=== PATIENT | female | born 1990 | race African-American/Black ===

== ENCOUNTER 2016-06-18 11:20 | Outpatient (CLI) | payer MEDICAID ==
[~2016-06-18] VITALS: Ht 157.5 cm; Wt 83.1 kg
[~2016-06-18 11:20] MED LIST: AC325T; ACET-2303 PO; ACHD5005 PO; AMOX500C2 PO; BUTA-234 PO; CPR500T PO; CYCL10TA9 PO; DEPRESSION MED; DIPH50CA33 PO; ENXP80I.8 SC; ENXP80I.8 SQ; FLUT1DIS28; HEPA500016 IJ; HYDR-707 PO; LRT10T PO; MULT-974 PO; NITR100C PO; ONDA-42 SL; ONDA-43 PO; ONDA8TAB6 PO; OXYC-12 PO; PHEN200T27 PO; PREN1TAB39 PO; PRM25T PO; SULF1TAB38 PO; TOPI100T PO; TRAZ-144 PO; TRM50T PO; WRF5T; WRF5T PO
[2016-06-18 11:30] VITALS: BP 125/77
[2016-06-18] MEDS ORDERED: OMEP20TA33 PO (12:20)
[2016-06-18] MEDS ORDERED: BUTA1CAP17 PO (12:20)
[2016-06-18] MEDS ORDERED: DOXY1TAB3 PO (12:20)
[2016-06-18] MEDS ORDERED: ASPI-808 PO (12:20)
[2016-06-18] MEDS ORDERED: PREN1TAB86 PO (12:20)
[2016-06-18] MEDS ORDERED: TRAM50TA2 PO (12:20)
[2016-06-18] MEDS ORDERED: METF500T4 PO (12:20)
[2016-06-18] MEDS ORDERED: DIPH25CA79 PO (12:20)
[2016-06-18 12:30] VITALS: BP 143/92
[2016-06-18 13:00] VITALS: BP 131/67
[2016-06-18] MEDS ORDERED: CHOL100048 PO (13:10)
[2016-06-18] MEDS ORDERED: VITA1CAP PO (13:10)
--- NOTE | 2016-06-19 10:48 | Physician Query-Final Dx ---
DAMIAN BRANCH 06/19/16 1048: Clinic Account Progress/Dx Physician Query: Please give diagnosis Date of Service June 18, 2016 at 11:20 FRANK RODRIGUEZ DO 06/25/16 1532: Clinic Account Progress/Dx DIAGNOSIS: Diagnosis threatened labor DAMIAN BRANCH June 19, 2016 10:48 FRANK RODRIGUEZ DO June 25, 2016 15:32
== END 2016-06-18 13:22 | disposition home or self-care (01) ==
LOC: LDRP 11:20 → WSo 11:20
PROVIDERS: ATTEND Obstetrics & Gynecology
DX: O47.03 False labor before 37 completed weeks of gestation, third trimester (principal); Z3A.36 36 weeks gestation of pregnancy
CPT/HCPCS: 99213

== ENCOUNTER 2016-07-08 08:05 | Inpatient (IN) | payer MEDICAID ==
[2016-07-08] VITALS (51 sets, daily range): BP systolic 107–148; BP diastolic 56–90
[~2016-07-08] VITALS: Ht 157.5 cm; Wt 83.6 kg
[~2016-07-08 08:05] MED LIST changes: +ASPI-808 PO; +BUTA1CAP17 PO; +CHOL100048 PO; +DIPH25CA79 PO; +DOXY1TAB3 PO; +METF500T4 PO; +OMEP20TA33 PO; +PREN1TAB86 PO; +TRAM50TA2 PO; +VITA1CAP PO
[2016-07-08] MEDS ORDERED: LIDOCAINE 1% INJ 20 ML (XYLOCAINE) VIAL INJ PRN (08:30)
[2016-07-08] MEDS ORDERED: MINERAL OIL CONCENTRATE 99.9% 15 ML UDC TOP PRN (08:30)
[2016-07-08] MEDS ORDERED: OXYTOCIN/NORMAL SALINE 500 ML IV SCH (08:33)
[2016-07-08] MEDS: D5 LR IV SOLUTION 1,000 ML IV SCH ×4 (09:06→22:26)
[2016-07-08 09:43] LABS: BASOPHILS % (AUTO) 0 % (0-10); EOSINOPHILS # (AUTO) 0.1 10^3/uL (0.0-0.3); EOSINOPHILS % (AUTO) 1 % (0-10); LYMPHOCYTES # (AUTO) 1.8 X 10^3 (1.0-4.0); LYMPHOCYTES % (AUTO) 15 % (12-44); MEAN CORPUSCULAR HEMOGLOBIN 31 PG (25-34); MEAN CORPUSCULAR HGB CONC 34 G/DL (32-36); MEAN CORPUSCULAR VOLUME 91 FL (80-99); MEAN PLATELET VOLUME 11.8 FL (7.4-10.4); MONOCYTES # (AUTO) 0.6 X 10^3 (0.0-1.0); MONOCYTES % (AUTO) 5 % (0-12); NEUTROPHILS # (AUTO) 9.7 X 10^3 (1.8-7.8); NEUTROPHILS % (AUTO) 79 % (42-75); PLATELET COUNT 249 10^3/uL (130-400); RED BLOOD COUNT 4.28 10^6/uL (4.35-5.85); RED CELL DISTRIBUTION WIDTH 13.7 % (10.0-14.5); WHITE BLOOD COUNT 12.2 10^3/uL (4.3-11.0)
[2016-07-08 10:03] LABS: BILIRUBIN,URINE NEGATIVE (NEGATIVE); KETONES,URINE 1+ (NEGATIVE); LEUKOCYTE ESTERASE ,URINE NEGATIVE (NEGATIVE); NITRITE,URINE NEGATIVE (NEGATIVE); PH,URINE 7 (5-9); PROTEIN,URINE 1+ (NEGATIVE); UROBILINOGEN,URINE NORMAL (NORMAL)
[2016-07-08 10:16] LABS: WBC,URINE RARE /HPF
[2016-07-08] MEDS ORDERED: PROMETHAZINE INJ 25 MG/ML (PHENERGAN) AMP IVP PRN (11:00)
[2016-07-08] MEDS: fentaNYL INJECTION 100 MCG/2 ML AMP IVP PRN ×2 (13:22→15:13)
[2016-07-08] MEDS ORDERED: CATHETER FLUSH 10 ML SYR IV SCH (14:00)
[2016-07-08] MEDS ORDERED: SUFENTA 0.6MCG/ML BUPIVA 0.125 100 ML ONE (16:25)
[2016-07-08] MEDS ORDERED: BUPIVACAINE 0.25% 30 ML (SENSORCAINE) VIAL ONE (16:28)
[2016-07-08] MEDS ORDERED: LIDOCAINE PF 2% 10 ML (XYLOCAINE) AMP ONE ×2 (16:28→23:17)
[2016-07-08] MEDS ORDERED: fentaNYL INJECTION 100 MCG/2 ML AMP ONE ×2 (16:29→23:43)
[2016-07-08] MEDS ORDERED: LACTATED RINGERS 1,000 ML IV ONE ×2 (19:11)
[2016-07-08] MEDS ORDERED: EPIDURAL (SUFENTA 0.6MCG/ML BUPIVA 0.125%) 100 ML BAG EPI PRN (19:15)
[2016-07-08] MEDS ORDERED: ONDANSETRON 4 MG/2 ML (SDV) Z0FRAN IV PRN (19:15)
[2016-07-08] MEDS ORDERED: NALOXONE 0.4 MG/ML 1 ML (NARCAN) VIAL IV PRN (19:15)
[2016-07-08] MEDS ORDERED: LIDOCAINE/EPI 1%-1:200,000 (XYLOCAINE) 30 ML VIAL ONE (19:42)
[2016-07-08] MEDS ORDERED: METOCLOPRAMIDE INJ 10 MG/2 ML (REGLAN) ONE (22:36)
[2016-07-08] MEDS ORDERED: CITRIC ACID/SOB CIT (BICITRA) 30 ML UDC ONE (22:37)
[2016-07-08] MEDS ORDERED: LACTATED RINGERS 2,000 ML IV ONE (22:37)
[2016-07-08] MEDS ORDERED: FAMOTIDINE 20MG/2ML IV (PEPCID) ONE (22:37)
--- NOTE | 2016-07-08 22:46 | Progress Note-Standard ---
Standard Progress Note Progress Notes/Assess & Plan Progress/Assessment & Plan PAtient was admitted for Induction of labor. She was started on pitocin and had AROM with clear fluid at 11 am. She had pitocin augmentation with several doses of fentanyl and then epidural. She was making steady progress until about 7 cm dilation. She then had some decelerations that improved with position change. She reached 8 cm dilation about 8 pm, however, she continued to have decelerations. These improved with position change, stopping pitocin. After the status returned to normal, and reassuring, pitocin was restarted. however, there was no further cervical change. There was no further cervical dilation beyond 8 cm and the contractions were never adequate to cause further cervical dilation. station also remained -2- -3 station. The decision was made to proceed with primary section due to failure to progress, intolerance to labor remote from delivery, suspected CPD. The risks of this procedure include bleeding, infection, injury to bowel bladder and ureter. Appropriate consents were obtained. Prophylactic Ancef and Zithromax (due to rupture of membranes) were ordered. FRANK RODRIGUEZ DO July 08, 2016 22:46
[2016-07-08] MEDS ORDERED: ceFAZolin 2 GM/50 ML NS 50 ML IV ONE (23:00)
[2016-07-08] MEDS ORDERED: FAMOTIDINE 20MG/2ML IV (PEPCID) IV ONE (23:00)
[2016-07-08] MEDS ORDERED: CITRIC ACID/SOB CIT (BICITRA) 30 ML UDC PO ONE (23:00)
[2016-07-08] MEDS ORDERED: METOCLOPRAMIDE INJ 10 MG/2 ML (REGLAN) IV ONE (23:00)
[2016-07-08] MEDS ORDERED: AZITHROMYCIN INJECTION 500 MG in NS (IVPB) 250 ML IV ONE ×2 (23:00→23:15)
[2016-07-08] MEDS ORDERED: AZITHROMYCIN 500 MG (ZITHROMAX) VIAL ONE (23:14)
[2016-07-08] MEDS ORDERED: NS (IVPB) 250 ML ONE (23:16)
[2016-07-08] MEDS ORDERED: KETAMINE HCL 100 MG/ML 5 ML VIAL ONE (23:23)
[2016-07-08] MEDS ORDERED: ONDANSETRON 4 MG/2 ML (SDV) Z0FRAN ONE (23:53)
[2016-07-08] MEDS ORDERED: OXYTOCIN/NORMAL SALINE 1,000 ML IV ONE (23:54)
[2016-07-08] MEDS ORDERED: BUPIVACAINE 0.5% 30 ML (SENSORCAINE) VIAL ONE (23:54)
[2016-07-09] VITALS (7 sets, daily range): BP systolic 100–142; BP diastolic 63–89
[2016-07-09] MEDS ORDERED: KETOROLAC 30 MG/ML VIAL IVP ONE
[2016-07-09] MEDS ORDERED: TETANUS,DIPTH,PERTUSS P/F (BOOSTRIX) 0.5 ML VIAL IM SCH
[2016-07-09] MEDS ORDERED: MEASLES,MUMPS,RUBELLA 1 EA INJ SC SCH
[2016-07-09] MEDS ORDERED: OXYTOCIN/NORMAL SALINE 500 ML IV SCH
[2016-07-09] MEDS ORDERED: KETOROLAC 30 MG/ML VIAL IVP SCH
--- NOTE | 2016-07-09 00:13 | Cesarean Section Operative ---
Procedure Procedure Note Pre-operative Diagnosis: Tisha Forbes is a 25 /Para 5 /1121 , Gestational Age 39 2/7 weeks for gestational hypertension without significant proteinuria, advanced dilation (ripe cervix), history of stillbirth due to severe preeclampsia, failure to progress, intolerance to labor remote from delivery, Post-operative Diagnosis: same, Occiput posterior presentation, nuchal cord and body cord x 1, loose and reduced Procedure: Primary low transverse section Physician: FRANK RODRIGUEZ Estimated blood loss: 500 mL Disposition: Findings: Viable male infant, Apgars 8/9, weight 7#, intact placenta, 3vc, normal appearing uterus, tubes, and ovaries. Indications:Tisha Forbes is a 25 /Para 5 /1121 ,Gestational Age 39 2/7 weeks for gestational hypertension without significant proteinuria, advanced dilation (ripe cervix), history of stillbirth due to severe preeclampsia, failure to progress, intolerance to labor remote from delivery, Occiput posterior presentation, nuchal cord and body cord x 1, loose and reduced Procedure Details: The patient was seen in pre-op and the procedure was discussed with the patient in full, including the risks, benefits, and alternatives. See preoperative note. All questions were answered. The patient was taken to the operating room and a time out was performed, verifying patient and procedure. After epidural anesthesia was redosed by our anesthesia colleagues, the patient was placed in the dorsal supine with leftward tilt for uterine displacement.~ Her abdomen was then prepped and draped in the typical sterile fashion. Ancef 2 grams were given prophylactically prior to incision, and then Azithromycin 500 mg IV given as patient has been ruptured for > 4 hours, to prevent post operative endometritis. A Pfannenstiel skin incision was made using a scalpel and carried down through the underlying fascia. The fascia was incised in the midline and tented up using Anette clamps. On both the inferior and superior fascia side the rectus muscle was dissected off bluntly and sharply using Flores scissors. The peritoneum was identified and entered bluntly in the midline. This was then stretched laterally using manual strength. After entering the abdominal cavity and confirming lack of intraperitoneal adhesions, a large Douglas retractor was placed and the lower uterine segment was visualized. A scalpel was utilized to make a low transverse uterine incision. Amniotomy was performed with an Allis clamp with return of clear fluid. The infant's head was noted to be in the Occiput Posterior presentation and was grasped and brought to the level of the incision. A silastic suction was placed to facilitate delivery of the head. Fundal pressure was applied and was delivered without difficulty. Mouth and nares were suctioned with bulb suction. There was a loose nuchal and body cord that was reduced prior to delivery. After the umbilical cord was clamped and cut, the was handed off to the pediatric staff. A sample of cord blood was then obtained. The placenta was delivered intact via uterine massage. The uterus was cleared of all clots and debris. The uterine incision was closed using 0 Vicryl in a running locked fashion. A second imbricated layer was placed using 0 Vicryl in a running fashion as well. The gutters were cleared of all clots and debris. The bilateral tubes and ovaries appeared normal. A final check of the uterine incision showed it to be hemostatic. The peritoneum was closed using 3-0 Vicryl in a running fashion. The fascia was closed with 0 Vicryl in a running fashion. The subcutaneous space was hemostatic, and irrigated. The subcutaneous space was closed with 0 plain in a running fashion. The skin was then closed using 4- 0 Monocryl in a running subcuticular fashion. The skin edges were reapproximated together and were hemostatic. A pressure dressing was applied. All sponge, lap and needle counts were correct at the end of the procedure per nursing. Vitals - Labs Vital Signs - I&O Vital Signs Date Time Temp Pulse Resp B/P (MAP) Pulse Ox O2 Delivery O2 Flow Rate FiO2 07/08/16 22:15 97 20 120/58 10.00 07/08/16 22:04 93 18 123/65 10.00 07/08/16 21:45 96 20 121/60 10.00 07/08/16 21:44 10.00 07/08/16 21:30 128/62 07/08/16 21:00 96.9 98 20 120/78 07/08/16 20:28 100 18 116/63 07/08/16 20:06 137 20 121/89 07/08/16 20:00 137 20 100 07/08/16 19:45 137 20 121/89 07/08/16 19:30 97.8 129 20 136/77 07/08/16 19:15 95 20 130/73 07/08/16 18:59 118 18 127/74 07/08/16 18:45 18 07/08/16 18:30 123 18 131/64 99 07/08/16 18:15 123 18 129/70 99 07/08/16 18:00 126 18 148/80 99 07/08/16 17:45 93 18 120/57 99 07/08/16 17:30 105 18 129/62 99 07/08/16 17:15 126 18 148/80 99 07/08/16 17:00 126 18 148/80 99 07/08/16 16:45 110 18 129/74 07/08/16 16:30 112 18 136/75 07/08/16 16:15 110 18 114/68 07/08/16 16:00 102 18 120/72 07/08/16 15:45 93 18 120/57 07/08/16 15:30 105 18 129/62 07/08/16 15:15 99 18 131/65 07/08/16 15:00 96 18 127/63 07/08/16 14:45 100 18 121/59 07/08/16 14:30 87 18 120/73 07/08/16 14:15 100 18 118/64 07/08/16 14:00 82 18 122/65 07/08/16 13:45 104 18 136/86 07/08/16 13:30 96 18 142/67 07/08/16 13:15 96 18 136/82 07/08/16 13:00 92 18 117/57 07/08/16 12:45 100 18 125/58 07/08/16 12:30 95 18 112/60 07/08/16 12:15 104 18 124/90 07/08/16 12:00 97 18 107/62 07/08/16 11:45 96 18 119/67 07/08/16 11:30 100 18 116/58 07/08/16 11:15 100 18 119/65 07/08/16 11:00 126 18 133/82 07/08/16 10:45 121 18 133/80 07/08/16 10:30 111 18 143/79 07/08/16 10:15 101 18 115/56 07/08/16 10:00 116 18 133/78 07/08/16 09:30 110 18 126/84 07/08/16 09:00 98.2 118 18 122/74 I & O 07/09/16 07:00 Intake Total 50 ml Output Total 50 ml Balance 0 ml Labs Laboratory Tests 07/08/16 08:55: White Blood Count 12.2H, Red Blood Count 4.28L, Hemoglobin 13.4, Hematocrit 39, Mean Corpuscular Volume 91, Mean Corpuscular Hemoglobin 31, Mean Corpuscular Hemoglobin Concent 34, Red Cell Distribution Width 13.7, Platelet Count 249, Mean Platelet Volume 11.8H, Neutrophils (%) (Auto) 79H, Lymphocytes (%) (Auto) 15, Monocytes (%) (Auto) 5, Eosinophils (%) (Auto) 1, Basophils (%) (Auto) 0, Neutrophils # (Auto) 9.7H, Lymphocytes # (Auto) 1.8, Monocytes # (Auto) 0.6, Eosinophils # (Auto) 0.1, Basophils # (Auto) 0.0 07/08/16 09:50: Urine Color YELLOW, Urine Clarity CLEAR, Urine pH 7, Urine Specific Fenton 1.010L, Urine Protein 1+H, Urine Glucose (UA) NEGATIVE, Urine Ketones 1+H, Urine Nitrite NEGATIVE, Urine Bilirubin NEGATIVE, Urine Urobilinogen NORMAL, Urine Leukocyte Esterase NEGATIVE, Urine RBC (Auto) NEGATIVE, Urine RBC NONE, Urine WBC RARE, Urine Squamous Epithelial Cells 5-10, Urine Crystals NONE, Urine Bacteria FEWH, Urine Casts NONE, Urine Mucus NEGATIVE, Urine Culture Indicated NO FRANK RODRIGUEZ DO July 09, 2016 00:13
[2016-07-09] MEDS ORDERED: IBUP-1773 PO (00:19)
[2016-07-09] MEDS ORDERED: HYDR-3812 PO (00:19)
--- NOTE | 2016-07-09 00:20 | Discharge Inst-Women's Service ---
Discharge Inst-Women's Serv Depart Medication/Instructions New, Converted or Re-Newed RX: RX on Chart Final Diagnosis failure to progress/arrest of labor non reassuring heart tracing remote from delivery OP presentation gestational hypertension, without significant proteinuria Consults/Follow Up Additional Follow Up: Yes (1 week for incision check 6 week pp exam) Activity Activity: Activity as Tolerated (no lifting over 25 lbs) Driving Instructions: No Driving for 1 Week NO SMOKING: NO SMOKING Nothing Inside Vagina: No Douching, No [place], No Tampons Diet Discharge Diet: No Restrictions Symptoms to Report to : Swelling Increased, Eyesight Changes, Pain Increased , Fever Over 101 Degrees F, Pain/Pressure in Jaw, Vaginal Bleeding Increase, Cramps in Feet or Legs, Vaginal Discharge Foul For Any Problems or Questions: Contact Your Physician Skin/Wound Care Infection Signs and Symptoms: Increased Redness, Foul Odor of Wound, Increased Drainage, Skin Itchy or Has a Rash, Increased Swelling, Temperature Above 101 F Operative Area Clean and Dry: Keep Incision Clean/Dry Stitches/Zack/Dermabond: Dermabond Bathing Instructions: FRANK Adames DO July 09, 2016 00:20
[2016-07-09] MEDS: D5 LR IV SOLUTION 1,000 ML IV SCH ×2 (00:49→03:00)
[2016-07-09] MEDS: HYDROcodone/APAP 5 MG/325 MG (LORTAB) TAB PO PRN ×3 (01:56→06:17)
[2016-07-09] MEDS: HYDROmorphone (DILAUDID) 2 MG/ML VIAL IVP PRN ×2 (03:15→08:40)
[2016-07-09] MEDS ORDERED: CATHETER FLUSH 10 ML SYR IV SCH (06:00)
[2016-07-09] MEDS: DOCUSATE SODIUM 100 MG (COLACE) CAP PO SCH ×2 (08:08→20:37)
[2016-07-09] MEDS: FERROUS SULF 325 MG (IRON) TAB PO SCH (08:08)
--- NOTE | 2016-07-09 10:44 | Postpartum Progress Note ---
Post Op Post-operative Day #1 Subjective: Patient is without complaints. Ambulating, voiding after muñiz removed. Tolerating a regular diet without nausea or vomiting. Normal lochia. Pain is well controlled with oral pain medications (did have dilaudid this AM, RN wondering about switching to percocet from lortab). Passing flatus. Breast feeding. Objective: VS - Last 72 Hours, by Label 07/08/17 5//17 5//17 5//17 09:00 09:30 10:00 10:15 Temp 98.2 Pulse 118 110 116 101 Resp 18 18 18 18 B/P (MAP) 122/74 126/84 133/78 115/56 5//17 5//17 5/23/17 5//17 10:30 10:45 11:00 11:15 Pulse 111 121 126 100 Resp 18 18 18 18 B/P (MAP) 143/79 133/80 133/82 119/65 5//17 5//17 5/23/17 5/23/17 11:30 11:45 12:00 12:15 Pulse 100 96 97 104 Resp 18 18 18 18 B/P (MAP) 116/58 119/67 107/62 124/90 5/23/17 5//17 5/23/17 5/23/17 12:30 12:45 13:00 13:15 Pulse 95 100 92 96 Resp 18 18 18 18 B/P (MAP) 112/60 125/58 117/57 136/82 5/23/17 5/23/17 5/23/17 5/23/17 13:30 13:45 14:00 14:15 Pulse 96 104 82 100 Resp 18 18 18 18 B/P (MAP) 142/67 136/86 122/65 118/64 5/23/17 5/23/17 5/23/17 5/23/17 14:30 14:45 15:00 15:15 Pulse 87 100 96 99 Resp 18 18 18 18 B/P (MAP) 120/73 121/59 127/63 131/65 5/23/17 5/23/17 5/23/17 5/23/17 15:30 15:45 16:00 16:15 Pulse 105 93 102 110 Resp 18 18 18 18 B/P (MAP) 129/62 120/57 120/72 114/68 5/23/17 5//17 5//17 5/ 16:30 16:45 17:00 17:15 Pulse 112 110 126 126 Resp 18 18 18 18 B/P (MAP) 136/75 129/74 148/80 148/80 Pulse Ox 99 99 //17 5//17 5//17 5 17:30 17:45 18:00 18:15 Pulse 105 93 126 123 Resp 18 18 18 18 B/P (MAP) 129/62 120/57 148/80 129/70 Pulse Ox 99 99 99 99 07/08/17 5/17 5//17 5 18:30 18:45 18:59 19:15 Pulse 123 118 95 Resp 18 18 18 20 B/P (MAP) 131/64 127/74 130/73 Pulse Ox 99 07/08/17 5/17 5/17 5 19:30 19:45 20:00 20:06 Temp 97.8 Pulse 129 137 137 137 Resp 20 20 20 20 B/P (MAP) 136/77 121/89 121/89 Pulse Ox 100 07/08/17 5//17 5// 5 20:28 21:00 21:30 21:44 Temp 96.9 Pulse 100 98 Resp 18 20 B/P (MAP) 116/63 120/78 128/62 O2 Flow Rate 10.00 07/08/17 07/08/07/08/17 5 21:45 22:04 22:15 22:35 Temp 96.6 Pulse 96 93 97 96 Resp 20 18 20 20 B/P (MAP) 121/60 123/65 120/58 109/57 O2 Flow Rate 10.00 10.00 10.00 10.00 07/08/17 5/17 07/09/16 5 22:45 23:00 02:00 02:30 Temp 97.8 Pulse 107 111 94 96 Resp 18 20 18 20 B/P (MAP) 128/71 117/65 115/71 100/63 Pulse Ox 99 98 O2 Flow Rate 10.00 10.00 07/09/16 5 05:20 08:05 Temp 96.2 97.4 Pulse 88 93 Resp 20 18 B/P (MAP) 114/74 114/72 Pulse Ox 97 98 Physical Exam: General - Alert and oriented, no apparent distress Abdomen - Soft, appropriately tender to palpation, non-distended, fundus firm at umbilicus Incision - clean, dry and intact; no erythema or induration, no drainage Extremities - no edema, negative Yaquelin's bilaterally Assessment: 27 post-operative day # 1, status post PLTCS for arrest of active phase of labor. Recovering well, hemodynamically stable Plan: Routine post-operative care. CBC not ordered until tomorrow AM - will need to add iron at that time if indicated Abdominal binder, discussed pain management strategies Encourage breast feeding. Encourage ambulation. VTE prophylaxis: SCDs. Plan for discharge POD#2 or 3 Vitals - Labs Vital Signs - I&O Vital Signs Date Time Temp Pulse Resp B/P (MAP) Pulse Ox O2 Delivery O2 Flow Rate FiO2 07/09/16 08:05 97.4 93 18 114/72 98 07/09/16 05:20 96.2 88 20 114/74 97 07/09/16 02:30 96 20 100/63 98 07/09/16 02:00 97.8 94 18 115/71 99 07/08/16 23:00 111 20 117/65 10.00 07/08/16 22:45 107 18 128/71 10.00 07/08/16 22:35 96.6 96 20 109/57 10.00 07/08/16 22:15 97 20 120/58 10.00 07/08/16 22:04 93 18 123/65 10.00 07/08/16 21:45 96 20 121/60 10.00 07/08/16 21:44 10.00 07/08/16 21:30 128/62 07/08/16 21:00 96.9 98 20 120/78 07/08/16 20:28 100 18 116/63 07/08/16 20:06 137 20 121/89 07/08/16 20:00 137 20 100 07/08/16 19:45 137 20 121/89 07/08/16 19:30 97.8 129 20 136/77 07/08/16 19:15 95 20 130/73 07/08/16 18:59 118 18 127/74 07/08/16 18:45 18 07/08/16 18:30 123 18 131/64 99 07/08/16 18:15 123 18 129/70 99 07/08/16 18:00 126 18 148/80 99 07/08/16 17:45 93 18 120/57 99 07/08/16 17:30 105 18 129/62 99 07/08/16 17:15 126 18 148/80 99 07/08/16 17:00 126 18 148/80 99 07/08/16 16:45 110 18 129/74 07/08/16 16:30 112 18 136/75 07/08/16 16:15 110 18 114/68 07/08/16 16:00 102 18 120/72 07/08/16 15:45 93 18 120/57 07/08/16 15:30 105 18 129/62 07/08/16 15:15 99 18 131/65 07/08/16 15:00 96 18 127/63 07/08/16 14:45 100 18 121/59 07/08/16 14:30 87 18 120/73 07/08/16 14:15 100 18 118/64 07/08/16 14:00 82 18 122/65 07/08/16 13:45 104 18 136/86 07/08/16 13:30 96 18 142/67 07/08/16 13:15 96 18 136/82 07/08/16 13:00 92 18 117/57 07/08/16 12:45 100 18 125/58 07/08/16 12:30 95 18 112/60 07/08/16 12:15 104 18 124/90 07/08/16 12:00 97 18 107/62 07/08/16 11:45 96 18 119/67 07/08/16 11:30 100 18 116/58 07/08/16 11:15 100 18 119/65 07/08/16 11:00 126 18 133/82 07/08/16 10:45 121 18 133/80 I & O 07/09/16 07:00 Intake Total 1200 ml Output Total 375 ml Balance 825 ml DEEDEE OLIVAREZ MD July 09, 2016 10:44
[2016-07-09] MEDS ORDERED: SALINE NASAL SPRAY (OCEAN) 45 ML BTL PRN (11:00)
[2016-07-09] MEDS: oxyCODONE/APAP 5/325MG (PERCOCET 5) TABLET PO PRN ×3 (11:03→20:37)
[2016-07-09] MEDS: IBUPROFEN 600 MG (MOTRIN) TAB PO SCH ×3 (13:25→23:10)
[2016-07-10] MEDS: IBUPROFEN 600 MG (MOTRIN) TAB PO SCH ×5 (00:26→22:14)
[2016-07-10 04:59] VITALS: BP 129/84
[2016-07-10] MEDS: oxyCODONE/APAP 5/325MG (PERCOCET 5) TABLET PO PRN ×4 (04:59→19:49)
[2016-07-10 06:07] LABS: BASOPHILS % (AUTO) 0 % (0-10); EOSINOPHILS # (AUTO) 0.2 10^3/uL (0.0-0.3); EOSINOPHILS % (AUTO) 2 % (0-10); LYMPHOCYTES % (AUTO) 16 % (12-44); MEAN CORPUSCULAR HEMOGLOBIN 31 PG (25-34); MEAN CORPUSCULAR HGB CONC 33 G/DL (32-36); MEAN CORPUSCULAR VOLUME 94 FL (80-99); MEAN PLATELET VOLUME 11.3 FL (7.4-10.4); MONOCYTES # (AUTO) 0.8 X 10^3 (0.0-1.0); MONOCYTES % (AUTO) 6 % (0-12); NEUTROPHILS # (AUTO) 9.3 X 10^3 (1.8-7.8); NEUTROPHILS % (AUTO) 76 % (42-75); PLATELET COUNT 208 10^3/uL (130-400); RED BLOOD COUNT 3.42 10^6/uL (4.35-5.85); RED CELL DISTRIBUTION WIDTH 13.8 % (10.0-14.5); WHITE BLOOD COUNT 12.3 10^3/uL (4.3-11.0)
--- NOTE | 2016-07-10 09:22 | Progress Note-Standard ---
Standard Progress Note Progress Notes/Assess & Plan Progress/Assessment & Plan Subjective: Patient is still very sore. Ambulating, voiding freely. Tolerating a regular diet without nausea or vomiting. Normal lochia. Pain is well controlled with oral pain medications. Passing flatus. Breast feeding. Objective: Vital Sign - Last 24 Hours 07/09/16 07/09/16 07/09/16 07/10/16 13:25 18:45 23:10 04:59 Temp 97.4 96.9 96.1 97.8 Pulse 85 89 91 85 Resp 18 20 20 18 B/P (MAP) 122/71 142/89 125/81 129/84 Pulse Ox 98 96 96 96 Intake and Output 07/09/16 07/09/16 07/10/16 15:00 23:00 07:00 Intake Total 900 ml 500 ml 1300 ml Output Total 2200 ml Balance 900 ml -1700 ml 1300 ml Laboratory Tests Test 07/10/16 05:41 Range/Units White Blood Count 12.3 H 4.3-11.0 10^3/uL Red Blood Count 3.42 L 4.35-5.85 10^6/uL Hemoglobin 10.6 #L 11.5-16.0 G/DL Hematocrit 32 L 35-52 % Mean Corpuscular Volume 94 80-99 FL Mean Corpuscular Hemoglobin 31 25-34 PG Mean Corpuscular Hemoglobin Concent 33 32-36 G/DL Red Cell Distribution Width 13.8 10.0-14.5 % Platelet Count 208 130-400 10^3/uL Mean Platelet Volume 11.3 H 7.4-10.4 FL Neutrophils (%) (Auto) 76 H 42-75 % Lymphocytes (%) (Auto) 16 12-44 % Monocytes (%) (Auto) 6 0-12 % Eosinophils (%) (Auto) 2 0-10 % Basophils (%) (Auto) 0 0-10 % Neutrophils # (Auto) 9.3 H 1.8-7.8 X 10^3 Lymphocytes # (Auto) 2.0 1.0-4.0 X 10^3 Monocytes # (Auto) 0.8 0.0-1.0 X 10^3 Eosinophils # (Auto) 0.2 0.0-0.3 10^3/uL Basophils # (Auto) 0.0 0.0-0.1 10^3/uL Physical Exam: General - Alert and oriented, no apparent distress Abdomen - Soft, appropriately tender to palpation, non-distended, fundus firm at umbilicus Incision - clean, dry and intact; no erythema or induration, no drainage Extremities - no edema, negative Yaquelin's bilaterally Assessment: 27 post-operative day # 2, status post PLTCS for arrest of active phase of labor. Recovering well, hemodynamically stable Acute blood loss anemia Plan: Routine post-operative care. Start iron supplement Abdominal binder, discussed pain management strategies Encourage breast feeding. Encourage ambulation. VTE prophylaxis: SCDs. Plan for discharge POD# 3 JENNIFER BHARDWAJ DO July 10, 2016 9:22 am
[2016-07-10 09:30] VITALS: BP 133/83
[2016-07-10] MEDS: FERROUS SULF 325 MG (IRON) TAB PO SCH (09:35)
[2016-07-10] MEDS: DOCUSATE SODIUM 100 MG (COLACE) CAP PO SCH ×2 (09:35→19:49)
[2016-07-10 14:30] VITALS: BP 119/78
[2016-07-10 18:00] VITALS: BP 113/70
[2016-07-10 19:47] VITALS: BP 112/68
[2016-07-11 02:45] VITALS: BP 102/68
[2016-07-11] MEDS: IBUPROFEN 600 MG (MOTRIN) TAB PO SCH ×2 (04:19→09:30)
[2016-07-11] MEDS: oxyCODONE/APAP 5/325MG (PERCOCET 5) TABLET PO PRN ×2 (04:57→09:33)
[2016-07-11] MEDS ORDERED: FERROUS SULF 325 MG (IRON) TAB PO SCH (07:00)
[2016-07-11 08:00] VITALS: BP 129/79
--- NOTE | 2016-07-11 08:37 | Postpartum Progress Note ---
Post Op Post-operative Day #[] Subjective: Patient is without complaints. Ambulating, voiding after muñiz removed. Tolerating a regular diet without nausea or vomiting. Normal lochia. Pain is well controlled with oral pain medications. Passing flatus. [] feeding. [] Objective: Vital Sign - Last 12Hours 07/11/16 07/11/16 02:45 08:00 Temp 97.6 97.8 Pulse 78 75 Resp 18 18 B/P (MAP) 102/68 129/79 Pulse Ox 99 99 Intake and Output 07/11/16 00:00 Intake Total 1480 ml Output Total 1150 ml Balance 330 ml Physical Exam: General - Alert and oriented, no apparent distress Abdomen - Soft, appropriately tender to palpation, non-distended, fundus firm at umbilicus Incision - clean, dry and intact; no erythema or induration, no drainage Extremities - no edema, negative Yaquelin's bilaterally [] Assessment: [] post-operative day # [], status post []. Recovering well, hemodynamically stable Acute blood loss anemia [] Plan: Routine post-operative care. Encourage breast feeding. Encourage ambulation. VTE prophylaxis: SCDs. Ferrous sulfate supplementation. Plan for discharge [] Vitals - Labs Vital Signs - I&O Vital Signs Date Time Temp Pulse Resp B/P (MAP) Pulse Ox O2 Delivery O2 Flow Rate FiO2 07/11/16 08:00 97.8 75 18 129/79 99 07/11/16 02:45 97.6 78 18 102/68 99 07/10/16 19:47 97.8 83 18 112/68 98 07/10/16 18:00 98.0 83 18 113/70 99 07/10/16 14:30 97.2 79 18 119/78 99 07/10/16 09:30 97.6 81 18 133/83 98 I & O 07/11/16 07:00 Intake Total 2180 ml Output Total 1450 ml Balance 730 ml FRANK RODRIGUEZ DO July 11, 2016 08:37
[2016-07-11] MEDS: FERROUS SULF 325 MG (IRON) TAB PO SCH (09:30)
[2016-07-11] MEDS: DOCUSATE SODIUM 100 MG (COLACE) CAP PO SCH (09:30)
[2016-07-11 11:45] VITALS: BP 129/79
== END 2016-07-11 11:45 | disposition home or self-care (01) | DRG 765 ==
LOC: LDRP 08:05 → 3RD 08:47 → LDRP 08:47
PROVIDERS: ADMIT Obstetrics & Gynecology; ATTEND Obstetrics & Gynecology
PROC: 10D00Z1 Extraction of Products of Conception, Low, Open Approach (ICD-10-PCS; principal; 2016-07-08 23:15)
DX: O13.3 Gestational [pregnancy-induced] hypertension without significant proteinuria, third trimester (principal); O99.03 Anemia complicating the puerperium; D62 Acute posthemorrhagic anemia; O33.9 Maternal care for disproportion, unspecified; O76 Abnormality in fetal heart rate and rhythm complicating labor and delivery; O62.1 Secondary uterine inertia; O69.81X0 Labor and delivery complicated by cord around neck, without compression, not applicable or unspecified; O69.82X0 Labor and delivery complicated by other cord entanglement, without compression, not applicable or unspecified; O09.293 Supervision of pregnancy with other poor reproductive or obstetric history, third trimester; Z3A.39 39 weeks gestation of pregnancy; Z37.0 Single live birth; Z23 Encounter for immunization
CPT/HCPCS: 36415; 81000; 85025; 86850; 86900; 86901; 90707; 94664

== ENCOUNTER → 2016-07-18 | Outpatient (CLI) | payer MEDICAID ==
[~2016-07-18] MED LIST changes: +HYDR-3812 PO; +IBUP-1773 PO
[2016-07-18 10:08] LABS: BASOPHILS # (AUTO) 0.1 10^3/uL (0.0-0.1); BASOPHILS % (AUTO) 1 % (0-10); EOSINOPHILS # (AUTO) 0.5 10^3/uL (0.0-0.3); EOSINOPHILS % (AUTO) 6 % (0-10); LYMPHOCYTES # (AUTO) 2.1 X 10^3 (1.0-4.0); LYMPHOCYTES % (AUTO) 25 % (12-44); MEAN CORPUSCULAR HEMOGLOBIN 31 PG (25-34); MEAN CORPUSCULAR HGB CONC 33 G/DL (32-36); MEAN CORPUSCULAR VOLUME 94 FL (80-99); MEAN PLATELET VOLUME 9.8 FL (7.4-10.4); MONOCYTES # (AUTO) 0.4 X 10^3 (0.0-1.0); MONOCYTES % (AUTO) 5 % (0-12); NEUTROPHILS # (AUTO) 5.2 X 10^3 (1.8-7.8); NEUTROPHILS % (AUTO) 64 % (42-75); PLATELET COUNT 376 10^3/uL (130-400); RED BLOOD COUNT 4.02 10^6/uL (4.35-5.85); RED CELL DISTRIBUTION WIDTH 13.5 % (10.0-14.5); WHITE BLOOD COUNT 8.2 10^3/uL (4.3-11.0)
[2016-07-18 10:31] LABS: ALANINE AMINOTRANSFERASE 20 U/L (0-55); ALBUMIN 3.6 G/DL (3.2-4.5); ANION GAP 10 MMOL/L (5-14); ASPARTATE AMINO TRANSFERASE 21 U/L (5-34); BILIRUBIN,TOTAL 0.3 MG/DL (0.1-1.0); BLOOD UREA NITROGEN 12 MG/DL (7-18); BUN/CREATININE RATIO 17; CALCIUM 9.1 MG/DL (8.5-10.1); CARBON DIOXIDE 24 MMOL/L (21-32); CHLORIDE 107 MMOL/L (98-107); CREATININE SERUM 0.71 MG/DL (0.60-1.30); GFR ESTIMATED > 60; GLUCOSE 68 MG/DL (70-105); LACTATE DEHYDROGENASE 240 U/L (125-220); POTASSIUM 4.6 MMOL/L (3.6-5.0); SODIUM 141 MMOL/L (135-145); TOTAL PROTEIN 6.8 G/DL (6.4-8.2)
== END ==
LOC: LAB 09:43
PROVIDERS: ATTEND Obstetrics & Gynecology
DX: O13.5 Gestational [pregnancy-induced] hypertension without significant proteinuria, complicating the puerperium (principal)
CPT/HCPCS: 36415; 80053; 83615; 84550; 85025

== ENCOUNTER 2016-09-28 17:31 | Emergency (ER) | payer MEDICAID ==
[~2016-09-28] VITALS: Ht 157.5 cm; Wt 81.6 kg
[2016-09-28] MEDS ORDERED: CETI10CA PO (18:18)
[2016-09-28] MEDS ORDERED: DESV100T PO (18:18)
[2016-09-28] MEDS ORDERED: PREG150C PO (18:18)
[2016-09-28] MEDS ORDERED: ASPI-906 PO (18:18)
--- NOTE | 2016-09-28 18:46 | ED EENT ---
History of Present Illness General Chief Complaint: Dental Problems/Pain Stated Complaint: L SIDE JAW PAIN/SWELLING Nursing Triage Note: PT HERE WITH C/O L LOWER DENTAL PAIN AND SWELLING STARTING YESTERDAY. Source: patient, other Exam Limitations: no limitations History of Present Illness Time seen by provider: 18:41 Initial Comments patient presents to ER by private conveyance with a chief complaint of dental pain on the left lower mandible. She is been seen by her primary doctor and was put on a course of Augmentin for 10 days which worked really well but that stopped Thursday. Today she woke up with more pain extending down her jaw causing her to have tenderness in her neck. No fevers chills nausea vomiting or diarrhea or rash. No prominent lymph nodes. No other history of injury to the area. She has a appointment to have her teeth extracted on 06 October in [place], [place]. the patient is a smoker and she is been using Tylenol and ibuprofen appropriately. Allergies and Home Medications Allergies Coded Allergies: ondansetron (Unverified Allergy, Intermediate, 09/19/13) morphine (Unverified Allergy, Mild, 03/11/09) sumatriptan (Unverified Allergy, Mild, 03/11/09) Sulfa (Sulfonamide Antibiotics) (Verified Allergy, Unknown, Throat swelling, Hives, 06/18/16) latex (Unverified Allergy, Unknown, 09/19/13) meperidine (Verified Allergy, Unknown, Itching (PT HAS RECEIVED FENTANYL W /O ISSUE), 07/08/16) Home Medications Amoxicillin 500 Mg Capsule, 500 MG PO TID for 10 Days, #30 Ref 0 Prescribed by: CARL YBARRA on 09/28/16 190 Aspirin 81 Mg Tab.chew, 324 MG PO, (Reported) Cetirizine HCl 10 Mg Capsule, 10 MG PO, (Reported) Desvenlafaxine Succinate 100 Mg Tab.er.24h, 100 MG PO, (Reported) Pregabalin 150 Mg Capsule, 150 MG PO, (Reported) Review of Systems Constitutional: No chills, No diaphoresis, No fever, No malaise Eyes: Denies Blurred Vision, Denies Drainage Ears: Denies Dizziness, Denies Pain Nose: denies clots, denies congestion Mouth: pain, swelling, denies bloody discharge, denies clear discharge, denies previous injury Throat: denies swelling, denies discharge Respiratory: No cough, No short of breath Gastrointestinal: No nausea, No vomiting Past Zpijuvm-Xxezgp-Buaaew Hx Patient Social History Smoking Status: Current Everyday Smoker Type Used: Cigarettes Recent Foreign Travel: No Contact w/Someone Who Travel: No Recent Infectious Disease Expo: No Recent Hopitalizations: Yes Immunizations Up To Date Tetanus Booster (TDap): Less than 5yrs Seasonal Allergies Seasonal Allergies: No Surgeries HX Surgeries: Yes ( 3 KNEE SURGERIES, EGD) Respiratory Hx Respiratory Disorders: No Cardiovascular Hx Cardiac Disorders: Yes (Protein C deficiency) Neurological Hx Neurological Disorders: Yes Reproductive System Hx Reproductive Disorders: Yes (stillbirth August 2008) Sexually Transmitted Disease: No HIV/AIDS: No Genitourinary Hx Genitourinary Disorders: Yes Genitourinary Disorders: Kidney Stones, UTI-Chronic Gastrointestinal Hx Gastrointestinal Disorders: Yes Gastrointestinal Disorders: Hiatal Hernia Musculoskeletal Hx Musculoskeletal Disorders: Yes (Tendonitis bilat shoulders/wrists) Endocrine Hx Endocrine Disorders: No HEENT HX ENT Disorders: No Cancer Hx Cancer: No Psychosocial Hx Psychiatric Problems: Yes Behavioral Health Disorders: Anxiety, Bipolar, Depression Integumentary HX Skin/Integumentary Disorder: No Blood Transfusions Hx Blood Disorders: Yes (protein C deficiency-"took blood thinners") Adverse Reaction to a Blood Tr: No Family Medical History Significant Family History: No Pertinent Family Hx Family Medial History: Alcoholism 19 MOTHER Diabetes mellitus 19 MOTHER MATERNAL GRANDFATHER FH: heart disease MATERNAL GRANDMOTHER MATERNAL GRANDFATHER FH: hyperlipidemia 19 MOTHER FH: mental illness 19 MOTHER MATERNAL GRANDMOTHER MATERNAL GRANDFATHER FH: migraine headache 19 MOTHER MATERNAL GRANDMOTHER FH: ovarian cancer 19 MOTHER MATERNAL GRANDMOTHER FH: pancreatic cancer MATERNAL GRANDFATHER FH: stroke MATERNAL GRANDMOTHER MATERNAL GRANDFATHER FH: uterine cancer MATERNAL GRANDMOTHER Hypertension MATERNAL GRANDMOTHER MATERNAL GRANDFATHER Physical Exam Vital Signs Vital Sign - Last 12Hours 09/28/16 18:13 Temp 97.8 Pulse 71 Resp 18 General Appearance: WD/WN, no apparent distress Eyes: bilateral eye EOMI, bilateral eye PERRL, bilateral eye normal inspection Ears: bilateral ear TM normal, bilateral ear auricle normal, bilateral ear canal normal Nose: normal inspection, No active bleeding Mouth/Throat: dental tenderness, No foreign body, No tongue swollen, No tonsillar exudate Neck: supple, normal inspection, tender lateral (left) Neurologic/Psychiatric: alert, oriented x 3 Skin: normal color, warm/dry Dental Procedures: alveolar nerve block with half percent Marcaine and 1% lidocaine, patient tolerated well. 2 cc of each Progress/Results/Core Measures Results/Orders My Orders Orders - CARL YBARRA Bupivacaine 0.5% Injection (Sensorcaine (09/28/16 19:00) Lidocaine 1% Injection (Xylocaine 1% Inj (09/28/16 19:00) Amoxicillin Capsule (Polymox Capsule) (09/28/16 18:47) Vital Signs/I&O Vital Sign - Last 12Hours 09/28/16 18:13 Temp 97.8 Pulse 71 Resp 18 B/P (MAP) Departure Impression Impression: Primary Impression: Pain due to dental caries Disposition: HOME, SELF-CARE Condition: Stable Departure-Patient Inst. Decision time for Depature: 19:18 Referrals: [facility] (PCP/Family) Primary Care Physician Patient Instructions: Dental Pain (DC) Add. Discharge Instructions: used Xylocaine soaked swabs that your doctor is given you as needed to control your pain. You can also take 800 mg of ibuprofen every 8 hours mixed with thousand milligrams of Tylenol every 8 hours. He can apply cool pack to the outside of her jaw to bring some of the swelling down. Hot pack will help some of the discomfort as well. Take the antibiotics 3 times a day as prescribed with meals. Later on antibiotics would be mcclure to be taking probiotics over-the- counter one capsule twice a day. The numbness from the shot you got in the ER today will last for about 4-6 hours. All discharge instructions reviewed with patient and/or family. Voiced understanding. Scripts Amoxicillin (Amoxicillin) 500 Mg Capsule 500 MG PO TID for 10 Days, #30 CAP 0 Refills Prov: CARL YBARRA 09/28/16 Copy Copies To 1: RODNEY EL DO CARL YBARRA Sep 28, 2016 18:46
[2016-09-28] MEDS ORDERED: AMOXICILLIN 500 MG (POLYMOX) CAP PO STA (18:47)
[2016-09-28] MEDS ORDERED: BUPIVACAINE 0.5% 30 ML (SENSORCAINE) VIAL INJ ONE (19:00)
[2016-09-28] MEDS ORDERED: LIDOCAINE 1% INJ 20 ML (XYLOCAINE) VIAL INJ ONE (19:00)
[2016-09-28] MEDS ORDERED: AMOX500C2 PO (19:01)
[2016-09-28 19:25] VITALS: BP 152/62
== END 2016-09-28 19:25 | disposition home or self-care (01) ==
LOC: EDUNIT# 17:31 → ER 17:32
DX: K02.9 Dental caries, unspecified (principal); F41.9 Anxiety disorder, unspecified; F31.9 Bipolar disorder, unspecified; F17.210 Nicotine dependence, cigarettes, uncomplicated; Z80.49 Family history of malignant neoplasm of other genital organs; Z80.41 Family history of malignant neoplasm of ovary; Z80.0 Family history of malignant neoplasm of digestive organs; Z82.49 Family history of ischemic heart disease and other diseases of the circulatory system; Z79.82 Long term (current) use of aspirin; Z87.442 Personal history of urinary calculi; Z87.440 Personal history of urinary (tract) infections; Z87.19 Personal history of other diseases of the digestive system
CPT/HCPCS: 99283

== ENCOUNTER → 2016-10-08 | Outpatient (CLI) | payer MEDICAID ==
[~2016-10-08] VITALS: Ht 157.5 cm; Wt 81.8 kg
[~2016-10-08] MED LIST changes: +ASPI-906 PO; +CETI10CA PO; +DESV100T PO; +LIDOCAINE 1% INJ 20 ML (XYLOCAINE) VIAL INJ ONE; +LIDOCAINE 1% INJ 20 ML (XYLOCAINE) VIAL ONE; +PREG150C PO
[2016-10-08 12:46] VITALS: BP 130/82
--- NOTE | 2016-10-08 15:21 | Diagnostic Imaging Report ---
MRI of the right shoulder with intra-articular contrast. INDICATION: History of dislocation, shoulder pain. There are no previous MRI examinations available for comparison. The plain film examination of the right shoulder performed on 08/06/11 failed to show any sign of an acute abnormality. FINDINGS: The axial images do show that the anterior labrum is slightly irregular. I suspect that this portion of the labrum is frayed and/or minimally torn. The labrum is otherwise intact. There is no abnormal signal arising from the rotator cuff to suggest a tear. The supraspinatus muscle is not retracted or bunched. The acromioclavicular joint is not hypertrophied and there is no narrowing of the outlet for the supraspinatus muscle. The biceps tendon and the subscapularis tendon are intact. There is no abnormal signal arising from the osseous structures to suggest an acute abnormality. A fair amount of contrast has extravasated into the soft tissues anterior to the shoulder joint. The reason for this is not certain. IMPRESSION: 1. The slight irregularity of the anterior labrum suggested this portion of the labrum is frayed or minimally torn. The labrum is otherwise intact. 2. There is no evidence for tear of the rotator cuff and the supraspinatus muscle is not retracted or bunched. 3. There is no narrowing of the outlet for the supraspinatus muscle due to acromioclavicular hypertrophy. 4. There is no sign of an acute bony abnormality. Dictated by: Dictated on workstation # [id number]
--- NOTE | 2016-10-08 18:43 | Diagnostic Imaging Report ---
INDICATION: Shoulder pain. EXAMINATION: Right shoulder injection for MRI. COMPARISON: There are no prior studies available for comparison. PROCEDURE: Following aseptic preparation of the skin and administration of local anesthesia, a 22-gauge needle was advanced into the glenohumeral joint using fluoroscopic guidance. Approximately 15 cc of a gadolinium, sodium colloid and Gadavist solution was administered. The patient tolerated the procedure well and was sent to the MR suite in good condition. FLUOROSCOPY TIME: 1 minute and 21 seconds of fluoroscopy time was utilized. IMPRESSION: There has been successful injection of the right glenohumeral joint. MRI is pending for further study. Dictated by: Dictated on workstation # [id number]
== END ==
LOC: RAD 12:35
PROVIDERS: ATTEND Nurse Practitioner
DX: S43.431A Superior glenoid labrum lesion of right shoulder, initial encounter (principal); X58.XXXA Exposure to other specified factors, initial encounter; Y99.8 Other external cause status
CPT/HCPCS: 23350; 73040; 73222

== ENCOUNTER 2016-12-12 12:18 | Outpatient (RCR) | payer MEDICAID ==
[~2016-12-12 12:18] MED LIST changes: -HYDR-3812 PO
== END 2017-03-12 | disposition home or self-care (01) ==
LOC: CARD 12:18
PROVIDERS: ATTEND Nurse Practitioner Family
DX: R55 Syncope and collapse (principal)
CPT/HCPCS: 93225; 93226

== ENCOUNTER → 2016-12-12 | Outpatient (CLI) | payer MEDICAID ==
[~2016-12-12] MED LIST changes: -LIDOCAINE 1% INJ 20 ML (XYLOCAINE) VIAL INJ ONE; -LIDOCAINE 1% INJ 20 ML (XYLOCAINE) VIAL ONE
--- NOTE | 2016-12-12 12:57 | Diagnostic Imaging Report ---
PROCEDURE: CT head without contrast. TECHNIQUE: Multiple contiguous axial images were obtained through the brain without the use of intravenous contrast. INDICATION: Syncope. FINDINGS: There is no intracranial hemorrhage, edema or mass effect. The brain parenchyma and josue-white matter differentiation is preserved. No hydrocephalus. No extra-axial fluid collection seen. The calvarium, the paranasal sinuses and orbits visualized portions appear unremarkable. IMPRESSION: Unremarkable exam. Dictated by: Dictated on workstation # [id number]
== END ==
LOC: RAD 11:20
PROVIDERS: ATTEND Nurse Practitioner Family
DX: R55 Syncope and collapse (principal)
CPT/HCPCS: 70450

== ENCOUNTER → 2017-01-26 | Outpatient (CLI) | payer MEDICAID ==
[~2017-01-26] MED LIST changes: +HYDR-3812 PO
== END ==
LOC: CARD 08:34
PROVIDERS: ATTEND Internal Medicine Cardiovascular Disease
DX: R55 Syncope and collapse (principal); R00.2 Palpitations
CPT/HCPCS: 93225; 93226

== ENCOUNTER → 2017-01-27 | Outpatient (CLI) | payer MEDICAID ==
[~2017-01-27] VITALS: Ht 157.5 cm; Wt 88.5 kg
[2017-01-27] VITALS (33 sets, daily range): BP systolic 84–133; BP diastolic 62–92
[~2017-01-27] MED LIST changes: +ATROPINE INJECTION 1 MG/10 ML SYR (ABBOTT) ONE; +NS IV 1000 ML 1,000 ML IV SCH; +NS IV 1000 ML 1,000 ML ONE
--- NOTE | 2017-01-28 14:37 | TILT TABLE TEST ---
DATE OF SERVICE: 01/27/2017 TILT TABLE STUDY: CLINICAL DIAGNOSIS: Syncope. Baseline blood pressure was obtained after the patient was made to lie flat on the table. She was attached to a hospital monitor. Heart rhythm was monitored throughout the study. Blood pressure was taken every minute. The table was tilted up to 70 degrees and maintained in that position for 40 minutes. There was no significant change in heart rate or blood pressure. She did not experience syncope. Thus, the study is negative for neurocardiogenic syncope. CONCLUSIONS: Tilt table study negative for neurocardiogenic syncope. Job ID: [id number] DocumentID: [id number] Dictated Date: 01/28/2017 10:38:56 Receiver Dispatcher Date: 01/28/2017 13:15:12 Dictated By: EVIE NIELSEN MD, MA, FACP, FACC, MTDD
== END ==
LOC: CARD 06:40
PROVIDERS: ATTEND Internal Medicine Cardiovascular Disease
DX: R55 Syncope and collapse (principal); R00.2 Palpitations
CPT/HCPCS: 93306; 93351; 93660

== ENCOUNTER 2018-01-08 09:47 | Outpatient (CLI) | payer MEDICAID ==
[~2018-01-08] VITALS: Ht 157.5 cm; Wt 94.6 kg
[~2018-01-08 09:47] MED LIST changes: -ATROPINE INJECTION 1 MG/10 ML SYR (ABBOTT) ONE; -HYDR-3812 PO; +METF-397 PO; -METF500T4 PO; -NS IV 1000 ML 1,000 ML IV SCH; -NS IV 1000 ML 1,000 ML ONE
[2018-01-08] MEDS ORDERED: PREG75CA PO (10:23)
[2018-01-08] MEDS ORDERED: METF-397 PO (10:23)
[2018-01-08] MEDS ORDERED: LURA60TA2 PO (10:23)
[2018-01-08] MEDS ORDERED: PREG100C PO (10:23)
[2018-01-08] MEDS ORDERED: NF-LAMO200 PO (10:23)
[2018-01-08] MEDS ORDERED: MEDR10TA PO (10:23)
[2018-01-08] MEDS ORDERED: CA C1TAB73 PO (10:23)
[2018-01-08] MEDS ORDERED: NORT10CA PO (10:23)
[2018-01-08] MEDS ORDERED: BIOT10005 PO (10:23)
[2018-01-08] MEDS ORDERED: [UNRECOGNIZED DRUG - CODE] PO (10:23)
[2018-01-08] MEDS ORDERED: CHRO1TAB8 PO (10:23)
[2018-01-08] MEDS ORDERED: CHOL5000 PO (10:23)
[2018-01-08] MEDS ORDERED: POTA99TA21 PO (10:23)
[2018-01-08] MEDS ORDERED: RT-ALBUINH IH (10:25)
[2018-01-08] MEDS ORDERED: CRAN500T PO (10:28)
[2018-01-08] MEDS ORDERED: PANT40TA2 PO (10:29)
[2018-01-08 10:33] VITALS: BP 126/90
[2018-01-08 11:09] LABS: BASOPHILS % (AUTO) 0 % (0-10); EOSINOPHILS # (AUTO) 0.2 10^3/uL (0.0-0.3); EOSINOPHILS % (AUTO) 2 % (0-10); HEMATOCRIT 41 % (35-52); HEMOGLOBIN 13.3 G/DL (11.5-16.0); LYMPHOCYTES # (AUTO) 2.2 X 10^3 (1.0-4.0); LYMPHOCYTES % (AUTO) 19 % (12-44); MEAN CORPUSCULAR HEMOGLOBIN 29 PG (25-34); MEAN CORPUSCULAR HGB CONC 33 G/DL (32-36); MEAN CORPUSCULAR VOLUME 88 FL (80-99); MEAN PLATELET VOLUME 11.2 FL (7.4-10.4); MONOCYTES # (AUTO) 0.9 X 10^3 (0.0-1.0); MONOCYTES % (AUTO) 8 % (0-12); NEUTROPHILS # (AUTO) 8.2 X 10^3 (1.8-7.8); NEUTROPHILS % (AUTO) 72 % (42-75); PLATELET COUNT 327 10^3/uL (130-400); RED CELL DISTRIBUTION WIDTH 15.2 % (10.0-14.5); WHITE BLOOD COUNT 11.5 10^3/uL (4.3-11.0)
[2018-01-08 11:11] LABS: BILIRUBIN,URINE NEGATIVE (NEGATIVE); CLARITY,URINE CLEAR; COLOR,URINE GREEN; GLUCOSE, URINE (UA) NEGATIVE (NEGATIVE); KETONES,URINE NEGATIVE (NEGATIVE); LEUKOCYTE ESTERASE ,URINE 1+ (NEGATIVE); NITRITE,URINE NEGATIVE (NEGATIVE); PH,URINE 7 (5-9); PROTEIN,URINE NEGATIVE (NEGATIVE); UROBILINOGEN,URINE NORMAL (NORMAL)
[2018-01-08 11:21] LABS: BACTERIA,URINE NEGATIVE /HPF; WBC,URINE 0-2 /HPF
== END 2018-01-08 13:00 | disposition home or self-care (01) ==
LOC: PREOP 09:47
PROVIDERS: ATTEND Obstetrics & Gynecology
DX: Z01.810 Encounter for preprocedural cardiovascular examination (principal); Z01.812 Encounter for preprocedural laboratory examination; Z11.2 Encounter for screening for other bacterial diseases; N92.0 Excessive and frequent menstruation with regular cycle; N81.10 Cystocele, unspecified; N39.3 Stress incontinence (female) (male); R00.2 Palpitations
CPT/HCPCS: 36415; 81000; 85025; 86850; 86900; 86901; 87081; 93005

== ENCOUNTER 2018-01-12 06:00 | Day surgery (SDC) | payer MEDICAID ==
[~2018-01-12] VITALS: Ht 157.5 cm; Wt 94.6 kg
[~2018-01-12 06:00] MED LIST changes: +BIOT10005 PO; +CA C1TAB73 PO; +CHOL5000 PO; +CHRO1TAB8 PO; +CRAN500T PO; +LURA60TA2 PO; +MEDR10TA PO; +NF-LAMO200 PO; +NORT10CA PO; +PANT40TA2 PO; +POTA99TA21 PO; +PREG100C PO; +PREG75CA PO; +RT-ALBUINH IH; +[UNRECOGNIZED DRUG - CODE] PO
--- OUTSIDE RECORDS SUMMARY | 2018-01-12 06:17 | XMS REPORT | Encounter Summary ---
Author Author [facility] Organization [facility] Address Unknown Phone Unavailable Care Team Providers Care Tail Trimmer Name Role Phone Maricarmen Camacho MD PCP Maricarmen Camacho MD 100 Reason for Visit * Reason Comments Medication Refill Encounter Details Date Type Department Care Team Description 12/08/2017 Refill [facility] Emil Collins MD Physicians-Neurology [address] [facility] [place] [address] [place], [place] [phone] [id number] [phone] Social History Tobacco Use Types Packs/Day Years Used Date Never Smoker Smokeless Tobacco: Never Used Alcohol Use Drinks/Week oz/Week Comments No Sex Assigned at Date Recorded Not on file as of this encounter Functional Status Functional Status Response Date of Assessment Does the patient have a hearing impairment: No 11/16/2017 Does the patient have a visual impairment: Yes 11/16/2017 Does the patient have impaired ambulation: No 11/16/2017 Does the patient have an activity of daily living No 11/16/2017 (ADL) impairment: Does the patient have an instrumental activity of No 11/16/2017 daily living (IADL) impairment: Cognitive Status Response Date of Assessment Does the patient have a cognitive impairment: No 11/16/2017 as of this encounter Plan of Treatment Not on fileas of this encounter Visit Diagnoses Not on filein this encounter
--- OUTSIDE RECORDS SUMMARY | 2018-01-12 06:17 | XMS REPORT | Encounter Summary ---
Author Author [facility] Organization [facility] Address Unknown Phone Unavailable Care Team Providers Care Rubber Flap Tuber Machine Operator Name Role Phone Maricarmen Camacho MD PCP Maricarmen Camacho MD 100 Encounter Details Date Type Department Care Team Description 12/02/[address] [facility] Maricarmen Camacho MD Physicians - Internal [address] [facility] Medicine [place] [address] [place] [address] Pav[address] Level [address] [phone] [address] [place] [address] Social History Tobacco Use Types Packs/Day Years [...] Treatment Not on fileas of this encounter Procedures Procedure Name Priority Date/Time Associated Diagnosis Comments HM PAP SMEAR WITH HPV Routine 10/13/2017 12:00 AM CDT in this encounter Results * HM PAP SMEAR WITH HPV (10/13/2017) Narrative Performed At Performing Organization Address City/State/Zipcode Phone Number IN CLINIC in this encounter Visit Diagnoses Not on filein this encounter
--- OUTSIDE RECORDS SUMMARY | 2018-01-12 06:17 | XMS REPORT | Encounter Summary ---
Author Author [facility] Organization [facility] Address Unknown Phone Unavailable Care Team Providers Care Senior Database Programmer Name Role Phone Maricarmen Camacho MD PCP Maricarmen Camacho MD 100 Reason for Referral * Radiology Services (Routine) Status Reason Specialty Diagnoses / Referred By Referred To Procedures Contact Contact Authorized Radiology Diagnoses Efraín Smith MD [facility] [address] [place] [address] rocedures [phone] Phone: MRV HEAD WO/W [phone] CONTRAST MRV HEAD W CONTRAST * Radiology Services (Routine) Status Reason Specialty Diagnoses / Referred By Referred To Procedures Contact Contact Authorized Radiology Diagnoses Efraín Smith MD [facility] [address] [place] [address] rocedures [id number] Phone: MRV HEAD WO/W [phone] CONTRAST MRV HEAD W CONTRAST Reason for Visit * Radiology Services (Routine) Status Reason Specialty Diagnoses / Referred By Referred To Procedures Contact Contact Authorized Radiology Diagnoses Efraín Smith MD [facility] [address] [place] [address] rocedures [id number] Phone: MRV HEAD WO/W [phone] CONTRAST MRV HEAD W CONTRAST Encounter Details Date Type Department Care Team Description 11/18/2017 [facility] Emil Collins MD Encounter [facility] Radiology [address] [place] [address] [place] [address] [phone] Social History Tobacco Use Types Packs/Day Years [...] impairment: No 11/16/2017 as of this encounter Medications at Time of Discharge Medication Sig. Disp. Refills Start Date End Date albuterol (PROAIR HFA, Inhale 2 puffs by mouth VENTOLIN HFA, OR into the lungs every 6 PROVENTIL HFA) 90 hours as needed for mcg/actuation inhaler Wheezing or Shortness of Breath. Shake well before use. BIOTIN PO Take 1 capsule by mouth daily. MUHAOZF-[id number]-MLNN PO Take 1 capsule by mouth daily. cetirizine (ZYRTEC) 10 mg Take 10 mg by mouth every tablet morning. cholecalciferol (VITAMIN Take 5,000 Units by mouth D-3) 1,000 units tablet daily. cranberry fruit extract Take 1 capsule by mouth (CRANBERRY EXTRACT PO) twice daily. lamoTRIgine (LAMICTAL) Take 200 mg by mouth at 200 mg tablet bedtime daily. lurasidone (LATUDA) 20 mg Take 60 mg by mouth at tablet bedtime daily. norethindrone(+) Take 5 mg by mouth daily. (AYGESTIN) 5 mg tab pregabalin (LYRICA) 100 Take 175 mg by mouth mg capsule twice daily. rivaroxaban (XARELTO) 15 Take 15 mg by mouth mg tablet daily. Take with food. topiramate (TOPAMAX) 200 Take 200 mg by mouth mg tablet every 12 hours. vitamins, B complex tab Take 1 tablet by mouth daily. vitamins, multi B, C, Zn Take 1 tablet by mouth & folate (Renal) daily. (NEPHPLEX RX) 1-60-300-12.5 vo-uj-yuu-mg tab nortriptyline (PAMELOR) Take one capsule by mouth 90 capsule 1 201712/08/2017 10 mg capsuleIndications: at bedtime daily. Migraine preventative as of this encounter Plan of Treatment Not on fileas of this encounter Procedures Procedure Name Priority Date/Time Associated Diagnosis Comments MRV HEAD WO/W CONTRAST Routine 11/18/2017 Status migrainosus Results for this 3:24 PM CDT procedure are in the results section. in this encounter Results * MRV HEAD WO/W CONTRAST (11/18/2017 3:24 PM) Impressions Performed At MR brain: [facility] Normal MRI of the brain. MRV brain: Normal MRV of the brain. Approved by Stephanie Mcguire M.D. on 11/18/2017 4:19 PM By my electronic signature, I attest that I have personally reviewed the images for this examination and formulated the interpretations and opinions expressed in this report Finalized by Jacob Long M.D. on 11/18/2017 4:33 PM. Dictated by Stephanie Mcguire M.D. on 11/18/2017 3:31 PM. Narrative Performed At EXAM: MRI AND MRV BRAIN [facility] RES[facility] HISTORY: 27-year-old female, persistent severe headache, protein C deficiency, status migrainosus TECHNIQUE: Multiplanar and multisequence MR imaging of the head was performed. This was done both before and after the administration of MultiHance contrast. 2-D ncpb-ed-ivmiau images were obtained of the cerebral veins and dural sinuses following the administration of contrast. MRV maximum intensity projection images were obtained of the brain with image postprocessing. COMPARISON: None FINDINGS: MR brain: The ventricles and subarachnoid spaces are normal in size and configuration. Brain parenchyma is normal in signal. There is no midline shift or mass effect. There is no area of abnormal contrast enhancement. The vascular flow-voids are unremarkable. Diffusion weighted imaging is not indicative of infarct. MRV brain: The major dural venous sinuses are widely patent. No focal defect is identified to suggest thrombosis. Procedure Note Interface, Radiant Results - 11/18/2017 4:36 PM CDT EXAM: MRI AND MRV BRAIN HISTORY: 27-year-old female, persistent severe headache, protein C deficiency, status migrainosus TECHNIQUE: Multiplanar and multisequence MR imaging of the head was performed. This was done both before and after the administration of MultiHance contrast. 2 -D zcnd-rc-cuhalv images were obtained of the cerebral veins and dural sinuses following the administration of contrast. MRV maximum intensity projection images were obtained of the brain with image postprocessing. COMPARISON: None FINDINGS: MR brain: The ventricles and subarachnoid spaces are normal in size and configuration. Brain parenchyma is normal in signal. There is no midline shift or mass effect. There is no area of abnormal contrast enhancement. The vascular flow-voids are unremarkable. Diffusion weighted imaging is not indicative of infarct. MRV brain: The major dural venous sinuses are widely patent. No focal defect is identified to suggest thrombosis. IMPRESSION MR brain: Normal MRI of the brain. MRV brain: Normal MRV of the brain. Approved by Stephanie Mcguire M.D. on 11/18/2017 4:19 PM By my electronic signature, I attest that I have personally reviewed the images for this examination and formulated the interpretations and opinions expressed in this report Finalized by Jacob Long M.D. on 11/18/2017 4:33 PM. Dictated by Stephanie Mcguire M.D. on 11/18/2017 3:31 PM. Performing Organization Address City/State/Zipcode Phone Number [facility] RESULTS in this encounter Visit Diagnoses Diagnosis Status migrainosus Variants of migraine, not elsewhere classified, without mention of intractable migraine without mention of status migrainosus
--- OUTSIDE RECORDS SUMMARY | 2018-01-12 06:17 | XMS REPORT | Clinical Summary ---
Author Author [facility] Organization [facility] Address Unknown Phone Unavailable Care Team Providers Care Business Office Coordinator Name Role Phone Maricarmen Camacho MD PCP Maricarmen Camacho MD 100 Source Comments Some departments are not documenting in the electronic medical record. If you do not see the information that you expected, contact Release of Information in the Health Information Management department at [phone] for further assistance in locating additional records.[facility] Allergies Active Allergy Reactions Severity Noted Date Comments Adhesive Tape (Rosins) SEE COMMENTS, BLISTERS High 11/16/2017 Swelling at the site of adhesive tape if left on skin too long. Latex, Natural Rubber ITCHING, BLISTERS High 11/16/2017 Morphine MUSCLE PAIN Medium 10/01/2017 Sulfa (Sulfonamide HIVES Medium 10/01/2017 Antibiotics) Sumatriptan SHORTNESS OF BREATH Medium 01/02/2005 Allergy recorded in SMS: [id number] Current Medications Prescription Sig. Disp. Refills Start End Date Status Date pregabalin (LYRICA) 100 Take 175 mg by mouth Active mg capsule twice daily. albuterol (PROAIR HFA, Inhale 2 puffs by mouth Active VENTOLIN HFA, OR into the lungs every 6 PROVENTIL HFA) 90 hours as needed for mcg/actuation inhaler Wheezing or Shortness of Breath. Shake well before use. lamoTRIgine (LAMICTAL) Take 200 mg by mouth at Active 200 mg tablet bedtime daily. lurasidone (LATUDA) 20 mg Take 60 mg by mouth at Active tablet bedtime daily. rivaroxaban (XARELTO) 15 Take 15 mg by mouth Active mg tablet daily. Take with food. cetirizine (ZYRTEC) 10 mg Take 10 mg by mouth every Active tablet morning. vitamins, B complex tab Take 1 tablet by mouth Active daily. vitamins, multi B, C, Zn Take 1 tablet by mouth Active & folate (Renal) daily. (NEPHPLEX RX) 1-60-300-12.5 ge-yx-wdz-mg tab topiramate (TOPAMAX) 200 Take 200 mg by mouth Active mg tablet every 12 hours. norethindrone(+) Take 5 mg by mouth daily. Active (AYGESTIN) 5 mg tab BIOTIN PO Take 1 capsule by mouth Active daily. VJUOFSS-MBDVKFIOQ-QLEK PO Take 1 capsule by mouth Active daily. cholecalciferol (VITAMIN Take 5,000 Units by mouth Active D-3) 1,000 units tablet daily. cranberry fruit extract Take 1 capsule by mouth Active (CRANBERRY EXTRACT PO) twice daily. nortriptyline (PAMELOR) Take three caps @ bedtime 270 capsule 3 Active 10 mg capsuleIndications: 18 Migraine preventative Active Problems Problem Noted Date Healthcare maintenance 11/04/2017 Overview: - gets flu shot yearly - ?tdap - pap 10/03, ASCUS, HPV neg (outside records) - hep A IgM, hep b core antibody, hep b Surface antigen,hep c antibody, HIV all neg Hep B surface antibody reactive - 2016 LDL 163 Syncope 11/04/2017 Overview: -Frequent brief syncopal episodes for about 1 year 11/04/17 will start evaluation with EKG in the office today and routine labs. Has appointment with neurology already scheduled. Fibromyalgia 11/04/2017 Overview: -Chronic diffuse pain. On lyrica. 11/04/17 will focus on nonpharmacologic treatments. Avoiding narcotics. Handout provided. 01/04/18 reviewed outside rcords. labs, neg christiano, rf, anti-ccp, normal sed rate. Was on narcotics, but violated pain medication contract multiple times Protein C deficiency (HCC) 11/04/2017 Overview: -Per patient, prior blood clots but they seem to be within the context of 11/04/17 requesting outside records to review. I am not sure if she needs lifetime anticoagulation if her only blood clots were during . Currently on Xarelto. 11/30/17 I reviewed outside records, but there is not much information on the blood clots. Will discuss further at next visit. I may need to call her previous physician. Menorrhagia 11/04/2017 Overview: -Already being followed by gynecology 11/04/17 checking CBC today. Menorrhagia is complicated by need for anticoagulation. Getting old records to see if we can stop the Xarelto safely. Migraines 11/04/2017 Overview: -Long-standing migraines 11/04/17 has follow-up with neurology already scheduled. Bipolar 1 disorder (HCC) 11/04/2017 Cervicalgia 10/08/2017 Last Assessment & Plan: The patient also seems to have chronic neck pain and sever tenderness with radiation over a trigger point over the lesser occipital nerve area which could represent an enthesopathy and she could again benefit from Trigger point injection or botox injection. I advised her to utilize cold or warm packing, soft tissue massage and utilizing a cervical pillow. If not contraindicated and short course of oral steroids might be beneficial . The patient states she will check with her high court justice and she has been on multiple steroids courses in the past. Resolved Problems Problem Noted Date Resolved Date Intractable migraine with aura with status migrainosus 10/08/20172017 Last Assessment & Plan: The patient has long standing history of migraines with aura which is more or less intractable to many medications and she also is limited by allergies and co morbidities to many abortive options. I instructed the patient to obtain her old records and images from her previous neurologist to review and to consider the need for any further imaging. One consideration if her headaches are more generalized and they continue is to obtain and MRV and also imaging of the C-spine for the continuous referred pain. I discussed with her adding Co-Q 10 100mg with a titration up to 300mg as another preventative therapy. 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 I think she will be a good candidate for Botox injection therapy and I will refer her to for assessment. The only caution is the she is now on Xeralto. Encounters Date Type Specialty Care Team Description 12/08/2017 Refill Neurology Emil Collins MD 12/02/2017 Orders Only General Internal Medicine Maricarmen Camacho MD 11/18/2017 Hospital Radiology Emil Collins MD Canceled Encounter (Patient-Personal) 11/18/2017 [facility] Radiology Emil Collins MD Encounter 11/18/2017 Hospital Radiology Emil Collins MD Encounter 11/16/2017 Infusion Infusion Efraín Smith MD Intractable migraine without status migrainosus, unspecified migraine type (Primary Dx) 11/10/2017 Orders Only Infusion Jim Pineda RPH 11/06/2017 Office Visit Neurology Maricarmen Camacho MD Status migrainosus Efraín Smith MD (Primary Dx); Intractable migraine with aura with status migrainosus; Cervicalgia; Syncope, unspecified syncope type 11/06/2017 Procedure Pass Radiology 11/06/2017 Procedure Pass Radiology 11/06/2017 Orders Only Infusion Emil Collins MD 11/06/2017 Orders Only Infusion Emil Collins MD 11/04/2017 Office Visit General Internal Medicine Maricarmen Camacho MD Syncope, unspecified syncope type (Primary Dx); Healthcare maintenance; Fibromyalgia; Protein C deficiency (HCC); Menorrhagia with regular cycle; Migraine without status migrainosus, not intractable, unspecified migraine type; Bipolar 1 disorder (HCC) 10/30/2017 Telephone Rheumatology Cora Botello DO Results ( labs and xrays) from Last 3 Months Family History Medical History Relation Name Comments Alcohol abuse Mother Asthma Mother Diabetes Mother Relation Name Status Comments Mother Social History Tobacco Use Types Packs/Day Years Used Date Never Smoker Smokeless Tobacco: Never Used Alcohol Use Drinks/Week oz/Week Comments No Sex Assigned at Date Recorded Not on file Last Filed Vital Signs Vital Sign Reading Time Taken Blood Pressure 132/88 11/16/2017 1:11 PM CDT Pulse 70 11/16/2017 1:11 PM CDT Temperature 36.5 C (97.7 F) 11/16/2017 1:11 PM CDT Respiratory Rate 17 11/04/2017 1:18 PM CDT Oxygen Saturation 100% 11/16/2017 1:11 PM CDT Inhaled Oxygen - - Concentration Weight 89.4 kg (197 lb) 11/16/2017 5:25 PM CDT Height 157.5 cm (5' 2") 11/16/2017 5:25 PM CDT Body Mass Index 36.03 11/16/2017 5:25 PM CDT Plan of Treatment Health Maintenance Due Date Last Done Comments DTAP/TDAP VACCINES (1 - 2006 Tdap) INFLUENZA VACCINE 09/16/2017 PHYSICAL (COMPREHENSIVE) 10/13/2018 10/13/2017 (Previously completed) EXAM CERVICAL CANCER SCREENING 10/13/2020 10/13/2017, 10/13/2017 (Previously completed) HIV SCREENING Addressed 02/17/2016 (Previously completed) Overridden with the intention of not completing the topic Procedures Procedure Name Priority Date/Time Associated Diagnosis Comments MRV HEAD WO/W CONTRAST Routine 11/18/2017 Status migrainosus Results for this 3:24 PM CDT procedure are in the results section. MRI HEAD WO/W CONTRAST Routine 11/18/2017 Status migrainosus Results for this 3:24 PM CDT procedure are in the results section. POC CREATININE, RAD 11/16/2017 Results for this 2:28 PM CDT procedure are in the results section. ID ECG ROUTINE ECG Routine 11/04/2017 Syncope, unspecified W/LEAST 12 LDS W/I&R 12:00 AM CDT syncope type HM PAP SMEAR WITH HPV Routine 10/13/2017 12:00 AM CDT from Last 3 Months Results * MRV HEAD WO/W CONTRAST (11/18/2017 [...] after the administration of MultiHance contrast. 2-D ecff-bv-hwbchr images were obtained of the cerebral veins [...] the administration of MultiHance contrast. 2 -D caaq-ko-wahxyv images were obtained of the cerebral veins [...] Address City/State/Zipcode Phone Number [facility] RESULTS * MRI HEAD WO/W CONTRAST (11/18/2017 3:24 PM) Impressions [...] after the administration of MultiHance contrast. 2-D zpqv-td-tysgdb images were obtained of the cerebral veins [...] the administration of MultiHance contrast. 2 -D auow-hd-qpsayi images were obtained of the cerebral veins [...] Address City/State/Zipcode Phone Number [facility] RESULTS * POC CREATININE, RAD (11/16/2017 2:28 PM) Creatinine, POC 0.6 0.4 - 1.00 MG/DL [facility] Performing Organization Address City/State/[place] Phone Number MAIN LAB [address] [place] [place] [address] * ID ECG ROUTINE ECG W/LEAST 12 LDS W/I&R (11/04/2017) Narrative Performed At Performing Organization Address City/State/Zipcode Phone Number IN CLINIC * HM PAP SMEAR WITH HPV (10/13/2017) Narrative Performed At Performing Organization Address City/State/[place] Phone Number IN CLINIC from Last 3 Months
--- OUTSIDE RECORDS SUMMARY | 2018-01-12 06:17 | XMS REPORT | Encounter Summary ---
Author Author [facility] Organization [facility] Address Unknown Phone Unavailable Care Team Providers Care Audio Narrator Name Role Phone Maricarmen Camacho MD PCP Maricarmen Camacho MD 100 Reason for Referral * Radiology Services (Routine) Status Reason Specialty Diagnoses / Referred By Referred To Procedures Contact Contact New Request Radiology Diagnoses Davidson Collins MD migrainosus [address] rocedures 2011 CTA NECK WO/W [place], [place] CONTRAST+POST P [id number] * Radiology Services (Routine) Status Reason Specialty Diagnoses / Referred By Referred To Procedures Contact Contact New Request Radiology Diagnoses Davidson Collins MD migrainosus [address] rocedures 2011 CTA NECK WO/W [place] CONTRAST+POST P [id number] * Radiology Services (Routine) Status Reason Specialty Diagnoses / Referred By Referred To Procedures Contact Contact Denied Radiology Diagnoses Berna Collins Ct Status MD Emil [address] [place] migrainosus [address] [place] [address] rocedures 2011 Phone: CTA HEAD WO/W [place], [place] [phone] CONTR+POST PRO [id number] Phone: ANGIOGRAPHY NECK [phone] W/CONTRAST/NONCO Fax: NTRAST [phone] * Radiology Services (Routine) Status Reason Specialty Diagnoses / Referred By Referred To Procedures Contact Contact Denied Radiology Diagnoses [place], [address] Status MD Emil [address] [place] migrainosus [address] [place] [address] rocedures [place] 2011 Phone: CTA HEAD WO/W [place] [phone] CONTR+POST PRO [id number] Phone: ANGIOGRAPHY NECK [phone] W/CONTRAST/NONCO Fax: NTRAST [phone] Reason for Visit * Radiology Services (Routine) Status Reason Specialty Diagnoses / Referred By Referred To Procedures Contact Contact Denied Radiology Diagnoses [address] Status MD Emil [address] [place] migrainosus [address] [place] [address] rocedures [place] 2011 Phone: CTA HEAD WO/[place] [phone] CONTR+POST PRO [id number] Phone: ANGIOGRAPHY NECK [phone] W/CONTRAST/NONCO Fax: NTRAST [phone] Encounter Details Date Type Department Care Team Description 11/18/2017 Hospital [facility] Emil Collins MD Canceled Encounter [facility] Radiology [address] (Patient-Personal) [address] [place] [address] [place] [address] [place] [address] [phone] Social History Tobacco Use Types Packs/Day Years [...] PO Take 1 capsule by mouth daily. [id number] PO Take 1 capsule by mouth daily. [...] & folate (Renal) daily. (NEPHPLEX RX) 1-60-300-12.5 oh-xx-kqf-mg tab nortriptyline (PAMELOR) Take one capsule by mouth 90 capsule 1 201712/08/2017 10 mg capsuleIndications: at bedtime daily. Migraine preventative as of this encounter Plan of Treatment Name Priority Associated Diagnoses Order Schedule CTA HEAD WO/W CONTR+POST PRO Routine Status migrainosus 1 Occurrences starting 11/18/2017 until 11/18/2017 CTA NECK WO/W CONTRAST+POST P Routine Status migrainosus 1 Occurrences starting 11/18/2017 until 11/18/2017 as of this encounter Visit Diagnoses Diagnosis Status migrainosus Variants of migraine, not elsewhere classified, without mention of intractable migraine without mention of status migrainosus
--- OUTSIDE RECORDS SUMMARY | 2018-01-12 06:18 | XMS REPORT ---
Author Author Callum Mrurell [facility] Address [address] [place], [place] [id number] Care Team Providers Care Recreational Sports Director Name Role Phone Callum Murrell PCP Allergies and Adverse Reactions Name Reaction Notes azithromycin vomiting Imitrex swelling Bactrim hives SULFA (SULFONAMIDE ANTIBIOTICS) hives Demerol hives Morphine Sulfate hives Plan of Treatment Not available. Medications Active Name Start Date Estimated Completion Date SIG Comments biotin 10,000 mcg oral capsule take 1 capsule by oral route daily cranberry 450 mg oral tablet take 1 tablet by oral route 2 times a day magnesium 250 mg oral tablet take 1 tablet by oral route daily Pristiq 100 mg oral tablet extended release 24 hr take 1 tablet (100 mg ) by oral route once daily selenium 100 mcg oral tablet take 1 tablet by oral route daily Topamax 100 mg oral tablet take 1 tablet (100 mg) by oral route 2 times per day vitamin B complex oral tablet take 1 tablet by oral route daily Vitamin D3 5,000 unit oral tablet take 2 tablets by oral route daily Xarelto 15 mg oral tablet take 1 tablet (15 mg) by oral route once daily with the evening meal zinc 50 mg oral tablet 140mg po daily cetirizine 10 mg oral tablet take 1 tablet (10 mg) by oral route once daily cyclobenzaprine 10 mg oral tablet 03/25/2017 take 1 tablet by oral route 3 times a day as needed for 30 days Colace 100 mg oral capsule 03/26/2017 take 1 capsule (100 mg) by oral route 2 times per day for 30 days Miralax 17 gram/dose oral powder 03/26/2017 take 17 gram mixed with 8 oz. water, juice, soda, coffee or tea by oral route once daily for 30 days clonidine HCl 0.1 mg oral tablet take 1 tablet (0.1 mg) by oral route 2 times per day fentanyl 87.5 mcg/hour transdermal patch 72 hour 04/25/2017 05/25/2017 apply 1 patch (87.5 mcg/hour) by transdermal route every 72 hours for 30 days Lyrica 150 mg oral capsule 04/25/2017 05/25/2017 take 1 capsule by oral route 3 times a day for 30 days oxycodone-acetaminophen 10-325 mg oral tablet 04/25/2017 05/25/2017 take 1 tablet by oral route every 6 hours as needed for 30 days Discontinued Name Start Date Discontinued Date SIG Comments buspirone 10 mg oral tablet 04/23/2017 take 2 tablets (20 mg) by oral route 2 times per day Problem List Not available. Vital Signs Date Time BP-Sys(mm[Hg] BP-Elena(mm[Hg]) HR(bpm) RR(rpm) Temp WT HT HC BMI BSA BMI Percentile O2 Sat(%) 04/23/2017 9:01:00 AM 102 mmHg 66 mmHg 108 bpm 96.3 F 200 lbs 62 in 36.58 kg/m2 1.99 m2 99 % 03/26/2017 9:29:00 AM 130 mmHg 80 mmHg 76 bpm 95.9 F 200 lbs 100 % 03/12/2017 10:07:00 AM 118 mmHg 70 mmHg 92 bpm 97.2 F 196.375 lbs 62 in 35.92 kg/m2 1.97 m2 97 % Social History Name Description Comments Alcohol Current some day Tobacco Current every day smoker History of Procedures Date Ordered Description Order Status 03/26/2017 12:00 AM Urine toxicology screen Reviewed 03/26/2017 12:00 AM DRUG SCREEN ONE/MULT CLASS Reviewed 03/26/2017 12:00 AM INJECT TRIGGER POINTS 3/> Reviewed Results Summary Not available. History Of Immunizations Not available. History of Past Illness Name Date of Onset Comments Fibromyalgia Chronic pain disorder Protein C deficiency Syncope Migraine without aura and without status migrainosus, not intractable Fibromyalgia syndrome Mar 12 2017 10:33AM Chronic pain syndrome Mar 12 2017 10:33AM Fibromyalgia syndrome Mar 26 2017 9:34AM Chronic pain syndrome Mar 26 2017 9:34AM Myalgia Mar 26 2017 9:34AM Drug induced constipation Mar 26 2017 9:34AM Adverse effect of other opioids, initial encounter Mar 26 2017 9:34AM Opiate analgesic use agreement exists Mar 26 2017 9:34AM Fibromyalgia syndrome Apr 23 2017 9:05AM Chronic pain syndrome Apr 23 2017 9:05AM Myalgia Apr 23 2017 9:05AM Drug induced constipation Apr 23 2017 9:05AM Adverse effect of other opioids, initial encounter Apr 23 2017 9:05AM Opiate analgesic use agreement exists Apr 23 2017 9:05AM Overuse injury Apr 23 2017 9:05AM Payers Insurance Name Company Name Plan Name Plan Number Policy Number Policy Group Number Start Date [facility] [id number] N/A History of Encounters Visit Date Visit Type Provider 04/23/2017 Office visit Callum Murrell DO 03/26/2017 Office visit 03/26/2017 Office visit Callum Murrell DO 03/12/2017 Office visit Callum Murrell DO
--- OUTSIDE RECORDS SUMMARY | 2018-01-12 06:18 | XMS REPORT | Encounter Summary ---
Author Author [facility] Organization [facility] Address Unknown Phone Unavailable Care Team Providers Care Lace Finisher Name Role Phone Maricarmen Camacho MD PCP Maricarmen Camacho MD 100 Reason for Referral * Radiology Services (Routine) Status Reason Specialty Diagnoses / Referred By Referred To Procedures Contact Contact Closed Radiology Diagnoses Berna Collins Mri Status MD Emil [address] [place] migrainosus [address] [place] [address] rocedures [place] 2011 Phone: MRI HEAD WO/W [place], [place] [phone] CONTRAST [id number] * Radiology Services (Routine) Status Reason Specialty Diagnoses / Referred By Referred To Procedures Contact Contact Closed Radiology Diagnoses Berna Collins Mri Status MD Emil [address] [place] migrainosus [address] [place] [address] rocedures [place] 2011 Phone: MRI HEAD WO/W [place] [phone] CONTRAST [id number] Reason for Visit * Radiology Services (Routine) Status Reason Specialty Diagnoses / Referred By Referred To Procedures Contact Contact Closed Radiology Diagnoses Jr Collinswp Mri Status MD Emil [address] [place] migrainosus [address] [place] [address] rocedures [place] 2011 Phone: MRI HEAD WO/W [place] [phone] CONTRAST [id number] Encounter Details Date Type Department Care Team Description [facility] En[facility] [address] [address] [place] [address] [place] [address] [place] [address] [phone] Social History Tobacco Use Types Packs/Day Years [...] PO Take 1 capsule by mouth daily. [id number] PO Take 1 capsule by mouth daily. [...] & folate (Renal) daily. (NEPHPLEX RX) 1-60-300-12.5 gd-nj-tvk-mg tab nortriptyline (PAMELOR) Take one capsule by [...] results section. in this encounter Results * MRI HEAD WO/W CONTRAST (11/18/2017 3:24 [...] after the administration of MultiHance contrast. 2-D hled-oa-nfjioo images were obtained of the cerebral veins [...] the administration of MultiHance contrast. 2 -D ecrh-oh-fqdzcc images were obtained of the cerebral veins [...] intractable migraine without mention of status migrainosus Administered Medications Medication Order MAR Action Action Date Dose Rate Site gadobenate dimeglumine (MULTIHANCE) Given 11/18/2017 10 mL injection 10 mL 15:30 CDT 10 mL, Intravenous, ONCE, 1 dose, 11/18/17 at 1530, NOTE: This is a HIGH ALERT Medication. in this encounter
--- OUTSIDE RECORDS SUMMARY | 2018-01-12 06:18 | XMS REPORT | Encounter Summary ---
Author Author [facility] Organization [facility] Address Unknown Phone Unavailable Care Team Providers Care Brick Mason Name Role Phone Em Fonseca PCP Reason for Visit * Reason Comments Establish Care Encounter Details Date Type Department Care Team Description 11/04/2017 Office Visit [facility] Maricarmen Camacho MD Syncope, unspecified Physicians - Internal [address] syncope type (Primary Medicine [place] 1020 Dx); [place] [address] Healthcare maintenance; [facility] Level 4B [phone] Fibromyalgia; [address] Protein C deficiency [place], [place] (HCC); [id number] Menorrhagia with regular [phone] cycle; Migraine without status migrainosus, not intractable, unspecified migraine type; Bipolar 1 disorder (HCC) Social History Tobacco Use Types Packs/Day Years Used Date Never Smoker Smokeless Tobacco: Never Used Alcohol Use Drinks/Week oz/Week Comments No Sex Assigned at Date Recorded Not on file as of this encounter Last Filed Vital Signs Vital Sign Reading Time Taken Blood Pressure 135/89 11/04/2017 1:18 PM CDT Pulse 76 11/04/2017 1:18 PM CDT Temperature 36.8 C (98.2 F) 11/04/2017 1:18 PM CDT Respiratory Rate 17 11/04/2017 1:18 PM CDT Oxygen Saturation - - Inhaled Oxygen - - Concentration Weight 89.5 kg (197 lb 6.4 oz) 11/04/2017 1:18 PM CDT Height 157.5 cm (5' 2.01") 11/04/2017 1:18 PM CDT Body Mass Index 36.1 11/04/2017 1:18 PM CDT in this encounter Instructions * Patient Instructions - Maricarmen Camacho MD - 11/04/2017 1:20 PM CDT - It was nice to see you today. - Please call the clinic with any questions or concerns. My nurse is Whitney and her direct phone number is [phone]. If you need an appointment call [phone]. - [employer] is a secure messaging system available through our electronic medical record. If you would like to sign up, please see the information at the bottom of this sheet. Thank you. Dr. Camacho in this encounter Progress Notes * Maricarmen Camacho MD - 11/04/2017 1:20 PM CDT Formatting of this note may be different from the original. Subjective: History of Present Illness Tisha Forbes is a 27 y.o. female here to establish care Current concerns: - pain. Diffuse. Chronic. Fibromyalgia. -blacking out. If too emotional or if she has a spike of pain, she will black out. Out for 2-5 minutes. Falls when she blacks out. Unconscious. Significant other says she shakes. Gets tunnel vision prior to spell sometimes , not always. One time significant other thought it was a seizure. Had one episode of urinary incontinence with the spells. Worries because she takes care of her little children. First spell about 11 months ago. At first it was 4-5 times per day, then they slowed down, now they are back to multiple times per day. If it with a migraine "I will black out. My body can't take it." - was going to counts include 234 beds at the [facility]. They thought spells were related to pain. Was on narcotics for a couple months (fentanyl and oxycodone) which seemed to help, but she did not like the effects of the medications. Glad to be off. - evluations so far: nothing specific for the black out spells expect shoulder x -ray ? - one time recently woke up with vomit beside her. - migraine spells daily PMH 1. Hiatal hernia. 2. Migraines, chronic 3. Fibromyalgia x 7 years with chronic pain. 4. Major depression, possible bipolar 5. PTSD 6. Cholecystectomy 7. Oral sugery for jaw issues. 8. One stillborn, possibly related to blood clots. 9. Tubal 10. arthoscopic knee surgery 11. Tonsillectomy 12. Possible endometriosis 13. Protein c deficiency. "micro" blood clots. Anticoagulated. SH: 5 year old and 18 month old. Quit smoking 3 months ago. No longer using nicotine in vape. Rare alcohol. At home with kids. Stopped working due to black out spells. Laid off. 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 and criminal justice. FH: Mom- Cervical cancer, DM, migraines, someone had ovarian cancer, great grandma - breast cancer. Lots of mental health issues. Review of Systems Positive for diffuse pain, headaches, some chest pains, palpitations, occasional abdominal pains, difficulty holding in her urine, passing clots, heavy periods. No numbness or tingling in her feet but she does have numbness and tingling in her hands bilaterally. Objective: albuterol (PROAIR HFA, VENTOLIN HFA, OR PROVENTIL HFA) 90 mcg/actuation inhaler Inhale 2 puffs by mouth into the lungs every 6 hours as needed for Wheezing or Shortness of Breath. Shake well before use. BIOTIN PO Take 1 capsule by mouth daily. DWAUFLK-QFMHUDZDZ-AKYA PO Take 1 capsule by mouth daily. cetirizine (ZYRTEC) 10 mg tablet Take 10 mg by mouth every morning. cholecalciferol (VITAMIN D-3) 1,000 units tablet Take 5,000 Units by mouth daily. cranberry fruit extract (CRANBERRY EXTRACT PO) Take 1 capsule by mouth twice daily. lamoTRIgine (LAMICTAL) 200 mg tablet Take 200 mg by mouth at bedtime daily. lurasidone (LATUDA) 20 mg tablet Take 60 mg by mouth at bedtime daily. norethindrone(+) (AYGESTIN) 5 mg tab Take 5 mg by mouth daily. pregabalin (LYRICA) 100 mg capsule Take 175 mg by mouth twice daily. rivaroxaban (XARELTO) 15 mg tablet Take 15 mg by mouth daily. Take with food. topiramate (TOPAMAX) 200 mg tablet Take 200 mg by mouth every 12 hours. vitamins, B complex tab Take 1 tablet by mouth daily. vitamins, multi B, C, Zn & folate (Renal) (NEPHPLEX RX) 1-60-300-12.5 mg-mg- mcg-mg tab Take 1 tablet by mouth daily. Vitals: 11/04/17 1318 BP: 135/89 Pulse: 76 Resp: 17 Temp: 36.8 C (98.2 F) TempSrc: Oral Weight: 89.5 kg (197 lb 6.4 oz) Height: 157.5 cm (62.01") Body mass index is 36.1 kg/m. Physical Exam Looks well, able to get up on the exam table. Smells of nicotine. Blood pressure 135/89, pulse 76. Afebrile. Weight 197. Tympanic membranes normal bilaterally. Mucous membranes are little bit dry. Neck is supple there is no cervical lymphadenopathy and no thyroid megaly. Lungs sound clear. Heart is regular with no extra sounds. Abdomen is soft and nontender. Extremities are not edematous. She has 2/4 dorsalis pedis pulses. Deep tendon reflexes are normal and symmetrical throughout. Sensation to light touch is intact. No facial asymmetry. Affect is normal. Assessment and Plan: Problem Healthcare Maintenance - gets flu shot yearly - ?tdap - pap recently Syncope -Frequent brief syncopal episodes for about 1 year today will start evaluation with EKG in the office today which looks ok. reviewed recent labs. All ok. Has appointment with neurology already scheduled. May need EEG. Will have patient keep diary. Fibromyalgia -Chronic diffuse pain. On lyrica. today will focus on nonpharmacologic treatments. Avoiding narcotics. Handout provided. Protein C Deficiency (Hcc) -Per patient, prior blood clots but they seem to be within the context of today requesting outside records to review. I am not sure if she needs lifetime anticoagulation if her only blood clots were during . Currently on Xarelto. Menorrhagia -Already being followed by gynecology today checking CBC today. Menorrhagia is complicated by need for anticoagulation. Getting old records to see if we can stop the Xarelto safely. Migraines -Long-standing migraines today has follow-up with neurology already scheduled. RTC 3-4 months and prn in this encounter Plan of Treatment Not on fileas of this encounter Procedures Procedure Name Priority Date/Time Associated Diagnosis Comments MN ECG ROUTINE ECG Routine 11/04/2017 Syncope, unspecified W/LEAST 12 LDS W/I&R 12:00 AM CDT syncope type in this encounter Visit Diagnoses Diagnosis Syncope, unspecified syncope type - Primary Healthcare maintenance Routine general medical examination at a health care facility Fibromyalgia Mylagia and myositis, unspecified Protein C deficiency (HCC) Primary hypercoagulable state Menorrhagia with regular cycle Excessive or frequent menstruation Migraine without status migrainosus, not intractable, unspecified migraine type Bipolar 1 disorder (HCC) Bipolar I disorder, most recent episode (or current) unspecified
--- OUTSIDE RECORDS SUMMARY | 2018-01-12 06:18 | XMS REPORT | Encounter Summary ---
Author Author [facility] Organization [facility] Address Unknown Phone Unavailable Care Team Providers Care Winch Stripper Name Role Phone Em Fonseca PCP Reason for Referral * Radiology Services (Routine) Status Reason Specialty Diagnoses / Referred By Referred To Procedures Contact Contact Authorized Radiology Diagnoses Efraín Smith MD [facility] Status [address] [place] [address] rocedures [id number] Phone: MRV HEAD WO/W [phone] CONTRAST MRV HEAD W CONTRAST * Radiology Services (Routine) Status Reason Specialty Diagnoses / Referred By Referred To Procedures Contact Contact New Request Radiology Diagnoses Dennis, Status MD Emil migrainosus [address] rocedures 2011 CTA NECK WO/W [place], [place] CONTRAST+POST P [id number] * Radiology Services (Routine) Status Reason Specialty Diagnoses / Referred By Referred To Procedures Contact Contact Denied Radiology Diagnoses Berna Collins Ct Status MD Emil [address] [place] migrainosus [address] [place] [address] rocedures 2011 Phone: CTA HEAD WO/W [place], [place] [phone] CONTR+POST PRO [id number] Phone: ANGIOGRAPHY NECK [phone] W/CONTRAST/NONCO Fax: NTRAST [phone] * Radiology Services (Routine) Status Reason Specialty Diagnoses / Referred By Referred To Procedures Contact Contact Closed Radiology Diagnoses Berna Collins Mri Status MD Emil [address] [place] migrainosus [address] [place] [address] rocedures [place] 2012 Phone: MRI HEAD WO/W [place], [place] [phone] CONTRAST [id number] Reason for Visit * Reason Comments New Patient Encounter Details Date Type Department Care Team Description 11/06/2017 Office Visit [facility] Maricarmen Camacho MD Status migrainosus Physicians-Neurology [address] [facility] (Primary Dx); [facility] MS 1020 Intractable migraine with [address] [place] [address] aura with status [place], [place] [phone] migrainosus; [address] Cervicalgia; [phone] L Syncope, unspecified Efraín polk MD syncope type [address] [place] [address] Social History Tobacco Use Types Packs/Day Years Used Date Never Smoker Smokeless Tobacco: Never Used Alcohol Use Drinks/Week oz/Week Comments No Sex Assigned at Date Recorded Not on file as of this encounter Last Filed Vital Signs Vital Sign Reading Time Taken Blood Pressure 138/91 11/06/2017 8:25 AM CDT Pulse 76 11/06/2017 8:25 AM CDT Temperature - - Respiratory Rate - - Oxygen Saturation - - Inhaled Oxygen - - Concentration Weight 90.2 kg (198 lb 12.8 oz) 11/06/2017 8:25 AM CDT Height 157.5 cm (5' 2") 11/06/2017 8:25 AM CDT Body Mass Index 36.36 11/06/2017 8:25 AM CDT in this encounter Progress Notes * Emil Collins MD - 11/06/2017 9:00 AM CDT I have personally interviewed and examined Tisha Forbes and reviewed the history, examination, impression, and plan of care as outlined by Dr.Ryan Rachel Smith MD. I personally participated in patient counseling and coordination of care. I agree with the assessment and plan as documented by Dr. Efraín Smith MD. * Efraín Smith MD - 11/06/2017 9:00 AM CDT Formatting of this note may be different from the original. Date of Service: 11/06/2017 Subjective: Tisha Forbes is a 27 y.o. female presenting to clinic alone today for follow up regarding headaches and "black out spells." History of Present Illness Ms. Forbes reports being diagnosed with migraine headaches since she was 11 years old, first headache at age 9. Has been seeing Dr. Bansal out of [place] since 2008 for her headaches. She describes her usual headaches as coming and going daily. They are located on the right temporal area for the most part and the right occipital area. This is associated with pressure behind her eyes. She reports getting these headaches every other day. She also reports getting migraines headaches 2-3x per month that, in addition to the above pain, she experiences worsening pain, nausea, photophobia, slowed cognition and increased difficulty with speech. A typical migraine can last from 2 days at a time up to 1 week. She has been taking topiramate 200 mg BID for the past 2 years. This has been the only medication that has worked for her. She cannot tolerate triptans due to "my throat closing up." She reports experiencing migraine headaches less frequently with the topamax and they were less severe. When she has a headache, she will take benadryl with phenergan which will help. She reports taking ibuprofen, tylenol, fiorcet without relief in the past. She reports overall tolerating the topirmate well. She does report a remote history of kidney stones in the distant past. She tries to avoid caffeine, 1 cup of coffee per day. She reports that her triggers include pain spikes related to her fibromyalgia and stress. She reports not sleeping well. She attempts to go bed at 9 PM each night but struggles to fall asleep and stay asleep. Sleep latency 30-45 minutes. She reports getting 4 hours of sleep per night. She reports she has had a particularly severe bout of a migraine headaches recently. She reports this started in August 27, 2017. She reports thinking this was a typical migraine when it started. This persisted for three weeks without stopping. She reports trying nasal ergotamine without relief. She reports the pains located more posteriorly with these headaches. She has not had a headache free day since it started and reports it getting progressively worse. She reports this has been waking her up from her sleep with a sharp pain in her temples and is throbbing in nature. She reports vomiting more frequently with this. She reports blurring of her vision gradually. She reports experiencing intermittent double vision with this as well. She reports experiencing "blackouts" as well. These started 1 year ago in December. She describes these as happening when she is just standing there, she will experience a sharp pain prior to her spell or she will be very emotional just prior to these blackouts. This is followed by tunneling of her vision and "blacking out." She thinks she is out for 2-5 minutes each time. She reports "spotting" in her vision when she comes to. She repots being told that her whole body can shake during these spells. She has lost continence of her urine before but this does not occur all the time. She reports this happens to her daily, sometimes multiple times per day. She reports mild improvement with clonidine. She reports not detecting a real pattern regarding these blackouts. Most of the time they occur while she is standing. She reports experiencing shortness of breath and chest heaviness prior to these spells. She does report being diagnosed with "angina" by a [employer] in the past. She reports being told that she looks "pale" during these episodes. Of note, she reports being told her had "mini strokes" in 2008 associated with a stillborn child. She reports being told this after having electrodes placed on her scalp. She also reports a history of factor C deficiency as well as a history of blood clots in her leg in 2008. She reports being told that her child 's life was taken due to a "blood clot that traveled." She reports taking Xarelto daily for this. She has been on warfarin in the past but this was stopped for reasons that she cannot remember. Review of Systems Constitutional: Positive for activity change, appetite change, chills, diaphoresis, fatigue and unexpected weight change. HENT: Positive for congestion, nosebleeds, rhinorrhea and tinnitus. Eyes: Positive for photophobia, pain and visual disturbance. Respiratory: Positive for chest tightness and shortness of breath. Cardiovascular: Positive for chest pain and palpitations. Gastrointestinal: Positive for abdominal pain, constipation, diarrhea, nausea and vomiting. Endocrine: Positive for cold intolerance and polydipsia. Genitourinary: Positive for difficulty urinating, enuresis, flank pain, menstrual problem, pelvic pain and vaginal bleeding. Musculoskeletal: Positive for arthralgias, back pain, myalgias, neck pain and neck stiffness. Skin: Positive for wound. Allergic/Immunologic: Positive for environmental allergies. Neurological: Positive for tremors, syncope, speech difficulty, weakness, light- headedness, numbness and headaches. Psychiatric/Behavioral: Positive for agitation, confusion, decreased concentration, dysphoric mood and sleep disturbance. All other systems reviewed and are negative. Objective: albuterol (PROAIR HFA, VENTOLIN HFA, OR PROVENTIL HFA) 90 mcg/actuation inhaler Inhale 2 puffs by mouth into the lungs every 6 hours as needed for Wheezing or Shortness of Breath. Shake well before use. BIOTIN PO Take 1 capsule by mouth daily. AGGGIUS-PCJRUWEWG-FVVV PO Take 1 capsule by mouth daily. [...] Take 1 tablet by mouth daily. Vitals: 11/06/17 0825 BP: (!) 138/91 Pulse: 76 Weight: 90.2 kg (198 lb 12.8 oz) Height: 157.5 cm (62") Body mass index is 36.36 kg/m. Physical Exam Constitutional: She appears well-developed and well-nourished. No distress. HENT: Head: Normocephalic and atraumatic. Nose: Nose normal. Mouth/Throat: Oropharynx is clear and moist. No oropharyngeal exudate. Pulmonary/Chest: Effort normal. No respiratory distress. Skin: She is not diaphoretic. Vitals reviewed. Neuro exam: Mental status: alert, oriented to person/place/time Speech: Normal Abnormal Fluency x Comprehension x Articulation x Repetition x Naming x Cranial Nerves: Normal Abnormal II Pupils reactive, visual albright normal, optic discs margins appear sharp III, IV, EOMI, no nystagmus V Sensation nml V1-V3 VII Symmetric Smile, Good Eye Closure VIII nml to finger rub IX, X +strong cough XI Equal shoulder shrug XII Tongue midline Muscle/motor: Tone: nml Bulk: nml Fasciculations: none Pronator drift: none NF NE SA EF EE WE WF FF FE FA TA HF LIRIANO HE KF KE DF PF In Ev TF TE R 5 5 5 5 5 5 5 5 5 5 5 5 5 5 5 L 5 5 5 5 5 5 5 5 5 5 5 5 5 5 5 Sensation: Normal RUE LUE RLE LLE Light Touch x Pin Prick x Temperature x Vibration >10sec b/l Proprioception intact Sensory level: none Coordination: Normal Abnormal Right Abnormal Left Finger to Nose x Rapid alternating x Heel to Martinez x Finger tap x Foot tap Other Gait and Sation: Regular gait: nml Toe walk: nml Heel walk: nml Tandem gait: nml Romberg: neg Reflexes: Right Left Triceps 2 2 Biceps 2 2 Brachioradialis 2 2 Patella 2 2 Ankle 2 2 Plantar down down Assessment and Plan: Ms. Forbes is a 27 year old female with a past medical history of DVT's on xarelto, factor C deficiency and fibromyalgia presenting to clinic today for follow up regarding her migraine headaches. Neuro Exam: Unremarkable 1. Migraine Headache with Aura, Intractable, With Status Migrainosus - Onset of migraine headaches at age 9, right temporal area, typically occur between 2-3x per month, preceded by visual disturbance - Medications tried in the past include: Tylenol, Fiorcet, Ibuprofen - Current prophylactic regimen: Topiramate 200 mg BID - Current abortive regimen: Phenergan PO, Benadryl PO - Currently experiencing migraine headaches daily since August 27 consistent with status migrainosus - Patient having concerning new features of her headache including intermittent vision changes, nocturnal awakenings, slowed cognition, concern for secondary cause of persistent headache including venous sinus thrombosis, vascular malformation, mass occupying lesion - No recent brain imaging available Plan: Rule out secondary cause of worsening headaches: > MRI Brain W/WO > MRV > CTA head/neck Headache PPx: > Start Nortriptyline 10 mg QHS, can titrate up to 30 mg nightly if tolerated well, increase by 10 mg every 7 days > Topamax 200 mg BI Abortive: > Infusion center for headache cocktail today (Tramadol, Compazine, Benadryl, Magnesium) > Orders placed but patient unable to receive infusion today due to transportation, given instructions to schedule with infusion center at a time that works best for her > Instructed to continue the Benadryl/Phenergan as needed for abortive 2. Black Out Spells - Reports looking "pale" immediately after these events - Prior outside Cardiology work up, reports wearing holter moniter and tilt table testing and told she was "fine" - Will evaluate for vertebrobasilar circulation with CTA H/N - Will not pursue EEG at this time given low suspicion, normal neuro exam, will re-examine if MRI abnormal - Most consistent with vasovagal etiology (pale appearance, tunnel vision, provoking factors pain and stress) RTC in 3 months Patient seen and discussed with Dr. Dennis Smith MD PGY-2, Neurology in this encounter Plan of Treatment Name Priority Associated Diagnoses Order Schedule CTA HEAD WO/W CONTR+POST PRO Routine Status migrainosus Expected: 2017 (Approximate), Expires: 11/06/2018 CTA NECK WO/W CONTRAST+POST P Routine Status migrainosus Expected: 11/06 (Approximate), Expires: 11/06/2018 INFUSION HEADACHE PROTOCOL Routine Status migrainosus Ordered: 2017 as of this encounter Results * MRV HEAD WO/W [...] after the administration of MultiHance contrast. 2-D [id number] images were obtained of the cerebral veins [...] the administration of MultiHance contrast. 2 -D [id number] images were obtained of the cerebral veins [...] after the administration of MultiHance contrast. 2-D [id number]-tz-[id number] images were obtained of the cerebral veins [...] the administration of MultiHance contrast. 2 -D [id number] images were obtained of the cerebral veins [...] this encounter Visit Diagnoses Diagnosis Status migrainosus - Primary Variants of migraine, not elsewhere classified, without mention of intractable migraine without mention of status migrainosus Intractable migraine with aura with status migrainosus Migraine with aura, with intractable migraine, so stated, with status migrainosus Cervicalgia Syncope, unspecified syncope type
--- OUTSIDE RECORDS SUMMARY | 2018-01-12 06:18 | XMS REPORT | Encounter Summary ---
Author Author [facility] Organization [facility] Address Unknown Phone Unavailable Care Team Providers Care Equalizing Saw Operator Name Role Phone Em Fonseca PCP Reason for Visit * Reason Comments Results labs and xrays Encounter Details Date Type Department Care Team Description 10/30/2017 Telephone [facility] Cora Botello DO Results (labs and xrays) Physicians-Rheumatology [address] [facility] [id number] [place] [address] [place] [address] [phone] Social History Tobacco Use Types Packs/Day Years Used Date Never Smoker Smokeless Tobacco: Never Used Alcohol Use Drinks/Week oz/Week Comments No Sex Assigned at Date Recorded Not on file as of this encounter Miscellaneous Notes * Telephone Encounter - Janeth Thibodeaux RN - 10/30/2017 8:32 AM CDT Called pt and notified her of recommendations and results below. Pt stated understanding. Pt stated that she is seeing an SOCIAL SCIENCE ANALYST for her uterine and RH negative issues. Pt stated she is needing a new PCP as she currently does not have one that she trusts. Pt inquiring what to do about her pain management. Notified pt that she could establish with a PCP here at . Pt stated understanding. Pt transferred to scheduling to make an appt and will follow up with her SOCIAL SCIENCE ANALYST for now. Pt had no further questions at this time. Notified Chandni to cancel appt. * Telephone Encounter - Janeth Thibodeaux RN - 10/30/2017 8:26 AM CDT ----- Message from Cora Botello DO sent at 10/11/2017 4:33 PM CDT ----- Janeth- can you please call her and let her and let her know the followin. Chest xray is normal 2. Joint survey is normal except for moderate right "knocked knee" but the joint spaces are normal without arthritis in any of the joints. 3. BRUNO is negative. This makes an autoimmune rheumatologic process like SLE, RA , etc unlikely. RF and CCP are negative making RA unlikely 4. 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 I understand she was diagnosed with protein C deficiency, but I wanted to check these antibodies to make sure there was no autoimmune blood clotting disorder present. 5. Iron panel shows Iron deficiency. Hemoglobin is normal, so no anemia. She should follow up with her PCP about why she has iron deficiency, most common cause in a young female is heavy menses. 6. Alkaline phosphatase is mildly elevated at 125, normal is <110. This can be followed up with PCP 7. All other labs are negative, and I do not have a rheumatic explanation for her symptoms. I see she has an appointment on 10/30 to review results, but with everything being negative from a rheumatologic stand point, I'm not sure I can offer her anything else, so she can follow up with her PCP. in this encounter Plan of Treatment Not on fileas of this encounter Visit Diagnoses Not on filein this encounter
--- OUTSIDE RECORDS SUMMARY | 2018-01-12 06:18 | XMS REPORT | Encounter Summary ---
Author Author [facility] Organization [facility] Address Unknown Phone Unavailable Care Team Providers Care Clamp Truck Driver Name Role Phone Maricarmen Camacho MD PCP Maricarmen Camacho MD 100 Reason for Visit * Reason Comments Infusion Therapy * Treatment (Routine) Status Reason Specialty Diagnoses / Referred By Referred To Procedures Contact Contact Closed Diagnoses Dennis [facility] Intractable MD Emil Infusion Cl migraine without [address] [place], [place] migrainosus, [place] [address] unspecified [place], [place] Phone: migraine type [address] P Phone: rocedures [phone] HEADACHE Encounter Details Date Type Department Care Team Description 11/16/2017 Infusion Infusion Therapy Clinic - Efraín Smith MD Intractable migraine [facility] South [address] without status [address] [place] [address] migrainosus, [place] [address] migraine type (Primary [phone] Dx) Social History Tobacco Use Types Packs/Day Years [...] F) 11/16/2017 1:11 PM CDT Respiratory Rate - - Oxygen Saturation 100% 11/16/2017 1:11 PM CDT Inhaled Oxygen - - Concentration Weight 92.1 kg (203 lb) 11/16/2017 1:11 PM CDT Height 157.5 cm (5' 2") 11/16/2017 1:11 PM CDT Body Mass Index 37.13 11/16/2017 1:11 PM CDT in this encounter Functional Status Functional Status Response [...] impairment: No 11/16/2017 as of this encounter Progress Notes * Zabrina Osuna RN - 11/16/2017 1:15 PM CDT Pt states her headache is better. Pain went from an 8 to a 10 (pain scale 1-10) . "The pressure behind my eyes is gone." in this encounter Plan of Treatment Name Priority Associated Diagnoses Order Schedule POC CREATININE Routine Intractable migraine Ordered: 11/16/2017 without status migrainosus, unspecified migraine type as of this encounter Procedures Procedure Name Priority Date/Time Associated Diagnosis Comments POC CREATININE, RAD 11/16/2017 Results for this 2:28 PM CDT procedure are in the results section. in this encounter Results * POC CREATININE, RAD (11/16/2017 2:28 PM) Creatinine, POC 0.6 0.4 - 1.00 MG/DL MAIN LAB Performing Organization Address [facility] [address] [place] [address] in this encounter Visit Diagnoses Diagnosis Intractable migraine without status migrainosus, unspecified migraine type - Primary Administered Medications Medication Order MAR Action Action Date Dose Rate Site diphenhydrAMINE (BENADRYL) injection 25 Given 11/16/2017 25 mg mg 13:48 CDT 25 mg, Intravenous, ONCE, 1 dose, 11/16/17 at 1400, Administer first. Administer slow IV push. ketorolac (TORADOL) injection 15 mg Given 11/16/2017 15 mg 15 mg, Intravenous, ONCE, 1 dose, Mon 14:56 CDT 11/16/17 at 1430, Administer last. Administer IV push over 15 seconds. magnesium sulfate 1 g/D5W 100 mL IVPB Given - New 11/16/2017 1 g 300 mL/hr 1 g, Intravenous, 100 mL, Administer Bag 14:14 CDT over 20 Minutes, ONCE, 1 dose, Thu11/16/17 at 1400, Administer after Prochlorperazine. prochlorperazine (COMPAZINE) injection Given 11/16/2017 10 mg 10 mg 13:44 CDT 10 mg, Intravenous, ONCE, 1 dose, Thu11/16/17 at 1400, Administer after Diphenhydramine. Administer slow IV push. PROTECT FROM LIGHT -- May be given undiluted, or each 5mg may be diluted with 9 mL of NS to facilitate titration. sodium chloride 0.9 % infusion Given - New 11/16/2017 500 mL 999 mL/ hr 500 mL, 500 mL, Intravenous, at 999 Bag 13:41 CDT mL/hr, BOLUS, 1 dose, Thu11/16/17 at 1330 in this encounter
--- OUTSIDE RECORDS SUMMARY | 2018-01-12 06:18 | XMS REPORT | Encounter Summary ---
Author Author [facility] Organization [facility] Address Unknown Phone Unavailable Care Team Providers Care Aviation Medicine Specialist Name Role Phone RavinEm villafuerte PCP Maricarmen Camacho MD PCP Maricarmen Camacho MD 100 Encounter Details Date Type Department Care Team Description 11/06/2017 Procedure Pass [facility] Radiology [address] [place] [address] Social History Tobacco Use Types Packs/Day Years Used Date Never Smoker Smokeless Tobacco: Never Used Alcohol Use Drinks/Week oz/Week Comments No Sex Assigned at Date Recorded Not on file as of this encounter Last Filed Vital Signs Vital Sign Reading Time Taken Blood Pressure - - Pulse - - Temperature - - Respiratory Rate - - Oxygen Saturation - - Inhaled Oxygen - - Concentration Weight 89.4 kg (197 lb) 11/16/2017 5:25 PM CDT Height 157.5 cm (5' 2") 11/16/2017 5:25 PM CDT Body Mass Index 36.03 11/16/2017 5:25 PM CDT in this encounter Plan of Treatment Not on fileas of this encounter Visit Diagnoses Not on filein this encounter
--- OUTSIDE RECORDS SUMMARY | 2018-01-12 06:18 | XMS REPORT | Encounter Summary ---
Author Author [facility] Organization [facility] Address Unknown Phone Unavailable Care Team Providers Care Furnace Loader Name Role Phone Em Fonseca DO PCP Encounter Details Date Type Department Care Team Description 11/06/2017 Orders Only Infusion Therapy Clinic - Emil Collins MD [address] [place] [address] [place] [address] [phone] Social History Tobacco Use Types Packs/Day Years Used Date Never Smoker Smokeless Tobacco: Never Used Alcohol Use Drinks/Week oz/Week Comments No Sex Assigned at Date Recorded Not on file as of this encounter Plan of Treatment Not on fileas of this encounter Visit Diagnoses Not on filein this encounter
--- OUTSIDE RECORDS SUMMARY | 2018-01-12 06:18 | XMS REPORT | Encounter Summary ---
Author Author [facility] Organization [facility] Address Unknown Phone Unavailable Care Team Providers Care Autism Tutor Name Role Phone Maricarmen Camacho MD PCP Maricarmen Camacho MD 100 Encounter Details Date Type Department Care Team Description 11/10/2017 Orders Only Infusion Therapy Clinic - Jim Pineda RPH [place] [address] [place] [address] Social History Tobacco Use Types Packs/Day Years Used Date Never Smoker Smokeless Tobacco: Never Used Alcohol Use Drinks/Week oz/Week Comments No Sex Assigned at Date Recorded Not on file as of this encounter Plan of Treatment Not on fileas of this encounter Visit Diagnoses Not on filein this encounter
--- OUTSIDE RECORDS SUMMARY | 2018-01-12 06:18 | XMS REPORT | Encounter Summary ---
Author Author [facility] Organization [facility] Address Unknown Phone Unavailable Care Team Providers Care Manager Mission Name Role Phone Em Fonseca DO PCP Encounter Details Date Type Department Care Team Description 11/06/2017 Orders Only Infusion Therapy Clinic - Emil Collins MD [address] [place] [address] [place] [address] [phone] Social History Tobacco Use Types Packs/Day Years Used Date Never Smoker Smokeless Tobacco: Never Used Alcohol Use Drinks/Week oz/Week Comments No Sex Assigned at Date Recorded Not on file as of this encounter Plan of Treatment Not on fileas of this encounter Visit Diagnoses Not on filein this encounter
--- OUTSIDE RECORDS SUMMARY | 2018-01-12 06:18 | XMS REPORT ---
Author Author Callum Murrell [facility] Address [address] [place], [place] [address] Care Team Providers Care Machine Heel Seat Laster Name Role Phone Callum Murrell PCP Allergies and Adverse Reactions Name Reaction Notes azithromycin vomiting Imitrex swelling Bactrim hives SULFA (SULFONAMIDE ANTIBIOTICS) hives Demerol hives Morphine Sulfate hives Plan of Treatment Not available. Medications Active Name Start Date Estimated Completion Date SIG Comments oxycodone-acetaminophen 7.5-325 mg oral tablet take 1 tablet by oral route every 6 hours as needed biotin 10,000 mcg oral capsule take 1 capsule by oral route daily buspirone 10 mg oral tablet take 2 tablets (20 mg) by oral route 2 times per day cranberry 450 mg oral tablet take 1 tablet by oral route 2 times a day fentanyl 100 mcg/hr transdermal patch 72 hour apply 1 patch (100 mcg/ hour) by transdermal route every 72 hours Lyrica 150 mg oral capsule take 1 capsule 175mg by oral route 2 times per day magnesium 250 mg oral tablet take [...] (10 mg) by oral route once daily Problem List Not available. Vital Signs Date Time BP-Sys(mm[Hg] BP-Elena(mm[Hg]) HR(bpm) RR(rpm) Temp WT HT HC BMI BSA BMI Percentile O2 Sat(%) 03/12/2017 10:07:00 AM 118 mmHg 70 mmHg 92 bpm 97.2 F 196.375 lbs 62 in 35.92 kg/m2 1.97 m2 97 % Social History Name Description Comments Alcohol Current some day Tobacco Former smoker quit a month ago History of Procedures Not available. Results Summary Not available. History Of Immunizations Not available. History of Past Illness Name Date of Onset Comments Fibromyalgia Chronic pain disorder Protein C deficiency Syncope Migraine without aura and without status migrainosus, not intractable Payers Insurance Name Company Name Plan Name Plan Number Policy Number Policy Group Number Start Date [facility] [id number] N/A History of Encounters Visit Date Visit Type Provider 03/12/2017 Office visit Callum Murrell DO
--- OUTSIDE RECORDS SUMMARY | 2018-01-12 06:18 | XMS REPORT | Encounter Summary ---
Author Author [facility] Organization [facility] Address Unknown Phone Unavailable Care Team Providers Care Traffic Law Attorney Name Role Phone Em Fonseca PCP Maricarmen Camacho MD PCP Maricarmen Camacho MD 100 Encounter Details Date Type Department Care Team Description 11/06/[address] [facility] Radiology [address] [place] [address] Social History Tobacco Use Types Packs/Day Years Used Date Never Smoker Smokeless Tobacco: Never Used Alcohol Use Drinks/Week oz/Week Comments No Sex Assigned at Date Recorded Not on file as of this encounter Plan of Treatment Not on fileas of this encounter Visit Diagnoses Not on filein this encounter
--- OUTSIDE RECORDS SUMMARY | 2018-01-12 06:19 | XMS REPORT ---
Author Author Callum Murrell [facility] Address [address] [place], [place] [id number] Care Team Providers Care Bar Machine Operator Production Name Role Phone Callum Murrell PCP Allergies and Adverse Reactions Name Reaction Notes azithromycin vomiting Imitrex swelling Bactrim hives SULFA (SULFONAMIDE ANTIBIOTICS) hives Demerol hives Morphine Sulfate hives Plan of Treatment Planned Activity Comments Planned Date Planned Time Plan/Goal Urine toxicology screen by GC-MS 05/29/2017 12:00 AM Urine toxicology screen by GC-MS 05/29/2017 12:00 AM Medications Active Name Start Date Estimated Completion [...] (10 mg) by oral route once daily Colace 100 mg oral capsule 03/26/2017 take 1 capsule (100 mg) by oral route 2 times per day for 30 days Miralax 17 gram/dose oral powder 03/26/2017 take 17 gram mixed with 8 oz. water, juice, soda, coffee or tea by oral route once daily for 30 days cyclobenzaprine 10 mg oral tablet 05/18/2017 take 1 tablet by oral route 3 times a day as needed for 30 days fentanyl 87.5 mcg/hour transdermal patch 72 hour 05/25/2017 06/24/2017 apply 1 patch (87.5 mcg/hour) by transdermal route every 72 hours for 30 days clonidine HCl 0.1 mg oral tablet 05/26/2017 05/30/2017 take 1 tablet by oral route 3 times a day as needed for 4 days oxycodone-acetaminophen 7.5-325 mg oral tablet 05/27/2017 06/26/2017 take 1 tablet by oral route every 6 hours as needed for 30 days Name Start Date Expiration Date SIG Comments Lyrica 150 mg oral capsule 04/25/2017 05/25/2017 take 1 capsule by oral route 3 times a day for 30 days Discontinued Name Start Date Discontinued Date SIG Comments buspirone 10 mg oral tablet 04/23/2017 take 2 tablets (20 mg) by oral route 2 times per day Problem List Not available. Vital Signs Date Time BP-Sys(mm[Hg] BP-Elena(mm[Hg]) HR(bpm) RR(rpm) Temp WT HT HC BMI BSA BMI Percentile O2 Sat(%) 05/29/2017 10:52:00 AM 110 mmHg 62 mmHg 77 bpm 97.7 F 199.25 lbs 62 in 36.4429 kg/m 1.9884 m 99 % 05/18/2017 3:33:00 PM 122 mmHg 66 mmHg 80 bpm 97.8 F 205.5 lbs 62 in 37.59 kg/m2 2.02 m2 99 % 04/23/2017 9:01:00 AM 102 mmHg 66 mmHg 108 bpm 96.3 F 200 lbs 62 in 36.5801 kg/m 1.9921 m 99 % 03/26/2017 9:29:00 AM 130 mmHg 80 mmHg 76 bpm 95.9 F 200 lbs 100 % 03/12/2017 10:07:00 AM 118 mmHg 70 mmHg 92 bpm 97.2 F 196.375 lbs 62 in 35.9171 kg/m 1.97 m2 97 % Social History Name Description Comments Alcohol Current some day Tobacco Current every day smoker History of Procedures Date Ordered Description Order Status 03/26/2017 12:00 AM Urine toxicology screen Reviewed 03/26/2017 12:00 AM DRUG SCREEN ONE/MULT CLASS Reviewed 03/26/2017 12:00 AM INJECT TRIGGER POINTS 3/> Reviewed 05/19/2017 12:00 AM NRV CNDJ TEST 7-8 STUDIES Reviewed 05/19/2017 12:00 AM MUSC TEST DONE W/N TEST COMP Reviewed Results Summary Not available. History Of [...] 9:05AM Overuse injury Apr 23 2017 9:05AM Carpal tunnel syndrome of left wrist May 18 2017 3:36PM Fibromyalgia syndrome May 29 2017 10:54AM Chronic pain syndrome May 29 2017 10:54AM Myalgia May 29 2017 10:54AM Drug induced constipation May 29 2017 10:54AM Adverse effect of other opioids, initial encounter May 29 2017 10:54AM Opiate analgesic use agreement exists May 29 2017 10:54AM Overuse injury May 29 2017 10:54AM Payers Insurance Name Company Name Plan Name Plan Number Policy Number Policy Group Number Start Date [facility] [id number] N/A History of Encounters Visit Date Visit Type Provider 05/29/2017 Office visit Callum Murrell DO 05/18/2017 Procedures Callum Murrell DO 04/23/2017 Office visit Callum Murrell DO 03/26/2017 Office visit 03/26/2017 Office visit Callum Murrell DO 03/12/2017 Office visit Callum Murrell DO
--- OUTSIDE RECORDS SUMMARY | 2018-01-12 06:19 | XMS REPORT ---
Author Author Callum Murrell [facility] Address [address] [place], [place] [address] Care Team Providers Care Cracker And Cookie Machine Operator Name Role Phone Callum Murrell PCP Allergies and Adverse Reactions Name Reaction Notes azithromycin vomiting Imitrex swelling Bactrim hives SULFA (SULFONAMIDE ANTIBIOTICS) hives Demerol hives Morphine Sulfate hives Plan of Treatment Planned Activity Comments Planned Date Planned Time Plan/Goal Urine toxicology screen 03/26/2017 12:00 AM Urine toxicology screen 03/26/2017 12:00 AM Medications Active Name Start Date Estimated Completion Date SIG Comments biotin 10,000 mcg oral capsule take 1 capsule by oral route daily buspirone 10 mg oral tablet take 2 tablets (20 mg) by oral route 2 times per day cranberry 450 mg oral tablet take 1 tablet by oral route 2 times a day Lyrica 150 mg oral capsule take 1 [...] day as needed for 30 days fentanyl 100 mcg/hr transdermal patch 72 hour 03/26/2017 04/25/2017 apply 1 patch (100 mcg/hour) by transdermal route every 72 hours for 30 days oxycodone-acetaminophen 7.5-325 mg oral tablet 03/26/2017 04/25/2017 take 1 tablet by oral route every 6 hours as needed not to exceed 8 tablets per 24hrs for 30 days Colace 100 mg oral capsule 03/26/2017 take 1 capsule (100 mg) by oral route 2 times per day for 30 days Miralax 17 gram/dose oral powder 03/26/2017 take 17 gram mixed with 8 oz. water, juice, soda, coffee or tea by oral route once daily for 30 days Problem List Not available. Vital Signs Date Time BP-Sys(mm[Hg] BP-Elena(mm[Hg]) HR(bpm) RR(rpm) Temp WT HT HC BMI BSA BMI Percentile O2 Sat(%) 03/26/2017 9:29:00 AM 130 mmHg 80 mmHg 76 bpm 95.9 F 200 lbs 100 % 03/12/2017 10:07:00 AM 118 mmHg 70 mmHg 92 bpm 97.2 F 196.375 lbs 62 in 35.9171 kg/m 1.974 m 97 % Social History Name Description Comments Alcohol Current some day Tobacco Current every day smoker History of Procedures Not available. Results Summary [...] use agreement exists Mar 26 2017 9:34AM Payers Insurance Name Company Name Plan Name Plan Number Policy Number Policy Group Number Start Date [facility] [id number] N/A History of Encounters Visit Date Visit Type Provider 03/26/2017 Office visit 03/26/2017 Office visit Callum Murrell DO 03/12/2017 Office visit Callum Murrell DO
--- OUTSIDE RECORDS SUMMARY | 2018-01-12 06:19 | XMS REPORT ---
Author Author Callum Murrell [facility] Address [address] [place], [place] [id number] Care Team Providers Care Supervisor Dairy Sanitation Name Role Phone Callum Murrell PCP Allergies [...] Number Policy Group Number Start Date [facility] [id number] N/A History of Encounters Visit Date Visit Type Provider 05/29/2017 Office visit Callum Murrell DO 05/18/2017 Procedures Callum Murrell DO 04/23/2017 Office visit Callum Mrurell DO 03/26/2017 Office visit 03/26/2017 Office visit Callum Murrell DO 03/12/2017 Office visit Callum Murrell DO
--- OUTSIDE RECORDS SUMMARY | 2018-01-12 06:19 | XMS REPORT ---
Author Author Callum Murrell [facility] Address [address] [place], [place] [id number] Care Team Providers Care Box Toe Cementer Name Role Phone Callum Murrell PCP Allergies [...] Chronic pain syndrome Mar 12 2017 10:33AM Payers Insurance Name Company Name Plan Name Plan Number Policy Number Policy Group Number Start Date [facility] [id number] N/A History of Encounters Visit Date Visit Type Provider 03/12/2017 Office visit Callum Murrell DO
--- OUTSIDE RECORDS SUMMARY | 2018-01-12 06:20 | XMS REPORT ---
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 2844 Aug, [facility] [place] [facility] [address] [id number] [place] [address]- 2129 Jul, [facility] [place] [facility] [address] [id number] [place] [address]- 7893 Jul, [facility] [address] [id number] [place] [address]- 6240 Jul, [facility] [place] [facility] [address] [id number] [place] [address]- 2556 Jul, [facility] [place] [facility] [address] [id number] [place] [address]- 9470 Jul, [facility] [place] [facility] [address] [id number] [place] [address]- 1482 Jul, [facility] [place] [facility] [address] [id number] [place] [address]- 4445 Jul, [facility] [place] [facility] [address] [id number] [place] [address]- 5125 Jul, [facility] [place] [facility] [address] [id number] [place] [address]- 2887 June, [facility] [place] [facility] [address] [id number] [place] [address]- 7035 June, [facility] [place] [facility] [address] [id number] [place] [address]- 0948 Mar, [facility] [place] [facility] [address] [id number] [place] [address]- 5052 Feb, [facility] [place] [facility] [address] [id number] [place] [address]- 0576 Feb, [facility] [place] [facility] [address] [id number] [place] [address]- 5313 Feb, [facility] [place] [facility] [address] [id number] [place] [address]- 0615 Feb, [facility] [place] [facility] [address] [id number] [place] [address]- 4317 Jan, [facility] [place] [facility] [address] [id number] [place] [address]- 5607 Jan, [facility] [place] [facility] [address] [id number] [place] [address]- 4885 Jan, [facility] [place] [facility] [address] [id number] [place] [address]- 8734 Jan, [facility] [place] [facility] [address] [id number] [place] [address]- 3455 Jan, [facility] [place] [facility] [address] [id number] [place] [address]- 4300 Dec, [facility] [place] [facility] [address] [id number] [place] [address]- 7895 Dec, [facility] [place] [facility] [address] [id number] [place] [address]- 9649 Dec, [facility] [place] [facility] [address] [id number] [place] [address]- 2627 Dec, [facility] [place] [facility] [address] [id number] [place] [address]- 8998 Dec, [facility] [place] [facility] [address] [id number] [place] [address]- 0706 Dec, [facility] [place] [facility] [address] [id number] [place] [address]- 7967 Nov, [facility] [place] [facility] [address] [id number] [place] [address]- 2771 18 Oct, 2011 [facility] [place] [facility] [address] [id number] [place] [address]- 1130 06 Oct, 2011 [facility] [place] [facility] [address] [id number] [place] [address]- 7843 Aug, [facility] [place] [facility] [address] [id number] [place] [address]- 1797 Jul, [facility] [place] [facility] [address] [id number] [place] [address]- 2546 Jul, [facility] [place] [facility] [address] [id number] [place] [address]- 2803 Jul, [facility] [address] [id number] [place] [address]- 4390 June, [facility] [place] [facility] [address] [id number] [place] [address]- 7956 May, [facility] [place] [facility] [address] [id number] [place] [address]- 3026 Apr, [facility] [place] [facility] [address] [id number] [place] [address]- 7326 Apr, [facility] [place] [facility] [address] [id number] [place] [address]- 2122 Apr, [facility] [place] [facility] [address] [id number] [place] [address]- 6216 Apr, [facility] [place] [facility] [address] [id number] [place] [address]- 3106 Apr, [facility] [place] [facility] [address] [id number] [place] [address]- 0305 Mar, [facility] [place] [facility] [address] [id number] [place] [address]- 5685 Mar, [facility] [place] [facility] [address] [id number] [place] [address]- 1313 Mar, [facility] [place] [facility] [address] [id number] [place] [address]- 7756 Mar, [facility] [place] [facility] [address] [id number] [place] [address]- 3846 Feb, [facility] [place] [facility] [address] [id number] [place] [address]- 1176 Feb, [facility] [place] [facility] [address] [id number] [place] [address]- 1936 Feb, [facility] [place] [facility] [address] [id number] [place] [address]- 6346 Jan, [facility] [place] [facility] [id number], [place] [address]- 7026 Jan, [facility] [id number], [place] [address]- 6586 Dec, [facility] [id number], [place] [address]- 4156 Dec, [facility] [id number], [place] [address]- 8231 Nov, [facility] [id number], [place] [address]- 0055 June, [facility] [id number], [place] [address]- 8180 Feb, [facility] [id number], [place] [address]- 3096 Jan, [facility] [id number], [place] [address]- 3009 Nov, [facility] [id number], [place] [address]- 8124 June, [facility] [id number], [place] [address]- 8433 Jan, [facility] [id number], [place] [address]- 0009 Nov, [facility] [id number], [place] [address] Nov, IMMUNIZATIONS No Known Immunizations SOCIAL HISTORY Never Assessed REASON FOR VISIT PLAN OF CARE VITAL SIGNS MEDICATIONS Unknown Medications RESULTS No Results PROCEDURES No Known procedures INSTRUCTIONS MEDICATIONS ADMINISTERED No Known Medications MEDICAL (GENERAL) HISTORY Type Description Date Medical History fibromyalgia Medical History protein C deficiency: questionable after 32 wk demise (), testing done after 4th (02/28) ruled out hypercoagulability Medical History migraine headaches Medical History vitamin D deficiency: takes 1000 iu Medical History History of Helicobacter pylori infection Medical History 09/28/16 ED for tooth pain, Alveolar nerve block placed, amox script given Medical History 24 hour holter monitor 12/12-12/13 , much of recording with sinus tachycardia 100-140bpm read by Dr. Urias Medical History Dr. Bansal neurology consult 01/28/17 increase Topamax to 200mg BID, keep log of headaches and fu in [address] Saba 01/26/17 24hr Holter monior SR with average HR 100bpm, Occ isolated PVC and PAC, no signigicant tammy, no VT or SVT Surgical History tonsillectomy Surgical History cholecystectomy Surgical History right knee arthroscopy Surgical History left knee arthroscopy Surgical History primary 06/2016 Surgical History oral surgery on jaw because of tooth abcess Surgical History Bilateral Tubal Ligation - Laproscopic 03/2017 Surgical History Carpal Tunnel Surgery 11/2012 Hospitalization History childbirth, surgeries Hospitalization History right shoulder and carpal tunnel surgery 11/28
--- OUTSIDE RECORDS SUMMARY | 2018-01-12 06:21 | XMS REPORT ---
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 [id number] [place] [address]141 Jan, [facility] [address] [id number] [address]- 2617 Jan, [facility] [place] [facility] [address] [id number] [place] [address]- 8032 Jan, [facility] [place] [facility] [address] [id number] [place] [address]- 0535 Jan, [facility] [place] [facility] [address] [id number] [place] [address]- 7781 Dec, [facility] [place] [facility] [address] [id number] [place] [address]- 2061 Dec, [facility] [place] [facility] [address] [id number] [place] [address]- 9146 Dec, [facility] [place] [facility] [address] [id number] [place] [address]- 3250 Dec, [facility] [place] [facility] [address] [id number] [place] [address]- 7356 Dec, [facility] [place] [facility] [address] [id number] [place] [address]- 8916 Dec, [facility] [place] [facility] [address] [id number] [place] [address]- 1343 Nov, [facility] [place] [facility] [address] [id number] [place] [address]- 4485 Oct, [facility] [place] [facility] [address] [id number], [place] [address]- 9756 Oct, [facility] [place] [facility] [address] [id number], [place] [address]- 7396 Aug, [facility] [place] [facility] [address] [id number] [place] [address]- 5666 Jul, [facility] [place] [facility] [address] [id number] [place] [address]- 0251 Jul, [facility] [place] [facility] [address] [id number] [place] [address]- 3675 Jul, [facility] [place] [facility] [address] [id number] [place] [address]- 2606 June, [facility] [address] [id number] [place] [address]- 4688 May, [facility] [place] [facility] [address] [id number] [place] [address]- 4956 Apr, [facility] [address] [id number] [place] [address]- 1376 Apr, [facility] [address] [id number] [place] [address]- 2581 Apr, [facility] [address] [id number] [place] [address]- 4056 Apr, [facility] [address] [facility] [id number] [place] [address]- 5146 Apr, [facility] [address] [id number] [place] [address]- 2820 27 Mar, 2011 [facility] [address] [id number] [place] [address]- 5605 24 Mar, 2011 [facility] [address] [id number] [place] [address]- 2846 10 Mar, 2011 [facility] [address] [facility] [id number] [place] [address]- 5136 07 Mar, 2011 [facility] [address] [id number] [place] [address]- 0666 Feb, [facility] [address] [id number] [place] [address]- 5006 18 Feb, 2011 [facility] [place] [facility] [address] [id number] [place] [address]- 5886 17 Feb, 2011 [facility] [place] [facility] [address] [id number] [place] [address]- 5326 23 Jan, 2011 [facility] [place] [facility] [address] [id number] [place] [address]- 7496 Jan, [facility] [id number] [address]- 2656 Dec, [facility] [id number], [place] [address]- 2546 Dec, [facility] [id number], [place] [address] 2546 Nov, [facility] [id number], [place] [address] 6126 June, [facility] [id number], [place] [address]- 8850 Feb, [facility] [id number] [place] [address] 2546 Jan, [facility] [id number], [place] [address]- 7436 Nov, [facility] [id number], [place] [address]- 2856 June, [facility] [id number], [place] [address]- 2095 Jan, [facility] [id number], [place] [address]- 2944 Nov, [facility] [id number], [place] [address]- 7844 Nov, IMMUNIZATIONS No Known Immunizations SOCIAL HISTORY [...]
--- OUTSIDE RECORDS SUMMARY | 2018-01-12 06:22 | XMS REPORT ---
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 [facility] [address] [id number] [place] [address]- 9359 June, [facility] [place] [facility] [address] [id number] [place] [address]- 9190 Mar, [facility] [place] [facility] [address] [id number] [place] [address]- 0060 Feb, [facility] [place] [facility] [address] [id number] [place] [address]- 7997 Feb, [facility] [place] [facility] [address] [id number] [place] [address]- 0584 Feb, [facility] [place] [facility] [address] [id number] [place] [address]- 9039 Feb, [facility] [place] [facility] [address] [id number] [place] [address]- 1098 Jan, [facility] [place] [facility] [address] [id number] [place] [address]- 6823 Jan, [facility] [place] [facility] [address] [id number] [place] [address]- 5067 Jan, [facility] [place] [facility] [address] [id number] [place] [address]- 7858 Jan, [facility] [place] [facility] [address] [id number] [place] [address]- 1612 Jan, [facility] [place] [facility] [address] [id number] [place] [address]- 7337 Dec, [facility] [place] [facility] [address] [id number] [place] [address]- 1164 Dec, [facility] [place] [facility] [address] [id number] [place] [address]- 0159 Dec, [facility] [place] [facility] [address] [id number] [place] [address]- 0254 Dec, [facility] [place] [facility] [address] [id number] [place] [address]- 6920 Dec, [facility] [place] [facility] [address] [id number] [place] [address]- 1507 Dec, [facility] [place] [facility] [address] [id number] [place] [address]- 6545 Nov, [facility] [place] [facility] [address] [id number] [place] [address]- 7030 18 Oct, 2011 [facility] [place] [facility] [address] [id number] [place] [address]- 8128 06 Oct, 2011 [facility] [place] [facility] [address] [id number] [place] [address]- 7835 Aug, [facility] [place] [facility] [address] [id number] [place] [address]- 6858 Jul, [facility] [place] [facility] [address] [id number] [place] [address]- 2546 Jul, [facility] [place] [facility] [address] [id number] [place] [address]- 2385 Jul, [facility] [address] [id number] [place] [address]- 6183 June, [facility] [place] [facility] [address] [id number] [place] [address]- 9106 May, [facility] [place] [facility] [address] [id number] [place] [address]- 9866 Apr, [facility] [place] [facility] [address] [id number] [place] [address]- 6626 Apr, [facility] [place] [facility] [address] [id number] [place] [address]- 2697 Apr, [facility] [place] [facility] [address] [id number] [place] [address]- 3836 Apr, [facility] [place] [facility] [address] [id number] [place] [address]- 1506 Apr, [facility] [place] [facility] [address] [id number] [place] [address]- 0788 Mar, [facility] [place] [facility] [address] [id number] [place] [address]- 8771 Mar, [facility] [place] [facility] [address] [id number] [place] [address]- 0906 Mar, [facility] [place] [facility] [address] [id number] [place] [address]- 6966 Mar, [facility] [place] [facility] [address] [id number] [place] [address]- 3596 Feb, [facility] [place] [facility] [address] [id number] [place] [address]- 9896 Feb, [facility] [place] [facility] [address] [id number] [place] [address]- 8976 Feb, [facility] [place] [facility] [address] [id number] [place] [address]- 5216 Jan, [facility] [place] [facility] [id number] [address] Jan, [facility] [id number] [address]- 96[address] Dec, [facility] [id number] [address]- 7736 Dec, [facility] [id number] [address]- 0[address] Nov, [facility] [id number] [address]- 2798 June, [facility] [id number] [address]- 4000 Feb, [facility] [id number] [address]- 5526 Jan, [facility] [id number] [address]- 4077 Nov, [facility] [id number] [address]- 2424 June, [facility] [id number] [address]- 7900 Jan, [facility] [id number] [address]- 6648 Nov, [facility] [id number] [address]- 6073 Nov, IMMUNIZATIONS No Known Immunizations SOCIAL HISTORY [...]
--- OUTSIDE RECORDS SUMMARY | 2018-01-12 06:22 | XMS REPORT ---
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 [facility] [address] [id number] [place] [address]- 7454 Dec, [facility] [place] [facility] [address] [id number] [place] [address]- 1008 Dec, [facility] [place] [facility] [address] [id number] [place] [address]- 9614 Dec, [facility] [place] [facility] [address] [id number] [place] [address]- 1227 Dec, [facility] [place] [facility] [address] [id number] [place] [address]- 7776 Dec, [facility] [place] [facility] [address] [id number] [place] [address]- 1189 Nov, [facility] [place] [facility] [address] [id number] [place] [address]- 8624 Oct, [facility] [place] [facility] [address] [facility] [id number] [address]- [address]677 Oct, [facility] [place] [facility] [address] [facility] [id number] [place] [address]- 0436 Aug, [facility] [place] [facility] [address] [id number] [place] [address]- 9295 Jul, [facility] [place] [facility] [address] [id number] [place] [address]- 9558 Jul, [facility] [place] [facility] [address] [id number] [place] [address]- 2216 Jul, [facility] [place] [facility] [address] [facility] [id number] [place] [address]- 5485 June, [facility] [place] [facility] [address] [id number] [place] [address]- 4063 May, [facility] [address] [id number] [place] [address]- 6276 Apr, [facility] [place] [facility] [address] [id number] [place] [address]- 9716 Apr, [facility] [place] [facility] [address] [id number] [place] [address]- 3226 19 Apr, 2011 [facility] [place] [facility] [address] [id number] [place] [address]- 8363 19 Apr, 2011 [facility] [address] [id number] [place] [address]- 2063 Apr, [facility] [place] [facility] [address] [id number] [place] [address]- 1536 27 Mar, 2011 [facility] [address] [facility] [id number] [place] [address]- 5162 24 Mar, 2011 [facility] [place] [facility] [address] [id number] [place] [address]- 2276 Mar, [facility] [place] [facility] [address] [id number] [place] [address]- 6437 07 Mar, 2011 [facility] [place] [facility] [address] [facility] [id number] [place] [address]- 0918 Feb, [facility] [address] [facility] [id number] [place] [address]- 5166 18 Feb, 2011 [facility] [place] [facility] [address] [id number] [place] [address]- 6766 17 Feb, 2011 [facility] [place] [facility] [address] [id number] [place] [address]- 7512 Jan, [facility] [place] [facility] [address] [id number] [place] [address] 2546 Jan, [facility] [place] [facility] [address] [facility] [id number] [address]- [address] [address], [address] [facility] [id number] [address] Dec, [facility] [id number] [address] 9147 Nov, [facility] [id number] [address] 4361 June, [facility] [id number] [place] [address]- 3169 Feb, [facility] [id number] [address] 1723 Jan, [facility] [id number] [place] [address]77[address]- 6350 Nov, [facility] [address] [id number] [address] 6183 June, [facility] [id number] [address] 8703 Jan, [facility] [id number] [address]- [address]85 Nov, [facility] [id number] [address]- [address]85 Nov, IMMUNIZATIONS No Known Immunizations SOCIAL HISTORY Never Assessed REASON FOR VISIT Requests return call PLAN OF CARE VITAL SIGNS MEDICATIONS Unknown [...]
--- OUTSIDE RECORDS SUMMARY | 2018-01-12 06:23 | XMS REPORT ---
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 [facility] [address] [id number] [place] [address]- 1194 Dec, [facility] [place] [facility] [address] [id number] [place] [address]- 2628 Dec, [facility] [place] [facility] [address] [id number] [place] [address]- 5735 Dec, [facility] [place] [facility] [address] [id number] [place] [address]- 8930 Dec, [facility] [place] [facility] [address] [id number], [place] [address]- 3284 Nov, [facility] [place] [facility] [address] [id number] [place] [address]- 6201 Oct, [facility] [place] [facility] [address] [facility] [id number], [place] [address]- 2121 Oct, [facility] [place] [facility] [address] [facility] [id number], [place] [address]- 4539 Aug, [facility] [place] [facility] [address] [id number], [place] [address]- 5288 Jul, [facility] [place] [facility] [address] [id number] [place] [address]- 0438 Jul, [facility] [place] [facility] [address] [id number], [place] [address]- 8066 Jul, [facility] [place] [facility] [address] [facility] [id number], [place] [address]- 0775 June, [facility] [place] [facility] [address] [id number], [place] [address]- 6342 May, [facility] [address] [id number] [place] [address]- 0682 Apr, [facility] [place] [facility] [address] [id number] [place] [address]- 7116 Apr, [facility] [place] [facility] [address] [id number] [place] [address]- 5916 19 Apr, 2011 [facility] [place] [facility] [address] [id number] [place] [address]- 9023 19 Apr, 2011 [facility] [address] [id number] [place] [address]- 0959 Apr, [facility] [place] [facility] [address] [id number] [place] [address]- 0780 27 Mar, 2011 [facility] [address] [facility] [id number] [place] [address]- 0671 24 Mar, 2011 [facility] [place] [facility] [address] [id number] [place] [address]- 2754 Mar, [facility] [place] [facility] [address] [id number] [place] [address]- 5220 07 Mar, 2011 [facility] [place] [facility] [address] [facility] [id number] [place] [address]- 9997 Feb, [facility] [address] [facility] [id number] [place] [address]- 3290 18 Feb, 2011 [facility] [place] [facility] [address] [id number] [place] [address]- 8516 17 Feb, 2011 [facility] [place] [facility] [address] [id number] [place] [address]- 1742 Jan, [facility] [place] [facility] [address] [id number] [place] [address] 2546 Jan, [facility] [place] [facility] [address] [facility] [id number], [place] [address]- 3104 29 Dec, 2010 [facility] [id number], [place] [address]- [address] Dec, [facility] [id number], [place] [address]- 8595 Nov, [facility] [id number], [place] [address]- 7685 June, [facility] [id number] [place] [address]- 3712 Feb, [facility] [id number], [place] [address]- 6096 Jan, [facility] [id number] [place] [address]- 7743 Nov, [facility] [id number] [place] [address]- 6899 June, [facility] [id number], [place] [address]- 8667 Jan, [facility] [id number], [place] [address]- 9867 Nov, [facility] [id number], [place] [address]- 0457 Nov, IMMUNIZATIONS No Known Immunizations SOCIAL HISTORY Never Assessed REASON FOR VISIT med question PLAN OF CARE VITAL SIGNS MEDICATIONS Unknown [...]
--- OUTSIDE RECORDS SUMMARY | 2018-01-12 06:24 | XMS REPORT ---
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 [facility] [address] [id number] [place] [address]- 8849 Dec, [facility] [place] [facility] [address] [id number] [place] [address]- 4903 Dec, [facility] [place] [facility] [address] [id number] [place] [address]- 4299 Dec, [facility] [place] [facility] [address] [id number] [address]- 7857 Nov, [facility] [place] [facility] [address] [id number] [place] [address]- 3652 Oct, [facility] [place] [facility] [address] [facility] [id number] [place] [address]- 9423 Oct, [facility] [place] [facility] [address] [facility] [id number] [place] [address]- 4058 Aug, [facility] [place] [facility] [address] [id number] [place] [address]- 4363 Jul, [facility] [place] [facility] [address] [id number] [place] [address]- 0637 Jul, [facility] [place] [facility] [address] [id number] [place] [address]- 7986 Jul, [facility] [place] [facility] [address] [facility] [id number] [place] [address]- 9218 June, [facility] [place] [facility] [address] [id number] [place] [address]- 9644 May, [facility] [address] [id number] [place] [address]- 2167 Apr, [facility] [place] [facility] [address] [id number] [place] [address]- 5396 Apr, [facility] [place] [facility] [address] [id number] [place] [address]- 3536 19 Apr, 2011 [facility] [place] [facility] [address] [id number] [place] [address]- 0714 19 Apr, 2011 [facility] [address] [id number] [place] [address]- 9766 Apr, [facility] [place] [facility] [address] [id number] [place] [address]- 1361 27 Mar, 2011 [facility] [address] [facility] [id number] [place] [address]- 0556 24 Mar, 2011 [facility] [place] [facility] [address] [id number] [place] [address]- 9328 Mar, [facility] [place] [facility] [address] [id number] [place] [address]- 5595 07 Mar, 2011 [facility] [place] [facility] [address] [facility] [id number] [place] [address]- 9821 Feb, [facility] [address] [facility] [id number] [place] [address]- 6471 18 Feb, 2011 [facility] [place] [facility] [address] [id number] [place] [address]- 6166 17 Feb, 2011 [facility] [place] [facility] [address] [id number] [place] [address]- 9382 Jan, [facility] [place] [facility] [address] [id number] [place] [address] 2546 Jan, [facility] [place] [facility] [address] [facility] [id number] [place] [address]- 4803 29 Dec, 2010 [facility] [id number] [address]- 4506 Dec, [facility] [id number] [address]- 7128 Nov, [facility] [id number] [address]- 1062 June, [facility] [id number] [place] [address]- 5148 Feb, [facility] [id number] [address]- 3657 Jan, [facility] [id number] [place] [address]- 9343 Nov, [facility] [id number] [place] [address]- 4672 June, [facility] [id number] [address]- 6340 Jan, [facility] [id number] [address]- 0081 Nov, [facility] [id number] [address]- 2744 Nov, IMMUNIZATIONS No Known Immunizations SOCIAL HISTORY Never Assessed REASON FOR VISIT migraine PLAN OF CARE VITAL SIGNS MEDICATIONS Unknown [...]
--- OUTSIDE RECORDS SUMMARY | 2018-01-12 06:25 | XMS REPORT ---
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 [facility] [address] [id number] [place] [address]- 7141 Jan, [facility] [place] [facility] [address] [id number] [place] [address]67 Jan, [facility] [place] [facility] [address] [id number] [place] [address]- 8120 Jan, [facility] [place] [facility] [address] [id number] [place] [address]- 5671 Jan, [facility] [place] [facility] [address] [id number] [place] [address]- 8963 Dec, [facility] [place] [facility] [id number] [place] [address], [place] [address]- 0494 Dec, [facility] [place] [facility] [address] [id number] [place] [address]- 1474 Dec, [facility] [place] [facility] [address] [id number] [place] [address]- 8541 Dec, [facility] [place] [facility] [address] [id number] [place] [address]- 5290 Dec, [facility] [place] [facility] [address] [id number] [place] [address]- 4783 Dec, [facility] [place] [facility] [address] [id number] [place] [address]- 2671 Nov, [facility] [place] [facility] [address] [id number] [place] [address]- 8516 Oct, [facility] [place] [facility] [address] [id number] [place] [address]- 5654 Oct, [facility] [place] [facility] [address] [id number] [place] [address]- 0801 Aug, [facility] [place] [facility] [address] [id number] [place] [address]- 5693 Jul, [facility] [place] [facility] [address] [id number] [place] [address]- 3810 Jul, [facility] [place] [facility] [address] [id number] [place] [address]- 5503 Jul, [facility] [place] [facility] [address] [id number] [place] [address]- 2788 June, [facility] [address] [id number] [place] [address]- 8344 May, [facility] [place] [facility] [address] [id number] [place] [address]- 6636 Apr, [facility] [place] [facility] [address] [id number] [place] [address]- 9121 Apr, [facility] [place] [facility] [address] [id number] [place] [address]- 6474 Apr, [facility] [place] [facility] [address] [id number] [place] [address]- 7351 Apr, [facility] [place] [facility] [address] [id number] [place] [address]- 1566 Apr, [facility] [place] [facility] [address] [id number] [place] [address]- 6196 Mar, [facility] [place] [facility] [address] [id number] [place] [address]- 6386 24 Mar, 2011 [facility] [place] [facility] [address] [id number] [place] [address]- 0608 Mar, [facility] [place] [facility] [address] [id number] [place] [address]- 4412 Mar, [facility] [place] [facility] [address] [id number] [place] [address]- 1172 Feb, [facility] [place] [facility] [address] [id number] [place] [address] 2542 Feb, [facility] [place] [facility] [address] [id number] [place] [address]- 9756 Feb, [facility] [place] [facility] [address] [id number] [place] [address]- 9076 Jan, [facility] [place] [facility] [address] [id number] [place] [address]- 1256 Jan, [facility] [place] [facility] [address] [id number], [place] [address]- [address]796 Dec, [facility] [address] [id number], [place] [address]- 9546 Dec, [facility] [address] [facility] [id number], [place] [address]- 1056 Nov, [facility] [id number], [place] [address]- 7076 June, [facility] [address] [facility] [id number], [place] [address]- 3429 Feb, [facility] [id number], [place] [address] 3786 Jan, [facility] [id number], [place] [address]- 5472 Nov, [facility] [id number], [place] [address]- 4[address] June, [facility] [id number], [place] [address] 1987 Jan, [facility] [id number], [place] [address]- 0849 Nov, [facility] [address] [id number], [place] [address]- 8783 Nov, IMMUNIZATIONS No Known Immunizations SOCIAL HISTORY Never Assessed REASON FOR VISIT Medication refill request PLAN OF CARE VITAL SIGNS MEDICATIONS Medication Instructions Dosage Frequency Start Date End Date Duration Status Lyrica 100 mg Orally 2 times a day 1 capsule 12h Feb, 30 days Active Lyrica 75 MG Orally twice a day 1 capsule 12h Feb, 30 days Active Xarelto 20 mg Orally Once a day 1 tablet with food 24h Dec, 30 days Active RESULTS No Results PROCEDURES No Known procedures [...]
--- OUTSIDE RECORDS SUMMARY | 2018-01-12 06:26 | XMS REPORT ---
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 [facility] [address] [id number] [place] [address] Jan, [facility] [place] [facility] [address] [id number] [place] [address]- 0722 Jan, [facility] [place] [facility] [address] [id number] [place] [address]93 Jan, [facility] [place] [facility] [address] [id number] [place] [address]- 3662 Jan, [facility] [place] [facility] [address] [id number] [place] [address]- 0303 Jan, [facility] [place] [facility] [address] [id number] [place] [address]- 4789 Dec, [facility] [place] [facility] [address] [id number] [place] [address], [place] [address]- 3114 Dec, [facility] [place] [facility] [address] [id number] [place] [address]- 4452 Dec, [facility] [place] [facility] [address] [id number] [place] [address]- 1146 Dec, [facility] [place] [facility] [address] [id number] [place] [address]- 1223 Dec, [facility] [place] [facility] [address] [id number] [place] [address]- 3880 Dec, [facility] [place] [facility] [address] [id number] [place] [address]- 4176 Nov, [facility] [place] [facility] [address] [id number] [place] [address]- 4932 Oct, [facility] [place] [facility] [address] [id number] [place] [address]- 7507 Oct, [facility] [place] [facility] [address] [id number] [place] [address]- 8214 Aug, [facility] [place] [facility] [address] [id number] [place] [address]- 3228 Jul, [facility] [place] [facility] [address] [id number] [place] [address]- 5412 Jul, [facility] [place] [facility] [address] [id number] [place] [address]- 2454 Jul, [facility] [place] [facility] [address] [id number] [place] [address]- 6639 June, [facility] [address] [id number] [place] [address]- 9847 May, [facility] [place] [facility] [address] [id number] [place] [address]- 2736 Apr, [facility] [place] [facility] [address] [id number] [place] [address]- 7963 Apr, [facility] [place] [facility] [address] [id number] [place] [address]- 9140 Apr, [facility] [place] [facility] [address] [id number] [place] [address]- 8244 Apr, [facility] [place] [facility] [address] [id number] [place] [address]- 1846 Apr, [facility] [place] [facility] [address] [id number] [place] [address]- 2811 Mar, [facility] [place] [facility] [address] [id number] [place] [address]- 4389 24 Mar, 2011 [facility] [place] [facility] [address] [id number] [place] [address]- 0361 Mar, [facility] [place] [facility] [address] [id number] [place] [address]- 3596 Mar, [facility] [place] [facility] [address] [id number] [place] [address]- 4898 Feb, [facility] [place] [facility] [address] [id number] [place] [address] 2541 Feb, [facility] [place] [facility] [address] [id number] [place] [address]- 7606 Feb, [facility] [place] [facility] [address] [id number] [place] [address]- 8166 Jan, [facility] [place] [facility] [address] [id number] [place] [address]- 5076 Jan, [facility] [place] [facility] [address] [id number], [place] [address] Dec, [facility] [id number], [place] [address]- [address]47 Dec, [facility] [id number], [place] [address]- 6937 Nov, [facility] [id number], [place] [address] 1203 June, [facility] [id number], [place] [address]- 9924 Feb, [facility] [id number], [place] [address]- 8699 Jan, [facility] [id number], [place] [address]- 1225 Nov, [facility] [id number] [place] [address]- 1701 June, [facility] [id number], [place] [address]- 2808 Jan, [facility] [id number], [place] [address]- 3430 Nov, [facility] [address] [id number], [place] [address]709 Nov, IMMUNIZATIONS No Known Immunizations SOCIAL HISTORY Never Assessed REASON FOR VISIT Pharmacy clarification PLAN OF CARE VITAL SIGNS MEDICATIONS Unknown [...]
--- OUTSIDE RECORDS SUMMARY | 2018-01-12 06:27 | XMS REPORT ---
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 [address] [id number] [place] [address]- 2429 Mar, [facility] [place] [facility] [address] [id number], [place] [address]- 0974 Feb, [facility] [place] [facility] [address] [id number] [place] [address]- 9420 Feb, [facility] [place] [facility] [address] [id number] [place] [address]- 0016 Feb, [facility] [place] [facility] [address] [id number] [place] [address]- 0241 Feb, [facility] [place] [facility] [address] [id number] [place] [address] 26 Jan, 2012 [facility] [place] [facility] [address] [id number] [place] [address] Jan, [facility] [place] [facility] [address] [id number] [place] [address]- 5443 Jan, [facility] [place] [facility] [address] [id number] [place] [address]- 4566 17 Jan, 2012 [facility] [place] [facility] [address] [id number] [place] [address]- 0056 Jan, [facility] [place] [facility] [address] [id number] [place] [address]- 8074 Dec, [facility] [place] [facility] [address] [id number] [place] [address]- 6897 Dec, [facility] [place] [facility] [address] [facility] [id number] [place] [address]- 1975 Dec, [facility] [place] [facility] [address] [id number] [place] [address]- 7390 Dec, [facility] [place] [facility] [address] [id number] [place] [address]- 6899 Dec, [facility] [place] [facility] [address] [facility] [id number] [place] [address]- 8236 Dec, [facility] [place] [facility] [address] [id number] [place] [address]- 6342 08 Nov, 2011 [facility] [place] [facility] [address] [id number], [place] [address]- 5617 18 Oct, 2011 [facility] [place] [facility] [address] [id number] [place] [address]- 3820 06 Oct, 2011 [facility] [place] [facility] [address] [facility] [id number] [place] [address]- 4412 05 Aug, 2011 [facility] [place] [facility] [address] [id number], [place] [address]- 6185 Jul, [facility] [place] [facility] [address] [id number] [place] [address]- 1385 Jul, [facility] [place] [facility] [address] [id number] [place] [address]- 6379 Jul, [facility] [place] [facility] [address] [id number] [place] [address]- 0084 June, [facility] [place] [facility] [address] [id number] [place] [address]- 6279 May, [facility] [place] [facility] [address] [id number] [place] [address]- 1457 Apr, [facility] [place] [facility] [address] [id number] [place] [address]- 1919 Apr, [facility] [place] [facility] [address] [id number] [place] [address]- 1183 Apr, [facility] [place] [facility] [address] [id number] [place] [address]- 4715 Apr, [facility] [place] [facility] [address] [id number] [place] [address]- 4103 Apr, [facility] [place] [facility] [address] [id number] [place] [address]- 0910 Mar, [facility] [place] [facility] [address] [id number] [place] [address]- 2535 Mar, [facility] [place] [facility] [address] [id number], [place] [address]- 4814 Mar, [facility] [place] [facility] [address] [id number] [place] [address]- 9819 Mar, [facility] [place] [facility] [address] [id number] [place] [address]- 5216 Feb, [facility] [place] [facility] [address] [id number] [place] [address]- 8616 Feb, [facility] [place] [facility] [address] [id number], [place] [address]- 8546 Feb, [facility] [id number], [place] [address]- 9646 Jan, [facility] [address], [place] [address]- 2146 Jan, [facility] [address], [place] [address]- 6956 Dec, [facility] [address] [id number], [place] [address]- 8368 Dec, [facility] [address] [id number], [place] [address]- 3598 Nov, [facility] [address], [place] [address]- [address] June, [facility] [address], [place] [address]- 9920 Feb, [facility] [address], [place] [address]- 4656 Jan, [facility] [address], [place] [address]- 2883 Nov, [facility] [address], [place] [address]- 1236 June, [facility] [address] [id number], [place] [address]- 6381 Jan, [facility] [address] [id number], [place] [address]- 4915 Nov, [facility] [address] [id number], [place] [address]- 0068 Nov, IMMUNIZATIONS No Known Immunizations SOCIAL HISTORY Never Assessed REASON FOR VISIT wants to get lab work done including STD's, wants to have a different nausea medicine, large blood clots with periods, still has sore in vaginal area and never took antibiotic from [facility], blacking out a lot and wants a referral to for it---dglass,RN PLAN OF CARE Activity Details Follow Up prn Reason: VITAL SIGNS Height 62 in 2017-07-23 Weight 203.2 lbs 2017-07-23 Temperature 97.2 degrees Fahrenheit 2017-07-23 Heart Rate 95 bpm 2017-07-23 Respiratory Rate 16 2017-07-23 BMI 37.16 kg/m2 2017-07-23 Blood pressure systolic 112 mmHg 2017-07-23 Blood pressure diastolic 76 mmHg 2017-07-23 MEDICATIONS Medication Instructions Dosage Frequency Start Date End Date Duration Status Lyrica 100 mg Orally 2 times a day 1 capsule 12h Feb, Active Flexeril 10mg 8h Active Clonidine HCl 0.1 MG Orally 3 times a day 1 tablet 8h Jul, 30 day(s) Active Topamax 200 mg Orally Twice a day 1 tablet 12h Sep, Active Lyrica 75 MG Orally twice a day 1 capsule 12h Feb, Active Cyclobenzaprine HCl 10 mg Orally Three times a day 1 tablet as needed 8h Jul, Jan, 30 days Active Clonidine HCl 0.1 MG Orally Once a day 2 tablet at bedtime 24h Active Promethazine HCl 25 MG Orally every 12 hrs 1 tablet as needed 12h Jul, Jan, 30 day(s) Active Multi Vitamin Daily Orally Once a day 1 tablet 24h Active Xarelto 20 mg Orally Once a day 1 tablet with food 24h Dec, Active Escitalopram Oxalate 20 mg Orally Once a day 1 tablet 24h Jul, 30 day(s) Active Pristiq 100 mg TAKE ONE (1) TABLET BY MOUTH DAILY... Active Lexapro 20 MG Orally Once a day 0.5 tablet 24h Active Fluconazole 150 MG Orally q72H 1 tablet June, 10 day(s) Active MedroxyPROGESTERone Acetate 10 mg Orally Once a day 1 tablet with food 24h Jul, Jul, 10 days Active PredniSONE 20 mg Orally Once a day 2 tablets 24h Jul, Jul, 05 days Active Zyrtec Allergy 10 mg Orally Once a day 1 tablet 24h Apr, Active Oxycodone-Acetaminophen 7.5-325 MG Orally 3 times a day 1 tablet as needed 8h Feb, 14 Active ProAir HFA 108 (90 Base) MCG/ACT Inhalation every 4 hrs 2 puffs as needed 4h Sep, 0 days Active Doxycycline Monohydrate 100 mg Orally twice a day 1 capsule 12h June, 10 day(s) Active RESULTS No Results PROCEDURES Procedure Date Ordered Result Body Site HERPES SIMPLEX TEST July 23, 2017 INSTRUCTIONS MEDICATIONS ADMINISTERED No Known Medications MEDICAL [...]
--- OUTSIDE RECORDS SUMMARY | 2018-01-12 06:27 | XMS REPORT ---
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 [place] [address]- 7227 Feb, [facility] [address] [id number] [place] [address]- 3193 Feb, [facility] [address] [id number] [place] [address]- 6826 Feb, [facility] [place] [facility] [address] [id number] [place] [address]- 6695 Feb, [facility] [place] [facility] [address] [id number] [place] [address]- 2696 Jan, [facility] [place] [facility] [address] [id number] [place] [address]- 9431 Jan, [facility] [place] [facility] [address] [id number] [place] [address] Jan, [facility] [place] [facility] [address] [id number] [place] [address]- 0918 Jan, [facility] [place] [facility] [address] [id number] [place] [address]- 5925 Jan, [facility] [place] [facility] [address] [id number] [place] [address]- 1701 Dec, [facility] [place] [facility] [address] [id number] [place] [address], [place] [address]- 4300 Dec, [facility] [place] [facility] [address] [id number] [place] [address]- 3421 Dec, [facility] [place] [facility] [address] [id number] [place] [address]- 3824 Dec, [facility] [place] [facility] [address] [id number] [place] [address]- 3158 Dec, [facility] [place] [facility] [address] [id number] [place] [address]- 0730 Dec, [facility] [place] [facility] [address] [id number] [place] [address]- 9702 Nov, [facility] [place] [facility] [address] [id number] [place] [address]- 4205 Oct, [facility] [place] [facility] [address] [id number] [place] [address]- 7526 Oct, [facility] [place] [facility] [address] [id number] [place] [address]- 8059 Aug, [facility] [place] [facility] [address] [id number] [place] [address]- 1516 Jul, [facility] [place] [facility] [address] [id number] [place] [address]- 6934 Jul, [facility] [place] [facility] [address] [id number] [place] [address]- 5425 Jul, [facility] [place] [facility] [address] [id number] [place] [address]- 7067 June, [facility] [address] [id number] [place] [address]- 9325 May, [facility] [place] [facility] [address] [id number] [place] [address]- 0206 Apr, [facility] [place] [facility] [address] [id number] [place] [address]- 0459 Apr, [facility] [place] [facility] [address] [id number] [place] [address]- 0630 Apr, [facility] [place] [facility] [address] [id number] [place] [address]- 6305 Apr, [facility] [place] [facility] [address] [id number] [place] [address]- 6626 Apr, [facility] [place] [facility] [address] [id number] [place] [address]- 3886 Mar, [facility] [place] [facility] [address] [id number] [place] [address]- 3970 24 Mar, 2011 [facility] [place] [facility] [address] [id number] [place] [address]- 9576 Mar, [facility] [place] [facility] [address] [id number] [place] [address]- 9936 Mar, [facility] [place] [facility] [address] [id number] [place] [address]- 2895 Feb, [facility] [place] [facility] [address] [id number] [place] [address] 254 Feb, [facility] [place] [facility] [address] [id number] [place] [address]- 8086 Feb, [facility] [place] [facility] [address] [id number] [place] [address]- 8886 Jan, [facility] [place] [facility] [address] [id number] [place] [address]- 6736 Jan, [facility] [place] [facility] [address] [id number] [address] 2546 Dec, [facility] [address] [id number] [address]- [address]96 Dec, [facility] [id number] [address]- 2546 Nov, [facility] [id number] [address]- 9326 June, [facility] [id number] [address]- 2546 Feb, [facility] [id number] [address]- 3866 Jan, [facility] [id number] [address]- 4986 Nov, [facility] [id number] [address]- 4076 June, [facility] [id number] [address]- 9721 Jan, [facility] [id number] [address]- 0716 Nov, [facility] [address] [id number] [address]- [address]76 Nov, IMMUNIZATIONS No Known Immunizations SOCIAL HISTORY Never Assessed REASON FOR VISIT refill for xarelto and lyrica PLAN OF CARE VITAL SIGNS MEDICATIONS Medication [...]
--- OUTSIDE RECORDS SUMMARY | 2018-01-12 06:28 | XMS REPORT ---
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 [id number] [place] [address]- 3719 Dec, [facility] [place] [facility] [address] [id number] [place] [address]- 2278 Dec, [facility] [place] [facility] [address] [id number] [place] [address]- 5205 Nov, [facility] [place] [facility] [address] [id number] [place] [address]- 0864 Oct, [facility] [place] [facility] [address] [id number] [place] [address]- 8329 Oct, [facility] [place] [facility] [address] [id number] [place] [address]- 6800 Aug, [facility] [place] [facility] [address] [id number] [place] [address]- 4538 Jul, [facility] [place] [facility] [address] [id number] [place] [address]- 3882 Jul, [facility] [place] [facility] [address] [id number] [place] [address]- 5277 Jul, [facility] [place] [facility] [address] [id number], [place] [address]- 8653 June, [facility] [place] [facility] [address] [id number], [place] [address]- 4269 May, [facility] [place] [facility] [address] [id number] [place] [address]- 1942 Apr, [facility] [place] [facility] [address] [id number] [place] [address]- 8676 Apr, [facility] [place] [facility] [address] [id number] [place] [address]- 3287 Apr, [facility] [place] [facility] [address] [id number] [place] [address] 2540 Apr, [facility] [address] [id number] [place] [address]- 0159 Apr, [facility] [place] [facility] [address] [id number] [place] [address]- 2196 Mar, [facility] [address] [id number] [place] [address]- 0736 24 Mar, 2011 [facility] [place] [facility] [address] [id number] [place] [address]- 2488 Mar, [facility] [address] [id number] [place] [address]- 6846 Mar, [facility] [place] [facility] [address] [id number] [place] [address]- 1891 Feb, [facility] [place] [facility] [address] [id number] [place] [address]- 3286 Feb, [facility] [address] [id number] [place] [address]- 4263 Feb, [facility] [address] [id number] [place] [address]- 5555 Jan, [facility] [address] [facility] [id number] [place] [address]- 3016 Jan, [facility] [place] [facility] [address] [id number] [place] [address]- 8116 Dec, [facility] [place] [facility] [address] [id number] [place] [address]- 2546 Dec, [facility] [place] [facility] [address] [id number] [place] [address]- 7396 Nov, [facility] [place] [facility] [address] [id number] [place] [address]- 2546 June, [facility] [place] [facility] [address] [id number] [place] [address]- 7674 Feb, [facility] [address] [facility] [id number], [place] [address]- 9911 Jan, [facility] [address] [id number] [address]- 6991 Nov, [facility] [address] [id number], [place] [address]- 1785 June, [facility] [id number], [place] [address]- 3477 Jan, [facility] [address] [id number], [place] [address]- 2171 Nov, [facility] [id number] [address]- 2769 Nov, IMMUNIZATIONS No Known Immunizations SOCIAL HISTORY [...]
--- OUTSIDE RECORDS SUMMARY | 2018-01-12 06:29 | XMS REPORT ---
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 [id number] [place] [address]- 2567 Dec, [facility] [place] [facility] [address] [id number] [place] [address]- 0833 Dec, [facility] [place] [facility] [address] [id number] [place] [address]- 6555 Nov, [facility] [place] [facility] [address] [id number] [place] [address]- 2286 Oct, [facility] [place] [facility] [address] [id number] [place] [address]- 2690 Oct, [facility] [place] [facility] [address] [id number] [place] [address]- 4641 Aug, [facility] [place] [facility] [address] [id number] [place] [address]- 6870 Jul, [facility] [place] [facility] [address] [id number] [place] [address]- 3180 Jul, [facility] [place] [facility] [address] [id number] [place] [address]- 0959 Jul, [facility] [place] [facility] [address] [id number], [place] [address]- 5776 June, [facility] [place] [facility] [address] [id number], [place] [address]- 6075 May, [facility] [place] [facility] [address] [id number] [place] [address]- 9932 Apr, [facility] [place] [facility] [address] [id number] [place] [address]- 6006 Apr, [facility] [place] [facility] [address] [id number] [place] [address]- 9869 Apr, [facility] [place] [facility] [address] [id number] [place] [address] 2549 Apr, [facility] [address] [id number] [place] [address]- 9572 Apr, [facility] [place] [facility] [address] [id number] [place] [address]- 1786 Mar, [facility] [address] [id number] [place] [address]- 4896 24 Mar, 2011 [facility] [place] [facility] [address] [id number] [place] [address]- 8564 Mar, [facility] [address] [id number] [place] [address]- 0236 Mar, [facility] [place] [facility] [address] [id number] [place] [address]- 3077 Feb, [facility] [place] [facility] [address] [id number] [place] [address]- 5989 Feb, [facility] [address] [id number] [place] [address]- 1518 Feb, [facility] [address] [id number] [place] [address]- 6188 Jan, [facility] [address] [facility] [id number] [place] [address]- 8946 Jan, [facility] [place] [facility] [address] [id number] [place] [address]- 6086 Dec, [facility] [place] [facility] [address] [id number] [place] [address]- 2546 Dec, [facility] [place] [facility] [address] [id number] [place] [address]- 7176 Nov, [facility] [place] [facility] [address] [id number] [place] [address]- 2546 June, [facility] [place] [facility] [address] [id number] [place] [address]- 6291 Feb, [facility] [address] [facility] [id number], [place] [address]- 4859 Jan, [facility] [address] [id number], [place] [address]- 4514 Nov, [facility] [address] [id number], [place] [address]- 4496 June, [facility] [id number], [place] [address]- 9935 Jan, [facility] [address] [id number], [place] [address]- 4514 Nov, [facility] [id number], [place] [address] 6673 Nov, IMMUNIZATIONS No Known Immunizations SOCIAL HISTORY [...]
[2018-01-12 06:30] VITALS: BP 120/86
--- OUTSIDE RECORDS SUMMARY | 2018-01-12 06:30 | XMS REPORT ---
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 [address]- 8299 Dec, [facility] [place] [facility] [address] [id number] [place] [address]- 5337 Nov, [facility] [place] [facility] [address] [id number] [place] [address]- 2540 Oct, [facility] [place] [facility] [address] [id number] [place] [address]- 8562 Oct, [facility] [place] [facility] [address] [id number] [place] [address]- 2711 Aug, [facility] [place] [facility] [address] [id number] [place] [address]- 6016 Jul, [facility] [place] [facility] [address] [id number] [place] [address]- 3092 Jul, [facility] [place] [facility] [address] [id number] [place] [address]- 0700 Jul, [facility] [place] [facility] [address] [id number], [place] [address]- 6812 June, [facility] [place] [facility] [address] [id number] [place] [address]- 7253 May, [facility] [place] [facility] [address] [id number] [place] [address]- 6336 Apr, [facility] [place] [facility] [address] [id number] [place] [address] Apr, [facility] [place] [facility] [address] [id number] [place] [address]- 1752 Apr, [facility] [place] [facility] [address] [id number] [place] [address]- 1174 Apr, [facility] [place] [facility] [address] [id number] [place] [address]- 3217 Apr, [facility] [place] [facility] [address] [id number] [place] [address]- 7646 Mar, [facility] [place] [facility] [address] [id number] [place] [address]- 1339 24 Mar, 2011 [facility] [place] [facility] [address] [id number] [place] [address]- 6479 Mar, [facility] [place] [facility] [address] [id number] [place] [address]- 7307 Mar, [facility] [place] [facility] [address] [id number] [place] [address]- 2953 Feb, [facility] [place] [facility] [address] [id number] [place] [address]- 5168 Feb, [facility] [place] [facility] [address] [id number] [place] [address]- 2385 Feb, [facility] [place] [facility] [address] [id number] [place] [address]- 5484 Jan, [facility] [place] [facility] [address] [id number] [place] [address]- 9917 Jan, [facility] [place] [facility] [address] [id number] [place] [address]- 3231 Dec, [facility] [place] [facility] [address] [id number] [place] [address]- 8848 Dec, [facility] [place] [facility] [address] [id number] [place] [address]- 1337 Nov, [facility] [place] [facility] [address] [id number] [place] [address]- 3050 June, [facility] [place] [facility] [address] [id number] [place] [address]- 4160 Feb, [facility] [address] [facility] [id number] [place] [address]- 9567 Jan, [facility] [address] [id number], [place] [address]- 2846 Nov, [facility] [address] [id number], [place] [address]- 2102 June, [facility] [address] [id number], [place] [address]- 0889 Jan, [facility] [address] [facility] [id number] [address] Nov, [facility] [address] [id number] [address]87 Nov, IMMUNIZATIONS No Known Immunizations SOCIAL HISTORY [...]
--- OUTSIDE RECORDS SUMMARY | 2018-01-12 06:31 | XMS REPORT ---
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 [facility] [place] [facility] [address] [id number] [place] [address]- 8141 Dec, [facility] [place] [facility] [address] [id number] [place] [address]- 1835 Nov, [facility] [place] [facility] [address] [id number] [place] [address]- 3336 Oct, [facility] [place] [facility] [address] [id number] [place] [address]- 0518 Oct, [facility] [place] [facility] [address] [id number] [place] [address]- 0365 Aug, [facility] [place] [facility] [address] [id number] [place] [address]- 2062 Jul, [facility] [place] [facility] [address] [id number] [place] [address]- 7618 Jul, [facility] [place] [facility] [address] [id number] [place] [address]- 6433 Jul, [facility] [place] [facility] [address] [id number], [place] [address] June, [facility] [place] [facility] [address] [id number], [place] [address] 9832 May, [facility] [place] [facility] [address] [id number] [place] [address]- 1859 Apr, [facility] [place] [facility] [address] [id number] [place] [address]- 8507 Apr, [facility] [place] [facility] [address] [id number] [place] [address]- 6583 Apr, [facility] [place] [facility] [address] [id number] [place] [address] 2540 Apr, [facility] [address] [id number] [place] [address]- 2689 Apr, [facility] [place] [facility] [address] [id number] [place] [address]- 5416 Mar, [facility] [address] [id number] [place] [address]- 3636 24 Mar, 2011 [facility] [place] [facility] [address] [id number] [place] [address]- 8397 Mar, [facility] [address] [id number] [place] [address]- 4466 Mar, [facility] [place] [facility] [address] [id number] [place] [address]- 3238 Feb, [facility] [place] [facility] [address] [id number] [place] [address]- 0850 Feb, [facility] [address] [id number] [place] [address]- 2459 Feb, [facility] [address] [id number] [place] [address]- 2897 Jan, [facility] [address] [facility] [id number] [place] [address]- 6356 Jan, [facility] [place] [facility] [address] [id number] [place] [address]- 2416 Dec, [facility] [place] [facility] [address] [id number] [place] [address]- 2546 Dec, [facility] [place] [facility] [address] [id number] [place] [address]- 2516 Nov, [facility] [place] [facility] [address] [id number] [place] [address]- 2546 June, [facility] [place] [facility] [address] [id number] [place] [address]- 5827 Feb, [facility] [address] [facility] [id number], [place] [address]- 8044 Jan, [facility] [address] [id number], [place] [address] Nov, [facility] [address] [id number], [place] [address]- 7624 June, [facility] [id number], [place] [address]- 95[address] Jan, [facility] [address] [id number], [place] [address]- 0190 Nov, [facility] [id number], [place] [address] 3756 Nov, IMMUNIZATIONS No Known Immunizations SOCIAL HISTORY [...]
--- OUTSIDE RECORDS SUMMARY | 2018-01-12 06:31 | XMS REPORT ---
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 [id number] [place] [address]- 0978 Dec, [facility] [place] [facility] [address] [id number] [place] [address]- 3225 Dec, [facility] [place] [facility] [address] [id number] [place] [address]- 3225 Dec, [facility] [place] [facility] [address] [id number] [place] [address]- 4014 Dec, [facility] [place] [facility] [address] [id number] [place] [address] Dec, [facility] [place] [facility] [address] [id number] [place] [address] 0012 Dec, [facility] [place] [facility] [address] [id number] [place] [address]- 2160 Nov, [facility] [place] [facility] [address] [id number] [place] [address]- 5308 Oct, [facility] [place] [facility] [address] [id number] [place] [address]- 6696 Oct, [facility] [place] [facility] [address] [id number] [place] [address]- 1823 Aug, [facility] [place] [facility] [address] [id number] [place] [address]- 7657 Jul, [facility] [place] [facility] [address] [id number] [place] [address]- 5533 Jul, [facility] [place] [facility] [address] [id number] [place] [address]- 8663 Jul, [facility] [place] [facility] [address] [id number] [place] [address]- 4085 June, [facility] [place] [facility] [address] [id number] [place] [address]- 9298 May, [facility] [place] [facility] [address] [id number] [place] [address]- 8190 Apr, [facility] [place] [facility] [address] [id number], [place] [address]- [address]109 Apr, [facility] [place] [facility] [address] [id number], [place] [address]- 5352 Apr, [facility] [place] [facility] [address] [id number] [place] [address]- 5408 Apr, [facility] [place] [facility] [address] [id number], [place] [address]- 9722 Apr, [facility] [place] [facility] [address] [facility] [id number] [place] [address]- 4746 Mar, [facility] [place] [facility] [address] [id number] [place] [address]- 8065 24 Mar, 2011 [facility] [address] [id number] [place] [address]- 6843 10 Mar, 2011 [facility] [place] [facility] [address] [id number] [place] [address] 2546 07 Mar, 2011 [facility] [address] [id number] [place] [address]- 1076 27 Feb, 2011 [facility] [address] [id number] [place] [address]- 4929 18 Feb, 2011 [facility] [address] [id number] [place] [address]- 7455 Feb, [facility] [address] [id number] [place] [address]- 0829 Jan, [facility] [address] [id number] [place] [address]- 0968 Jan, [facility] [address] [id number] [place] [address]- 3882 Dec, [facility] [address] [id number] [place] [address]- 0780 Dec, [facility] [address] [facility] [id number] [place] [address]- 3095 Nov, [facility] [address] [id number] [place] [address]- 3543 June, [facility] [address] [id number] [place] [address]- 2543 Feb, [facility] [place] [facility] [address] [id number] [place] [address]- 2546 Jan, [facility] [place] [facility] [address] [id number] [place] [address]- 2546 14 Nov, 2009 [facility] [address] [id number] [place] [address]- 6991 June, [facility] [address] [facility] [id number] [place] [address]- 3749 Jan, [facility] [address] [facility] [id number] [place] [address]- 9634 Nov, [facility] [address] [facility] [id number] [place] [address]- 2426 Nov, IMMUNIZATIONS No Known Immunizations SOCIAL HISTORY [...]
--- OUTSIDE RECORDS SUMMARY | 2018-01-12 06:32 | XMS REPORT ---
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 [address]- 5614 Dec, [facility] [place] [facility] [address] [id number] [place] [address]- 0421 Dec, [facility] [place] [facility] [address] [id number] [place] [address] Dec, [facility] [place] [facility] [address] [id number] [place] [address]- 0560 Nov, [facility] [place] [facility] [address] [id number] [place] [address]- 8465 Oct, [facility] [place] [facility] [address] [id number] [place] [address]- 4206 Oct, [facility] [place] [facility] [address] [id number] [place] [address]- 0049 Aug, [facility] [place] [facility] [address] [id number] [place] [address]- 5916 Jul, [facility] [place] [facility] [address] [id number] [place] [address]- 5909 Jul, [facility] [place] [facility] [address] [id number] [place] [address]- 8219 Jul, [facility] [place] [facility] [address] [facility] [id number] [place] [address]- 3214 June, [facility] [place] [facility] [address] [id number] [place] [address]- 7009 May, [facility] [place] [facility] [address] [id number] [place] [address]- 6311 Apr, [facility] [place] [facility] [address] [facility] [id number] [place] [address]- 0468 Apr, [facility] [place] [facility] [address] [id number] [place] [address]- 4137 Apr, [facility] [place] [facility] [address] [id number] [place] [address]- 9406 Apr, [facility] [place] [facility] [address] [id number] [place] [address]- 3145 Apr, [facility] [place] [facility] [address] [facility] [id number] [place] [address]- 3575 Mar, [facility] [place] [facility] [address] [facility] [id number] [place] [address] Mar, [facility] [place] [facility] [address] [id number] [place] [address]- 8533 10 Mar, 2011 [facility] [address] [id number] [place] [address]- [address]191 07 Mar, 2011 [facility] [place] [facility] [address] [id number] [place] [address]- 5666 Feb, [facility] [place] [facility] [address] [id number] [place] [address]- 9626 Feb, [facility] [place] [facility] [address] [id number] [place] [address]- 7750 Feb, [facility] [place] [facility] [address] [id number] [place] [address]- 3883 Jan, [facility] [place] [facility] [address] [id number] [place] [address]- 3666 Jan, [facility] [address] [id number] [place] [address]- 0823 Dec, [facility] [address] [id number] [place] [address]- 5819 Dec, [facility] [address] [id number] [place] [address]- 1315 Nov, [facility] [place] [facility] [address] [id number] [place] [address]- 4818 June, [facility] [place] [facility] [address] [id number] [place] [address]- 2852 Feb, [facility] [place] [facility] [address] [id number] [place] [address]- 2542 Jan, [facility] [place] [facility] [address] [id number] [place] [address]- [address] 14 Nov, 2009 [facility] [place] [facility] [address] [id number] [place] [address]- 2546 June, [facility] [place] [facility] [address] [id number] [place] [address]- 6079 Jan, [facility] [address] [facility] [id number] [place] [address] Nov, [facility] [address] [facility] [id number] [place] [address]- 8778 Nov, IMMUNIZATIONS No Known Immunizations SOCIAL HISTORY [...]
--- OUTSIDE RECORDS SUMMARY | 2018-01-12 06:33 | XMS REPORT ---
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 [facility] [address] [id number] [place] [address]- 0521 Dec, [facility] [address] [id number] [place] [address]- 9578 Dec, [facility] [place] [facility] [address] [id number] [place] [address]- 5566 Dec, [facility] [place] [facility] [address] [id number] [place] [address]- 3425 Dec, [facility] [place] [facility] [address] [id number] [place] [address] Dec, [facility] [place] [facility] [address] [id number] [place] [address]- 6062 Nov, [facility] [place] [facility] [address] [id number] [place] [address]- 0166 Oct, [facility] [place] [facility] [address] [id number] [place] [address]- 1476 Oct, [facility] [place] [facility] [address] [id number] [place] [address]- 8737 Aug, [facility] [place] [facility] [address] [id number] [place] [address]- 0433 Jul, [facility] [place] [facility] [address] [id number] [place] [address]- 1645 Jul, [facility] [place] [facility] [address] [id number] [place] [address]- 4155 Jul, [facility] [place] [facility] [address] [facility] [id number] [place] [address]- 8497 June, [facility] [place] [facility] [address] [id number] [place] [address]- 7098 May, [facility] [place] [facility] [address] [id number] [place] [address]- 7963 Apr, [facility] [place] [facility] [address] [facility] [id number] [place] [address]- 5566 Apr, [facility] [place] [facility] [address] [id number] [place] [address]- 2119 Apr, [facility] [place] [facility] [address] [id number] [place] [address]- 5431 Apr, [facility] [place] [facility] [address] [id number] [place] [address]- 3737 Apr, [facility] [place] [facility] [address] [facility] [id number] [place] [address]- 0654 Mar, [facility] [place] [facility] [address] [facility] [id number] [place] 8410 Mar, [facility] [place] [facility] [address] [id number] [place] [address]- 3823 10 Mar, 2011 [facility] [address] [id number] [place] [address]- 0323 07 Mar, 2011 [facility] [place] [facility] [address] [id number] [place] [address]- 8476 Feb, [facility] [place] [facility] [address] [id number] [place] [address]- 7244 Feb, [facility] [place] [facility] [address] [id number] [place] [address]- 6111 Feb, [facility] [place] [facility] [address] [id number] [place] [address]- 9123 Jan, [facility] [place] [facility] [address] [id number] [place] [address]- 9216 Jan, [facility] [address] [id number] [place] [address]- 7053 Dec, [facility] [address] [id number] [place] [address]- 1565 Dec, [facility] [address] [id number] [place] [address]- 8347 Nov, [facility] [place] [facility] [address] [id number] [place] [address]- 6416 June, [facility] [place] [facility] [address] [id number] [place] [address]- 9968 Feb, [facility] [place] [facility] [address] [id number] [place] [address]- 2547 Jan, [facility] [place] [facility] [address] [id number] [place] [address]- 5596 14 Nov, 2009 [facility] [place] [facility] [address] [id number] [place] [address]- 2546 June, [facility] [place] [facility] [address] [id number] [place] [address]- 9075 Jan, [facility] [address] [facility] [id number] [place] [address]- 2494 Nov, [facility] [address] [facility] [id number] [place] [address]- 7486 Nov, IMMUNIZATIONS No Known Immunizations SOCIAL HISTORY [...]
--- OUTSIDE RECORDS SUMMARY | 2018-01-12 06:34 | XMS REPORT ---
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 [facility] [address] [id number] [place] [address]- 2421 Nov, [facility] [place] [facility] [address] [id number] [place] [address]- 5944 Oct, [facility] [place] [facility] [address] [id number] [place] [address]- 4896 Oct, [facility] [place] [facility] [address] [id number] [place] [address]- 5142 Aug, [facility] [place] [facility] [address] [id number] [place] [address]- 6968 Jul, [facility] [place] [facility] [address] [id number] [place] [address]- 8731 Jul, [facility] [place] [facility] [address] [id number] [place] [address]- 0218 Jul, [facility] [place] [facility] [address] [facility] [id number] [place] [address]- 6902 June, [facility] [place] [facility] [address] [id number] [place] [address]- 4593 May, [facility] [place] [facility] [address] [id number] [place] [address]- 2668 Apr, [facility] [place] [facility] [address] [facility] [id number] [place] [address]- 8270 Apr, [facility] [place] [facility] [address] [id number] [place] [address]- 5211 Apr, [facility] [place] [facility] [address] [id number] [place] [address]- 8143 Apr, [facility] [place] [facility] [address] [id number] [place] [address]- 1925 Apr, [facility] [place] [facility] [address] [facility] [id number] [place] [address]- 6120 Mar, [facility] [place] [facility] [address] [facility] [id number] [place] [address] Mar, [facility] [place] [facility] [address] [id number] [place] [address]- 7102 10 Mar, 2011 [facility] [address] [id number] [place] [address]- 9642 07 Mar, 2011 [facility] [place] [facility] [address] [id number] [place] [address]- 2826 Feb, [facility] [place] [facility] [address] [id number] [place] [address]- 1720 Feb, [facility] [place] [facility] [address] [id number] [place] [address]- 4185 Feb, [facility] [place] [facility] [address] [id number] [place] [address]- 5921 Jan, [facility] [place] [facility] [address] [id number] [place] [address]- 4266 Jan, [facility] [address] [id number] [place] [address]- 3064 Dec, [facility] [address] [id number] [place] [address]- 8916 Dec, [facility] [address] [id number] [place] [address]- 9223 Nov, [facility] [place] [facility] [address] [id number] [place] [address]- 8235 June, [facility] [place] [facility] [address] [id number] [place] [address]- 6901 Feb, [facility] [place] [facility] [address] [id number] [place] [address]- 254 Jan, [facility] [place] [facility] [address] [id number] [place] [address]- 4766 14 Nov, 2009 [facility] [place] [facility] [address] [id number] [place] [address]- 2546 June, [facility] [place] [facility] [address] [id number] [place] [address]- 8572 Jan, [facility] [address] [facility] [id number] [place] [address]- 8995 Nov, [facility] [address] [facility] [id number] [place] [address]- 4388 Nov, IMMUNIZATIONS No Known Immunizations SOCIAL HISTORY [...]
--- OUTSIDE RECORDS SUMMARY | 2018-01-12 06:35 | XMS REPORT ---
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 [place] [address]- 3228 Jan, [facility] [address] [id number] [place] [address]- 6890 Dec, [facility] [address] [id number] [place] [address]- 9627 Dec, [facility] [address] [id number] [place] [address]- 7376 Dec, [facility] [place] [facility] [address] [id number] [place] [address]- 1219 Dec, [facility] [place] [facility] [address] [id number] [place] [address]- 0104 Dec, [facility] [place] [facility] [address] [id number] [place] [address] Dec, [facility] [place] [facility] [address] [id number] [place] [address]- 8809 Nov, [facility] [place] [facility] [address] [id number] [place] [address]- 0468 Oct, [facility] [place] [facility] [address] [id number] [place] [address]- 5056 Oct, [facility] [place] [facility] [address] [id number] [place] [address]- 2767 Aug, [facility] [place] [facility] [address] [id number] [place] [address]- 5677 Jul, [facility] [place] [facility] [address] [id number] [place] [address]- 0557 Jul, [facility] [place] [facility] [address] [id number] [place] [address]- 4583 Jul, [facility] [place] [facility] [address] [facility] [id number] [place] [address]- 0838 June, [facility] [place] [facility] [address] [id number] [place] [address]- 6157 May, [facility] [place] [facility] [address] [id number] [place] [address]- 2518 Apr, [facility] [place] [facility] [address] [facility] [id number] [place] [address]- 3428 Apr, [facility] [place] [facility] [address] [id number] [place] [address]- 7624 Apr, [facility] [place] [facility] [address] [id number] [place] [address]- 7186 Apr, [facility] [place] [facility] [address] [id number] [place] [address]- 7982 Apr, [facility] [place] [facility] [address] [facility] [id number] [place] [address]- 4024 Mar, [facility] [place] [facility] [address] [facility] [id number] [place] [address]79 Mar, [facility] [place] [facility] [address] [id number] [place] [address]- 4166 10 Mar, 2011 [facility] [address] [id number] [place] [address]- 4687 07 Mar, 2011 [facility] [place] [facility] [address] [id number] [place] [address]- 5806 Feb, [facility] [place] [facility] [address] [id number] [place] [address]- 3392 Feb, [facility] [place] [facility] [address] [id number] [place] [address]- 5810 Feb, [facility] [place] [facility] [address] [id number] [place] [address]- 3006 Jan, [facility] [place] [facility] [address] [id number] [place] [address]- 4706 Jan, [facility] [address] [id number] [place] [address]- 6133 Dec, [facility] [address] [id number] [place] [address]- 4623 Dec, [facility] [address] [id number] [place] [address]- 4931 Nov, [facility] [place] [facility] [address] [id number] [place] [address]- 1021 June, [facility] [place] [facility] [address] [id number] [place] [address]- 9858 Feb, [facility] [place] [facility] [address] [id number] [place] [address]- 2542 Jan, [facility] [place] [facility] [address] [id number] [place] [address]- 7806 14 Nov, 2009 [facility] [place] [facility] [address] [id number] [place] [address]- 2546 June, [facility] [place] [facility] [address] [id number] [place] [address]- 5123 Jan, [facility] [address] [facility] [id number] [place] [address] 1949 Nov, [facility] [address] [facility] [id number] [place] [address]- 1523 Nov, IMMUNIZATIONS No Known Immunizations SOCIAL HISTORY [...]
--- OUTSIDE RECORDS SUMMARY | 2018-01-12 06:35 | XMS REPORT ---
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 [address] [id number] [place] [address]- 5630 Nov, [facility] [place] [facility] [address] [id number] [place] [address]- 3324 Oct, [facility] [place] [facility] [address] [id number] [place] [address]- 5046 Oct, [facility] [place] [facility] [address] [id number] [place] [address]- 6358 Aug, [facility] [place] [facility] [address] [id number] [place] [address]- 9719 Jul, [facility] [place] [facility] [address] [id number] [place] [address]- 9678 Jul, [facility] [place] [facility] [address] [id number] [place] [address]- 9756 Jul, [facility] [place] [facility] [address] [facility] [id number] [place] [address]- 2657 June, [facility] [place] [facility] [address] [id number] [place] [address]- 0151 May, [facility] [place] [facility] [address] [id number] [place] [address]- 2191 Apr, [facility] [place] [facility] [address] [facility] [id number] [place] [address]- 4640 Apr, [facility] [place] [facility] [address] [id number] [place] [address]- 3757 Apr, [facility] [place] [facility] [address] [id number] [place] [address]- 5126 Apr, [facility] [place] [facility] [address] [id number] [place] [address]- 1045 Apr, [facility] [place] [facility] [address] [facility] [id number] [place] [address]- 8712 Mar, [facility] [place] [facility] [address] [facility] [id number] [place] [address] Mar, [facility] [place] [facility] [address] [id number] [place] [address]- 3682 10 Mar, 2011 [facility] [address] [id number] [place] [address]- 9156 07 Mar, 2011 [facility] [place] [facility] [address] [id number] [place] [address]- 2496 Feb, [facility] [place] [facility] [address] [id number] [place] [address]- 8021 Feb, [facility] [place] [facility] [address] [id number] [place] [address]- 5625 Feb, [facility] [place] [facility] [address] [id number] [place] [address]- 2566 Jan, [facility] [place] [facility] [address] [id number] [place] [address]- 9396 Jan, [facility] [address] [id number] [place] [address]- 8380 Dec, [facility] [address] [id number] [place] [address]- 9499 Dec, [facility] [address] [id number] [place] [address]- 2999 Nov, [facility] [place] [facility] [address] [id number] [place] [address]- 1423 June, [facility] [place] [facility] [address] [id number] [place] [address]- 1599 Feb, [facility] [place] [facility] [address] [id number] [place] [address]- 254 Jan, [facility] [place] [facility] [address] [id number] [place] [address]- 4576 14 Nov, 2009 [facility] [place] [facility] [address] [id number] [place] [address]- 2546 June, [facility] [place] [facility] [address] [id number] [place] [address]- 9042 Jan, [facility] [address] [facility] [id number] [place] [address]- 9[address] Nov, [facility] [address] [facility] [id number] [place] [address]- 6418 Nov, IMMUNIZATIONS No Known Immunizations SOCIAL HISTORY Never Assessed REASON FOR VISIT Referral PLAN OF CARE VITAL SIGNS MEDICATIONS Unknown [...]
--- OUTSIDE RECORDS SUMMARY | 2018-01-12 06:36 | XMS REPORT ---
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 [id number] [place] [address]- 8494 Jan, [facility] [address] [id number] [place] [address]- 6725 Dec, [facility] [address] [id number] [place] [address]- 8928 Dec, [facility] [address] [id number] [place] [address]- 3941 Dec, [facility] [place] [facility] [address] [id number] [place] [address]- 5313 Dec, [facility] [place] [facility] [address] [id number] [place] [address]- 6322 Dec, [facility] [place] [facility] [address] [id number] [place] [address] Dec, [facility] [place] [facility] [address] [id number] [place] [address]- 5398 Nov, [facility] [place] [facility] [address] [id number] [place] [address]- 0928 Oct, [facility] [place] [facility] [address] [id number] [place] [address]- 2326 Oct, [facility] [place] [facility] [address] [id number] [place] [address]- 6936 Aug, [facility] [place] [facility] [address] [id number] [place] [address]- 9022 Jul, [facility] [place] [facility] [address] [id number] [place] [address]- 0429 Jul, [facility] [place] [facility] [address] [id number] [place] [address]- 6037 Jul, [facility] [place] [facility] [address] [facility] [id number] [place] [address]- 8885 June, [facility] [place] [facility] [address] [id number] [place] [address]- 8180 May, [facility] [place] [facility] [address] [id number] [place] [address]- 8073 Apr, [facility] [place] [facility] [address] [facility] [id number] [place] [address]- 7329 Apr, [facility] [place] [facility] [address] [id number] [place] [address]- 0446 Apr, [facility] [place] [facility] [address] [id number] [place] [address]- 3936 Apr, [facility] [place] [facility] [address] [id number] [place] [address]- 8121 Apr, [facility] [place] [facility] [address] [facility] [id number] [place] [address]- 7353 Mar, [facility] [place] [facility] [address] [facility] [id number] [place] [address]13 Mar, [facility] [place] [facility] [address] [id number] [place] [address]- 4329 10 Mar, 2011 [facility] [address] [id number] [place] [address]- 9051 07 Mar, 2011 [facility] [place] [facility] [address] [id number] [place] [address]- 7436 Feb, [facility] [place] [facility] [address] [id number] [place] [address]- 9053 Feb, [facility] [place] [facility] [address] [id number] [place] [address]- 9558 Feb, [facility] [place] [facility] [address] [id number] [place] [address]- 6428 Jan, [facility] [place] [facility] [address] [id number] [place] [address]- 9486 Jan, [facility] [address] [id number] [place] [address]- 2274 Dec, [facility] [address] [id number] [place] [address]- 2220 Dec, [facility] [address] [id number] [place] [address]- 2724 Nov, [facility] [place] [facility] [address] [id number] [place] [address]- 0499 June, [facility] [place] [facility] [address] [id number] [place] [address]- 0368 Feb, [facility] [place] [facility] [address] [id number] [place] [address]- 254 Jan, [facility] [place] [facility] [address] [id number] [place] [address]- 3116 14 Nov, 2009 [facility] [place] [facility] [address] [id number] [place] [address]- 2546 June, [facility] [place] [facility] [address] [id number] [place] [address]- 1298 Jan, [facility] [address] [facility] [id number] [place] [address]- 6651 Nov, [facility] [address] [facility] [id number] [place] [address]- 2405 Nov, IMMUNIZATIONS No Known Immunizations SOCIAL HISTORY [...]
--- OUTSIDE RECORDS SUMMARY | 2018-01-12 06:37 | XMS REPORT ---
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 3086 Dec, [facility] [place] [facility] [address] [id number] [place] [address]- 5098 Dec, [facility] [place] [facility] [address] [id number] [place] [address]- 6566 Nov, [facility] [place] [facility] [address] [id number] [place] [address]- 9281 Oct, [facility] [place] [facility] [address] [id number] [place] [address]- 0097 Oct, [facility] [place] [facility] [address] [id number] [place] [address]- 4256 Aug, [facility] [place] [facility] [address] [facility] [id number] [place] [address]- 0815 Jul, [facility] [place] [facility] [address] [id number], [place] [address]- 3770 Jul, [facility] [place] [facility] [address] [facility] [id number] [place] [address]- 0769 Jul, [facility] [place] [facility] [address] [facility] [id number], [place] [address]- 7368 June, [facility] [place] [facility] [address] [facility] [id number] [place] [address]- 4057 May, [facility] [place] [facility] [address] [id number], [place] [address]- 7886 Apr, [facility] [place] [facility] [address] [id number] [place] [address]- 0957 Apr, [facility] [place] [facility] [address] [id number], [place] [address]- 8936 Apr, [facility] [place] [facility] [address] [facility] [id number], [place] [address]- 8925 Apr, [facility] [place] [facility] [address] [id number], [place] [address]- 2043 Apr, [facility] [address] [id number] [place] [address]- 0431 Mar, [facility] [place] [facility] [address] [id number] [place] [address]- 1386 24 Mar, 2011 [facility] [address] [id number] [place] [address]- 0776 Mar, [facility] [place] [facility] [address] [id number] [place] [address] 2546 Mar, [facility] [address] [id number] [place] [address]- 6471 Feb, [facility] [address] [id number] [place] [address]- 7706 Feb, [facility] [address] [id number] [place] [address]- 5310 Feb, [facility] [address] [id number] [place] [address]- 1845 Jan, [facility] [address] [id number] [place] [address]- 5353 Jan, [facility] [address] [facility] [id number] [place] [address]- 5766 Dec, [facility] [address] [id number] [place] [address]- 0898 Dec, [facility] [place] [facility] [address] [id number] [place] [address] 2547 Nov, [facility] [place] [facility] [address] [id number] [place] [address]- 6125 June, [facility] [place] [facility] [address] [id number] [place] [address]- 3596 Feb, [facility] [place] [facility] [address] [id number], [place] [address]- 9076 Jan, [facility] [address] [facility] [id number], [place] [address]- 0522 Nov, [facility] [address] [facility] [id number], [place] [address]- 5712 June, [facility] [address] [facility] [id number], [place] [address]- 0174 Jan, [facility] [address] [facility] [id number], [place] [address]- 8129 Nov, [facility] [address] [facility] [id number], [place] [address]- 9632 Nov, IMMUNIZATIONS No Known Immunizations SOCIAL HISTORY Never Assessed REASON FOR VISIT WW- pt c/o lesion on vagina Radha LEAL PLAN OF CARE Activity Details Follow Up prn Reason: VITAL SIGNS Height 62 in 2017-06-23 Weight 200 lbs 2017-06-23 Temperature 97 degrees Fahrenheit 2017-06-23 Heart Rate 82 bpm 2017-06-23 Respiratory Rate 16 2017-06-23 BMI 36.58 kg/m2 2017-06-23 Blood pressure systolic 124 mmHg 2017-06-23 Blood pressure diastolic 68 mmHg 2017-06-23 MEDICATIONS Medication Instructions Dosage Frequency Start Date End Date Duration Status Fluconazole 150 MG Orally q72H 1 tablet June, June, 10 day(s) Active Topamax 200 mg Orally Twice a day 1 tablet 12h Sep, Active Lyrica 100 mg Orally 2 times a day 1 capsule 12h Feb, 30 days Active Multi Vitamin Daily Orally Once a day 1 tablet 24h Active Zyrtec Allergy 10 mg Orally Once a day 1 tablet 24h Apr, Active Fentanyl 75 MCG/HR Transdermal Q72 H 1 patch to skin Feb, Active Lyrica 75 MG Orally twice a day 1 capsule 12h Feb, 30 days Active Pristiq 100 mg TAKE ONE (1) TABLET BY MOUTH DAILY... Active Flexeril 10mg 8h Active Clonidine HCl 0.1 MG Orally Once a day 2 tablet at bedtime 24h Active Lexapro 20 MG Orally Once a day 0.5 tablet 24h Active Xarelto 20 mg Orally Once a day 1 tablet with food 24h Dec, 30 day(s) Active Doxycycline Monohydrate 100 mg Orally twice a day 1 capsule 12h June, June, 10 day(s) Active Oxycodone-Acetaminophen 7.5-325 MG Orally 3 times a day 1 tablet as needed 8h Feb, 14 Active ProAir HFA 108 (90 Base) MCG/ACT Inhalation every 4 hrs 2 puffs as needed 4h Sep, 0 days Not-Taking RESULTS No Results PROCEDURES No Known procedures [...]
--- OUTSIDE RECORDS SUMMARY | 2018-01-12 06:38 | XMS REPORT ---
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 [place] [facility] [address] [id number] [place] [address]- 1449 08 Nov, 2011 [facility] [place] [facility] [address] [id number] [place] [address]- 7981 18 Oct, 2011 [facility] [place] [facility] [address] [id number] [place] [address]- 2084 Oct, [facility] [place] [facility] [address] [id number] [place] [address]- 9423 Aug, [facility] [place] [facility] [address] [id number] [place] [address]- 0060 Jul, [facility] [place] [facility] [address] [id number] [place] [address]- 9880 Jul, [facility] [place] [facility] [address] [id number] [place] [address]- 8546 Jul, [facility] [place] [facility] [address] [id number] [place] [address]- 6393 June, [facility] [place] [facility] [address] [id number] [place] [address]- 6511 May, [facility] [place] [facility] [address] [id number] [place] [address]- 3623 Apr, [facility] [place] [facility] [address] [id number] [place] [address]- 3973 Apr, [facility] [place] [facility] [address] [id number] [place] [address]- 3641 Apr, [facility] [place] [facility] [address] [id number] [place] [address]- 5905 Apr, [facility] [place] [facility] [address] [id number] [place] [address]- 9947 Apr, [facility] [place] [facility] [address] [id number] [place] [address]- 6069 Mar, [facility] [place] [facility] [address] [id number] [place] [address]- 5776 Mar, [facility] [place] [facility] [address] [id number] [place] [address]- 6816 Mar, [facility] [place] [facility] [address] [id number] [place] [address] 2546 07 Mar, 2011 [facility] [place] [facility] [address] [facility] [id number] [place] [address]- 5097 Feb, [facility] [address] [facility] [id number] [place] [address]- 7491 Feb, [facility] [address] [facility] [id number] [place] [address]- 3766 Feb, [facility] [address] [facility] [id number] [place] [address]- 9956 Jan, [facility] [address] [facility] [id number] [place] [address] 2546 Jan, [facility] [address] [facility] [id number] [place] [address]- 4517 Dec, [facility] [address] [facility] [id number] [place] [address]- 5916 Dec, [facility] [id number] [place] [address]- 0117 Nov, [facility] [address] [facility] [id number] [place] [address]- 7192 June, [facility] [id number] [place] [address]- 8556 Feb, [facility] [address] [id number] [place] [address] 2546 Jan, [facility] [address] [id number] [address] 4[address] 14 Nov, 2009 [facility] [address] [facility] [id number], [place] [address]- 6818 June, [facility] [address] [facility] [id number], [place] [address]- 8443 Jan, [facility] [address] [facility] [id number], [place] [address]- 5897 24 Nov, 2007 [facility] [address] [id number], [place] [address] 5395 13 Nov, 2007 IMMUNIZATIONS No Known Immunizations SOCIAL HISTORY Never Assessed REASON FOR VISIT talk about mood swings---KUMAR colvin PLAN OF CARE Activity Details Follow Up prn Reason: VITAL SIGNS Height 62 in 2017-05-26 Weight 194.8 lbs 2017-05-26 Temperature 97.3 degrees Fahrenheit 2017-05-26 Heart Rate 88 bpm 2017-05-26 Respiratory Rate 18 2017-05-26 BMI 35.63 kg/m2 2017-05-26 Blood pressure systolic 122 mmHg 2017-05-26 Blood pressure diastolic 64 mmHg 2017-05-26 MEDICATIONS Medication Instructions Dosage Frequency Start Date End Date Duration Status Ondansetron HCl 8 MG Orally every 8 hours for nausea 1 tablet as needed May, 28 days Active PredniSONE 20 mg Orally Once a day 2 tablets 24h May, May, 05 days Active Multi Vitamin Daily Orally Once a day 1 tablet 24h Active Wrist Splint/Cock-Up/Right L - as directed Apr, 30 days Active Ibuprofen 600 MG Orally Three times a day 1 tablet with food or milk as needed 8h Dec, June, 30 days Active Oxycodone-Acetaminophen 7.5-325 MG Orally 3 times a day 1 tablet as needed 8h Feb, 14 Active Lyrica 100 mg Orally 2 times a day 1 capsule 12h Feb, 30 days Active Ondansetron HCl 8 MG Orally every 8 hours as needed for nausea 1 tablet May, 28 days Active Pristiq 100 mg TAKE ONE (1) TABLET BY MOUTH DAILY... Active Zyrtec Allergy 10 mg Orally Once a day 1 tablet 24h Apr, Active Xarelto 20 mg Orally Once a day 1 tablet with food 24h Dec, 30 day(s) Active Topamax 200 mg Orally Twice a day 1 tablet 12h Sep, Active ProAir HFA 108 (90 Base) MCG/ACT Inhalation every 4 hrs 2 puffs as needed 4h Sep, 0 days Active Fentanyl 87.5 MCG/HR Transdermal Q72 H 1 patch to skin Feb, Active PredniSONE 20 mg Orally Once a day 2 tablets 24h May, May, 05 days Active Lyrica 75 MG Orally twice a day 1 capsule 12h Feb, 30 days Active RESULTS No Results PROCEDURES [...]
--- OUTSIDE RECORDS SUMMARY | 2018-01-12 06:39 | XMS REPORT ---
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 [address] [id number] [place] [address]- 3401 Apr, [facility] [place] [facility] [address] [id number] [place] [address]- 8012 Apr, [facility] [place] [facility] [address] [id number] [place] [address]- 1157 Mar, [facility] [place] [facility] [address] [id number] [place] [address]- 3304 Mar, [facility] [place] [facility] [address] [id number] [place] [address]- 7658 Mar, [facility] [place] [facility] [address] [id number] [place] [address] 2546 Mar, [facility] [place] [facility] [address] [id number] [place] [address]- 3218 Feb, [facility] [place] [facility] [address] [id number] [place] [address]- 5166 Feb, [facility] [place] [facility] [address] [id number] [place] [address]- 4256 Feb, [facility] [place] [facility] [address] [facility] [id number], [place] [address]- [address]6 Jan, [facility] [id number], [place] [address] Jan, [facility] [address] [facility] [id number], [place] [address]- 7836 Dec, [facility] [id number], [place] [address]40 Dec, [facility] [address] [facility] [id number], [place] [address]- 5909 Nov, [facility] [id number], [place] [address] 0698 June, [facility] [address] [id number] [address] Feb, [facility] [id number], [place] [address]- 26[address] Jan, [facility] [id number] [address] Nov, [facility] [id number] [address] June, [facility] [address] [id number], [place] [address]- 5[address] Jan, [facility] [address] [id number], [place] [address]- [address]648 Nov, [facility] [address] [id number], [place] [address] Nov, IMMUNIZATIONS No Known Immunizations SOCIAL HISTORY Never Assessed REASON FOR VISIT RETRO PA PLAN OF CARE VITAL SIGNS MEDICATIONS Unknown [...]
--- OUTSIDE RECORDS SUMMARY | 2018-01-12 06:39 | XMS REPORT ---
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 6649 Mar, [facility] [place] [facility] [address] [id number] [place] [address]- 0781 Mar, [facility] [place] [facility] [address] [id number] [place] [address]- 3300 Mar, [facility] [place] [facility] [address] [id number] [place] [address] 2546 Mar, [facility] [place] [facility] [address] [id number] [place] [address]- 3945 Feb, [facility] [place] [facility] [address] [id number] [place] [address]- 5946 Feb, [facility] [place] [facility] [address] [id number] [place] [address]- 1246 Feb, [facility] [place] [facility] [address] [facility] [id number] [address] Jan, [facility] [id number] [address] Jan, [facility] [address] [facility] [id number] [place] [address]- [address] Dec, [facility] [id number] [address] Dec, [facility] [address] [facility] [id number] [place] [address]- 2849 Nov, [facility] [id number] [address] June, [facility] [id number] [address]- 9439 Feb, [facility] [id number] [address] 4027 Jan, [facility] [id number] [address] [address] Nov, [facility] [id number] [address]80 June, [facility] [address] [id number] [address]- 4[address] Jan, [facility] [address] [id number] [address]- 8379 Nov, [facility] [address] [id number] [address]- 0495 Nov, IMMUNIZATIONS No Known Immunizations SOCIAL HISTORY Never Assessed REASON FOR VISIT med refill PLAN OF CARE VITAL SIGNS MEDICATIONS Medication Instructions Dosage Frequency Start Date End Date Duration Status Lyrica 225 MG Orally Twice a day 1 capsule 12h 0 days Active RESULTS No Results PROCEDURES No [...] fu in [address]. [address] Sbaa 01/26/17 24hr Holter monior SR with average [...]
--- OUTSIDE RECORDS SUMMARY | 2018-01-12 06:40 | XMS REPORT ---
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 [address] [id number] [place] [address]- 8416 Jan, [facility] [id number] [address]- 7766 Dec, [facility] [id number] [address]- 2696 Dec, [facility] [id number] [address]- 0639 Nov, [facility] [id number] [place] [address]- 9605 June, [facility] [id number] [address]- 4502 Feb, [facility] [id number] [place] [address]- 9269 Jan, [facility] [id number] [place] [address]- 2101 Nov, [facility] [id number] [place] [address]- 2725 June, [facility] [id number] [address]- 8676 Jan, [facility] [id number] [address]- 0524 Nov, [facility] [id number] [address]- 1551 Nov, IMMUNIZATIONS No Known Immunizations SOCIAL HISTORY Never Assessed REASON FOR VISIT documentation PLAN OF CARE VITAL SIGNS MEDICATIONS Unknown [...]
--- OUTSIDE RECORDS SUMMARY | 2018-01-12 06:41 | XMS REPORT ---
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 [facility] [place] [facility] [address] [id number] [place] [address]- 7146 Jan, [facility] [place] [facility] [id number], [place] [address] Jan, [facility] [id number], [place] [address] Dec, [facility] [id number], [place] [address] 1276 Dec, [facility] [id number], [place] [address]- 8235 Nov, [facility] [id number], [place] [address]- 7175 June, [facility] [id number], [place] [address]- 0559 Feb, [facility] [id number], [place] [address]- 1006 Jan, [facility] [id number], [place] [address]- 2299 Nov, [facility] [id number], [place] [address] 6720 June, [facility] [id number], [place] [address]- 7920 Jan, [facility] [id number], [place] [address]- 0868 Nov, [facility] [id number] [address] Nov, IMMUNIZATIONS No Known Immunizations SOCIAL HISTORY [...]
--- OUTSIDE RECORDS SUMMARY | 2018-01-12 06:42 | XMS REPORT ---
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 [address]- 1577 June, [facility] [place] [facility] [address] [id number] [place] [address]- 5664 May, [facility] [place] [facility] [address] [id number] [place] [address]- 8697 Apr, [facility] [place] [facility] [address] [id number], [place] [address] 9338 Apr, [facility] [place] [facility] [address] [id number] [place] [address]- 9426 Apr, [facility] [place] [facility] [address] [id number] [place] [address]- 3186 Apr, [facility] [place] [facility] [address] [id number] [place] [address] 2546 Apr, [facility] [place] [facility] [address] [id number], [place] [address] 27 Mar, 2011 [facility] [address] [id number] [place] [address]- 9211 24 Mar, 2011 [facility] [place] [facility] [address] [id number] [place] [address]- 0716 10 Mar, 2011 [facility] [place] [facility] [address] [id number] [place] [address] 2546 07 Mar, 2011 [facility] [place] [facility] [address] [id number] [place] [address]- 8022 27 Feb, 2011 [facility] [address] [id number] [place] [address]- 5881 18 Feb, 2011 [facility] [place] [facility] [address] [id number] [place] [address]- 1630 Feb, [facility] [address] [id number] [place] [address]- 1211 Jan, [facility] [place] [facility] [address] [id number] [place] [address]- 8977 Jan, [facility] [address] [id number] [place] [address]- 0367 Dec, [facility] [place] [facility] [address] [facility] [id number] [place] [address]- 5155 Dec, [facility] [place] [facility] [address] [id number] [place] [address]- 7066 Nov, [facility] [place] [facility] [address] [id number], [place] [address]22 June, [facility] [place] [facility] [address] [id number] [place] [address]- 5914 Feb, [facility] [place] [facility] [address] [id number] [place] [address]- 9736 Jan, [facility] [place] [facility] [address] [facility] [id number], [place] [address]- 3882 14 Nov, 2009 [facility] [place] [facility] [address] [facility] [id number] [place] [address]- 2543 June, [facility] [address] [facility] [id number], [place] [address]- 9090 Jan, [facility] [address] [facility] [id number], [place] [address]- 9560 Nov, [facility] [address] [facility] [id number], [place] [address]- 4226 Nov, IMMUNIZATIONS No Known Immunizations SOCIAL HISTORY Never Assessed REASON FOR VISIT Controlled substance request PLAN OF CARE VITAL SIGNS MEDICATIONS Medication Instructions Dosage Frequency Start Date End Date Duration Status Fentanyl 100 MCG/HR Transdermal Q72 H 1 patch to skin Jan, 14 days Active Oxycodone-Acetaminophen 7.5-325 MG Orally 3 times a day 1 tablet as needed 8h Jan, 14 days Active RESULTS No Results PROCEDURES No [...]
--- OUTSIDE RECORDS SUMMARY | 2018-01-12 06:43 | XMS REPORT ---
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 Name Role Phone marthaDUNCAN Ochoa Unavailable PROBLEMS Type Condition ICD9-CM Code INR32-VZ Code Onset Dates Condition Status SNOMED Code Problem Irregular menses N92.6 Active 05199713 Problem History of environmental allergies Z91.09 Active 633102423 Problem Other chronic pain G89.29 Active 67444065 Problem Pain in right shoulder M25.511 Active 56489703 Problem Myalgia M79.1 Active 83181621 Problem Reactive depression F32.9 Active 12126636 Problem Incisional pain R20.8 Active 50344013 Problem Muscle spasm M62.838 Active 39778107 Problem Migraine without aura and without status migrainosus, not intractable G43.009 Active 370000702 Problem Protein C deficiency D68.59 Active 59903087 Problem Acne, unspecified acne type L70.9 Active 43917159 Problem Fibromyalgia M79.7 Active 64616275 Problem History of stroke Z86.73 Active 312172852 Problem Headache R51 Active 019417951 Problem Hx of migraines Z86.69 Active 835846635 Problem Secondary amenorrhea N91.1 Active 54914846 Problem Chronic pain syndrome G89.4 Active 343102191 Problem Female hirsutism L68.0 Active 94902265 ALLERGIES Unknown Allergies SOCIAL HISTORY No smoking Hx information available PLAN OF CARE VITAL SIGNS MEDICATIONS Medication Instructions Dosage Frequency Start Date End Date Duration Status Tylenol/Codeine #3 300-30 MG Orally every 6 hrs 1 tablet as needed 6h 4 days Active RESULTS No Results PROCEDURES No Known procedures IMMUNIZATIONS No Known Immunizations
--- OUTSIDE RECORDS SUMMARY | 2018-01-12 06:43 | XMS REPORT ---
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 [facility] [place] [facility] [address] [id number] [place] [address]- 0135 Feb, [facility] [place] [facility] [address] [id number] [place] [address]- 8423 Feb, [facility] [place] [facility] [address] [facility] [id number] [place] [address]- 4626 Jan, [facility] [place] [facility] [address] [id number], [place] [address]- [address]66 Jan, [facility] [place] [facility] [id number], [place] [address] Dec, [facility] [id number], [place] [address]- [address] Dec, [facility] [id number], [place] [address]- [address]106 Nov, [facility] [id number] [place] [address]- [address] June, [facility] [id number], [place] [address]- 4830 Feb, [facility] [id number] [place] [address]- 8646 Jan, [facility] [address] [id number], [place] [address]- 1005 Nov, [facility] [id number] [place] [address]- 1539 June, [facility] [address], [place] [address]- 4211 Jan, [facility] [address]65[address], [place] [address]- 7615 Nov, [facility] [id number], [place] [address]- [address] Nov, IMMUNIZATIONS Vaccine Route Administration Date Status TORADOL (IM) 60 MG/2ML (UP TO 15 MG) IM Intramuscular August 01, 2016 Administered SOCIAL HISTORY Never Assessed REASON FOR VISIT states her fibromyalgia is flaring up and she hurts all over, Ibuprofen 600 mg and Tylenol not helping much. mitesh Del Castillo PLAN OF CARE Activity Details Follow Up 3 Weeks Reason:CHM pain VITAL SIGNS Height 62 in 2016-08-01 Weight 174 lbs 2016-08-01 Temperature 97.5 degrees Fahrenheit 2016-08-01 Heart Rate 88 bpm 2016-08-01 Respiratory Rate 16 2016-08-01 BMI 31.82 kg/m2 2016-08-01 Blood pressure systolic 130 mmHg 2016-08-01 Blood pressure diastolic 80 mmHg 2016-08-01 MEDICATIONS Medication Instructions Dosage Frequency Start Date End Date Duration Status Aspirin 75 MG Orally Once a day 1 tablet 24h Active Metformin HCl 500 mg Orally Twice a day 1 tablet with meals 12h Active Promethazine HCl 25 MG Orally every 12 hrs 1 tablet as needed 12h Active Zyrtec Allergy 10 mg Orally Once a day 1 tablet 24h Apr, Aug, 30 day(s) Active Prilosec 20 MG Orally Once a day 1 capsule 24h Active Complete 14-0.4 MG Orally Once a day 1 tablet 24h Dec, Active Multi Vitamin Daily Orally Once a day 1 tablet 24h Active RESULTS No Results PROCEDURES Procedure Date Ordered Result Body Site TORADOL (IM) 60 MG/2ML (UP TO 15 MG) August 01, 2016 THER/PROPH/DIAG INJ, SC/IM August 01, 2016 INSTRUCTIONS MEDICATIONS ADMINISTERED No Known Medications MEDICAL [...] Occ isolated PVC and PAC, no signigicant atmmy, no VT or SVT Surgical History tonsillectomy [...]
--- OUTSIDE RECORDS SUMMARY | 2018-01-12 06:44 | XMS REPORT ---
Author Author BRITTNEY BARNES Organization [facility] Address [address] [place] [address] Care Team Providers Care Cosmetic Sales Assistant Name Role Phone BRITTNEY BARNES Unavailable PROBLEMS Type Condition ICD9-CM Code [id number] Code Onset Dates Condition Status SNOMED Code Problem Muscle spasm M62.838 Active 24069259 Problem Pain in right shoulder M25.511 Active 48495775 Problem Myalgia M79.1 Active 84032086 Problem High risk medication use Z79.899 Active 858907814515797 Problem Chronic pain syndrome G89.4 Active 884409927 Problem Syncope, unspecified syncope type R55 Active 900300347 Problem History of stroke Z86.73 Active 109760441 Problem Secondary amenorrhea N91.1 Active 86270071 Problem Occipital headache R51 Active 063663 Problem Severe single current episode of major depressive disorder, 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 Active 27062199 Problem Acute pain of right shoulder M25.511 Active 48044585 Problem History of recent fall Z91.81 Active 409152263 Problem Hx of migraines Z86.69 Active 106140445 Problem Female hirsutism L68.0 Active 69489320 Problem Protein C deficiency D68.59 Active 14678210 Problem Acne, unspecified acne type L70.9 Active 78867471 Problem History of environmental allergies Z91.09 Active 915714104 Problem Incisional pain R20.8 Active 04434579 Problem Fibromyalgia M79.7 Active 03772933 Problem Irregular menses N92.6 Active 43660125 Problem Reactive depression F32.9 Active 74900307 Problem Headache R51 Active 302985643 Problem Other chronic pain G89.29 Active 27695722 Problem Migraine without aura and without status migrainosus, not intractable G43.009 Active 938931145 ALLERGIES No Information SOCIAL HISTORY Never Assessed PLAN OF CARE VITAL SIGNS MEDICATIONS Unknown Medications RESULTS No Results PROCEDURES No Known procedures IMMUNIZATIONS No Known Immunizations MEDICAL (GENERAL) HISTORY Type Description Date Medical History fibromyalgia Medical History protein C deficiency: questionable after 32 wk demise (), testing done after 4th (02/28) ruled out hypercoagulability Medical History migraine headaches Medical History vitamin D deficiency: takes 1000 iu Medical History History of Helicobacter pylori infection Medical History 09/28/16 ED for tooth pain, Alveolar nerve block placed, amox script given Surgical History tonsillectomy Surgical History cholecystectomy Surgical History right knee arthroscopy Surgical History left knee arthroscopy Surgical History primary 06/2016 Surgical History oral surgery on jaw because of tooth abcess Hospitalization History childbirth, surgeries Hospitalization History right shoulder and carpal tunnel surgery 11/28
--- OUTSIDE RECORDS SUMMARY | 2018-01-12 06:44 | XMS REPORT ---
Author Author BRITTNEY BARNES Organization [facility] Address [address] [place] [address] Care Team Providers Care Authorization Nurse Name Role Phone BRITTNEY BARNES Unavailable PROBLEMS Type Condition ICD9-CM Code [id number] Code Onset Dates Condition Status SNOMED Code Problem Muscle spasm M62.838 Active 89679051 Problem Pain in right shoulder M25.511 Active 79433871 Problem Myalgia M79.1 Active 88643749 Problem High risk medication use Z79.899 Active 151064500350242 Problem Chronic pain syndrome G89.4 Active 007805007 Problem Syncope, unspecified syncope type R55 Active 683178176 Problem History of stroke Z86.73 Active 515080031 Problem Secondary amenorrhea N91.1 Active 80799396 Problem Occipital headache R51 Active 490001 Problem Severe single current episode of major depressive disorder, 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 Active 66414896 Problem Acute pain of right shoulder M25.511 Active 76280931 Problem History of recent fall Z91.81 Active 208531506 Problem Hx of migraines Z86.69 Active 113358114 Problem Female hirsutism L68.0 Active 12201052 Problem Protein C deficiency D68.59 Active 58068064 Problem Acne, unspecified acne type L70.9 Active 19480261 Problem History of environmental allergies Z91.09 Active 788727142 Problem Incisional pain R20.8 Active 24070226 Problem Fibromyalgia M79.7 Active 82468264 Problem Irregular menses N92.6 Active 57572684 Problem Reactive depression F32.9 Active 82424649 Problem Headache R51 Active 226434193 Problem Other chronic pain G89.29 Active 22620857 Problem Migraine without aura and without status migrainosus, not intractable G43.009 Active 759698190 ALLERGIES Substance Reaction Event Type Date Status Zithromax Z-Sidney unknown Drug Allergy June, Active Morphine Sulfate unknown Drug Allergy June, Active Imitrex unknown Drug Allergy June, Active Bactrim DS hives Drug Allergy June, Active demeral Unknown Non Drug Allergy June, Active SOCIAL HISTORY Never Assessed PLAN OF CARE Activity Details Follow Up prn if s/s worsen wiht Dr. Tyler or in clinic Reason: VITAL SIGNS Height 62 in 2016-07-15 Weight 181.6 lbs 2016-07-15 Temperature 98.7 degrees Fahrenheit 2016-07-15 Heart Rate 80 bpm 2016-07-15 Respiratory Rate 16 2016-07-15 BMI 33.21 kg/m2 2016-07-15 Blood pressure systolic 110 mmHg 2016-07-15 Blood pressure diastolic 62 mmHg 2016-07-15 MEDICATIONS Medication Instructions Dosage Frequency Start Date End Date Duration Status Zyrtec Allergy 10 mg Orally Once a day 1 tablet 24h Apr, Aug, 30 day(s) Active Hydrocodone-Acetaminophen 5-325 MG Orally every 6 hrs 1 tablet as needed 6h June, Jul, 14 days Active Multi Vitamin Daily Orally Once a day 1 tablet 24h Active Complete 14-0.4 MG Orally Once a day 1 tablet 24h Dec, Active Prilosec 20 MG Orally Once a day 1 capsule 24h Active RESULTS Name Result Date Reference Range HEMOGLOBIN (IN HOUSE) 2016-07-15 HEMOGLOBIN 12.5 11.5 - 16 gm/dL Lot # [id number] Exp date 10/13/16 PROCEDURES Procedure Date Ordered Result Body Site HEMOGLOBIN July 15, 2016 IMMUNIZATIONS No Known Immunizations MEDICAL (GENERAL) HISTORY [...]
--- OUTSIDE RECORDS SUMMARY | 2018-01-12 06:44 | XMS REPORT ---
Author Author BRITTNEY BARNES Organization [facility] Address [address] [place] [address] Care Team Providers Care Russian Rubber Name Role Phone BRITTNEY BARNES Unavailable PROBLEMS Type Condition ICD9-CM Code PVQ48-DM Code Onset Dates Condition Status SNOMED Code Problem Muscle spasm M62.838 Active 07633158 Problem Pain in right shoulder M25.511 Active 45109673 Problem Myalgia M79.1 Active 35685865 Problem High risk medication use Z79.899 Active 325997813010747 Problem Chronic pain syndrome G89.4 Active 378931252 Problem Syncope, unspecified syncope type R55 Active 984048506 Problem History of stroke Z86.73 Active 565084631 Problem Secondary amenorrhea N91.1 Active 65857668 Problem Occipital headache R51 Active 779715 Problem Severe single current episode of major depressive disorder, 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 Active 05964493 Problem Acute pain of right shoulder M25.511 Active 56053838 Problem History of recent fall Z91.81 Active 840323016 Problem Hx of migraines Z86.69 Active 769896734 Problem Female hirsutism L68.0 Active 15271761 Problem Protein C deficiency D68.59 Active 36656616 Problem Acne, unspecified acne type L70.9 Active 32627795 Problem History of environmental allergies Z91.09 Active 295387409 Problem Incisional pain R20.8 Active 92230435 Problem Fibromyalgia M79.7 Active 47508005 Problem Irregular menses N92.6 Active 75547012 Problem Reactive depression F32.9 Active 93815978 Problem Headache R51 Active 625115775 Problem Other chronic pain G89.29 Active 86335222 Problem Migraine without aura and without status migrainosus, not intractable G43.009 Active 280024658 ALLERGIES Substance Reaction Event Type Date Status Zithromax Z-Sidney unknown Drug Allergy Jul, Active Morphine Sulfate unknown Drug Allergy Jul, Active Imitrex unknown Drug Allergy Jul, Active Bactrim DS hives Drug Allergy Jul, Active demeral Unknown Non Drug Allergy Jul, Active SOCIAL HISTORY Never Assessed PLAN OF CARE Activity Details Follow Up 4 Weeks Reason:CHM pain VITAL SIGNS Height 62 in 2016-07-22 Weight 173.6 lbs 2016-07-22 Temperature 97.4 degrees Fahrenheit 2016-07-22 Heart Rate 84 bpm 2016-07-22 Respiratory Rate 18 2016-07-22 BMI 31.75 kg/m2 2016-07-22 Blood pressure systolic 128 mmHg 2016-07-22 Blood pressure diastolic 70 mmHg 2016-07-22 MEDICATIONS Medication Instructions Dosage Frequency Start Date End Date Duration Status Prilosec 20 MG Orally Once a day 1 capsule 24h Active Zyrtec Allergy 10 mg Orally Once a day 1 tablet 24h Apr, Aug, 30 day(s) Active Complete 14-0.4 MG Orally Once a day 1 tablet 24h Dec, Active Multi Vitamin Daily Orally Once a day 1 tablet 24h Active RESULTS No Results PROCEDURES Procedure Date Ordered Result Body Site INJECT TRIGGER POINTS,=/> 3 July 22, 2016 IMMUNIZATIONS No Known Immunizations MEDICAL (GENERAL) [...]
--- OUTSIDE RECORDS SUMMARY | 2018-01-12 06:44 | XMS REPORT ---
Author Author BRITTNEY BARNES Organization [facility] Address [address] [place] [address] Care Team Providers Care Sales Development Director Name Role Phone BRITTNEY BARNES Unavailable PROBLEMS Type Condition ICD9-CM Code [id number] Code Onset Dates Condition Status SNOMED Code Problem Irregular menses N92.6 Active 36817359 Problem History of environmental allergies Z91.09 Active 136059817 Problem Other chronic pain G89.29 Active 65811625 Problem Pain in right shoulder M25.511 Active 26542024 Problem Myalgia M79.1 Active 27805262 Problem Reactive depression F32.9 Active 84582078 Problem Incisional pain R20.8 Active 34782078 Problem Muscle spasm M62.838 Active 22377589 Problem Migraine without aura and without status migrainosus, not intractable G43.009 Active 198336235 Problem Protein C deficiency D68.59 Active 79471536 Problem Acne, unspecified acne type L70.9 Active 03179302 Problem Fibromyalgia M79.7 Active 15192065 Problem History of stroke Z86.73 Active 060088206 Problem Headache R51 Active 039646515 Problem Hx of migraines Z86.69 Active 617588060 Problem Secondary amenorrhea N91.1 Active 43960619 Problem Chronic pain syndrome G89.4 Active 548874964 Problem Female hirsutism L68.0 Active 99672255 ALLERGIES Substance Reaction Event Type Date Status Zithromax Z-Sidney unknown Drug Allergy Jan, Active Morphine Sulfate unknown Drug Allergy Jan, Active Imitrex unknown Drug Allergy Jan, Active Bactrim DS hives Drug Allergy Jan, Active demeral Unknown Non Drug Allergy Jan, Active SOCIAL HISTORY No smoking Hx information available PLAN OF CARE Activity Details Follow Up 3 Weeks Reason:CHM pain VITAL SIGNS Height 62 in 2016-02-05 Weight 182.2 lbs 2016-02-05 Temperature 96.9 degrees Fahrenheit 2016-02-05 Heart Rate 90 bpm 2016-02-05 Respiratory Rate 18 2016-02-05 BMI 33.32 kg/m2 2016-02-05 Blood pressure systolic 110 mmHg 2016-02-05 Blood pressure diastolic 78 mmHg 2016-02-05 MEDICATIONS Medication Instructions Dosage Frequency Start Date End Date Duration Status Yedmaunglv-VXCP-Eyrtblty 50-325-40 MG Orally every 4 hrs 1 capsule as needed 4h Active Promethazine HCl 25 MG Orally every 12 hrs 1 tablet as needed 12h Active Tramadol HCl 50 mg Orally every4- 6 hrs 1 tablet as needed Active Metformin HCl 500 mg Orally Twice a day 1 tablet with meals 12h Active Complete 14-0.4 MG Orally Once a day 1 tablet 24h Dec, Active Multi Vitamin Daily Orally Once a day 1 tablet 24h Active RESULTS No Results PROCEDURES Procedure Date Ordered Related Diagnosis Body Site TRIGGER POINT INJ/3 MUS 2016-02-05 N/A INJECT TRIGGER POINTS,=/> 3 Feb 05, 2016 Office Visit, Est Pt., Level 3 Feb 05, 2016 IMMUNIZATIONS No Known Immunizations
--- OUTSIDE RECORDS SUMMARY | 2018-01-12 06:44 | XMS REPORT ---
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 [address] [id number] [place] [address]- 3294 Feb, [facility] [address] [id number] [place] [address]- 7276 03 Jan, 2010 [facility] [address] [id number] [place] [address]- [address] 14 Nov, 2009 [facility] [address] [id number] [place] [address] June, [facility] [address] [facility] [id number] [place] [address]- 2896 Jan, [facility] [address] [facility] [id number], [place] [address] Nov, [facility] [address] [facility] [id number] [place] [address]- 2372 Nov, IMMUNIZATIONS No Known Immunizations SOCIAL HISTORY Never Assessed REASON FOR VISIT blackouts, states she has been blacking out since shoulder surgery on 11/28/16. She states she did black out a couple of times before robbi Barrios RN PLAN OF CARE Activity Details Follow Up 1 Week Reason:syncope VITAL SIGNS Height 62 in 2016-12-08 Weight 195.6 lbs 2016-12-08 Temperature 97.0 degrees Fahrenheit 2016-12-08 Heart Rate 92 bpm 2016-12-08 Respiratory Rate 18 2016-12-08 BMI 35.77 kg/m2 2016-12-08 Blood pressure systolic 108 mmHg 2016-12-08 Blood pressure diastolic 62 mmHg 2016-12-08 MEDICATIONS Medication Instructions Dosage Frequency Start Date End Date Duration Status Pristiq 100 MG TAKE ONE (1) TABLET BY MOUTH DAILY... Active Multi Vitamin Daily Orally Once a day 1 tablet 24h Active Topamax 100 MG Orally Twice a day 1 tablet 12h Sep, 0 days Active Lyrica 225 MG Orally Twice a day 1 capsule 12h 0 days Active ProAir HFA 108 (90 Base) MCG/ACT Inhalation every 4 hrs 2 puffs as needed 4h Sep, 0 days Active Aspirin 75 MG Orally Once a day 1 tablet 24h Active Complete 14-0.4 MG Orally Once a day 1 tablet 24h Dec, Active Zyrtec Allergy 10 mg Orally Once a day 1 tablet 24h Apr, Active Fentanyl 50 MCG/HR Transdermal every 72 hours 1 patch to skin Nov, Dec, 30 days Active BusPIRone HCl 15 MG Orally Twice a day 1 tablet 12h Active Hydrocodone-Acetaminophen 7.5-325 MG Orally every 6 hrs 1 tablet as needed 6h Active RESULTS No Results PROCEDURES Procedure Date Ordered Result Body Site HOLTER MONITOR (OUTPATIENT) 2016-12-08 Much of readings with sinus tachycardia 100-140bpm otherwise unremarkable EKG, TRACING (IN-HOUSE) 2016-12-08 SR ELECTROCARDIOGRAM, TRACING Dec 08, 2016 VENIPUNCT, ROUTINE* Dec 08, 2016 LAB NOT BILLED BY [facility] Dec 08, 2016 GLUCOSE BLOOD TEST Dec 08, 2016 PROTHROMBIN TIME Dec 08, 2016 INSTRUCTIONS MEDICATIONS ADMINISTERED No Known Medications [...]
--- OUTSIDE RECORDS SUMMARY | 2018-01-12 06:45 | XMS REPORT ---
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 [facility] [place] [facility] [address] [id number] [place] [address]- 5883 Mar, [facility] [place] [facility] [address] [id number] [place] [address]- 0147 Mar, [facility] [place] [facility] [address] [id number] [place] [address]- 5606 Mar, [facility] [place] [facility] [address] [id number] [place] [address]- 6326 Feb, [facility] [place] [facility] [address] [id number] [place] [address]- 9436 Feb, [facility] [place] [facility] [address] [id number] [place] [address]- 6346 Feb, [facility] [place] [facility] [address] [id number] [place] [address]- 4016 Jan, [facility] [place] [facility] [id number] [address] Jan, [facility] [id number] [address] Dec, [facility] [id number] [address] Dec, [facility] [id number] [address] Nov, [facility] [id number] [address] June, [facility] [id number] [address] 269[address] Feb, [facility] [id number] [address] Jan, [facility] [id number] [address]- [address] Nov, [facility] [id number] [address] June, [facility] [id number] [address]- [address] Jan, [facility] [id number] [address] Nov, [facility] [id number] [address] Nov, IMMUNIZATIONS No Known Immunizations SOCIAL HISTORY [...]
--- OUTSIDE RECORDS SUMMARY | 2018-01-12 06:46 | XMS REPORT ---
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 Active 80999467 Problem Pain in right shoulder M25.511 Active 35692097 Problem Reactive depression F32.9 Active 93947439 Problem Migraine without aura and without status migrainosus, not intractable G43.009 Active 463144027 Problem Myalgia M79.1 Active 80445996 Problem Muscle spasm M62.838 Active 94225310 Problem Acne, unspecified acne type L70.9 Active 59203022 Problem Hx of migraines Z86.69 Active 762355274 Problem Fibromyalgia M79.7 Active 13683446 Problem Protein C deficiency D68.59 Active 28248926 Problem Headache R51 Active 336243659 Problem Secondary amenorrhea N91.1 Active 25574273 Problem Chronic pain syndrome G89.4 Active 154533801 Problem Female hirsutism L68.0 Active 17166215 Problem History of stroke Z86.73 Active 191146843 Problem Irregular menses N92.6 Active [id number] ALLERGIES No Information SOCIAL HISTORY Never Assessed [...]
--- OUTSIDE RECORDS SUMMARY | 2018-01-12 06:46 | XMS REPORT ---
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 [address]- 6694 Jul, [facility] [place] [facility] [address] [id number] [place] [address]- 3224 Jul, [facility] [address] [id number] [place] [address]- 1203 Jul, [facility] [place] [facility] [address] [id number] [place] [address]- 6346 June, [facility] [address] [id number] [place] [address]- 3680 May, [facility] [place] [facility] [address] [id number] [place] [address]- 0332 Apr, [facility] [address] [id number] [place] [address]- 3607 Apr, [facility] [address] [id number] [place] [address]- 1595 Apr, [facility] [address] [id number] [place] [address]- 3274 Apr, [facility] [place] [facility] [address] [id number] [place] [address]- 2678 Apr, [facility] [address] [id number] [place] [address]- 2317 Mar, [facility] [place] [facility] [address] [id number] [place] [address]- 9217 Mar, [facility] [place] [facility] [address] [id number] [place] [address]- 9381 Mar, [facility] [place] [facility] [address] [id number] [place] [address]- 6586 Mar, [facility] [place] [facility] [address] [id number] [place] [address]- 7511 Feb, [facility] [place] [facility] [address] [id number] [place] [address]- 0126 Feb, [facility] [place] [facility] [address] [id number] [place] [address]- 9226 Feb, [facility] [place] [facility] [address] [facility] [id number] [place] [address]- 3186 Jan, [facility] [address] [facility] [id number] [place] [address]- 4616 Jan, [facility] [address] [facility] [id number] [place] [address]- 7471 Dec, [facility] [address] [facility] [id number] [place] [address]- 6132 Dec, [facility] [address] [facility] [id number] [place] [address]- 6277 Nov, [facility] [address] [facility] [id number] [place] [address]- 7935 June, [facility] [address] [id number] [place] [address]- 0630 Feb, [facility] [id number] [address]- 9540 Jan, [facility] [id number] [address]- 0165 Nov, [facility] [id number] [place] [address]- 5566 June, [facility] [address] [id number] [place] [address]- 9582 Jan, [facility] [address] [id number] [place] [address]- 8080 Nov, [facility] [address] [id number] [place] [address]- 0104 Nov, IMMUNIZATIONS No Known Immunizations SOCIAL HISTORY Never Assessed REASON FOR VISIT Lyrica approved PLAN OF CARE VITAL SIGNS MEDICATIONS Unknown [...]
--- OUTSIDE RECORDS SUMMARY | 2018-01-12 06:47 | XMS REPORT ---
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 [address] [id number] [place] [address]- 3861 06 Oct, 2011 [facility] [place] [facility] [address] [id number] [place] [address]- 5737 Aug, [facility] [place] [facility] [address] [id number] [place] [address]- 2416 Jul, [facility] [place] [facility] [address] [id number] [place] [address]- 1676 Jul, [facility] [address] [id number] [place] [address]- 2775 Jul, [facility] [place] [facility] [address] [id number] [place] [address]- 7256 June, [facility] [place] [facility] [address] [id number] [place] [address]- 0546 May, [facility] [place] [facility] [address] [id number] [place] [address]- 0551 Apr, [facility] [place] [facility] [address] [id number] [place] [address]- 7698 Apr, [facility] [place] [facility] [address] [id number] [place] [address]- 4438 Apr, [facility] [address] [id number] [place] [address]- 8029 Apr, [facility] [place] [facility] [address] [id number] [place] [address]- 5154 Apr, [facility] [place] [facility] [address] [id number] [place] [address]- 4482 Mar, [facility] [place] [facility] [address] [id number] [place] [address]- 6619 Mar, [facility] [place] [facility] [address] [id number] [place] [address]- 0463 Mar, [facility] [place] [facility] [address] [id number] [place] [address] 2546 Mar, [facility] [place] [facility] [address] [id number] [place] [address]- 5082 Feb, [facility] [place] [facility] [address] [id number] [place] [address]- 3206 Feb, [facility] [place] [facility] [address] [id number] [place] [address]- 0466 Feb, [facility] [place] [facility] [address] [facility] [id number] [address]- 4869 Jan, [facility] [id number] [address]- 6344 Jan, [facility] [address] [facility] [id number] [place] [address]- 6795 Dec, [facility] [address] [facility] [id number] [place] [address]- 1677 Dec, [facility] [address] [facility] [id number] [place] [address]- 5502 Nov, [facility] [id number] [address]- 3346 June, [facility] [id number] [address]- 3984 Feb, [facility] [id number] [address]- 4517 Jan, [facility] [id number] [address] Nov, [facility] [id number] [address]- 8984 June, [facility] [id number] [address] Jan, [facility] [address] [id number] [address]- 7933 Nov, [facility] [address] [id number] [address]- 2681 Nov, IMMUNIZATIONS No Known Immunizations SOCIAL HISTORY Never Assessed REASON FOR VISIT PA for Elise malik strengths PLAN OF CARE VITAL SIGNS MEDICATIONS Unknown [...]
--- OUTSIDE RECORDS SUMMARY | 2018-01-12 06:48 | XMS REPORT ---
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 [address] [id number] [place] [address]- 5787 June, [facility] [place] [facility] [address] [id number] [place] [address]- 2217 May, [facility] [place] [facility] [address] [id number] [place] [address]- 5326 Apr, [facility] [place] [facility] [address] [id number] [place] [address]- 3854 Apr, [facility] [place] [facility] [address] [id number] [place] [address]- 3267 Apr, [facility] [place] [facility] [address] [id number] [place] [address]- 8368 Apr, [facility] [place] [facility] [address] [id number] [place] [address]- 7729 Apr, [facility] [place] [facility] [address] [id number] [place] [address]- 8638 Mar, [facility] [place] [facility] [address] [id number] [place] [address]- 4884 24 Mar, 2011 [facility] [place] [facility] [address] [id number] [place] [address]- 9476 Mar, [facility] [place] [facility] [address] [id number] [place] [address]- 7436 07 Mar, 2011 [facility] [place] [facility] [address] [id number] [place] [address]- 2545 Feb, [facility] [place] [facility] [address] [id number], [place] [address]- 2216 Feb, [facility] [address] [facility] [id number], [place] [address]- 2298 Feb, [facility] [address] [facility] [id number], [place] [address]- 6456 Jan, [facility] [address] [facility] [id number], [place] [address]- 7526 Jan, [facility] [address] [facility] [id number], [place] [address]- 4417 Dec, [facility] [address] [facility] [id number], [place] [address]- 9921 Dec, [facility] [address] [facility] [id number], [place] [address]- 2624 Nov, [facility] [address] [facility] [id number], [place] [address]- 4068 June, [facility] [address] [facility] [id number], [place] [address]- 9846 Feb, [facility] [address] [facility] [id number], [place] [address]- 9254 Jan, [facility] [address] [facility] [id number], [place] [address]- 6270 Nov, [facility] [address] [id number], [place] [address]- 0633 June, [facility] [address] [facility] [id number], [place] [address]- 0709 Jan, [facility] [address] [facility] [id number], [place] [address]- 5867 Nov, [facility] [address] [id number], [place] [address]- 4961 Nov, IMMUNIZATIONS No Known Immunizations SOCIAL HISTORY Never Assessed REASON FOR VISIT Trigger point Injection bilateral knees Radha LEAL PLAN OF CARE Activity Details Follow Up 3 Weeks and prn if s/s worsen Reason:Dr. Fonseca pain consult VITAL SIGNS Height 62 in 2016-11-19 Weight 191.1 lbs 2016-11-19 Temperature 98.1 degrees Fahrenheit 2016-11-19 Heart Rate 90 bpm 2016-11-19 Respiratory Rate 18 2016-11-19 BMI 34.95 kg/m2 2016-11-19 Blood pressure systolic 124 mmHg 2016-11-19 Blood pressure diastolic 70 mmHg 2016-11-19 MEDICATIONS Medication Instructions Dosage Frequency Start Date End Date Duration Status Topamax 100 MG Orally Twice a day 1 tablet 12h Sep, 0 days Active Pristiq 100 MG TAKE ONE (1) TABLET BY MOUTH DAILY... Active Zyrtec Allergy 10 mg Orally Once a day 1 tablet 24h Apr, Active Aspirin 75 MG Orally Once a day 1 tablet 24h Active Tramadol HCl 50 mg Orally every 6 hrs 1-2 tablet as needed 6h Nov, Dec, 28 days Active BusPIRone HCl 15 MG Orally Twice a day 1 tablet 12h Active Multi Vitamin Daily Orally Once a day 1 tablet 24h Active Complete 14-0.4 MG Orally Once a day 1 tablet 24h Dec, Active Lyrica 225 MG Orally Twice a day 1 capsule 12h 0 days Active ProAir HFA 108 (90 Base) MCG/ACT Inhalation every 4 hrs 2 puffs as needed 4h Sep, 0 days Active RESULTS No Results PROCEDURES [...]
--- OUTSIDE RECORDS SUMMARY | 2018-01-12 06:49 | XMS REPORT ---
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 Active 09645692 Problem Pain in right shoulder M25.511 Active 13071661 Problem Reactive depression F32.9 Active 34077778 Problem Migraine without aura and without status migrainosus, not intractable G43.009 Active 656145281 Problem Myalgia M79.1 Active 42491551 Problem Muscle spasm M62.838 Active 80734515 Problem Acne, unspecified acne type L70.9 Active 23356220 Problem Hx of migraines Z86.69 Active 578737325 Problem Fibromyalgia M79.7 Active 11291060 Problem Protein C deficiency D68.59 Active 53916232 Problem Headache R51 Active 793107919 Problem Secondary amenorrhea N91.1 Active 20136058 Problem Chronic pain syndrome G89.4 Active 308363375 Problem Female hirsutism L68.0 Active 11657459 Problem History of stroke Z86.73 Active 239637119 Problem Irregular menses N92.6 Active 04852025 ALLERGIES Substance Reaction Event Type Date Status Zithromax Z-Sindey unknown Drug Allergy Apr, Active Morphine Sulfate unknown Drug Allergy Apr, Active Imitrex unknown Drug Allergy Apr, Active Bactrim DS hives Drug Allergy Apr, Active demeral Unknown Non Drug Allergy Apr, Active SOCIAL HISTORY Never Assessed PLAN OF CARE Activity Details Follow Up prn Reason:multi te. 1 hour VITAL SIGNS Blood pressure systolic 115 mmHg 2016-04-16 Blood pressure diastolic 76 mmHg 2016-04-16 MEDICATIONS Medication Instructions Dosage Frequency Start Date End Date Duration Status Complete 14-0.4 MG Orally Once a day 1 tablet 24h Dec, Active Multi Vitamin Daily Orally Once a day 1 tablet 24h Active Metformin HCl 500 mg Orally Twice a day 1 tablet with meals 12h Active Aspirin 75 MG Orally Once a day 1 tablet 24h Active Tramadol HCl 50 mg Orally every4- 6 hrs 1 tablet as needed Active Diclegis 10-10 MG Orally twice a day 2 tablets in am and 1 tab at night--Dr Tyler 12h Active Promethazine HCl 25 MG Orally every 12 hrs 1 tablet as needed 12h Active Ziksxbgsaq-IDVF-Ymcetuct 50-325-40 MG Orally every 4 hrs 1 capsule as needed 4h Active Tylenol/Codeine #3 300-30 MG Orally every 6 hrs 1 tablet as needed 6h 4 days Active RESULTS No Results PROCEDURES Procedure Date Ordered Result Body Site Dental no charge April 16, 2016 IMMUNIZATIONS No Known Immunizations MEDICAL (GENERAL) [...]
--- OUTSIDE RECORDS SUMMARY | 2018-01-12 06:49 | XMS REPORT ---
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 [place] [address]- 3676 June, [facility] [place] [facility] [address] [id number] [place] [address]- 7796 May, [facility] [place] [facility] [address] [id number] [place] [address]- 0813 Apr, [facility] [place] [facility] [address] [id number] [place] [address]- 6506 Apr, [facility] [place] [facility] [address] [id number] [place] [address]- 8276 Apr, [facility] [place] [facility] [address] [id number] [place] [address]- 3166 Apr, [facility] [place] [facility] [address] [id number] [place] [address]- 4348 Apr, [facility] [place] [facility] [address] [id number] [place] [address]- 3675 Mar, [facility] [place] [facility] [address] [id number] [place] [address]- 8146 Mar, [facility] [place] [facility] [address] [id number] [place] [address]- 3426 Mar, [facility] [place] [facility] [address] [id number] [place] [address] 2546 Mar, [facility] [place] [facility] [address] [id number] [place] [address]- 6146 Feb, [facility] [place] [facility] [address] [id number] [place] [address]- 1866 Feb, [facility] [place] [facility] [address] [id number] [place] [address]- 2546 Feb, [facility] [place] [facility] [address], [place] [address] Jan, [facility] [address], [place] [address] Jan, [facility] [address], [place] [address]- 2546 Dec, [facility] [address], [place] [address]- [address] Dec, [facility] [address], [place] [address]- 25[address] Nov, [facility] [id number] [place] [address] June, [facility] [address], [place] [address]- 1476 Feb, [facility] [address], [place] [address]- 7786 Jan, [facility] [address], [place] [address]- 8415 Nov, [facility] [address], [place] [address]- 7656 June, [facility] [address] [id number], [place] [address]- 8826 Jan, [facility] [address] [id number], [place] [address]- 9[address] Nov, [facility] [address] [id number], [place] [address]- [address] Nov, IMMUNIZATIONS No Known Immunizations SOCIAL HISTORY Never Assessed REASON FOR VISIT Facial swelling PLAN OF CARE Activity Details Follow Up 1 Week Reason:1 hr TE 20,21,22,23,24 VITAL SIGNS Height 62 in 2016-09-30 Blood pressure systolic 118 mmHg 2016-09-30 Blood pressure diastolic 77 mmHg 2016-09-30 MEDICATIONS Medication Instructions Dosage Frequency Start Date End Date Duration Status Topamax 50 mg Orally Twice a day 1 tablet 12h Sep, 0 days Active Lyrica 150 MG Orally Twice a day 1 capsule 12h 0 days Active Tramadol HCl 50 MG Orally every 6 hrs 1 tablet as needed 6h Sep, Sep, 4 days Active Aspirin 75 MG Orally Once a day 1 tablet 24h Active Clindamycin HCl 150 MG Orally every 6 hrs 2 capsules 6h Sep, Sep, 7 days Active Lyrica 75 MG Orally Twice a day 1 capsule 12h Jul, 07 days Active Flexeril 10 mg Orally Three times a day 1 tablet as needed 8h Jul, Active Pristiq 100 mg Orally Once a day 1 tablet 24h 0 days Active Pristiq 25 MG Orally twice a day 1 tablets 12h Jul, 14 days Active ProAir HFA 108 (90 Base) MCG/ACT Inhalation every 4 hrs 2 puffs as needed 4h Sep, 0 days Active Aspirin Active RESULTS No Results PROCEDURES Procedure Date Ordered Result Body Site LTD ORAL EVALUATION - PROBLEM FOCUS Sep 30, 2016 INTRAORL-PERIAPICAL 1 FILM 15030 Sep 30, 2016 INSTRUCTIONS MEDICATIONS ADMINISTERED No Known Medications [...]
--- OUTSIDE RECORDS SUMMARY | 2018-01-12 06:50 | XMS REPORT ---
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 [address]- 6501 Dec, [facility] [place] [facility] [address] [id number] [place] [address]- 8616 Dec, [facility] [place] [facility] [address] [id number] [place] [address]- 9912 Nov, [facility] [place] [facility] [address] [id number] [place] [address]- 4638 Oct, [facility] [place] [facility] [address] [id number] [place] [address]- 2778 Oct, [facility] [place] [facility] [address] [id number] [place] [address]- 1222 Aug, [facility] [place] [facility] [address] [id number] [place] [address]- 7826 Jul, [facility] [place] [facility] [address] [id number] [place] [address]- 5472 Jul, [facility] [place] [facility] [address] [id number] [place] [address]- 6322 Jul, [facility] [place] [facility] [address] [id number] [place] [address]- 3567 June, [facility] [place] [facility] [address] [id number] [place] [address]- 8624 May, [facility] [place] [facility] [address] [id number], [place] [address]- 3590 Apr, [facility] [place] [facility] [address] [id number], [place] [address]- 0476 Apr, [facility] [place] [facility] [address] [id number] [place] [address]- 3979 Apr, [facility] [place] [facility] [address] [id number], [place] [address]- 7110 Apr, [facility] [place] [facility] [address] [facility] [id number] [place] [address]- 9921 Apr, [facility] [place] [facility] [address] [id number] [place] [address]- 1705 27 Mar, 2011 [facility] [address] [id number] [place] [address]- 2386 24 Mar, 2011 [facility] [place] [facility] [address] [id number] [place] [address]- 4776 10 Mar, 2011 [facility] [address] [id number] [place] [address]- 2416 07 Mar, 2011 [facility] [address] [id number] [place] [address]- 7293 27 Feb, 2011 [facility] [address] [id number] [place] [address]- 1933 18 Feb, 2011 [facility] [address] [id number] [place] [address]- 5848 17 Feb, 2011 [facility] [address] [id number] [place] [address]- 2878 Jan, [facility] [address] [id number] [place] [address]- 1360 Jan, [facility] [address] [id number] [place] [address]- 8428 Dec, [facility] [address] [facility] [id number] [place] [address]- 6778 Dec, [facility] [address] [id number] [place] [address]- 9610 Nov, [facility] [address] [id number] [place] [address]- 3596 June, [facility] [place] [facility] [address] [id number] [place] [address]- 7432 Feb, [facility] [place] [facility] [address] [id number] [place] [address]- 2546 Jan, [facility] [address] [id number] [place] [address] Nov, [facility] [place] [address] [facility] [id number], [place] [address]- 8870 June, [facility] [place] [address] [facility] [id number], [place] [address]- 9467 Jan, [facility] [place] [address] [facility] [id number], [place] [address]- 9011 Nov, [facility] [place] [address] [facility] [id number][place] Nov, IMMUNIZATIONS No Known Immunizations SOCIAL HISTORY Never Assessed REASON FOR VISIT CHM- Syncope f/u , States she had two episodes today, believes her pain is causing her to pass out [facility] PLAN OF CARE Activity Details Follow Up 2 Weeks Reason:syncope VITAL SIGNS Height 62 in 2016-12-16 Weight 198.4 lbs 2016-12-16 Temperature 96.7 degrees Fahrenheit 2016-12-16 Heart Rate 88 bpm 2016-12-16 Respiratory Rate 16 2016-12-16 BMI 36.28 kg/m2 2016-12-16 Blood pressure systolic 120 mmHg 2016-12-16 Blood pressure diastolic 68 mmHg 2016-12-16 MEDICATIONS Medication Instructions Dosage Frequency Start Date End Date Duration Status Complete 14-0.4 MG Orally Once a day 1 tablet 24h Dec, Active Topamax 100 MG Orally Twice a day 1 tablet 12h Sep, 0 days Active Oxycodone HCl 5 mg Orally every 8 hours 1 tablet as needed 8h Nov, Dec, 28 days Active BusPIRone HCl 15 MG Orally Twice a day 1 tablet 12h Active Fentanyl 50 MCG/HR Transdermal every 72 hours 1 patch to skin 30 days Active Aspirin 75 MG Orally Once a day 1 tablet 24h Active Multi Vitamin Daily Orally Once a day 1 tablet 24h Active Pristiq 100 MG TAKE ONE (1) TABLET BY MOUTH DAILY... Active ProAir HFA 108 (90 Base) MCG/ACT Inhalation every 4 hrs 2 puffs as needed 4h Sep, 0 days Active Zyrtec Allergy 10 mg Orally Once a day 1 tablet 24h Apr, Active Lyrica 225 MG Orally Twice a day 1 capsule 12h 0 days Active RESULTS Name Result Date Reference Range [employer] PROCEDURES Procedure Date Ordered Result Body Site No Charge Dec 16, 2016 INSTRUCTIONS MEDICATIONS ADMINISTERED No Known Medications [...]
--- OUTSIDE RECORDS SUMMARY | 2018-01-12 06:50 | XMS REPORT ---
Author Author ONEIL KLEIN [facility] Address [address] [place] [address] Care Team Providers Care Sampler First Name Role Phone ONEIL KLEIN Unavailable PROBLEMS Type Condition ICD9-CM Code [id number] Code Onset Dates Condition Status SNOMED Code Problem Irregular menses N92.6 Active 42815609 Problem History of environmental allergies Z91.09 Active 198276615 Problem Other chronic pain G89.29 Active 39717388 Problem Pain in right shoulder M25.511 Active 37680694 Problem Myalgia M79.1 Active 46899636 Problem Reactive depression F32.9 Active 99554220 Problem Incisional pain R20.8 Active 54887034 Problem Muscle spasm M62.838 Active 74635586 Problem Migraine without aura and without status migrainosus, not intractable G43.009 Active 057401541 Problem Protein C deficiency D68.59 Active 51799092 Problem Acne, unspecified acne type L70.9 Active 12609842 Problem Fibromyalgia M79.7 Active 47713644 Problem History of stroke Z86.73 Active 540385636 Problem Headache R51 Active 033982812 Problem Hx of migraines Z86.69 Active 282731352 Problem Secondary amenorrhea N91.1 Active 25362671 Problem Chronic pain syndrome G89.4 Active 630764543 Problem Female hirsutism L68.0 Active 68754881 ALLERGIES Substance Reaction Event Type Date Status Zithromax Z-Sidney unknown Drug Allergy Feb, Active Morphine Sulfate unknown Drug Allergy Feb, Active Imitrex unknown Drug Allergy Feb, Active Bactrim DS hives Drug Allergy Feb, Active demeral Unknown Non Drug Allergy Feb, Active SOCIAL HISTORY No smoking Hx information available PLAN OF CARE Activity Details Follow Up prn Reason: VITAL SIGNS Height 62 in 2016-03-14 Weight 180.4 lbs 2016-03-14 Temperature 98.6 degrees Fahrenheit 2016-03-14 Heart Rate 136 bpm 2016-03-14 Respiratory Rate 20 2016-03-14 BMI 32.99 kg/m2 2016-03-14 Blood pressure systolic 132 mmHg 2016-03-14 Blood pressure diastolic 74 mmHg 2016-03-14 MEDICATIONS Medication Instructions Dosage Frequency Start Date End Date Duration Status Promethazine HCl 25 MG Orally every 12 hrs 1 tablet as needed 12h Active Diclegis 10-10 MG Orally twice a day 2 tablets in am and 1 tab at night--Dr Tyler 12h Active Multi Vitamin Daily Orally Once a day 1 tablet 24h Active Tramadol HCl 50 mg Orally every4- 6 hrs 1 tablet as needed Active Amoxicillin 500 MG Orally 2 times a day 1 capsule 12h Feb, Mar, 10 day(s) Active Complete 14-0.4 MG Orally Once a day 1 tablet 24h Dec, Active Metformin HCl 500 mg Orally Twice a day 1 tablet with meals 12h Active Sucbwynoym-VPKZ-Vdwkryoo 50-325-40 MG Orally every 4 hrs 1 capsule as needed 4h Active RESULTS No Results PROCEDURES Procedure Date Ordered Related Diagnosis Body Site Office Visit, Est Pt., Level 3 Mar 14, 2016 IMMUNIZATIONS No Known Immunizations
--- OUTSIDE RECORDS SUMMARY | 2018-01-12 06:50 | XMS REPORT ---
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 Name Role Phone BRITTNEY BARNES Unavailable PROBLEMS Type Condition ICD9-CM Code [id number] Code Onset Dates Condition Status SNOMED Code Problem Irregular menses N92.6 Active 13579174 Problem History of environmental allergies Z91.09 Active 841723135 Problem Other chronic pain G89.29 Active 26700891 Problem Pain in right shoulder M25.511 Active 89545332 Problem Myalgia M79.1 Active 47696468 Problem Reactive depression F32.9 Active 74572810 Problem Incisional pain R20.8 Active 73589630 Problem Muscle spasm M62.838 Active 85880416 Problem Migraine without aura and without status migrainosus, not intractable G43.009 Active 154790862 Problem Protein C deficiency D68.59 Active 99181009 Problem Acne, unspecified acne type L70.9 Active 97779214 Problem Fibromyalgia M79.7 Active 17013364 Problem History of stroke Z86.73 Active 227950964 Problem Headache R51 Active 502697403 Problem Hx of migraines Z86.69 Active 397194630 Problem Secondary amenorrhea N91.1 Active 29453306 Problem Chronic pain syndrome G89.4 Active 361297751 Problem Female hirsutism L68.0 Active 46263487 ALLERGIES Unknown Allergies SOCIAL HISTORY No smoking Hx information available PLAN OF CARE VITAL SIGNS MEDICATIONS Unknown Medications RESULTS No Results PROCEDURES No Known procedures IMMUNIZATIONS No Known Immunizations
--- OUTSIDE RECORDS SUMMARY | 2018-01-12 06:50 | XMS REPORT ---
Author Author BRITTNEY BARNES Organization [facility] Address [address] [place] [address] Care Team Providers Care Rejector Name Role Phone BRITTNEY BARNES Unavailable PROBLEMS Type Condition ICD9-CM Code UFU69-GS Code Onset Dates Condition Status SNOMED Code Problem Irregular menses N92.6 Active 48701476 Problem History of environmental allergies Z91.09 Active 950948586 Problem Other chronic pain G89.29 Active 66068490 Problem Pain in right shoulder M25.511 Active 41752999 Problem Myalgia M79.1 Active 10830608 Problem Reactive depression F32.9 Active 19884897 Problem Incisional pain R20.8 Active 29951546 Problem Muscle spasm M62.838 Active 23813744 Problem Migraine without aura and without status migrainosus, not intractable G43.009 Active 721131094 Problem Protein C deficiency D68.59 Active 48753671 Problem Acne, unspecified acne type L70.9 Active 27432684 Problem Fibromyalgia M79.7 Active 22866674 Problem History of stroke Z86.73 Active 735691506 Problem Headache R51 Active 745383999 Problem Hx of migraines Z86.69 Active 350524903 Problem Secondary amenorrhea N91.1 Active 59166575 Problem Chronic pain syndrome G89.4 Active 275731031 Problem Female hirsutism L68.0 Active 08594058 ALLERGIES Unknown Allergies SOCIAL HISTORY No smoking Hx information available PLAN OF CARE VITAL SIGNS MEDICATIONS Unknown Medications RESULTS No Results PROCEDURES No Known procedures IMMUNIZATIONS No Known Immunizations
--- OUTSIDE RECORDS SUMMARY | 2018-01-12 06:51 | XMS REPORT ---
Author Author BRITTNEY BARNES Organization [facility] Address [address] [place] [address] Care Team Providers Care Bi Lead Name Role Phone BRITTNEY BARNES Unavailable PROBLEMS Type Condition ICD9-CM Code OHH15-LF Code Onset Dates Condition Status SNOMED Code Problem Irregular menses N92.6 Active 40790731 Problem History of environmental allergies Z91.09 Active 106352514 Problem Other chronic pain G89.29 Active 05451341 Problem Pain in right shoulder M25.511 Active 31030529 Problem Myalgia M79.1 Active 66825110 Problem Reactive depression F32.9 Active 28591466 Problem Incisional pain R20.8 Active 72571953 Problem Muscle spasm M62.838 Active 70806959 Problem Migraine without aura and without status migrainosus, not intractable G43.009 Active 089209763 Problem Protein C deficiency D68.59 Active 36541682 Problem Acne, unspecified acne type L70.9 Active 52795242 Problem Fibromyalgia M79.7 Active 70973456 Problem History of stroke Z86.73 Active 219110162 Problem Headache R51 Active 006584605 Problem Hx of migraines Z86.69 Active 321351429 Problem Secondary amenorrhea N91.1 Active 08567561 Problem Chronic pain syndrome G89.4 Active 151778099 Problem Female hirsutism L68.0 Active 34520271 ALLERGIES Unknown Allergies SOCIAL HISTORY No smoking Hx information available PLAN OF CARE VITAL SIGNS MEDICATIONS Unknown Medications RESULTS No Results PROCEDURES No Known procedures IMMUNIZATIONS No Known Immunizations
--- OUTSIDE RECORDS SUMMARY | 2018-01-12 06:51 | XMS REPORT ---
Author Author BRITTNEY BARNES Organization [facility] Address [address] [place] [address] Care Team Providers Care Flask Maker Name Role Phone BRITTNEY BARNES Unavailable PROBLEMS Type Condition ICD9-CM Code CXS05-XF Code Onset Dates Condition Status SNOMED Code Problem Irregular menses N92.6 Active 51322454 Problem History of environmental allergies Z91.09 Active 122314137 Problem Other chronic pain G89.29 Active 43519712 Problem Pain in right shoulder M25.511 Active 56364135 Problem Myalgia M79.1 Active 30931483 Problem Reactive depression F32.9 Active 11045987 Problem Incisional pain R20.8 Active 66243073 Problem Muscle spasm M62.838 Active 03158868 Problem Migraine without aura and without status migrainosus, not intractable G43.009 Active 161617451 Problem Protein C deficiency D68.59 Active 20720711 Problem Acne, unspecified acne type L70.9 Active 97366297 Problem Fibromyalgia M79.7 Active 25935097 Problem History of stroke Z86.73 Active 022115964 Problem Headache R51 Active 828301695 Problem Hx of migraines Z86.69 Active 930304154 Problem Secondary amenorrhea N91.1 Active 51779596 Problem Chronic pain syndrome G89.4 Active 581390719 Problem Female hirsutism L68.0 Active 57024295 ALLERGIES Unknown Allergies SOCIAL HISTORY No smoking Hx information available PLAN OF CARE VITAL SIGNS MEDICATIONS Unknown Medications RESULTS No Results PROCEDURES No Known procedures IMMUNIZATIONS No Known Immunizations
--- OUTSIDE RECORDS SUMMARY | 2018-01-12 06:51 | XMS REPORT ---
Author Author BRITTNEY BARNES Organization [facility] Address [address] [place] [address] Care Team Providers Care King Maker Name Role Phone BRITTNEY BARNES Unavailable PROBLEMS Type Condition ICD9-CM Code END11-UQ Code Onset Dates Condition Status SNOMED Code Problem Irregular menses N92.6 Active 49023510 Problem History of environmental allergies Z91.09 Active 116869207 Problem Other chronic pain G89.29 Active 98064618 Problem Pain in right shoulder M25.511 Active 58910350 Problem Myalgia M79.1 Active 24012532 Problem Reactive depression F32.9 Active 87094388 Problem Incisional pain R20.8 Active 49172067 Problem Muscle spasm M62.838 Active 24266044 Problem Migraine without aura and without status migrainosus, not intractable G43.009 Active 049849170 Problem Protein C deficiency D68.59 Active 21837353 Problem Acne, unspecified acne type L70.9 Active 53485250 Problem Fibromyalgia M79.7 Active 21432873 Problem History of stroke Z86.73 Active 575058788 Problem Headache R51 Active 949059329 Problem Hx of migraines Z86.69 Active 617108995 Problem Secondary amenorrhea N91.1 Active 78888667 Problem Chronic pain syndrome G89.4 Active 720993147 Problem Female hirsutism L68.0 Active 67569615 ALLERGIES Unknown Allergies SOCIAL HISTORY No smoking Hx information available PLAN OF CARE VITAL SIGNS MEDICATIONS Medication Instructions Dosage Frequency Start Date End Date Duration Status Sklice 0.5 % as directed Feb, 1 dose Active RESULTS No Results PROCEDURES No Known procedures IMMUNIZATIONS No Known Immunizations
--- OUTSIDE RECORDS SUMMARY | 2018-01-12 06:51 | XMS REPORT ---
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 [address] [id number] [place] [address]- 0980 Jul, [facility] [place] [facility] [address] [id number] [place] [address]- 3007 Jul, [facility] [place] [facility] [address] [id number] [place] [address]- 4573 Jul, [facility] [place] [facility] [address] [id number] [place] [address]- 9366 June, [facility] [place] [facility] [address] [id number] [place] [address]- 9460 May, [facility] [place] [facility] [address] [id number] [place] [address]- 8289 Apr, [facility] [place] [facility] [address] [id number] [place] [address]- 8826 Apr, [facility] [place] [facility] [address] [id number] [place] [address]- 1398 Apr, [facility] [place] [facility] [address] [id number] [place] [address]- 0923 Apr, [facility] [place] [facility] [address] [id number] [place] [address]- 5659 Apr, [facility] [place] [facility] [address] [id number] [place] [address]- 9959 Mar, [facility] [place] [facility] [address] [id number] [place] [address]- 4695 24 Mar, 2011 [facility] [place] [facility] [address] [id number] [place] [address]- 6771 Mar, [facility] [place] [facility] [address] [id number] [place] [address]- 5219 07 Mar, 2011 [facility] [place] [facility] [address] [id number] [place] [address]- 9088 Feb, [facility] [place] [facility] [address] [id number], [place] [address] Feb, [facility] [address] [facility] [address] [id number], [place] [address]- 5840 Feb, [facility] [address] [facility] [address] [id number], [place] [address] 7676 Jan, [facility] [id number], [place] [address] 2546 Jan, [facility] [address] [facility] [address] [id number], [place] [address]- 8967 Dec, [facility] [address] [facility] [address] [id number], [place] [address]- [address]842 Dec, [facility] [address] [facility] [address] [id number], [place] [address]- 1400 Nov, [facility] [id number], [place] [address]- 1172 June, [facility] [address] [facility] [address] [id number], [place] [address]- 1972 Feb, [facility] [address] [id number], [place] [address]- 5104 Jan, [facility] [address] [id number] [address] Nov, [facility] [address] [id number], [place] [address]- 3021 June, [facility] [address] [id number], [place] [address]- 2042 Jan, [facility] [address] [id number], [place] [address]- 4787 Nov, [facility] [address] [id number], [place] [address]- 0471 Nov, IMMUNIZATIONS No Known Immunizations SOCIAL HISTORY Never Assessed REASON FOR VISIT Depression follow up Sophie RN PLAN OF CARE Activity Details Follow Up 1 Week Reason:pain VITAL SIGNS Height 62 in 2016-11-05 Weight 186.6 lbs 2016-11-05 Temperature 97.7 degrees Fahrenheit 2016-11-05 Heart Rate 108 bpm 2016-11-05 Respiratory Rate 18 2016-11-05 BMI 34.13 kg/m2 2016-11-05 Blood pressure systolic 120 mmHg 2016-11-05 Blood pressure diastolic 70 mmHg 2016-11-05 MEDICATIONS Medication Instructions Dosage Frequency Start Date End Date Duration Status Lyrica 225 MG Orally Twice a day 1 capsule 12h 0 days Active Pristiq 100 MG TAKE ONE (1) TABLET BY MOUTH DAILY... Active BusPIRone HCl 15 MG Orally Twice a day 1 tablet 12h Active Complete 14-0.4 MG Orally Once a day 1 tablet 24h Dec, Active Topamax 100 MG Orally Twice a day 1 tablet 12h Sep, 0 days Active Aspirin 75 MG Orally Once a day 1 tablet 24h Active ProAir HFA 108 (90 Base) MCG/ACT Inhalation every 4 hrs 2 puffs as needed 4h Sep, 0 days Active Multi Vitamin Daily Orally Once a day 1 tablet 24h Active RESULTS No Results PROCEDURES Procedure Date Ordered Result [facility] Nov 05, 2016 VENIPUNCT, ROUTINE* Nov 05, 2016 INSTRUCTIONS MEDICATIONS ADMINISTERED No Known Medications [...]
--- OUTSIDE RECORDS SUMMARY | 2018-01-12 06:52 | XMS REPORT ---
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 Name Role Phone BRITTNEY BARNES Unavailable PROBLEMS Type Condition ICD9-CM Code [id number] Code Onset Dates Condition Status SNOMED Code Problem Chronic pain syndrome G89.4 Active 420578406 Problem Other chronic pain G89.29 Active 33417136 Problem Irregular menses N92.6 Active 92408671 Problem Myalgia M79.1 Active 03499423 Problem Muscle spasm M62.838 Active 55073683 Problem Incisional pain R20.8 Active 43192498 Problem History of environmental allergies Z91.09 Active 376627110 Problem Reactive depression F32.9 Active 31315370 Problem Migraine without aura and without status migrainosus, not intractable G43.009 Active 180168344 Problem Fibromyalgia M79.7 Active 35700349 Problem Hx of migraines Z86.69 Active 400782116 Problem Female hirsutism L68.0 Active 76691859 Problem Protein C deficiency D68.59 Active 52415028 Problem History of stroke Z86.73 Active 197111067 Problem Secondary amenorrhea N91.1 Active 09510726 Problem Acne, unspecified acne type L70.9 Active 29820330 Problem Headache R51 Active 305576881 ALLERGIES Unknown Allergies SOCIAL HISTORY No smoking Hx information available PLAN OF CARE VITAL SIGNS MEDICATIONS Unknown Medications RESULTS No Results PROCEDURES No Known procedures IMMUNIZATIONS No Known Immunizations
--- OUTSIDE RECORDS SUMMARY | 2018-01-12 06:52 | XMS REPORT ---
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 [place] [address]- 6934 Oct, [facility] [place] [facility] [address] [id number] [place] [address]- 2137 Oct, [facility] [place] [facility] [address] [id number] [place] [address]- 5086 Aug, [facility] [place] [facility] [address] [id number] [place] [address]- 2584 Jul, [facility] [place] [facility] [address] [id number] [place] [address]- 3696 Jul, [facility] [place] [facility] [address] [id number] [place] [address]- 8230 Jul, [facility] [place] [facility] [address] [id number] [place] [address]- 7641 June, [facility] [place] [facility] [address] [id number] [place] [address]- 7945 May, [facility] [place] [facility] [address] [id number] [place] [address]- 4653 Apr, [facility] [place] [facility] [address] [id number] [place] [address]- 4855 Apr, [facility] [place] [facility] [address] [id number] [place] [address]- 1046 Apr, [facility] [place] [facility] [address] [id number] [place] [address]- 4874 Apr, [facility] [address] [id number] [place] [address]- 1333 Apr, [facility] [place] [facility] [address] [id number] [place] [address]- 7078 Mar, [facility] [place] [facility] [address] [id number] [place] [address]- 8563 Mar, [facility] [place] [facility] [address] [id number] [place] [address]- 6740 Mar, [facility] [place] [facility] [address] [id number] [place] [address]- 7682 Mar, [facility] [place] [facility] [address] [id number] [place] [address]- 3952 Feb, [facility] [place] [facility] [address] [id number] [place] [address]- 1846 Feb, [facility] [place] [facility] [address] [id number] [place] [address]- 3427 Feb, [facility] [place] [facility] [address] [id number] [place] [address]- 9237 Jan, [facility] [place] [facility] [address] [id number] [place] [address]- 0974 Jan, [facility] [place] [facility] [address] [id number], [place] [address]- 7967 Dec, [facility] [place] [facility] [address] [id number], [place] [address]- 9849 Dec, [facility] [place] [facility] [address] [id number] [place] [address]- 5851 Nov, [facility] [place] [facility] [address] [id number] [place] [address]- 9096 June, [facility] [place] [facility] [address] [id number] [place] [address]- 4772 Feb, [facility] [place] [facility] [address] [facility] [id number] [place] [id number] [address]99 Jan, [facility] [address] [facility] [id number], [place] [address]- 3401 Nov, [facility] [address] [id number] [address]- 3625 June, [facility] [address] [id number], [place] [address]- 2527 Jan, [facility] [address] [id number], [place] [address]- 8086 Nov, [facility] [id number] [address] 2096 Nov, IMMUNIZATIONS No Known Immunizations SOCIAL HISTORY Never Assessed REASON FOR VISIT Pain Management Radha LEAL PLAN OF CARE Activity Details Follow Up 3 Months Reason: VITAL SIGNS Height 62 in 2017-01-15 Weight 194 lbs 2017-01-15 Temperature 97.4 degrees Fahrenheit 2017-01-15 Heart Rate 104 bpm 2017-01-15 Respiratory Rate 16 2017-01-15 BMI 35.48 kg/m2 2017-01-15 Blood pressure systolic 120 mmHg 2017-01-15 Blood pressure diastolic 84 mmHg 2017-01-15 MEDICATIONS Medication Instructions Dosage Frequency Start Date End Date Duration Status Oxycodone-Acetaminophen 7.5-325 MG Orally 3 times a day 1 tablet as needed 8h Dec, Jan, 14 days Active Lyrica 225 MG Orally Twice a day 1 capsule 12h 0 days Active Cyclobenzaprine HCl 10 mg Orally Three times a day 1 tablet as needed 8h Dec, Feb, 30 days Active ProAir HFA 108 (90 Base) MCG/ACT Inhalation every 4 hrs 2 puffs as needed 4h Sep, 0 days Active Topamax 100 MG Orally Twice a day 1 tablet 12h Sep, 0 days Active Pristiq 100 mg TAKE ONE (1) TABLET BY MOUTH DAILY... Active Xarelto 20 mg Orally Once a day 1 tablet with food 24h Dec, 30 day(s) Active Aspirin 75 MG Orally Once a day 1 tablet 24h Active Multi Vitamin Daily Orally Once a day 1 tablet 24h Active Zyrtec Allergy 10 mg Orally Once a day 1 tablet 24h Apr, Active Ibuprofen 600 MG Orally Three times a day 1 tablet with food or milk as needed 8h Dec, June, 30 days Active Fentanyl 100 MCG/HR Transdermal Q72 H 1 patch to skin Dec, Jan, 14 days Active BusPIRone HCl 15 MG Orally Twice a day 1 tablet 12h Active RESULTS No Results PROCEDURES No Known [...]
--- OUTSIDE RECORDS SUMMARY | 2018-01-12 06:53 | XMS REPORT ---
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 [place] [address]- 3216 Feb, [facility] [place] [facility] [address] [id number] [place] [address]- 9793 Feb, [facility] [place] [facility] [address] [id number] [place] [address]- 7464 Feb, [facility] [place] [facility] [address] [facility] [id number] [place] [address]- 6556 Jan, [facility] [place] [facility] [address] [id number], [place] [address] 5936 Jan, [facility] [place] [facility] [address] [id number], [place] [address] 9742 Dec, [facility] [id number], [place] [address]- [address] Dec, [facility] [address] [facility] [id number], [place] [address]- 1809 Nov, [facility] [id number], [place] [address]- 89[address] June, [facility] [address] [facility] [id number], [place] [address]- 8701 Feb, [facility] [id number] [place] [address]- [address] Jan, [facility] [id number], [place] [address]- 6[address] Nov, [facility] [id number] [place] [address]- 3428 June, [facility] [id number], [place] [address]- 8815 Jan, [facility] [id number], [place] [address]- 7636 Nov, [facility] [address] [id number], [place] [address]- [address]472 Nov, IMMUNIZATIONS No Known Immunizations SOCIAL HISTORY Never Assessed REASON FOR VISIT Trigger Point Injection Sophie RN PLAN OF CARE Activity Details Follow Up 3 Weeks Reason:Depression/Fibromyalgia VITAL SIGNS Height 62 in 2016-08-14 Weight 172.8 lbs 2016-08-14 Temperature 98.2 degrees Fahrenheit 2016-08-14 Heart Rate 90 bpm 2016-08-14 Respiratory Rate 18 2016-08-14 BMI 31.60 kg/m2 2016-08-14 Blood pressure systolic 122 mmHg 2016-08-14 Blood pressure diastolic 78 mmHg 2016-08-14 MEDICATIONS Medication Instructions Dosage Frequency Start Date End Date Duration Status Lyrica 75 MG Orally Twice a day 1 capsule 12Jul, days Active Lyrica 150 MG Orally Twice a day 1 capsule 12h Jul, 0 days Active Pristiq 25 MG Orally twice a day 1 tablets 12h Jul, 14 days Active Flexeril 10 mg Orally Three times a day 1 tablet as needed 8h Jul, Jul, 0 days Active Pristiq 100 mg Orally Once a day 1 tablet 24h Jul, 0 days Active RESULTS No Results PROCEDURES [...]
--- OUTSIDE RECORDS SUMMARY | 2018-01-12 06:53 | XMS REPORT ---
Author Author BRITTNEY BARNES Organization [facility] Address [address] [place] [address] Care Team Providers Care Wrapper Selector Name Role Phone BRITTNEY BARNES Unavailable PROBLEMS Type Condition ICD9-CM Code [id number] Code Onset Dates Condition Status SNOMED Code Problem Chronic pain syndrome G89.4 Active 724832763 Problem Other chronic pain G89.29 Active 00440579 Problem Irregular menses N92.6 Active 95475462 Problem Myalgia M79.1 Active 77022478 Problem Muscle spasm M62.838 Active 30694085 Problem Incisional pain R20.8 Active 43778161 Problem History of environmental allergies Z91.09 Active 329485264 Problem Reactive depression F32.9 Active 83792832 Problem Migraine without aura and without status migrainosus, not intractable G43.009 Active 425599483 Problem Fibromyalgia M79.7 Active 67717552 Problem Hx of migraines Z86.69 Active 534308866 Problem Female hirsutism L68.0 Active 79032670 Problem Protein C deficiency D68.59 Active 97247386 Problem History of stroke Z86.73 Active 638471846 Problem Secondary amenorrhea N91.1 Active 00108329 Problem Acne, unspecified acne type L70.9 Active 51395887 Problem Headache R51 Active 481406099 ALLERGIES Substance Reaction Event Type Date Status Zithromax Z-Sidney unknown Drug Allergy Dec, Active Morphine Sulfate unknown Drug Allergy Dec, Active Imitrex unknown Drug Allergy Dec, Active Bactrim DS hives Drug Allergy Dec, Active demeral Unknown Non Drug Allergy Dec, Active SOCIAL HISTORY No smoking Hx information available PLAN OF CARE Activity Details Follow Up prn after seen by Dr. Tyler Reason: VITAL SIGNS Height 62 in 2015-12-25 Weight 190.1 lbs 2015-12-25 Temperature 97.2 degrees Fahrenheit 2015-12-25 Heart Rate 78 bpm 2015-12-25 Respiratory Rate 16 2015-12-25 BMI 34.77 kg/m2 2015-12-25 Blood pressure systolic 118 mmHg 2015-12-25 Blood pressure diastolic 70 mmHg 2015-12-25 MEDICATIONS Medication Instructions Dosage Frequency Start Date End Date Duration Status Multi Vitamin Daily Orally Once a day 1 tablet 24h Active Complete 14-0.4 MG Orally Once a day 1 tablet 24h Dec, Active Metformin HCl 1000 MG Orally Twice a day 1 tablet with meals 12h Active RESULTS Name Result Date Reference Range TEST, URINE (IN HOUSE) 2015-12-25 RESULTS positive Lot # [id number] Control + Exp date 04/2017 PROCEDURES Procedure Date Ordered Related Diagnosis Body Site Office Visit, Est Pt., Level 3 Dec 25, 2015 URINE TEST Dec 25, 2015 IMMUNIZATIONS No Known Immunizations
--- OUTSIDE RECORDS SUMMARY | 2018-01-12 06:54 | XMS REPORT ---
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 [address]- [address] June, [facility] [id number], [place] [address]- 0468 Feb, [facility] [id number] [place] [address]- 3397 Jan, [facility] [id number], [place] [address]- 5458 Nov, [facility] [id number] [place] [address]- 1094 June, [facility] [address] [id number], [place] [address]- 365[address] Jan, [facility] [id number], [place] [address]- 8106 Nov, [facility] [id number], [place] [address]- 7125 Nov, IMMUNIZATIONS No Known Immunizations SOCIAL HISTORY Never Assessed REASON FOR VISIT Refill request PLAN OF CARE VITAL SIGNS MEDICATIONS Medication Instructions Dosage Frequency Start Date End Date Duration Status Lyrica 150 MG Orally Twice a day 1 capsule 12h Jul, 30 days Active RESULTS No Results PROCEDURES [...]
--- OUTSIDE RECORDS SUMMARY | 2018-01-12 06:54 | XMS REPORT ---
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 [id number] [place] [address]- 6532 Mar, [facility] [address] [id number] [place] [address]- 9436 Mar, [facility] [address] [id number] [place] [address]- 2653 Feb, [facility] [address] [id number] [place] [address]- 1740 Feb, [facility] [address] [id number] [place] [address] 2546 Feb, [facility] [address] [id number] [place] [address]- 3391 Jan, [facility] [address] [id number], [place] [address]76 Jan, [facility] [id number], [place] [address] 4836 Dec, [facility] [id number], [place] [address]- 6876 Dec, [facility] [id number], [place] [address]- 2565 Nov, [facility] [id number], [place] [address]- 4965 June, [facility] [id number], [place] [address]- 3956 Feb, [facility] [id number], [place] [address]- 5[address] Jan, [facility] [id number] [place] [address]- 7261 Nov, [facility] [id number], [place] [address]- 4400 June, [facility] [id number], [place] [address]- 7676 Jan, [facility] [id number], [place] [address]- [address]274 Nov, [facility] [address] [id number], [place] [address] Nov, IMMUNIZATIONS No Known Immunizations SOCIAL HISTORY Never Assessed REASON FOR VISIT Controlled Substance Request PLAN OF CARE VITAL SIGNS MEDICATIONS Medication Instructions Dosage Frequency Start Date End Date Duration Status Oxycodone-Acetaminophen 7.5-325 MG Orally 3 times a day 1 tablet as needed 8h Feb, 14 Active Fentanyl 100 MCG/HR Transdermal Q72 H 1 patch to skin Feb, 14 days Active RESULTS No Results PROCEDURES [...]
--- OUTSIDE RECORDS SUMMARY | 2018-01-12 06:55 | XMS REPORT ---
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 [id number] [place] [address]- 6344 Apr, [facility] [place] [facility] [address] [id number] [place] [address]- 1746 Apr, [facility] [place] [facility] [address] [id number] [place] [address]- 6966 Apr, [facility] [place] [facility] [address] [id number] [place] [address] 9872 Mar, [facility] [place] [facility] [address] [id number] [place] [address]- 8629 Mar, [facility] [place] [facility] [address] [id number] [place] [address]- 5181 Mar, [facility] [place] [facility] [address] [id number] [place] [address]- 6136 Mar, [facility] [place] [facility] [address] [id number] [place] [address]- 1546 Feb, [facility] [place] [facility] [address] [id number] [place] [address]- 8366 Feb, [facility] [place] [facility] [address] [id number] [place] [address]- 7056 Feb, [facility] [place] [facility] [address] [id number] [place] [address]- 2826 Jan, [facility] [place] [facility] [id number] [place] [address] Jan, [facility] [id number] [place] [address] Dec, [facility] [id number] [place] [address] Dec, [facility] [id number] [place] [address] 6645 Nov, [facility] [id number] [place] [address] June, [facility] [id number] [place] [address]- 7568 Feb, [facility] [id number] [place] [address] 99[address] Jan, [facility] [id number] [place] [address]- 4464 Nov, [facility] [id number] [place] [address] 7587 June, [facility] [id number] [place] [address] 1873 Jan, [facility] [id number] [address] Nov, [facility] [id number] [address] 8079 Nov, IMMUNIZATIONS No Known Immunizations SOCIAL HISTORY Never Assessed REASON FOR VISIT Dr. Ocampo referral PLAN OF CARE VITAL SIGNS MEDICATIONS Unknown [...]
--- OUTSIDE RECORDS SUMMARY | 2018-01-12 06:56 | XMS REPORT ---
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 [address] June, [facility] [address] [id number], [place] [address] Jan, [facility] [address] [id number], [place] [address] Nov, [facility] [address] [address] Nov, IMMUNIZATIONS No Known Immunizations SOCIAL HISTORY Never Assessed REASON FOR VISIT PA viri Olivares PLAN OF CARE VITAL SIGNS MEDICATIONS No Known Medications RESULTS No Results PROCEDURES No Known [...]
--- OUTSIDE RECORDS SUMMARY | 2018-01-12 06:57 | XMS REPORT ---
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 Active 62446267 Problem Pain in right shoulder M25.511 Active 86990031 Problem Reactive depression F32.9 Active 04775357 Problem Migraine without aura and without status migrainosus, not intractable G43.009 Active 890492131 Problem Myalgia M79.1 Active 50629771 Problem Muscle spasm M62.838 Active 89955726 Problem Acne, unspecified acne type L70.9 Active 98923331 Problem Hx of migraines Z86.69 Active 654143208 Problem Fibromyalgia M79.7 Active 89545079 Problem Protein C deficiency D68.59 Active 25933128 Problem Headache R51 Active 049161269 Problem Secondary amenorrhea N91.1 Active 62950466 Problem Chronic pain syndrome G89.4 Active 365693339 Problem Female hirsutism L68.0 Active 82967228 Problem History of stroke Z86.73 Active 744963732 Problem Irregular menses N92.6 Active 98342628 ALLERGIES Substance Reaction Event Type Date Status Zithromax Z-Sidney unknown Drug Allergy Apr, Active Morphine Sulfate unknown Drug Allergy Apr, Active Imitrex unknown Drug Allergy Apr, Active Bactrim DS hives Drug Allergy Apr, Active demeral Unknown Non Drug Allergy Apr, Active SOCIAL HISTORY Never Assessed PLAN OF CARE Activity Details Follow Up 4 Weeks, prn Reason:CHM Chronic pain VITAL SIGNS Height 62 in 2016-04-29 Weight 183.6 lbs 2016-04-29 Temperature 97.1 degrees Fahrenheit 2016-04-29 Heart Rate 125 bpm 2016-04-29 Respiratory Rate 20 2016-04-29 BMI 33.58 kg/m2 2016-04-29 Blood pressure systolic 118 mmHg 2016-04-29 Blood pressure diastolic 62 mmHg 2016-04-29 MEDICATIONS Medication Instructions Dosage Frequency Start Date End Date Duration Status Multi Vitamin Daily Orally Once a day 1 tablet 24h Active Metformin HCl 500 mg Orally Twice a day 1 tablet with meals 12h Active Complete 14-0.4 MG Orally Once a day 1 tablet 24h 08 Dec, 2015 Active Tylenol/Codeine #3 300-30 MG Orally every 6 hrs 1 tablet as needed 6h 4 days Active Tramadol HCl 50 mg Orally every4- 6 hrs 1 tablet as needed Active Aspirin 75 MG Orally Once a day 1 tablet 24h Active Diclegis 10-10 MG Orally twice a day 2 tablets in am and 1 tab at night--Dr Tyler 12h Active Ehucfwuypl-NEOI-Vthzbyme 50-325-40 MG Orally every 4 hrs 1 capsule as needed 4h Active Promethazine HCl 25 MG Orally every 12 hrs 1 tablet as needed 12h Active Prilosec 20 MG Orally Once a day 1 capsule 24h Active RESULTS No Results PROCEDURES Procedure Date Ordered Result Body Site TRIGGER POINT INJ/3 MUS 2016-04-29 N/A INJECT TRIGGER POINTS,=/> 3 April 29, 2016 IMMUNIZATIONS No Known Immunizations MEDICAL (GENERAL) [...]
--- OUTSIDE RECORDS SUMMARY | 2018-01-12 06:57 | XMS REPORT ---
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 [id number] [place] [address]- 9586 June, [facility] [place] [facility] [address] [id number] [place] [address]- 6586 May, [facility] [address] [id number] [place] [address]- 2636 Apr, [facility] [place] [facility] [address] [id number] [place] [address]- 6373 Apr, [facility] [address] [id number] [place] [address]- 3382 Apr, [facility] [place] [facility] [address] [id number] [place] [address]- 3236 Apr, [facility] [address] [id number] [place] [address]- 4019 Apr, [facility] [address] [id number] [place] [address]- 5968 Mar, [facility] [place] [facility] [address] [id number] [place] [address]- 3035 24 Mar, 2011 [facility] [address] [id number] [place] [address]- 6049 Mar, [facility] [address] [id number] [place] [address]- 8196 Mar, [facility] [place] [facility] [address] [id number] [place] [address]- 5362 Feb, [facility] [place] [facility] [address] [id number] [place] [address]- 1527 Feb, [facility] [place] [facility] [address] [id number] [place] [address] 2546 Feb, [facility] [place] [facility] [address] [id number] [place] [address]- 9551 Jan, [facility] [id number] [address]- 79[address] Jan, [facility] [id number], [place] [address]- 1406 Dec, [facility] [id number], [place] [address]- 2546 Dec, [facility] [id number], [place] [address]- 4096 Nov, [facility] [id number], [place] [address]- 1780 June, [facility] [id number], [place] [address]- 8976 Feb, [facility] [id number], [place] [address]- 2546 Jan, [facility] [id number] [place] [address] 8216 Nov, [facility] [id number], [place] [address]- 8845 June, [facility] [id number], [place] [address]- 4276 Jan, [facility] [id number], [place] [address]- 3276 Nov, [facility] [id number], [place] [address]- 0526 Nov, IMMUNIZATIONS No Known Immunizations SOCIAL HISTORY Never Assessed REASON FOR VISIT Letter PLAN OF CARE VITAL SIGNS MEDICATIONS Unknown [...]
--- OUTSIDE RECORDS SUMMARY | 2018-01-12 06:57 | XMS REPORT ---
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 [address] [id number], [place] [address]- 9682 Apr, [facility] [place] [facility] [address] [id number] [place] [address]- 9468 Apr, [facility] [place] [facility] [address] [id number], [place] [address]- 2384 Apr, [facility] [place] [facility] [address] [facility] [id number] [place] [address]- 1910 Mar, [facility] [place] [facility] [address] [id number] [place] [address]- 1429 24 Mar, 2011 [facility] [address] [id number] [place] [address]- 6271 10 Mar, 2011 [facility] [place] [facility] [address] [id number] [place] [address] 2546 07 Mar, 2011 [facility] [address] [id number] [place] [address]- 3196 27 Feb, 2011 [facility] [address] [id number] [place] [address]- 6738 18 Feb, 2011 [facility] [address] [id number] [place] [address]- 4824 Feb, [facility] [address] [id number] [place] [address]- 0238 Jan, [facility] [address] [id number] [place] [address]- 6303 Jan, [facility] [address] [id number] [place] [address]- 4159 Dec, [facility] [address] [id number] [place] [address]- 4169 Dec, [facility] [address] [facility] [id number] [place] [address]- 4325 Nov, [facility] [address] [id number] [place] [address]- 5925 June, [facility] [address] [id number] [place] [address]- 254 Feb, [facility] [place] [facility] [address] [id number] [place] [address]- 2546 Jan, [facility] [place] [facility] [address] [id number] [place] [address]- 2546 14 Nov, 2009 [facility] [address] [id number] [place] [address]- 2386 June, [facility] [address] [facility] [id number] [place] [address]- 9797 Jan, [facility] [address] [facility] [id number] [place] [address]- 1602 Nov, [facility] [address] [facility] [id number] [place] [address]- 9296 Nov, IMMUNIZATIONS No Known Immunizations SOCIAL HISTORY [...]
--- OUTSIDE RECORDS SUMMARY | 2018-01-12 06:58 | XMS REPORT ---
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 [place] [address]- 1184 Jul, [facility] [place] [facility] [address] [facility] [id number], [place] [address] 2546 Jul, [facility] [place] [facility] [address] [id number] [place] [address]- [address]116 June, [facility] [address] [id number] [place] [address]- 4856 May, [facility] [address] [id number] [place] [address] 2546 Apr, [facility] [address] [id number] [place] [address]- 5776 Apr, [facility] [address] [id number] [place] [address] 2546 Apr, [facility] [address] [id number] [place] [address]- 6576 Apr, [facility] [address] [id number] [place] [address]- 2546 Apr, [facility] [address] [id number] [place] [address]- 6466 27 Mar, 2011 [facility] [address] [id number] [place] [address]- 2730 24 Mar, 2011 [facility] [address] [id number] [place] [address] Mar, [facility] [address] [facility] [id number] [place] [address] 2546 07 Mar, 2011 [facility] [address] [id number] [place] [address]- 3506 Feb, [facility] [address] [id number] [place] [address]- 2546 Feb, [facility] [address] [id number] [place] [address]- 4156 Feb, [facility] [address] [facility] [id number] [place] [address]- 2546 Jan, [facility] [address] [facility] [id number] [place] [address] 4176 Jan, [facility] [address] [id number], [place] [address]28 Dec, [facility] [id number], [place] [address]686 Dec, [facility] [id number], [place] [address]- 3056 Nov, [facility] [address] [facility] [id number], [place] [address]- 4586 June, [facility] [address] [facility] [id number], [place] [address]- 6091 Feb, [facility] [id number] [place] [address]- 5456 Jan, [facility] [id number], [place] [address]- 3306 Nov, [facility] [id number], [place] [address]- 3186 June, [facility] [id number], [place] [address]- 0353 Jan, [facility] [id number], [place] [address]- 8[address] Nov, [facility] [id number], [place] [address]- 9150 Nov, IMMUNIZATIONS No Known Immunizations SOCIAL HISTORY Never Assessed REASON FOR VISIT Controlled Med Refill PLAN OF CARE VITAL SIGNS MEDICATIONS Medication [...]
--- OUTSIDE RECORDS SUMMARY | 2018-01-12 06:59 | XMS REPORT ---
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 [address]- 0976 Apr, [facility] [address] [id number] [place] [address]- 0116 Apr, [facility] [address] [id number] [place] [address]- 8056 Apr, [facility] [address] [id number] [place] [address] 2546 Apr, [facility] [address] [id number] [place] [address]- 6080 27 Mar, 2011 [facility] [address] [id number] [place] [address]- 0090 24 Mar, 2011 [facility] [address] [id number] [place] [address]- 0696 Mar, [facility] [address] [facility] [id number] [place] [address]- 7426 07 Mar, 2011 [facility] [address] [id number] [place] [address]- 3765 Feb, [facility] [address] [id number] [place] [address]- 6516 Feb, [facility] [address] [id number] [place] [address]- 0376 Feb, [facility] [address] [id number] [place] [address]- 2546 Jan, [facility] [address] [id number] [place] [address]- 1276 Jan, [facility] [id number], [place] [address] 8471 Dec, [facility] [id number], [place] [address]- 6706 Dec, [facility] [id number], [place] [address]- 4293 Nov, [facility] [address] [facility] [id number], [place] [address]- 7449 June, [facility] [address] [facility] [id number], [place] [address]- 1431 Feb, [facility] [id number] [place] [address]- 6326 Jan, [facility] [address] [id number], [place] [address] 7747 Nov, [facility] [id number], [place] [address]- 4495 June, [facility] [id number], [place] [address]- 4191 Jan, [facility] [id number], [place] [address]- 4204 Nov, [facility] [id number], [place] [address]- 7058 Nov, IMMUNIZATIONS No Known Immunizations SOCIAL HISTORY [...]
[2018-01-12] MEDS ORDERED: ceFAZolin INJECTION 1,000 MG in NS (IVPB) 50 ML IV ONE (07:00)
[2018-01-12] MEDS ORDERED: metroNIDAZOLE 500MG/100ML IVPB 100 ML IV ONE (07:00)
--- OUTSIDE RECORDS SUMMARY | 2018-01-12 07:00 | XMS REPORT ---
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 [id number] [place] [address]- 9117 Dec, [facility] [place] [facility] [address] [id number] [place] [address]- 3857 Dec, [facility] [place] [facility] [address] [id number] [place] [address]- 7840 08 Nov, 2011 [facility] [place] [facility] [address] [id number] [place] [address]- 6385 18 Oct, 2011 [facility] [place] [facility] [address] [id number] [place] [address]- 2546 06 Oct, 2011 [facility] [place] [facility] [address] [id number] [place] [address]- 8585 Aug, [facility] [place] [facility] [address] [id number] [place] [address]- 0303 Jul, [facility] [place] [facility] [address] [id number] [place] [address]- 8903 Jul, [facility] [place] [facility] [address] [id number] [place] [address]- 0430 Jul, [facility] [place] [facility] [address] [id number] [place] [address]- 5037 June, [facility] [place] [facility] [address] [id number] [place] [address]- 5253 May, [facility] [place] [facility] [address] [id number] [place] [address]- 1716 Apr, [facility] [place] [facility] [address] [id number] [place] [address]- 7454 Apr, [facility] [place] [facility] [address] [id number] [place] [address]- 8977 Apr, [facility] [place] [facility] [address] [id number] [place] [address]- 9156 Apr, [facility] [place] [facility] [address] [id number] [place] [address]- 6488 Apr, [facility] [place] [facility] [address] [id number] [place] [address]- 4713 Mar, [facility] [place] [facility] [address] [id number] [place] [address]- 5122 Mar, [facility] [place] [facility] [address] [id number] [place] [address]- 0908 Mar, [facility] [place] [facility] [address] [id number] [place] [address]- 9122 Mar, [facility] [place] [facility] [address] [id number] [place] [address]- 7549 Feb, [facility] [place] [facility] [address] [facility] [id number], [place] [address]- [address]83 18 Feb, 2011 [facility] [address] [facility] [id number], [place] [address]- 8023 Feb, [facility] [address] [facility] [id number][place] [address] Jan, [facility] [address] [facility] [id number], [place] [address]- 6094 Jan, [facility] [address] [id number] [place] [address]- 7462 Dec, [facility] [address] [facility] [id number] [place] [address]- 5700 Dec, [facility] [address] [facility] [id number], [place] [address]- 2599 Nov, [facility] [id number], [place] [address] 89[address] June, [facility] [address] [facility] [id number], [place] [address]- [address] Feb, [facility] [id number] [address] Jan, [facility] [address] [facility] [id number], [place] [address]- 3611 Nov, [facility] [address] [facility] [id number], [place] [address]- 8729 June, [facility] [address] [facility] [id number][place] 7753 Jan, [facility] [address] [facility] [id number][place]- 1403 24 Nov, 2007 [facility] [address] [facility] [id number][place] [address] [address] 13 Nov, 2007 IMMUNIZATIONS No Known Immunizations SOCIAL HISTORY Never Assessed REASON FOR VISIT Numbness in left hand, left hip pain with shooting pains KJones RN PLAN OF CARE Activity Details Follow Up prn Reason: VITAL SIGNS Height 62 in 2017-02-26 Weight 198.8 lbs 2017-02-26 Temperature 97.3 degrees Fahrenheit 2017-02-26 Heart Rate 72 bpm 2017-02-26 Respiratory Rate 18 2017-02-26 BMI 36.36 kg/m2 2017-02-26 Blood pressure systolic 118 mmHg 2017-02-26 Blood pressure diastolic 72 mmHg 2017-02-26 MEDICATIONS Medication Instructions Dosage Frequency Start Date End Date Duration Status Topamax 100 MG Orally Twice a day 1 tablet 12h Sep, 0 days Active Ibuprofen 600 MG Orally Three times a day 1 tablet with food or milk as needed 8h Dec, June, 30 days Active PredniSONE 20 mg Orally Once a day 2 tablets 24h Feb, Feb, 05 days Active Multi Vitamin Daily Orally Once a day 1 tablet 24h Active Pristiq 100 mg TAKE ONE (1) TABLET BY MOUTH DAILY... Active Fentanyl 100 MCG/HR Transdermal Q72 H 1 patch to skin 14 Active Lyrica 225 MG Orally Twice a day 1 capsule 12h 0 days Active BusPIRone HCl 15 MG Orally Twice a day 1 tablet 12h Active Lyrica 100 mg Orally 2 times a day 1 capsule 12h Feb, 30 days Active Lyrica 75 MG Orally twice a day 1 capsule 12h Feb, 30 days Active Fentanyl 100 MCG/HR Transdermal Q72 H 1 patch to skin Feb, 14 days Active Zyrtec Allergy 10 mg Orally Once a day 1 tablet 24h Apr, Active Aspirin 75 MG Orally Once a day 1 tablet 24h Active Xarelto 20 mg Orally Once a day 1 tablet with food 24h Dec, 30 day(s) Active ProAir HFA 108 (90 Base) MCG/ACT Inhalation every 4 hrs 2 puffs as needed 4h Sep, 0 days Active Oxycodone-Acetaminophen 7.5-325 MG Orally 3 times a day 1 tablet as needed 8h Feb, 14 Active RESULTS No Results PROCEDURES No Known [...]
--- OUTSIDE RECORDS SUMMARY | 2018-01-12 07:01 | XMS REPORT ---
Author Author BRITTNEY BARNES Organization [facility] Address [address] [place] [address] Care Team Providers Care Dba Manager Name Role Phone BRITTNEY BARNES Unavailable PROBLEMS Type Condition ICD9-CM Code PCP00-DV Code Onset Dates Condition Status SNOMED Code Problem Muscle spasm M62.838 Active 94538580 Problem Pain in right shoulder M25.511 Active 56539156 Problem Myalgia M79.1 Active 52068830 Problem High risk medication use Z79.899 Active 685569099249607 Problem Chronic pain syndrome G89.4 Active 281696057 Problem Syncope, unspecified syncope type R55 Active 477736609 Problem History of stroke Z86.73 Active 798238601 Problem Secondary amenorrhea N91.1 Active 69170124 Problem Occipital headache R51 Active 697379 Problem Severe single current episode of major depressive disorder, 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 Active 38342434 Problem Acute pain of right shoulder M25.511 Active 09477038 Problem History of recent fall Z91.81 Active 508634957 Problem Hx of migraines Z86.69 Active 463937043 Problem Female hirsutism L68.0 Active 04645971 Problem Protein C deficiency D68.59 Active 29200862 Problem Acne, unspecified acne type L70.9 Active 42794697 Problem History of environmental allergies Z91.09 Active 687621547 Problem Incisional pain R20.8 Active 70628059 Problem Fibromyalgia M79.7 Active 44800390 Problem Irregular menses N92.6 Active 98174704 Problem Reactive depression F32.9 Active 81430177 Problem Headache R51 Active 464976949 Problem Other chronic pain G89.29 Active 41519701 Problem Migraine without aura and without status migrainosus, not intractable G43.009 Active 600072830 ALLERGIES No Information SOCIAL HISTORY Never Assessed [...]
--- OUTSIDE RECORDS SUMMARY | 2018-01-12 07:01 | XMS REPORT ---
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 [place] [address]- 1276 Apr, [facility] [place] [facility] [address] [id number] [place] [address]- 7444 Mar, [facility] [place] [facility] [address] [id number] [place] [address]- 2253 Mar, [facility] [place] [facility] [address] [id number] [place] [address]- 1412 Mar, [facility] [place] [facility] [address] [id number] [place] [address]- 7246 Mar, [facility] [place] [facility] [address] [id number] [place] [address]- 9106 Feb, [facility] [place] [facility] [address] [id number] [place] [address]- 9336 Feb, [facility] [place] [facility] [address] [id number] [place] [address]- 5896 Feb, [facility] [place] [facility] [address] [id number] [place] [address]- 3406 Jan, [facility] [place] [facility] [address] [address] Jan, [facility] [address] [id number] [address] Dec, [facility] [address] [address] Dec, [facility] [address] [address]- [address] Nov, [facility] [address] [address] June, [facility] [address] [address] Feb, [facility] [address] [address]- [address] Jan, [facility] [address] [address]- 25[address] Nov, [facility] [address] [address]- [address] June, [facility] [address] [address]- [address] Jan, [facility] [address] [id number] [address]- [address] Nov, [facility] [address] [id number] [address] 2546 Nov, IMMUNIZATIONS No Known Immunizations SOCIAL HISTORY Never Assessed REASON FOR VISIT RX-Zyrtec refill PLAN OF CARE VITAL SIGNS MEDICATIONS Medication Instructions Dosage Frequency Start Date End Date Duration Status Zyrtec Allergy 10 mg Orally Once a day 1 tablet 24h Apr, Active RESULTS No Results PROCEDURES No Known [...]
--- OUTSIDE RECORDS SUMMARY | 2018-01-12 07:01 | XMS REPORT ---
Author Author BRITTNEY BARNES Organization [facility] Address [address] [place] [address] Care Team Providers Care Decontamination Technician Name Role Phone BRITTNEY BARNES Unavailable PROBLEMS Type Condition ICD9-CM Code [id number] Code Onset Dates Condition Status SNOMED Code Problem Irregular menses N92.6 Active 65065283 Problem History of environmental allergies Z91.09 Active 538849091 Problem Other chronic pain G89.29 Active 77337204 Problem Pain in right shoulder M25.511 Active 59846178 Problem Myalgia M79.1 Active 49904926 Problem Reactive depression F32.9 Active 72904880 Problem Incisional pain R20.8 Active 62024646 Problem Muscle spasm M62.838 Active 74760758 Problem Migraine without aura and without status migrainosus, not intractable G43.009 Active 376116895 Problem Protein C deficiency D68.59 Active 78192360 Problem Acne, unspecified acne type L70.9 Active 31563005 Problem Fibromyalgia M79.7 Active 42701237 Problem History of stroke Z86.73 Active 753283185 Problem Headache R51 Active 116374006 Problem Hx of migraines Z86.69 Active 025148634 Problem Secondary amenorrhea N91.1 Active 00666324 Problem Chronic pain syndrome G89.4 Active 247744669 Problem Female hirsutism L68.0 Active 76087961 ALLERGIES Substance Reaction Event Type Date Status Zithromax Z-Sidney unknown Drug Allergy Feb, Active Morphine Sulfate unknown Drug Allergy Feb, Active Imitrex unknown Drug Allergy Feb, Active Bactrim DS hives Drug Allergy Feb, Active demeral Unknown Non Drug Allergy Feb, Active SOCIAL HISTORY No smoking Hx information available PLAN OF CARE Activity Details Follow Up 4 Weeks Reason:CHM pain/fibromyalgia VITAL SIGNS Height 62 in 2016-03-07 Weight 183.2 lbs 2016-03-07 Temperature 98.5 degrees Fahrenheit 2016-03-07 Heart Rate 72 bpm 2016-03-07 Respiratory Rate 16 2016-03-07 BMI 33.50 kg/m2 2016-03-07 Blood pressure systolic 108 mmHg 2016-03-07 Blood pressure diastolic 62 mmHg 2016-03-07 MEDICATIONS Medication Instructions Dosage Frequency Start Date End Date Duration Status Complete 14-0.4 MG Orally Once a day 1 tablet 24h Dec, Active Multi Vitamin Daily Orally Once a day 1 tablet 24h Active Metformin HCl 500 mg Orally Twice a day 1 tablet with meals 12h Active Tramadol HCl 50 mg Orally every4- 6 hrs 1 tablet as needed Active Promethazine HCl 25 MG Orally every 12 hrs 1 tablet as needed 12h Active Pqhqgtxfui-YOVM-Berkcyhj 50-325-40 MG Orally every 4 hrs 1 capsule as needed 4h Active Diclegis 10-10 MG Orally twice a day 2 tablets in am and 1 tab at night--Dr Tyler 12h Active Sklice 0.5 % as directed Feb, 1 dose Active RESULTS Name Result Date Reference Range UA LONG DIP (IN HOUSE) 2016-03-07 Lot # [id number] Exp date 12/23 Clarity cloudy Color orange Odor no GLU neg DURAN neg KET trace SG 1.025 BLO neg pH 7.0 Protein neg URO 0.2 NIT neg SHAQ neg Lot # Exp PROCEDURES Procedure Date Ordered Related Diagnosis Body Site TRIGGER POINT INJ/1-2 MUS 2016-03-07 N/A Office Visit, Est Pt., Level 3 Mar 07, 2016 INJECT TRIGGER POINT, 1 OR 2 Mar 07, 2016 URINALYSIS, AUTO, W/O SCOPE Mar 07, 2016 IMMUNIZATIONS No Known Immunizations
--- OUTSIDE RECORDS SUMMARY | 2018-01-12 07:02 | XMS REPORT ---
Author Author BRITTNEY BARNES Organization [facility] Address [address] [place] [address] Care Team Providers Care Director Of Capital Giving Name Role Phone BRITTNEY BARNES Unavailable PROBLEMS Type Condition ICD9-CM Code KDQ67-TN Code Onset Dates Condition Status SNOMED Code Problem Irregular menses N92.6 Active 11873871 Problem History of environmental allergies Z91.09 Active 109096390 Problem Other chronic pain G89.29 Active 31177179 Problem Pain in right shoulder M25.511 Active 71138218 Problem Myalgia M79.1 Active 15490280 Problem Reactive depression F32.9 Active 57768001 Problem Incisional pain R20.8 Active 87472465 Problem Muscle spasm M62.838 Active 84926248 Problem Migraine without aura and without status migrainosus, not intractable G43.009 Active 356279037 Problem Protein C deficiency D68.59 Active 51434187 Problem Acne, unspecified acne type L70.9 Active 37389593 Problem Fibromyalgia M79.7 Active 06693983 Problem History of stroke Z86.73 Active 553754599 Problem Headache R51 Active 596651180 Problem Hx of migraines Z86.69 Active 387159025 Problem Secondary amenorrhea N91.1 Active 38176157 Problem Chronic pain syndrome G89.4 Active 411058466 Problem Female hirsutism L68.0 Active 62464852 ALLERGIES Unknown Allergies SOCIAL HISTORY No smoking Hx information available PLAN OF CARE VITAL SIGNS MEDICATIONS Unknown Medications RESULTS No Results PROCEDURES No Known procedures IMMUNIZATIONS No Known Immunizations
--- OUTSIDE RECORDS SUMMARY | 2018-01-12 07:02 | XMS REPORT ---
Author Author RODNEY EL [facility] Address [address] [place] [address] Care Team Providers Care X Ray Technologist Name Role Phone RODNEY EL Unavailable PROBLEMS Type Condition ICD9-CM Code XRS15-MM Code Onset Dates Condition Status SNOMED Code Problem Chronic pain syndrome G89.4 Active 285830090 Problem Other chronic pain G89.29 Active 22623254 Problem Irregular menses N92.6 Active 71378547 Problem Myalgia M79.1 Active 38190376 Problem Muscle spasm M62.838 Active 46514047 Problem Incisional pain R20.8 Active 84658011 Problem History of environmental allergies Z91.09 Active 457790509 Problem Reactive depression F32.9 Active 24078925 Problem Migraine without aura and without status migrainosus, not intractable G43.009 Active 393700221 Problem Fibromyalgia M79.7 Active 22596701 Problem Hx of migraines Z86.69 Active 180024565 Problem Female hirsutism L68.0 Active 63980419 Problem Protein C deficiency D68.59 Active 26914784 Problem History of stroke Z86.73 Active 869437808 Problem Secondary amenorrhea N91.1 Active 94080531 Problem Acne, unspecified acne type L70.9 Active 66212521 Problem Headache R51 Active 845668023 ALLERGIES Unknown Allergies SOCIAL HISTORY No smoking Hx information available PLAN OF CARE VITAL SIGNS MEDICATIONS Unknown Medications RESULTS No Results PROCEDURES No Known procedures IMMUNIZATIONS No Known Immunizations
--- OUTSIDE RECORDS SUMMARY | 2018-01-12 07:02 | XMS REPORT ---
Author Author BRITTNEY BARNES Organization [facility] Address [address] [place] [address] Care Team Providers Care Shaper And Presser Name Role Phone BRITTNEY BARNES Unavailable PROBLEMS Type Condition ICD9-CM Code JEB34-RB Code Onset Dates Condition Status SNOMED Code Problem Irregular menses N92.6 Active 35512610 Problem History of environmental allergies Z91.09 Active 730102420 Problem Other chronic pain G89.29 Active 80145224 Problem Pain in right shoulder M25.511 Active 45987995 Problem Myalgia M79.1 Active 90172191 Problem Reactive depression F32.9 Active 59018050 Problem Incisional pain R20.8 Active 29811746 Problem Muscle spasm M62.838 Active 52601148 Problem Migraine without aura and without status migrainosus, not intractable G43.009 Active 739796920 Problem Protein C deficiency D68.59 Active 69977554 Problem Acne, unspecified acne type L70.9 Active 98225853 Problem Fibromyalgia M79.7 Active 57764114 Problem History of stroke Z86.73 Active 721200221 Problem Headache R51 Active 500501927 Problem Hx of migraines Z86.69 Active 108833991 Problem Secondary amenorrhea N91.1 Active 28228663 Problem Chronic pain syndrome G89.4 Active 930493461 Problem Female hirsutism L68.0 Active 26409826 ALLERGIES Unknown Allergies SOCIAL HISTORY No smoking Hx information available PLAN OF CARE VITAL SIGNS MEDICATIONS Unknown Medications RESULTS No Results PROCEDURES No Known procedures IMMUNIZATIONS No Known Immunizations
--- OUTSIDE RECORDS SUMMARY | 2018-01-12 07:03 | XMS REPORT ---
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 [place] [address]- 1878 Mar, [facility] [place] [facility] [address] [id number] [place] [address]- 9976 Mar, [facility] [place] [facility] [address] [id number] [place] [address]- 9936 Feb, [facility] [place] [facility] [address] [id number] [place] [address]- 8[address] Feb, [facility] [place] [facility] [id number] [address] Feb, [facility] [address] [facility] [facility] [id number], [place] [address] Jan, [facility] [id number] [address] Jan, [facility] [id number] [address] Dec, [facility] [address] [facility] [address] [facility] [id number], [place] [address] Dec, [facility] [id number] [address] Nov, [facility] [id number] [address] June, [facility] [id number] [address] Feb, [facility] [id number] [address] Jan, [facility] [id number] [address] Nov, [facility] [id number] [address] June, [facility] [id number], [place] [address] Jan, [facility] [address] [id number], [place] [address] Nov, [facility] [id number], [place] [address] Nov, IMMUNIZATIONS No Known Immunizations SOCIAL HISTORY Never Assessed REASON FOR VISIT CHM- Depression f/u Radha LEAL PLAN OF CARE Activity Details Follow Up 4 Weeks Reason:CHM Depression/migraine VITAL SIGNS Height 62 in 2016-09-17 Weight 186.4 lbs 2016-09-17 Temperature 98.7 degrees Fahrenheit 2016-09-17 Heart Rate 76 bpm 2016-09-17 Respiratory Rate 16 2016-09-17 BMI 34.09 kg/m2 2016-09-17 Blood pressure systolic 122 mmHg 2016-09-17 Blood pressure diastolic 70 mmHg 2016-09-17 MEDICATIONS Medication Instructions Dosage Frequency Start Date End Date Duration Status Topamax 50 mg Orally Twice a day 1 tablet 12h Sep, 0 days Active Pristiq 25 MG Orally twice a day 1 tablets 12Jul, 14 days Active Lyrica 75 MG Orally Twice a day 1 capsule 12h Jul, 07 days Active Lyrica 150 MG Orally Twice a day 1 capsule 12h 0 days Active Diflucan 150 MG Orally once on day 7 and again on day 10 of antibiotic 1 tablet Sep, Sep, 0 days Active Augmentin 875-125 MG Orally every 12 hrs 1 tablet 12h Sep,Sep 10 day(s) Active Flexeril 10 mg Orally Three times a day 1 tablet as needed 8h Jul, Active ProAir HFA 108 (90 Base) MCG/ACT Inhalation every 4 hrs 2 puffs as needed 4h Sep, 0 days Active Tramadol HCl 50 mg Orally every 6 hrs 1 tablet as needed 6h Sep, Sep, 14 days Active Pristiq 100 mg Orally Once a day 1 tablet 24h 0 days Active RESULTS No Results PROCEDURES Procedure Date Ordered Result Body Site URINALYSIS, AUTO, W/O SCOPE Sep 17, 2016 LAB NOT BILLED BY [facility] Sep 17, 2016 INSTRUCTIONS MEDICATIONS ADMINISTERED No Known Medications [...]
--- OUTSIDE RECORDS SUMMARY | 2018-01-12 07:03 | XMS REPORT ---
Author Author DUNCAN Lucio Organization [facility] Address Unknown Care Team Providers Care It Account Manager Name Role Phone MckayMIRNA DUNCAN Unavailable PROBLEMS Type Condition ICD9-CM Code RJP40-VG Code Onset Dates Condition Status SNOMED Code Problem Irregular menses N92.6 Active 21235157 Problem History of environmental allergies Z91.09 Active 850146029 Problem Other chronic pain G89.29 Active 78618721 Problem Pain in right shoulder M25.511 Active 94906885 Problem Myalgia M79.1 Active 00734485 Problem Reactive depression F32.9 Active 11831768 Problem Incisional pain R20.8 Active 46228611 Problem Muscle spasm M62.838 Active 90612885 Problem Migraine without aura and without status migrainosus, not intractable G43.009 Active 510910898 Problem Protein C deficiency D68.59 Active 20028911 Problem Acne, unspecified acne type L70.9 Active 99342229 Problem Fibromyalgia M79.7 Active 34023750 Problem History of stroke Z86.73 Active 404596417 Problem Headache R51 Active 099749030 Problem Hx of migraines Z86.69 Active 925789728 Problem Secondary amenorrhea N91.1 Active 25173549 Problem Chronic pain syndrome G89.4 Active 120586498 Problem Female hirsutism L68.0 Active 91078192 ALLERGIES Substance Reaction Event Type Date Status Zithromax Z-Sidney unknown Drug Allergy Feb, Active Morphine Sulfate unknown Drug Allergy Feb, Active Imitrex unknown Drug Allergy Feb, Active Bactrim DS hives Drug Allergy Feb, Active demeral Unknown Non Drug Allergy Feb, Active SOCIAL HISTORY No smoking Hx information available PLAN OF CARE Activity Details Follow Up 1 Week Reason:te VITAL SIGNS Height 62 in 2016-03-18 Blood pressure systolic 133 mmHg 2016-03-18 Blood pressure diastolic 88 mmHg 2016-03-18 MEDICATIONS Medication Instructions Dosage Frequency Start Date End Date Duration Status Amoxicillin 500 MG Orally 2 times a day 1 capsule 12h 27 Feb, 2016 6 Mar, 2016 10 day(s) Active Diclegis 10-10 MG Orally twice a day 2 tablets in am and 1 tab at night--Dr Tyler 12h Active Promethazine HCl 25 MG Orally every 12 hrs 1 tablet as needed 12h Active Multi Vitamin Daily Orally Once a day 1 tablet 24h Active Tramadol HCl 50 mg Orally every4- 6 hrs 1 tablet as needed Active Aspirin 75 MG Orally Once a day 1 tablet 24h Active Complete 14-0.4 MG Orally Once a day 1 tablet 24h Dec, Active Amoxicillin 500 MG Orally Four times a day 1 capsule 6h Feb, 7 Mar 7 days Active Kxuwkvfmgq-NMAW-Aatlhncn 50-325-40 MG Orally every 4 hrs 1 capsule as needed 4h Active Metformin HCl 500 mg Orally Twice a day 1 tablet with meals 12h Active Acetaminophen-Codeine 300-15 MG Orally every 6 hrs 1 tablet as needed 6h Feb, 4 Mar, 2016 4 days Active RESULTS No Results PROCEDURES Procedure Date Ordered Related Diagnosis Body Site LTD ORAL EVALUATION - PROBLEM FOCUS Mar 18, 2016 INTRAORL-PERIAPICAL 1 FILM 67413 Mar 18, 2016 INTRAORL-PERIAPICAL EA ADD FILM Mar 18, 2016 IMMUNIZATIONS No Known Immunizations
--- OUTSIDE RECORDS SUMMARY | 2018-01-12 07:04 | XMS REPORT ---
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 [facility] [address] [id number] [place] [address]- 3146 Jan, [facility] [address] [id number] [place] [address]- 3496 Dec, [facility] [address] [id number] [place] [address]- 9039 Dec, [facility] [address] [id number] [place] [address]- 1510 Nov, [facility] [address] [id number] [place] [address]- 4891 June, [facility] [address] [id number] [place] [address]- 1831 Feb, [facility] [address] [id number] [place] [address]- 2546 Jan, [facility] [address] [id number] [place] [address]- 4156 14 Nov, 2009 [facility] [address] [id number] [place] [address]- 2546 June, [facility] [address] [id number] [place] [address]- 9705 Jan, [facility] [address] [facility] [id number] [place] [address]- [address] Nov, [facility] [address] [facility] [id number] [place] [address]- 8731 Nov, IMMUNIZATIONS No Known Immunizations SOCIAL HISTORY Never Assessed REASON FOR VISIT withdrawl questions PLAN OF CARE VITAL SIGNS MEDICATIONS Unknown [...]
--- OUTSIDE RECORDS SUMMARY | 2018-01-12 07:04 | XMS REPORT ---
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 [facility] [id number][place] [address]- 9818 June, [facility] [place] [facility] [address] [facility] [id number] [place] [address]- 7805 May, [facility] [place] [facility] [address] [id number], [place] [address]- 8059 Apr, [facility] [place] [facility] [address] [id number] [place] [address]- 4206 Apr, [facility] [place] [facility] [address] [id number], [place] [address]- 7136 Apr, [facility] [place] [facility] [address] [facility] [id number][place] [address]- 8238 Apr, [facility] [place] [facility] [address] [id number], [place] [address]- 3550 Apr, [facility] [address] [id number] [place] [address]- 8398 Mar, [facility] [place] [facility] [address] [id number] [place] [address]- 8406 24 Mar, 2011 [facility] [address] [id number] [place] [address]- 4806 Mar, [facility] [place] [facility] [address] [id number] [place] [address] 2546 Mar, [facility] [address] [id number] [place] [address]- 1833 Feb, [facility] [address] [id number] [place] [address]- 8328 Feb, [facility] [address] [id number] [place] [address]- 8676 Feb, [facility] [address] [id number] [place] [address]- 3769 Jan, [facility] [address] [id number] [place] [address]- 6687 Jan, [facility] [address] [facility] [id number] [place] [address]- 8984 Dec, [facility] [address] [id number] [place] [address]- 2481 Dec, [facility] [place] [facility] [address] [id number] [place] [address] 254 Nov, [facility] [place] [facility] [address] [id number] [place] [address]- 3129 June, [facility] [place] [facility] [address] [id number] [place] [address]- 4026 Feb, [facility] [place] [facility] [address] [id number], [place] [address] Jan, [facility] [address] [facility] [id number], [place] [address] Nov, [facility] [address] [facility] [id number], [place] [address] 4[address] June, [facility] [address] [facility] [id number], [place] [address]- 6732 Jan, [facility] [address] [facility] [id number], [place] [address]- 9760 Nov, [facility] [address] [facility] [id number][place] [address] Nov, IMMUNIZATIONS No Known Immunizations SOCIAL HISTORY Never Assessed REASON FOR VISIT Syncope, continues to "black out" states she did 6 times on thursday Sophie HEATH PLAN OF CARE Activity Details Follow Up after Dr. Saba appt 01/12/17 Reason:syncope VITAL SIGNS Height 62 in 2016-12-24 Weight 199.0 lbs 2016-12-24 Temperature 96.7 degrees Fahrenheit 2016-12-24 Heart Rate 92 bpm 2016-12-24 Respiratory Rate 18 2016-12-24 BMI 36.39 kg/m2 2016-12-24 Blood pressure systolic 128 mmHg 2016-12-24 Blood pressure diastolic 78 mmHg 2016-12-24 MEDICATIONS Medication Instructions Dosage Frequency Start Date End Date Duration Status BusPIRone HCl 15 MG Orally Twice a [...] as needed 4h Sep, 0 days Active Cyclobenzaprine HCl 10 mg Orally Three times a day 1 tablet as needed 8h Dec, Feb, 30 days Active Fentanyl 50 MCG/HR Transdermal every 72 hours 1 patch to skin 30 days Active Zyrtec Allergy 10 mg Orally Once a day 1 tablet 24h Apr, Active Pristiq 100 MG TAKE ONE (1) TABLET BY MOUTH DAILY... Active Oxycodone HCl 5 mg Orally every 8 hours 1 tablet as needed 8h 31 Oct, 2017 28 Nov, 2017 28 days Active Topamax 100 MG Orally Twice a day 1 tablet 12h Sep, 0 days Active Aspirin 75 MG Orally Once a day 1 tablet 24h Active Ibuprofen 600 MG Orally Three times a day 1 tablet with food or milk as needed 8h Dec, June, 30 days Active RESULTS No Results PROCEDURES [...]
--- OUTSIDE RECORDS SUMMARY | 2018-01-12 07:06 | XMS REPORT ---
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 [address] [id number] [place] [address]- 4776 Apr, [facility] [place] [facility] [address] [id number] [place] [address]- 5036 Mar, [facility] [place] [facility] [address] [id number] [place] [address]- 2338 Mar, [facility] [place] [facility] [address] [id number] [place] [address]- 5209 Mar, [facility] [place] [facility] [address] [id number] [place] [address]- 7386 Mar, [facility] [place] [facility] [address] [id number] [place] [address]- 6866 Feb, [facility] [place] [facility] [address] [id number] [place] [address]- 6346 Feb, [facility] [place] [facility] [address] [id number] [place] [address]- 6746 Feb, [facility] [place] [facility] [address] [id number] [place] [address]- 2636 Jan, [facility] [place] [facility] [id number] [address] Jan, [facility] [id number] [address] 6[address] Dec, [facility] [id number] [address]- 2546 Dec, [facility] [id number] [address] 3196 Nov, [facility] [id number] [address] 2546 June, [facility] [id number] [address] 1033 Feb, [facility] [id number] [address] 2546 Jan, [facility] [id number] [address]- 6772 Nov, [facility] [id number] [address]- 378[address] June, [facility] [id number] [address]- 3528 Jan, [facility] [id number] [address]- 4121 Nov, [facility] [address] [id number] [address]- 2785 Nov, IMMUNIZATIONS No Known Immunizations SOCIAL HISTORY [...]
--- OUTSIDE RECORDS SUMMARY | 2018-01-12 07:07 | XMS REPORT ---
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 [id number] [place] [address]- 5589 Apr, [facility] [place] [facility] [address] [id number] [place] [address]- 1865 Apr, [facility] [place] [facility] [address] [id number] [place] [address]- 9376 Apr, [facility] [place] [facility] [address] [id number] [place] [address]- 1733 Mar, [facility] [place] [facility] [address] [id number] [place] [address]- 1239 Mar, [facility] [place] [facility] [address] [id number] [place] [address]- 0076 10 Mar, 2011 [facility] [address] [id number] [place] [address]- [address]23 07 Mar, 2011 [facility] [place] [facility] [address] [id number] [place] [address]- 6666 Feb, [facility] [place] [facility] [address] [id number] [place] [address]- 3481 18 Feb, 2011 [facility] [place] [facility] [address] [id number] [place] [address]- 5906 Feb, [facility] [place] [facility] [address] [id number] [place] [address] Jan, [facility] [place] [facility] [address] [id number] [place] [address]- 0836 Jan, [facility] [place] [facility] [address] [id number] [place] [address]- 9679 Dec, [facility] [place] [facility] [address] [id number] [place] [address]- 3400 Dec, [facility] [address] [id number] [place] [address]- 4422 Nov, [facility] [place] [facility] [address] [id number] [place] [address]- 9931 June, [facility] [place] [facility] [address] [id number] [place] [address]- 5465 Feb, [facility] [place] [facility] [address] [id number] [place] [address]- 2546 Jan, [facility] [place] [facility] [address] [id number] [place] [address]- 0166 14 Nov, 2009 [facility] [place] [facility] [address] [id number] [place] [address]- 2546 June, [facility] [place] [facility] [address] [id number] [place] [address]- 0319 Jan, [facility] [address] [facility] [id number] [place] [address]- 65[address] Nov, [facility] [address] [facility] [id number] [place] [address]- 36[address] Nov, IMMUNIZATIONS No Known Immunizations SOCIAL HISTORY Never Assessed REASON FOR VISIT Early refill request PLAN OF CARE VITAL SIGNS MEDICATIONS Unknown [...]
--- OUTSIDE RECORDS SUMMARY | 2018-01-12 07:08 | XMS REPORT ---
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 Jan, [facility] [id number], [place] [address] Nov, [facility] [id number] [place] [address] June, [facility] [address] [id number], [place] [address] Jan, [facility] [address] [id number], [place] [address] Nov, [facility] [id number], [place] [address]- [address]101 Nov, IMMUNIZATIONS No Known Immunizations SOCIAL HISTORY Never Assessed REASON FOR VISIT PLAN OF CARE VITAL SIGNS MEDICATIONS No [...]
--- OUTSIDE RECORDS SUMMARY | 2018-01-12 07:09 | XMS REPORT ---
Author Author BRITTNEY BARNES Organization [facility] Address [address] [place] [address] Care Team Providers Care Chemical Pathologist Name Role Phone BRITTNEY BARNES Unavailable PROBLEMS Type Condition ICD9-CM Code [id number] Code Onset Dates Condition Status SNOMED Code Problem Irregular menses N92.6 Active 07478477 Problem History of environmental allergies Z91.09 Active 301479994 Problem Other chronic pain G89.29 Active 12898188 Problem Pain in right shoulder M25.511 Active 11886136 Problem Myalgia M79.1 Active 52645115 Problem Reactive depression F32.9 Active 89280602 Problem Incisional pain R20.8 Active 95956919 Problem Muscle spasm M62.838 Active 36773622 Problem Migraine without aura and without status migrainosus, not intractable G43.009 Active 144840108 Problem Protein C deficiency D68.59 Active 25075098 Problem Acne, unspecified acne type L70.9 Active 54906498 Problem Fibromyalgia M79.7 Active 77005986 Problem History of stroke Z86.73 Active 133711505 Problem Headache R51 Active 978446986 Problem Hx of migraines Z86.69 Active 433667706 Problem Secondary amenorrhea N91.1 Active 97112130 Problem Chronic pain syndrome G89.4 Active 862623751 Problem Female hirsutism L68.0 Active 10399853 ALLERGIES Substance Reaction Event Type Date Status Zithromax Z-Sidney unknown Drug Allergy Dec, Active Morphine Sulfate unknown Drug Allergy Dec, Active Imitrex unknown Drug Allergy Dec, Active Bactrim DS hives Drug Allergy Dec, Active demeral Unknown Non Drug Allergy Dec, Active SOCIAL HISTORY No smoking Hx information available PLAN OF CARE Activity Details Follow Up 1 Week Reason:CHM pain trigger point FU VITAL SIGNS Height 62 in 2016-01-14 Weight 186.4 lbs 2016-01-14 Temperature 97.8 degrees Fahrenheit 2016-01-14 Heart Rate 76 bpm 2016-01-14 Respiratory Rate 18 2016-01-14 BMI 34.09 kg/m2 2016-01-14 Blood pressure systolic 124 mmHg 2016-01-14 Blood pressure diastolic 70 mmHg 2016-01-14 MEDICATIONS Medication Instructions Dosage Frequency Start Date End Date Duration Status Metformin HCl 500 mg Orally Twice a day 1 tablet with meals 12h Active Complete 14-0.4 MG Orally Once a day 1 tablet 24h Dec, Active Multi Vitamin Daily Orally Once a day 1 tablet 24h Active RESULTS No Results PROCEDURES Procedure Date Ordered Related Diagnosis Body Site TRIGGER POINT INJ/3 MUS 2016-01-14 N/A INJECT TRIGGER POINTS,=/> 3 Jan 14, 2016 Office Visit, Est Pt., Level 3 Jan 14, 2016 IMMUNIZATIONS No Known Immunizations
--- OUTSIDE RECORDS SUMMARY | 2018-01-12 07:09 | XMS REPORT ---
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 [facility] [address] [id number] [place] [address] Jan, [facility] [address] [id number] [place] [address] 4[address] Nov, [facility] [id number] [place] [address]- 1019 Nov, IMMUNIZATIONS No Known Immunizations SOCIAL HISTORY [...]
--- OUTSIDE RECORDS SUMMARY | 2018-01-12 07:10 | XMS REPORT ---
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 [id number], [place] [address] 1482 Feb, [facility] [id number] [place] [address] Jan, [facility] [id number], [place] [address] 8144 Nov, [facility] [id number] [place] [address] June, [facility] [address] [id number], [place] [address] Jan, [facility] [address] [id number], [place] [address] 28[address] Nov, [facility] [id number], [place] [address] Nov, IMMUNIZATIONS No Known Immunizations SOCIAL HISTORY [...]
--- OUTSIDE RECORDS SUMMARY | 2018-01-12 07:14 | XMS REPORT ---
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 [id number] [address] 6486 June, [facility] [id number] [address] 1263 Feb, [facility] [id number] [place] [address] Jan, [facility] [id number] [address] 2914 Nov, [facility] [id number] [place] [address]451 June, [facility] [address] [id number] [address] 2338 Jan, [facility] [address] [id number] [address] Nov, [facility] [id number] [address]- 6298 Nov, IMMUNIZATIONS No Known Immunizations SOCIAL HISTORY [...]
[2018-01-12] MEDS ORDERED: ESTRADIOL VAGINAL CREAM 42.5 GM (ESTRACE) VG ONE (07:16)
[2018-01-12] MEDS ORDERED: NS (IVPB) 100 ML ONE (07:16)
[2018-01-12] MEDS ORDERED: LIDOCAINE PF 2% 5 ML (XYLOCAINE) VIAL ONE (07:17)
[2018-01-12] MEDS ORDERED: proPOfol 200 MG/20 ML (DIPRIVAN) VIAL IV ONE (07:17)
[2018-01-12] MEDS ORDERED: ONDANSETRON 4 MG/2 ML (SDV) Z0FRAN ONE (07:17)
[2018-01-12] MEDS ORDERED: fentaNYL INJECTION 100 MCG/2 ML AMP ONE ×2 (07:17→10:21)
[2018-01-12] MEDS ORDERED: MIDAZOLAM 2 MG/2 ML (VERSED) VIAL ONE (07:17)
[2018-01-12] MEDS ORDERED: ROCURONIUM 10 MG/ML 5 ML SYRINGE IV ONE ×2 (07:17→07:21)
[2018-01-12] MEDS ORDERED: VASOPRESSIN INJECTION 20 UNIT/ML VIAL ONE (07:18)
[2018-01-12] MEDS ORDERED: ceFAZolin 1,000 MG/10 ML (ANCEF) VIAL ONE ×2 (07:19→07:22)
[2018-01-12] MEDS ORDERED: NS (IVPB) 50 ML ONE ×2 (07:19→07:22)
[2018-01-12] MEDS ORDERED: metroNIDAZOLE 500MG/100ML IVPB 100 ML ONE (07:19)
--- OUTSIDE RECORDS SUMMARY | 2018-01-12 07:19 | XMS REPORT | Continuity of Care Document ---
Author Author [facility] Address Unknown Phone Unavailable Allergies Active Description Code Type Severity Reaction Onset Reported/Identified Relationship to Patient Clinical Status Yes AZITHROMYCIN MILD GI PROBLEMS - VOMITI Yes DEMEROL MODERATE DERMATOLOGICAL - HIV Yes IMITREX MILD DERMATOLOGICAL - HIV Yes LATEX, NATURAL RUBBER MODERATE DERMATOLOGICAL - HIV Yes MORPHINE MODERATE DERMATOLOGICAL - HIV Yes SULFA (SULFONAMIDE ANTIBIOTICS) MODERATE DERMATOLOGICAL - HIV Yes Imitrex Drug Allergy N/A N/A 02/13/2009 Yes morphine Drug Allergy N/A N/A 02/13/2009 Yes Zithromax Z-Sidney Drug Allergy N/A N/A 02/13/2009 Yes Imitrex Drug Allergy 02/13/2009 Yes morphine Drug Allergy 02/13/2009 Yes Zithromax Z-Sidney Drug Allergy 02/13/2009 Yes azithromycin [id number] Drug Allergy Mild N/A 03/11/2009 Yes morphine [id number] Drug Allergy Mild N/A 03/11/2009 Yes sumatriptan [id number] Drug Allergy Mild N/A 03/11/2009 Yes ondansetron [id number] Drug Allergy Moderate N/A 09/19/2013 Yes latex [id number] Drug Allergy Unknown N/A 09/19/2013 Yes meperidine [id number] Drug Allergy Unknown Itching 06/18/2016 Yes Sulfa (Sulfonamide Antibiotics) [id number] Drug Allergy Unknown Throat swelling 06/18/2016 Yes meperidine [id number] Drug Allergy Unknown Itching (PT HAS 07/08/2016 Medications Medication Packaging Start Date Stop Date Route Dosage Sig LACTATED RINGERS 1000CC IV BAG INJ ml 03/04/2017 03/11/2017 CONTINUOUSEVERY 0 Hour FENTANYL INJ 100 MCG/2CC VIAL MCG 03/04/2017 03/04/2017 ONCE&0713 CEFAZOLIN VIAL INJ 1 GM (ANCEF) GM 03/04/2017 03/04/2017 ONCE&0800 FENTANYL INJ 100 MCG/2CC VIAL MCG 03/04/2017 03/04/2017 ONCE&0954 LACTATED RINGERS 1000CC IV BAG INJ ml 11/12/2017 11/19/2017 CONTINUOUSEVERY 0 Hour FENTANYL INJ 100 MCG/2CC VIAL MCG 11/12/2017 11/12/2017 ONCE&0712 CEFAZOLIN VIAL INJ 1 GM (ANCEF) GM 11/12/2017 11/12/2017 ONCE&1015 HYDROCODONE/APAP 7.5/325 TAB (PROMISE-TAB 7.5/325) TAB 11/12/2017 11/12/2017 PRN ONCE Problems Date Dx Coded Attending Type Code Diagnosis Diagnosed By 09/21/2007 RODNEY EL DO V74.5 Visit For: Screening Exam Bact/spirochetal Venereal Disease 09/21/2007 AXEL MADERA APRN V74.5 Visit For: Screening Exam Bact/spirochetal Venereal Disease 09/21/2007 RODNEY EL DO V74.5 Visit For: Screening Exam Bact/spirochetal Venereal Disease 09/21/2007 V74.5 Visit For: Screening Exam Bact/spirochetal Venereal Disease 09/21/2007 V74.5 Visit For: Screening Exam Bact/spirochetal Venereal Disease 09/21/2007 V74.5 Visit For: Screening Exam Bact/spirochetal Venereal Disease 09/21/2007 V74.5 Visit For: Screening Exam Bact/spirochetal Venereal Disease 09/21/2007 V74.5 Visit For: Screening Exam Bact/spirochetal Venereal Disease 09/21/2007 V74.5 Visit For: Screening Exam Bact/spirochetal Venereal Disease 09/21/2007 RODNEY EL DO V74.5 Visit For: Screening Exam Bact/spirochetal Venereal Disease 09/21/2007 RODNEY EL DO V74.5 Visit For: Screening Exam Bact/spirochetal Venereal Disease 09/21/2007 GEO GOYAL APRN V74.5 Visit For: Screening Exam Bact/spirochetal Venereal Disease 09/21/2007 RODNEY EL DO V74.5 Visit For: Screening Exam Bact/spirochetal Venereal Disease 09/21/2007 FORREST BARRIOS APRN R V74.5 Visit For: Screening Exam Bact/spirochetal Venereal Disease 09/21/2007 FORREST BARRIOS APRN R V74.5 Visit For: Screening Exam Bact/spirochetal Venereal Disease 09/21/2007 HEATHER GAN MD V74.5 Visit For: Screening Exam Bact/spirochetal Venereal Disease 09/21/2007 FORREST BARRIOS APRN V74.5 Visit For: Screening Exam Bact/spirochetal Venereal Disease 09/21/2007 SARAH BETH AGUERO APRN V74.5 Visit For: Screening Exam Bact/spirochetal Venereal Disease 09/21/2007 RODNEY EL DO V74.5 Visit For: Screening Exam Bact/spirochetal Venereal Disease 09/21/2007 SARAH BETH AGUERO APRN V74.5 Visit For: Screening Exam Bact/spirochetal Venereal Disease 09/21/2007 RODNEY EL DO V74.5 Visit For: Screening Exam Bact/spirochetal Venereal Disease 09/21/2007 RODNEY EL DO V74.5 Visit For: Screening Exam Bact/spirochetal Venereal Disease 09/21/2007 LOYD MELISSA APRN V74.5 Visit For: Screening Exam Bact/spirochetal Venereal Disease 11/13/2007 RODNEY EL DO 599.0 Urinary Tract Infection 11/13/2007 AXEL MADERA APRN 599.0 Urinary Tract Infection 11/13/2007 RODNEY EL DO 599.0 Urinary Tract Infection 11/13/2007 599.0 Urinary Tract Infection 11/13/2007 599.0 Urinary Tract Infection 11/13/2007 599.0 Urinary Tract Infection 11/13/2007 599.0 Urinary Tract Infection 11/13/2007 599.0 Urinary Tract Infection 11/13/2007 599.0 Urinary Tract Infection 11/13/2007 RODNEY EL DO K 599.0 Urinary Tract Infection 11/13/2007 RODNEY EL DO 599.0 Urinary Tract Infection 11/13/2007 GEO GOYAL APRN 599.0 Urinary Tract Infection 11/13/2007 EL DO, RODNEY K 599.0 Urinary Tract Infection 11/13/2007 DENIS HOPKINSN, FORREST R 599.0 Urinary Tract Infection 11/13/2007 DENIS HOPKINSN, FORREST R 599.0 Urinary Tract Infection 11/13/2007 HEATHER GAN MD 599.0 Urinary Tract Infection 11/13/2007 DENIS HOPKINSN, FORREST R 599.0 Urinary Tract Infection 11/13/2007 MORE HOPKINSN, SARAH BETH L 599.0 Urinary Tract Infection 11/13/2007 EL DO, RODNEY K 599.0 Urinary Tract Infection 11/13/2007 MORE CASINO HOST, SARAH BETH L 599.0 Urinary Tract Infection 11/13/2007 EL DO, RODNEY K 599.0 Urinary Tract Infection 11/13/2007 EL DO, RODNEY K 599.0 Urinary Tract Infection 11/13/2007 LOYD MELISSA APRN E 599.0 Urinary Tract Infection 02/13/2009 ADIEL EL DOA K 626.4 irregular length of menstrual periods 02/13/2009 AXEL MADERA APRN 626.4 irregular length of menstrual periods 02/13/2009 EL DO RODNEY K 626.4 irregular length of menstrual periods 02/13/2009 626.4 irregular length of menstrual periods 02/13/2009 626.4 irregular length of menstrual periods 02/13/2009 626.4 irregular length of menstrual periods 02/13/2009 626.4 irregular length of menstrual periods 02/13/2009 626.4 irregular length of menstrual periods 02/13/2009 626.4 irregular length of menstrual periods 02/13/2009 EL DO RODNEY K 626.4 irregular length of menstrual periods 02/13/2009 EL DO RODNEY K 626.4 irregular length of menstrual periods 02/13/2009 GEO GOYAL APRN 626.4 irregular length of menstrual periods 02/13/2009 EL ADIEL BERGA K 626.4 irregular length of menstrual periods 02/13/2009 ELIZABETH BARRIOS APRNINA R 626.4 irregular length of menstrual periods 02/13/2009 ELIZABETH BARRIOS APRNINA R 626.4 irregular length of menstrual periods 02/13/2009 HEATHER GAN MD 626.4 irregular length of menstrual periods 02/13/2009 DENIS ANNIKA FORREST Kim 626.4 irregular length of menstrual periods 02/13/2009 URIEL AGUERO APRNANGELIQUE Nunez 626.4 irregular length of menstrual periods 02/13/2009 SIENNA BERGRODNEY K 626.4 irregular length of menstrual periods 02/13/2009 URIEL AGUERO APRNANGELIQUE Nunez 626.4 irregular length of menstrual periods 02/13/2009 EL ADIEL BERGA K 626.4 irregular length of menstrual periods 02/13/2009 EL ADIEL BERGA K 626.4 irregular length of menstrual periods 02/13/2009 RGDEBBY CASINO HOSTLOYD Reynolds 626.4 irregular length of menstrual periods 02/22/2009 RODNEY EL DO K 289.82 SECONDARY HYPERCOAGULABLE STATE 02/22/2009 RODNEY EL DO K 300.9 Psychiatric Disorder Requiring Hospitalization 02/22/2009 RODNEY EL DO K 305.1 NICOTINE DEPENDENCE - CONTINUOUS 02/22/2009 RODNEY EL DO K V72.31 Pelvic Exam (internal) 02/22/2009 AXEL MADERA APRN 289.82 SECONDARY HYPERCOAGULABLE STATE 02/22/2009 AXEL MADERA APRN 300.9 Psychiatric Disorder Requiring Hospitalization 02/22/2009 AXEL MADERA APRN 305.1 NICOTINE DEPENDENCE - CONTINUOUS 02/22/2009 AXEL MADERA APRN V72.31 Pelvic Exam (internal) 02/22/2009 RODNEY EL DO K 289.82 SECONDARY HYPERCOAGULABLE STATE 02/22/2009 RODNEY EL DO K 300.9 Psychiatric Disorder Requiring Hospitalization 02/22/2009 RODNEY EL DO K 305.1 NICOTINE DEPENDENCE - CONTINUOUS 02/22/2009 ADIEL EL DOA K V72.31 Pelvic Exam (internal) 02/22/2009 289.82 SECONDARY HYPERCOAGULABLE STATE 02/22/2009 300.9 Psychiatric Disorder Requiring Hospitalization 02/22/2009 305.1 NICOTINE DEPENDENCE - CONTINUOUS 02/22/2009 V72.31 Pelvic Exam ( internal) 02/22/2009 289.82 SECONDARY HYPERCOAGULABLE STATE 02/22/2009 300.9 Psychiatric Disorder Requiring Hospitalization 02/22/2009 305.1 NICOTINE DEPENDENCE - CONTINUOUS 02/22/2009 V72.31 Pelvic Exam ( internal) 02/22/2009 289.82 SECONDARY HYPERCOAGULABLE STATE 02/22/2009 300.9 Psychiatric Disorder Requiring Hospitalization 02/22/2009 305.1 NICOTINE DEPENDENCE - CONTINUOUS 02/22/2009 V72.31 Pelvic Exam ( internal) 02/22/2009 289.82 SECONDARY HYPERCOAGULABLE STATE 02/22/2009 300.9 Psychiatric Disorder Requiring Hospitalization 02/22/2009 305.1 NICOTINE DEPENDENCE - CONTINUOUS 02/22/2009 V72.31 Pelvic Exam ( internal) 02/22/2009 289.82 SECONDARY HYPERCOAGULABLE STATE 02/22/2009 300.9 Psychiatric Disorder Requiring Hospitalization 02/22/2009 305.1 NICOTINE DEPENDENCE - CONTINUOUS 02/22/2009 V72.31 Pelvic Exam ( internal) 02/22/2009 289.82 SECONDARY HYPERCOAGULABLE STATE 02/22/2009 300.9 Psychiatric Disorder Requiring Hospitalization 02/22/2009 305.1 NICOTINE DEPENDENCE - CONTINUOUS 02/22/2009 V72.31 Pelvic Exam ( internal) 02/22/2009 SIENNA DO RODNEY K 289.82 SECONDARY HYPERCOAGULABLE STATE 02/22/2009 SIENNA BERG RODNEY K 300.9 Psychiatric Disorder Requiring Hospitalization 02/22/2009 SIENNA BERG RODNEY K 305.1 NICOTINE DEPENDENCE - CONTINUOUS 02/22/2009 EL DO RODNEY K V72.31 Pelvic Exam (internal) 02/22/2009 SIENNA BERG RODNEY K 289.82 SECONDARY HYPERCOAGULABLE STATE 02/22/2009 SIENNA BERG RODNEY K 300.9 Psychiatric Disorder Requiring Hospitalization 02/22/2009 SIENNA BERG RODNEY K 305.1 NICOTINE DEPENDENCE - CONTINUOUS 02/22/2009 SIENNA BERG RODNEY K V72.31 Pelvic Exam (internal) 02/22/2009 JYOTSNA HOPKINSN, GEO S 289.82 SECONDARY HYPERCOAGULABLE STATE 02/22/2009 JYOTSNA CASINO HOST, GEO S 300.9 Psychiatric Disorder Requiring Hospitalization 02/22/2009 JYOTSNA CASINO HOST, GEO S 305.1 NICOTINE DEPENDENCE - CONTINUOUS 02/22/2009 JYOTSNA CASINO HOST, GEO S V72.31 Pelvic Exam (internal) 02/22/2009 EL DO RODNEY K 289.82 SECONDARY HYPERCOAGULABLE STATE 02/22/2009 EL DO RODNEY K 300.9 Psychiatric Disorder Requiring Hospitalization 02/22/2009 SIENNA BERG RODNEY K 305.1 NICOTINE DEPENDENCE - CONTINUOUS 02/22/2009 EL DO, RODNEY K V72.31 Pelvic Exam (internal) 02/22/2009 DENIS ROBLERO FORREST R 289.82 SECONDARY HYPERCOAGULABLE STATE 02/22/2009 DENIS ROBLERO FORREST R 300.9 Psychiatric Disorder Requiring Hospitalization 02/22/2009 DENIS HOPKINSN, FORREST R 305.1 NICOTINE DEPENDENCE - CONTINUOUS 02/22/2009 DENIS ROBLERO, FORREST R V72.31 Pelvic Exam (internal) 02/22/2009 DENIS ROBLERO FORREST R 289.82 SECONDARY HYPERCOAGULABLE STATE 02/22/2009 DENIS ROBLERO FORREST R 300.9 Psychiatric Disorder Requiring Hospitalization 02/22/2009 DENIS ROBLERO FORREST R 305.1 NICOTINE DEPENDENCE - CONTINUOUS 02/22/2009 DENIS ROBLERO FORREST R V72.31 Pelvic Exam (internal) 02/22/2009 HEATHER GAN MD 289.82 SECONDARY HYPERCOAGULABLE STATE 02/22/2009 HEATHER GAN MD 300.9 Psychiatric Disorder Requiring Hospitalization 02/22/2009 HEATHER GAN MD 305.1 NICOTINE DEPENDENCE - CONTINUOUS 02/22/2009 HEATHER GAN MD V72.31 Pelvic Exam (internal) 02/22/2009 DENIS ROBLERO FORREST R 289.82 SECONDARY HYPERCOAGULABLE STATE 02/22/2009 DENIS ROBLERO FORREST R 300.9 Psychiatric Disorder Requiring Hospitalization 02/22/2009 DENIS ROBLERO FORREST R 305.1 NICOTINE DEPENDENCE - CONTINUOUS 02/22/2009 DENIS ROBLERO FORREST R V72.31 Pelvic Exam (internal) 02/22/2009 MORE ROBLERO SARAH BETH L 289.82 SECONDARY HYPERCOAGULABLE STATE 02/22/2009 MORE ROBLERO, SARAH BETH L 300.9 Psychiatric Disorder Requiring Hospitalization 02/22/2009 MADL CASINO HOST, SARAH BETH L 305.1 NICOTINE DEPENDENCE - CONTINUOUS 02/22/2009 MADL CASINO HOST, SARAH BETH L V72.31 Pelvic Exam (internal) 02/22/2009 EL DO RODNEY K 289.82 SECONDARY HYPERCOAGULABLE STATE 02/22/2009 EL DO, RODNEY K 300.9 Psychiatric Disorder Requiring Hospitalization 02/22/2009 EL DO, RODNEY K 305.1 NICOTINE DEPENDENCE - CONTINUOUS 02/22/2009 EL DO, RODNEY K V72.31 Pelvic Exam (internal) 02/22/2009 ANAYELI AGUERO APRNA L 289.82 SECONDARY HYPERCOAGULABLE STATE 02/22/2009 ANAYELI AGUERO APRNA L 300.9 Psychiatric Disorder Requiring Hospitalization 02/22/2009 ANAYELI AGUERO APRNA L 305.1 NICOTINE DEPENDENCE - CONTINUOUS 02/22/2009 ANAYELI AGUERO APRNA L V72.31 Pelvic Exam (internal) 02/22/2009 EL DO RODNEY K 289.82 SECONDARY HYPERCOAGULABLE STATE 02/22/2009 EL DO, RODNEY K 300.9 Psychiatric Disorder Requiring Hospitalization 02/22/2009 EL DO, RODNEY K 305.1 NICOTINE DEPENDENCE - CONTINUOUS 02/22/2009 EL DO RODNEY K V72.31 Pelvic Exam (internal) 02/22/2009 EL DO RODNEY K 289.82 SECONDARY HYPERCOAGULABLE STATE 02/22/2009 EL DO, RODNEY K 300.9 Psychiatric Disorder Requiring Hospitalization 02/22/2009 EL DO RODNEY K 305.1 NICOTINE DEPENDENCE - CONTINUOUS 02/22/2009 EL DO RODNEY K V72.31 Pelvic Exam (internal) 02/22/2009 BELÉN ROBLERO LOYD E 289.82 SECONDARY HYPERCOAGULABLE STATE 02/22/2009 ADIEL MELISSA APRNSIE E 300.9 Psychiatric Disorder Requiring Hospitalization 02/22/2009 BELÉN ROBLERO LOYD E 305.1 NICOTINE DEPENDENCE - CONTINUOUS 02/22/2009 BELÉN ROBLERO LOYD E V72.31 Pelvic Exam (internal) 03/01/2009 RODNEY EL DO K V58.69 taking high-risk medication 03/01/2009 AXEL MADERA APRN V58.69 taking high-risk medication 03/01/2009 RODNEY EL DO K V58.69 taking high-risk medication 03/01/2009 V58.69 TAKING HIGH- RISK MEDICATION 03/01/2009 V58.69 TAKING HIGH- RISK MEDICATION 03/01/2009 V58.69 TAKING HIGH- RISK MEDICATION 03/01/2009 V58.69 TAKING HIGH- RISK MEDICATION 03/01/2009 V58.69 TAKING HIGH- RISK MEDICATION 03/01/2009 V58.69 TAKING HIGH- RISK MEDICATION 03/01/2009 RODNEY EL DO K V58.69 TAKING HIGH-RISK MEDICATION 03/01/2009 EL DO, RODNEY K V58.69 TAKING HIGH-RISK MEDICATION 03/01/2009 GEO GOYAL APRN V58.69 TAKING HIGH-RISK MEDICATION 03/01/2009 EL DO, RODNEY K V58.69 TAKING HIGH-RISK MEDICATION 03/01/2009 FORREST BARRIOS APRN R V58.69 TAKING HIGH-RISK MEDICATION 03/01/2009 FORREST BARRIOS APRN R V58.69 TAKING HIGH-RISK MEDICATION 03/01/2009 HEATHER GAN MD V58.69 TAKING HIGH-RISK MEDICATION 03/01/2009 FORREST BARRIOS APRN V58.69 TAKING HIGH-RISK MEDICATION 03/01/2009 SARAH BETH AGUERO APRN V58.69 TAKING HIGH-RISK MEDICATION 03/01/2009 EL DO, RODNEY K V58.69 TAKING HIGH-RISK MEDICATION 03/01/2009 SARAH BETH AGUERO APRN V58.69 TAKING HIGH-RISK MEDICATION 03/01/2009 EL DO, RODNEY K V58.69 TAKING HIGH-RISK MEDICATION 03/01/2009 EL DO, RODNEY K V58.69 TAKING HIGH-RISK MEDICATION 03/01/2009 LOYD MELISSA APRN V58.69 TAKING HIGH-RISK MEDICATION 03/22/2009 EL DO RODNEY K 289.81 PROTEIN C DEFICIENCY 03/22/2009 AXEL MADERA APRN 289.81 PROTEIN C DEFICIENCY 03/22/2009 EL DOADIELA K 289.81 PROTEIN C DEFICIENCY 03/22/2009 289.81 PROTEIN C DEFICIENCY 03/22/2009 289.81 PROTEIN C DEFICIENCY 03/22/2009 289.81 PROTEIN C DEFICIENCY 03/22/2009 289.81 PROTEIN C DEFICIENCY 03/22/2009 289.81 PROTEIN C DEFICIENCY 03/22/2009 289.81 PROTEIN C DEFICIENCY 03/22/2009 EL DO RODNEY K 289.81 PROTEIN C DEFICIENCY 03/22/2009 EL DO RODNEY K 289.81 PROTEIN C DEFICIENCY 03/22/2009 GEO GOYAL APRN 289.81 PROTEIN C DEFICIENCY 03/22/2009 EL DO RODNEY K 289.81 PROTEIN C DEFICIENCY 03/22/2009 FORREST BARRIOS APRN 289.81 PROTEIN C DEFICIENCY 03/22/2009 DENIS CASINO HOST, FORREST R 289.81 PROTEIN C DEFICIENCY 03/22/2009 ELVIA ROCK, HEATHER 289.81 PROTEIN C DEFICIENCY 03/22/2009 DENIS ROBLERO, FORREST R 289.81 PROTEIN C DEFICIENCY 03/22/2009 MORE CASINO HOST, SARAH BETH L 289.81 PROTEIN C DEFICIENCY 03/22/2009 EL DO, RODNEY K 289.81 PROTEIN C DEFICIENCY 03/22/2009 MORE CASINO HOST, SARAH BETH L 289.81 PROTEIN C DEFICIENCY 03/22/2009 EL DO, RODNEY K 289.81 PROTEIN C DEFICIENCY 03/22/2009 EL DO, RODNEY K 289.81 PROTEIN C DEFICIENCY 03/22/2009 LOYD MELISSA APRN 289.81 PROTEIN C DEFICIENCY 05/25/2009 EL DO, RODNEY K 789.00 Abdominal Pain Unspecified Site 05/25/2009 EL DO, RODNEY K V68.1 ISSUE OF REPEAT PRESCRIPTIONS 05/25/2009 AXEL MADERA APRN 789.00 Abdominal Pain Unspecified Site 05/25/2009 AXEL MADERA APRN V68.1 ISSUE OF REPEAT PRESCRIPTIONS 05/25/2009 EL DO, RODNEY K 789.00 Abdominal Pain Unspecified Site 05/25/2009 EL DO, RODNEY K V68.1 ISSUE OF REPEAT PRESCRIPTIONS 05/25/2009 789.00 Abdominal Pain Unspecified Site 05/25/2009 V68.1 ISSUE OF REPEAT PRESCRIPTIONS 05/25/2009 789.00 Abdominal Pain Unspecified Site 05/25/2009 V68.1 ISSUE OF REPEAT PRESCRIPTIONS 05/25/2009 789.00 Abdominal Pain Unspecified Site 05/25/2009 V68.1 ISSUE OF REPEAT PRESCRIPTIONS 05/25/2009 789.00 Abdominal Pain Unspecified Site 05/25/2009 V68.1 ISSUE OF REPEAT PRESCRIPTIONS 05/25/2009 789.00 Abdominal Pain Unspecified Site 05/25/2009 V68.1 ISSUE OF REPEAT PRESCRIPTIONS 05/25/2009 789.00 Abdominal Pain Unspecified Site 05/25/2009 V68.1 ISSUE OF REPEAT PRESCRIPTIONS 05/25/2009 EL DO, RODNEY K 789.00 Abdominal Pain Unspecified Site 05/25/2009 EL DO, RODNEY K V68.1 ISSUE OF REPEAT PRESCRIPTIONS 05/25/2009 EL DO, RODNEY K 789.00 Abdominal Pain Unspecified Site 05/25/2009 EL DO, RODNEY K V68.1 ISSUE OF REPEAT PRESCRIPTIONS 05/25/2009 JYOTSNA CASINO HOST GEO S 789.00 Abdominal Pain Unspecified Site 05/25/2009 JYOTSNA CASINO HOST GEO S V68.1 ISSUE OF REPEAT PRESCRIPTIONS 05/25/2009 EL DO, RODNEY K 789.00 Abdominal Pain Unspecified Site 05/25/2009 EL DO, RODNEY K V68.1 ISSUE OF REPEAT PRESCRIPTIONS 05/25/2009 DENIS CASINO HOST, FORREST R 789.00 Abdominal Pain Unspecified Site 05/25/2009 DENIS CASINO HOST, FORREST R V68.1 ISSUE OF REPEAT PRESCRIPTIONS 05/25/2009 DENIS CASINO HOST, FORREST R 789.00 Abdominal Pain Unspecified Site 05/25/2009 DENIS CASINO HOST, FORREST R V68.1 ISSUE OF REPEAT PRESCRIPTIONS 05/25/2009 HEATHER GAN MD 789.00 Abdominal Pain Unspecified Site 05/25/2009 HEATHER GAN MD V68.1 ISSUE OF REPEAT PRESCRIPTIONS 05/25/2009 DENIS HOPKINSN, FORREST R 789.00 Abdominal Pain Unspecified Site 05/25/2009 DENIS CASINO HOST, FORREST R V68.1 ISSUE OF REPEAT PRESCRIPTIONS 05/25/2009 MORE HOPKINSN, SARAH BETH L 789.00 Abdominal Pain Unspecified Site 05/25/2009 MORE CASINO HOST, SARAH BETH L V68.1 ISSUE OF REPEAT PRESCRIPTIONS 05/25/2009 EL DO, RODNEY K 789.00 Abdominal Pain Unspecified Site 05/25/2009 EL DO, RODNEY K V68.1 ISSUE OF REPEAT PRESCRIPTIONS 05/25/2009 MADL CASINO HOST, SARAH BETH L 789.00 Abdominal Pain Unspecified Site 05/25/2009 MADL CASINO HOST, SARAH BETH L V68.1 ISSUE OF REPEAT PRESCRIPTIONS 05/25/2009 EL DO, RODNEY K 789.00 Abdominal Pain Unspecified Site 05/25/2009 EL DO, RODNEY K V68.1 ISSUE OF REPEAT PRESCRIPTIONS 05/25/2009 EL DO, RODNEY K 789.00 Abdominal Pain Unspecified Site 05/25/2009 EL DO, RODNEY K V68.1 ISSUE OF REPEAT PRESCRIPTIONS 05/25/2009 LOYD MELISSA APRN 789.00 Abdominal Pain Unspecified Site 05/25/2009 BELÉN ROBLERO, LOYD William V68.1 ISSUE OF REPEAT PRESCRIPTIONS 06/07/2009 RODNEY EL DO K 300.00 Anxiety Unspec 06/07/2009 SIENNA BERG, RODNEY K 786.50 Chest Pain 06/07/2009 AXEL MADERA APRN 300.00 Anxiety Unspec 06/07/2009 AXEL MADERA APRN 786.50 Chest Pain 06/07/2009 RODNEY EL DO K 300.00 Anxiety Unspec 06/07/2009 EL DO, RODNEY K 786.50 Chest Pain 06/07/2009 300.00 Anxiety Unspec 06/07/2009 786.50 Chest Pain 06/07/2009 300.00 Anxiety Unspec 06/07/2009 786.50 Chest Pain 06/07/2009 300.00 Anxiety Unspec 06/07/2009 786.50 Chest Pain 06/07/2009 300.00 Anxiety Unspec 06/07/2009 786.50 Chest Pain 06/07/2009 300.00 Anxiety Unspec 06/07/2009 786.50 Chest Pain 06/07/2009 300.00 Anxiety Unspec 06/07/2009 786.50 Chest Pain 06/07/2009 RODNEY EL DO K 300.00 Anxiety Unspec 06/07/2009 EL DO, RODNEY K 786.50 Chest Pain 06/07/2009 SIENNA BERG, RODNEY K 300.00 Anxiety Unspec 06/07/2009 EL DO, RODNEY K 786.50 Chest Pain 06/07/2009 GEO GOYAL APRN S 300.00 Anxiety Unspec 06/07/2009 GEO GOYAL APRN S 786.50 Chest Pain 06/07/2009 SIENNA BERG, RODNEY K 300.00 Anxiety Unspec 06/07/2009 EL DO, RODNEY K 786.50 Chest Pain 06/07/2009 FORREST BARRIOS APRN R 300.00 Anxiety Unspec 06/07/2009 FORREST BARRIOS APRN R 786.50 Chest Pain 06/07/2009 FORREST BARRIOS APRN R 300.00 Anxiety Unspec 06/07/2009 FORREST BARRIOS APRN R 786.50 Chest Pain 06/07/2009 HEATHER GAN MD 300.00 Anxiety Unspec 06/07/2009 HEATHER GAN MD 786.50 Chest Pain 06/07/2009 FORREST BARRIOS APRN R 300.00 Anxiety Unspec 06/07/2009 DENIS CASINO HOST, FORREST R 786.50 Chest Pain 06/07/2009 MADL CASINO HOST, SARAH BETH L 300.00 Anxiety Unspec 06/07/2009 MADL CASINO HOST, SARAH BETH L 786.50 Chest Pain 06/07/2009 EL DO, RODNEY K 300.00 Anxiety Unspec 06/07/2009 EL DO, RODNEY K 786.50 Chest Pain 06/07/2009 MADL CASINO HOST, SARAH BETH L 300.00 Anxiety Unspec 06/07/2009 MADL CASINO HOST, SARAH BETH L 786.50 Chest Pain 06/07/2009 EL DO, RODNEY K 300.00 Anxiety Unspec 06/07/2009 EL DO, RODNEY K 786.50 Chest Pain 06/07/2009 EL DO, RODNEY K 300.00 Anxiety Unspec 06/07/2009 EL DO, RODNEY K 786.50 [facility]/07/2009 [facility] LOYD E 300.00 Anxiety Unspec 06/07/2009 [facility] CASINO HOST, LOYD E 786.50 Chest Pain 06/28/2009 EL DO, RODNEY K 465.9 Upper Respiratory Infection 06/28/2009 EL DO, RODNEY K 786.2 Cough 06/28/2009 AXEL MADERA APRN 465.9 Upper Respiratory Infection 06/28/2009 AXEL MADERA APRN 786.2 Cough 06/28/2009 EL DO, RODNEY K 465.9 Upper Respiratory Infection 06/28/2009 EL DO, RODNEY K 786.2 Cough 06/28/2009 465.9 Upper Respiratory Infection 06/28/2009 786.2 Cough 06/28/2009 465.9 Upper Respiratory Infection 06/28/2009 786.2 Cough 06/28/2009 465.9 Upper Respiratory Infection 06/28/2009 786.2 Cough 06/28/2009 465.9 Upper Respiratory Infection 06/28/2009 786.2 Cough 06/28/2009 465.9 Upper Respiratory Infection 06/28/2009 786.2 Cough 06/28/2009 465.9 Upper Respiratory Infection 06/28/2009 786.2 Cough 06/28/2009 EL DO, RODNEY K 465.9 Upper Respiratory Infection 06/28/2009 EL DO, RODNEY K 786.2 Cough 06/28/2009 EL DO, RODNEY K 465.9 Upper Respiratory Infection 06/28/2009 EL DO, RODNEY K 786.2 Cough 06/28/2009 JYOTSNA CASINO HOST, GEO S 465.9 Upper Respiratory Infection 06/28/2009 JYOTSNA CASINO HOST, GEO S 786.2 Cough 06/28/2009 EL DO, RODNEY K 465.9 Upper Respiratory Infection 06/28/2009 EL DO, RODNEY K 786.2 Cough 06/28/2009 DENIS CASINO HOST, FORREST R 465.9 Upper Respiratory Infection 06/28/2009 DENIS CASINO HOST, FORREST R 786.2 Cough 06/28/2009 DENIS CASINO HOST, FORREST R 465.9 Upper Respiratory Infection 06/28/2009 DENIS CASINO HOST, FORREST R 786.2 Cough 06/28/2009 HEATHER GAN MD 465.9 Upper Respiratory Infection 06/28/2009 HEATHER GAN MD 786.2 Cough 06/28/2009 DENIS CASINO HOST, FORREST R 465.9 Upper Respiratory Infection 06/28/2009 DENIS CASINO HOST, FORREST R 786.2 Cough 06/28/2009 MADL CASINO HOST, SARAH BETH L 465.9 Upper Respiratory Infection 06/28/2009 MADL CASINO HOST, SARAH BETH L 786.2 Cough 06/28/2009 EL DO, RODNEY K 465.9 Upper Respiratory Infection 06/28/2009 EL DO, RODNEY K 786.2 Cough 06/28/2009 MADL CASINO HOST, SARAH BETH L 465.9 Upper Respiratory Infection 06/28/2009 MADL CASINO HOST, SARAH BETH L 786.2 Cough 06/28/2009 EL DO, RODNEY K 465.9 Upper Respiratory Infection 06/28/2009 EL DO, RODNEY K 786.2 Cough 06/28/2009 EL DO, RODNEY K 465.9 Upper Respiratory Infection 06/28/2009 EL DO, RODNEY K 786.2 Cough 06/28/2009 HELLWIG CASINO HOST, LOYD E 465.9 Upper Respiratory Infection 06/28/2009 HELLWIG CASINO HOST, LOYD E 786.2 Cough 03/05/2010 EL DO, RODNEY K 616.10 Vaginitis Vulvovaginitis Unspecified 03/05/2010 AXEL MADERA APRN 616.10 Vaginitis Vulvovaginitis Unspecified 03/05/2010 EL DO, RODNEY K 616.10 Vaginitis Vulvovaginitis Unspecified 03/05/2010 616.10 Vaginitis Vulvovaginitis Unspecified 03/05/2010 616.10 Vaginitis Vulvovaginitis Unspecified 03/05/2010 616.10 Vaginitis Vulvovaginitis Unspecified 03/05/2010 616.10 Vaginitis Vulvovaginitis Unspecified 03/05/2010 616.10 Vaginitis Vulvovaginitis Unspecified 03/05/2010 616.10 Vaginitis Vulvovaginitis Unspecified 03/05/2010 RODNEY EL DO K 616.10 Vaginitis Vulvovaginitis Unspecified 03/05/2010 RODNEY EL DO K 616.10 Vaginitis Vulvovaginitis Unspecified 03/05/2010 GEO GOYAL APRN 616.10 Vaginitis Vulvovaginitis Unspecified 03/05/2010 RODNEY EL DO K 616.10 Vaginitis Vulvovaginitis Unspecified 03/05/2010 DENIS ROBLERO, FORREST R 616.10 Vaginitis Vulvovaginitis Unspecified 03/05/2010 DENIS ROBLERO, FORREST R 616.10 Vaginitis Vulvovaginitis Unspecified 03/05/2010 HEATHER GAN MD 616.10 Vaginitis Vulvovaginitis Unspecified 03/05/2010 DENIS ROBLERO, FORREST R 616.10 Vaginitis Vulvovaginitis Unspecified 03/05/2010 ANAYELI AGUERO APRNA L 616.10 Vaginitis Vulvovaginitis Unspecified 03/05/2010 RODNEY EL DO K 616.10 Vaginitis Vulvovaginitis Unspecified 03/05/2010 MORE ROBLERO SARAH BETH L 616.10 Vaginitis Vulvovaginitis Unspecified 03/05/2010 RODNEY EL DO K 616.10 Vaginitis Vulvovaginitis Unspecified 03/05/2010 RODNEY EL DO K 616.10 Vaginitis Vulvovaginitis Unspecified 03/05/2010 LOYD MELISSA APRN 616.10 Vaginitis Vulvovaginitis Unspecified 04/16/2010 RODNEY EL DO 795.03 Pap Smear (+) Low Grade Squamous Intraepithelial Lesion 04/16/2010 AXEL MADERA APRN 795.03 Pap Smear (+) Low Grade Squamous Intraepithelial Lesion 04/16/2010 ADIEL EL DOA K 795.03 Pap Smear (+) Low Grade Squamous Intraepithelial Lesion 04/16/2010 795.03 Pap Smear (+ ) Low Grade Squamous Intraepithelial Lesion 04/16/2010 795.03 Pap Smear (+ ) Low Grade Squamous Intraepithelial Lesion 04/16/2010 795.03 Pap Smear (+ ) Low Grade Squamous Intraepithelial Lesion 04/16/2010 795.03 Pap Smear (+ ) Low Grade Squamous Intraepithelial Lesion 04/16/2010 795.03 Pap Smear (+ ) Low Grade Squamous Intraepithelial Lesion 04/16/2010 795.03 Pap Smear (+ ) Low Grade Squamous Intraepithelial Lesion 04/16/2010 ADIEL EL DOA K 795.03 Pap Smear (+) Low Grade Squamous Intraepithelial Lesion 04/16/2010 EL ADIEL BERGA K 795.03 Pap Smear (+) Low Grade Squamous Intraepithelial Lesion 04/16/2010 GEO GOYAL APRN S 795.03 Pap Smear (+) Low Grade Squamous Intraepithelial Lesion 04/16/2010 ADIEL EL DOA K 795.03 Pap Smear (+) Low Grade Squamous Intraepithelial Lesion 04/16/2010 DENIS ROBLERO, FORREST R 795.03 Pap Smear (+) Low Grade Squamous Intraepithelial Lesion 04/16/2010 DENIS CASINO HOST, FORREST R 795.03 Pap Smear (+) Low Grade Squamous Intraepithelial Lesion 04/16/2010 HEATHER GAN MD 795.03 Pap Smear (+) Low Grade Squamous Intraepithelial Lesion 04/16/2010 DENIS ROBLERO, FORREST R 795.03 Pap Smear (+) Low Grade Squamous Intraepithelial Lesion 04/16/2010 MORE ROBLERO, SARAH BETH L 795.03 Pap Smear (+) Low Grade Squamous Intraepithelial Lesion 04/16/2010 ADIEL EL DOA K 795.03 Pap Smear (+) Low Grade Squamous Intraepithelial Lesion 04/16/2010 MORE CASINO HOST, SARAH BETH L 795.03 Pap Smear (+) Low Grade Squamous Intraepithelial Lesion 04/16/2010 EL DO RODNEY K 795.03 Pap Smear (+) Low Grade Squamous Intraepithelial Lesion 04/16/2010 SIENNA BERG RODNEY K 795.03 Pap Smear (+) Low Grade Squamous Intraepithelial Lesion 04/16/2010 LOYD MELISSA APRN 795.03 Pap Smear (+) Low Grade Squamous Intraepithelial Lesion 05/21/2010 EL DO, RODNEY K 289.81 PROTEIN C DEFICIENCY 05/21/2010 AXEL MADERA APRN 289.81 PROTEIN C DEFICIENCY 05/21/2010 EL DO, RODNEY K 289.81 PROTEIN C DEFICIENCY 05/21/2010 289.81 PROTEIN C DEFICIENCY 05/21/2010 289.81 PROTEIN C DEFICIENCY 05/21/2010 289.81 PROTEIN C DEFICIENCY 05/21/2010 289.81 PROTEIN C DEFICIENCY 05/21/2010 289.81 PROTEIN C DEFICIENCY 05/21/2010 289.81 PROTEIN C DEFICIENCY 05/21/2010 EL DO, RODNEY K 289.81 PROTEIN C DEFICIENCY 05/21/2010 EL DO, RODNEY K 289.81 PROTEIN C DEFICIENCY 05/21/2010 GEO GOYAL APRN 289.81 PROTEIN C DEFICIENCY 05/21/2010 EL DO, RODNEY K 289.81 PROTEIN C DEFICIENCY 05/21/2010 FORREST BARRIOS APRN R 289.81 PROTEIN C DEFICIENCY 05/21/2010 FORREST BARRIOS APRN R 289.81 PROTEIN C DEFICIENCY 05/21/2010 HEATHER GAN MD 289.81 PROTEIN C DEFICIENCY 05/21/2010 FORREST BARRIOS APRN 289.81 PROTEIN C DEFICIENCY 05/21/2010 SARAH BETH AGUERO APRN 289.81 PROTEIN C DEFICIENCY 05/21/2010 EL DO, RODNEY K 289.81 PROTEIN C DEFICIENCY 05/21/2010 SARAH BETH AGUERO APRN 289.81 PROTEIN C DEFICIENCY 05/21/2010 EL DO, RODNEY K 289.81 PROTEIN C DEFICIENCY 05/21/2010 EL DO, RODNEY K 289.81 PROTEIN C DEFICIENCY 05/21/2010 LOYD MELISSA APRN 289.81 PROTEIN C DEFICIENCY 07/03/2010 EL DO, RODNEY K 719.46 Knee Pain 07/03/2010 EL DO, RODNEY K 729.5 Arm Pain 07/03/2010 EL DO, RODNEY K 787.01 Nausea With Vomiting 07/03/2010 EL DO, RODNEY K 789.05 Abdominal Pain Periumbilic 07/03/2010 AXEL MADERA APRN 719.46 Knee Pain 07/03/2010 AXEL MADERA APRN 729.5 Arm Pain 07/03/2010 AXEL MADERA APRN 787.01 Nausea With Vomiting 07/03/2010 AXEL MADERA APRN 789.05 Abdominal Pain Periumbilic 07/03/2010 EL DOADEILA K 719.46 Knee Pain 07/03/2010 EL DO RODNEY K 729.5 Arm Pain 07/03/2010 EL DO RODNEY K 787.01 Nausea With Vomiting 07/03/2010 EL DO RODNEY K 789.05 Abdominal Pain Periumbilic 07/03/2010 719.46 Knee Pain 07/03/2010 729.5 Arm Pain 07/03/2010 787.01 Nausea With Vomiting 07/03/2010 789.05 Abdominal Pain Periumbilic 07/03/2010 719.46 Knee Pain 07/03/2010 729.5 Arm Pain 07/03/2010 787.01 Nausea With Vomiting 07/03/2010 789.05 Abdominal Pain Periumbilic 07/03/2010 719.46 Knee Pain 07/03/2010 729.5 Arm Pain 07/03/2010 787.01 Nausea With Vomiting 07/03/2010 789.05 Abdominal Pain Periumbilic 07/03/2010 719.46 Knee Pain 07/03/2010 729.5 Arm Pain 07/03/2010 787.01 Nausea With Vomiting 07/03/2010 789.05 Abdominal Pain Periumbilic 07/03/2010 719.46 Knee Pain 07/03/2010 729.5 Arm Pain 07/03/2010 787.01 Nausea With Vomiting 07/03/2010 789.05 Abdominal Pain Periumbilic 07/03/2010 719.46 Knee Pain 07/03/2010 729.5 Arm Pain 07/03/2010 787.01 Nausea With Vomiting 07/03/2010 789.05 Abdominal Pain Periumbilic 07/03/2010 EL DOADIELA K 719.46 Knee Pain 07/03/2010 EL DO RODNEY K 729.5 Arm Pain 07/03/2010 EL DO RODNEY K 787.01 Nausea With Vomiting 07/03/2010 EL DO RODNEY K 789.05 Abdominal Pain Periumbilic 07/03/2010 EL DO, RODNEY K 719.46 Knee Pain 07/03/2010 EL DO, RODNEY K 729.5 Arm Pain 07/03/2010 EL DO, RODNEY K 787.01 Nausea With Vomiting 07/03/2010 EL DO, RODNEY K 789.05 Abdominal Pain Periumbilic 07/03/2010 INDIA GOYAL APRNNDA S 719.46 Knee Pain 07/03/2010 JYOTSNA ROBLERO GEO S 729.5 Arm Pain 07/03/2010 JYOTSNA ROBLERO GEO S 787.01 Nausea With Vomiting 07/03/2010 JYOTSNA ROBLERO GEO S 789.05 Abdominal Pain Periumbilic 07/03/2010 EL DO, RODNEY K 719.46 Knee Pain 07/03/2010 EL DO, RODNEY K 729.5 Arm Pain 07/03/2010 EL DO, RODNEY K 787.01 Nausea With Vomiting 07/03/2010 EL DO, RODNEY K 789.05 Abdominal Pain Periumbilic 07/03/2010 DENIS ROBLERO FORREST R 719.46 Knee Pain 07/03/2010 DENIS ROBLERO FORREST R 729.5 Arm Pain 07/03/2010 DENIS ROBLERO FORREST R 787.01 Nausea With Vomiting 07/03/2010 DENIS ROBLERO FORREST R 789.05 Abdominal Pain Periumbilic 07/03/2010 DENIS ROBLERO FORREST R 719.46 Knee Pain 07/03/2010 DENIS ROBLERO FORREST R 729.5 Arm Pain 07/03/2010 DENIS ROBLERO FORREST R 787.01 Nausea With Vomiting 07/03/2010 DENIS ROBLERO FORREST R 789.05 Abdominal Pain Periumbilic 07/03/2010 HEATHER GAN MD 719.46 Knee Pain 07/03/2010 HEATHER GAN MD 729.5 Arm Pain 07/03/2010 HEATHER GAN MD 787.01 Nausea With Vomiting 07/03/2010 HEATHER GAN MD 789.05 Abdominal Pain Periumbilic 07/03/2010 ELIZABETH BARRIOS APRNINA R 719.46 Knee Pain 07/03/2010 DENIS ROBLERO FORREST R 729.5 Arm Pain 07/03/2010 DENIS ROBLERO FORREST R 787.01 Nausea With Vomiting 07/03/2010 DENIS CASINO HOST FORREST R 789.05 Abdominal Pain Periumbilic 07/03/2010 MORE CASINO HOST, SARAH BETH L 719.46 Knee Pain 07/03/2010 MADEnrique CASINO HOST, SARAH BETH L 729.5 Arm Pain 07/03/2010 MADEnrique CASINO HOST, SARAH BETH L 787.01 Nausea With Vomiting 07/03/2010 MORE CASINO HOST, SARAH BETH L 789.05 Abdominal Pain Periumbilic 07/03/2010 EL DO, RODNEY K 719.46 Knee Pain 07/03/2010 EL DO, RODNEY K 729.5 Arm Pain 07/03/2010 EL DO, RODNEY K 787.01 Nausea With Vomiting 07/03/2010 EL DO, RODNEY K 789.05 Abdominal Pain Periumbilic 07/03/2010 MORE CASINO HOST, SARAH BETH L 719.46 Knee Pain 07/03/2010 MORE CASINO HOST, SARAH BETH L 729.5 Arm Pain 07/03/2010 MORE CASINO HOST, SARAH BETH L 787.01 Nausea With Vomiting 07/03/2010 MORE HOPKINSN, SARAH BETH L 789.05 Abdominal Pain Periumbilic 07/03/2010 EL DO, RODNEY K 719.46 Knee Pain 07/03/2010 EL DO, RODNEY K 729.5 Arm Pain 07/03/2010 EL DO, RODNEY K 787.01 Nausea With Vomiting 07/03/2010 EL DO, RODNEY K 789.05 Abdominal Pain Periumbilic 07/03/2010 EL DO, RODNEY K 719.46 Knee Pain 07/03/2010 EL DO, RODNEY K 729.5 Arm Pain 07/03/2010 EL DO, RODNEY K 787.01 Nausea With Vomiting 07/03/2010 EL DO, RODNEY K 789.05 Abdominal Pain Periumbilic 07/03/2010 ADIEL MELISSA APRNSIE E 719.46 Knee Pain 07/03/2010 BELÉN ROBLERO LOYD E 729.5 Arm Pain 07/03/2010 BELÉN ROBLERO LOYD E 787.01 Nausea With Vomiting 07/03/2010 ADIEL MELISSA APRNSIE E 789.05 Abdominal Pain Periumbilic 07/09/2010 EL DO, RODNEY K 724.5 Back Pain, General 07/09/2010 EL DO, RODNEY K 786.52 Chest Wall Pain 07/09/2010 XAEL MADERA APRN 724.5 Back Pain, General 07/09/2010 AXEL MADERA APRN 786.52 Chest Wall Pain 07/09/2010 EL DO, RODNEY K 724.5 Back Pain, General 07/09/2010 EL DO, RODNEY K 786.52 Chest Wall Pain 07/09/2010 724.5 Back Pain, General 07/09/2010 786.52 Chest Wall Pain 07/09/2010 724.5 Back Pain, General 07/09/2010 786.52 Chest Wall Pain 07/09/2010 724.5 Back Pain, General 07/09/2010 786.52 Chest Wall Pain 07/09/2010 724.5 Back Pain, General 07/09/2010 786.52 Chest Wall Pain 07/09/2010 724.5 Back Pain, General 07/09/2010 786.52 Chest Wall Pain 07/09/2010 724.5 Back Pain, General 07/09/2010 786.52 Chest Wall Pain 07/09/2010 EL DO, RODNEY K 724.5 Back Pain, General 07/09/2010 EL DO, RODNEY K 786.52 Chest Wall Pain 07/09/2010 EL DO, RODNEY K 724.5 Back Pain, General 07/09/2010 EL DO, RODNEY K 786.52 Chest Wall Pain 07/09/2010 JYOTSNA ROBLERO GEO S 724.5 Back Pain, General 07/09/2010 JYOTSNA HOPKINSN, GEO S 786.52 Chest Wall Pain 07/09/2010 EL DO, RODNEY K 724.5 Back Pain, General 07/09/2010 EL DO, RODNEY K 786.52 Chest Wall Pain 07/09/2010 DENIS ROBLERO, FORREST R 724.5 Back Pain, General 07/09/2010 DENIS HOPKINSN, FORREST R 786.52 Chest Wall Pain 07/09/2010 DENIS HOPKINSN, FORREST R 724.5 Back Pain, General 07/09/2010 DENIS ROBLERO, FORREST R 786.52 Chest Wall Pain 07/09/2010 HEATHER GAN MD 724.5 Back Pain, General 07/09/2010 ELVIA ROCK, HEATHER 786.52 Chest Wall Pain 07/09/2010 DENIS CASINO HOST, FORREST R 724.5 Back Pain, General 07/09/2010 DENIS CASINO HOST, FORREST R 786.52 Chest Wall Pain 07/09/2010 MADL CASINO HOST, SARAH BETH L 724.5 Back Pain, General 07/09/2010 MADL CASINO HOST, SARAH BETH L 786.52 Chest Wall Pain 07/09/2010 EL DO, RODNEY K 724.5 Back Pain, General 07/09/2010 EL DO, RODNEY K 786.52 Chest Wall Pain 07/09/2010 MADL CASINO HOST, SARAH BETH L 724.5 Back Pain, General 07/09/2010 MADL CASINO HOST, SARAH BETH L 786.52 Chest Wall Pain 07/09/2010 EL DO, RODNEY K 724.5 Back Pain, General 07/09/2010 EL DO, RODNEY K 786.52 Chest Wall Pain 07/09/2010 EL DO, RODNEY K 724.5 Back Pain, General 07/09/2010 EL DO, RODNEY K 786.52 Chest Wall Pain 07/09/2010 HELLWIG CASINO HOST, LOYD E 724.5 Back Pain, General 07/09/2010 HELLWIG CASINO HOST, LOYD E 786.52 Chest Wall Pain 07/25/2010 EL DO, RODNEY K 726.10 Disorders Of Bursae And Tendons In Shoulder Region Unspecified 07/25/2010 AXEL MADERA APRN 726.10 Disorders Of Bursae And Tendons In Shoulder Region Unspecified 07/25/2010 EL DO RODNEY K 726.10 Disorders Of Bursae And Tendons In Shoulder Region Unspecified 07/25/2010 726.10 Disorders Of Bursae And Tendons In Shoulder Region Unspecified 07/25/2010 726.10 Disorders Of Bursae And Tendons In Shoulder Region Unspecified 07/25/2010 726.10 Disorders Of Bursae And Tendons In Shoulder Region Unspecified 07/25/2010 726.10 Disorders Of Bursae And Tendons In Shoulder Region Unspecified 07/25/2010 726.10 Disorders Of Bursae And Tendons In Shoulder Region Unspecified 07/25/2010 726.10 Disorders Of Bursae And Tendons In Shoulder Region Unspecified 07/25/2010 RODNEY EL DO K 726.10 Disorders Of Bursae And Tendons In Shoulder Region Unspecified 07/25/2010 RONDEY EL DO K 726.10 Disorders Of Bursae And Tendons In Shoulder Region Unspecified 07/25/2010 GEO GOYAL APRN 726.10 Disorders Of Bursae And Tendons In Shoulder Region Unspecified 07/25/2010 RODNEY EL DO K 726.10 Disorders Of Bursae And Tendons In Shoulder Region Unspecified 07/25/2010 DENIS ROBLERO, FORREST R 726.10 Disorders Of Bursae And Tendons In Shoulder Region Unspecified 07/25/2010 DENIS ROBLERO, FORREST R 726.10 Disorders Of Bursae And Tendons In Shoulder Region Unspecified 07/25/2010 HEATHER GAN MD 726.10 Disorders Of Bursae And Tendons In Shoulder Region Unspecified 07/25/2010 DENIS ROBLERO, FORREST R 726.10 Disorders Of Bursae And Tendons In Shoulder Region Unspecified 07/25/2010 SARAH BETH AGUERO APRN 726.10 Disorders Of Bursae And Tendons In Shoulder Region Unspecified 07/25/2010 RODNEY EL DO K 726.10 Disorders Of Bursae And Tendons In Shoulder Region Unspecified 07/25/2010 SARAH BETH AGUERO APRN 726.10 Disorders Of Bursae And Tendons In Shoulder Region Unspecified 07/25/2010 RODNEY EL DO K 726.10 Disorders Of Bursae And Tendons In Shoulder Region Unspecified 07/25/2010 RODNEY EL DO K 726.10 Disorders Of Bursae And Tendons In Shoulder Region Unspecified 07/25/2010 LOYD MELISSA APRN 726.10 Disorders Of Bursae And Tendons In Shoulder Region Unspecified 01/14/2011 RODNEY EL DO V72.41 TEST NEGATIVE RESULT 01/14/2011 AXEL MADERA APRN V72.41 TEST NEGATIVE RESULT 01/14/2011 RODNEY EL DO V72.41 TEST NEGATIVE RESULT 01/14/2011 V72.41 TEST NEGATIVE RESULT 01/14/2011 V72.41 TEST NEGATIVE RESULT 01/14/2011 V72.41 TEST NEGATIVE RESULT 01/14/2011 V72.41 TEST NEGATIVE RESULT 01/14/2011 V72.41 TEST NEGATIVE RESULT 01/14/2011 V72.41 TEST NEGATIVE RESULT 01/14/2011 EL DO, RODNEY K V72.41 TEST NEGATIVE RESULT 01/14/2011 EL DO, RODNEY K V72.41 TEST NEGATIVE RESULT 01/14/2011 GEO GOYAL APRN V72.41 TEST NEGATIVE RESULT 01/14/2011 EL DO, RODNEY K V72.41 TEST NEGATIVE RESULT 01/14/2011 ELIZABETH BARRIOS APRNINA R V72.41 TEST NEGATIVE RESULT 01/14/2011 ELIZABETH BARIROS APRNINA R V72.41 TEST NEGATIVE RESULT 01/14/2011 HEATHER GAN MD V72.41 TEST NEGATIVE RESULT 01/14/2011 ELIZABETH BARRIOS APRNINA R V72.41 TEST NEGATIVE RESULT 01/14/2011 SARAH BETH AGUERO APRN L V72.41 TEST NEGATIVE RESULT 01/14/2011 EL DO, RODNEY K V72.41 TEST NEGATIVE RESULT 01/14/2011 URIEL AGUERO APRNWNYA L V72.41 TEST NEGATIVE RESULT 01/14/2011 EL DO, RODNEY K V72.41 TEST NEGATIVE RESULT 01/14/2011 EL DO, RODNEY K V72.41 TEST NEGATIVE RESULT 01/14/2011 LOYD MELISSA APRN V72.41 TEST NEGATIVE RESULT 02/07/2011 EL DO, RODNEY K 381.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 TUBE DYSFUNCTION 02/07/2011 EL DO, RODNEY K 461.9 SINUSITIS ACUTE 02/07/2011 AXEL MADERA APRN 381.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 TUBE DYSFUNCTION 02/07/2011 AXEL MADERA APRN 461.9 SINUSITIS ACUTE 02/07/2011 EL DO, RODNEY K 381.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 TUBE DYSFUNCTION 02/07/2011 EL DO, RODNEY K 461.9 SINUSITIS ACUTE 02/07/2011 381.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 TUBE DYSFUNCTION 02/07/2011 461.9 SINUSITIS ACUTE 02/07/2011 381.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 TUBE DYSFUNCTION 02/07/2011 461.9 SINUSITIS ACUTE 02/07/2011 381.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 TUBE DYSFUNCTION 02/07/2011 461.9 SINUSITIS ACUTE 02/07/2011 381.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 TUBE DYSFUNCTION 02/07/2011 461.9 SINUSITIS ACUTE 02/07/2011 381.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 TUBE DYSFUNCTION 02/07/2011 461.9 SINUSITIS ACUTE 02/07/2011 381.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 TUBE DYSFUNCTION 02/07/2011 461.9 SINUSITIS ACUTE 02/07/2011 EL DO, RODNEY K 381.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 TUBE DYSFUNCTION 02/07/2011 EL DO, RODNEY K 461.9 SINUSITIS ACUTE 02/07/2011 EL DO, RODNEY K 381.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 TUBE DYSFUNCTION 02/07/2011 EL DO, RODNEY K 461.9 SINUSITIS ACUTE 02/07/2011 JYOTSNA CASINO HOST, GEO S 381.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 TUBE DYSFUNCTION 02/07/2011 JYOTSNA CASINO HOST, GEO S 461.9 SINUSITIS ACUTE 02/07/2011 EL DO, RODNEY K 381.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 TUBE DYSFUNCTION 02/07/2011 EL DO, RODNEY K 461.9 SINUSITIS ACUTE 02/07/2011 DENIS CASINO HOST, FORREST R 381.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 TUBE DYSFUNCTION 02/07/2011 DENIS CASINO HOST, FORREST R 461.9 SINUSITIS ACUTE 02/07/2011 DENIS CASINO HOST, FORREST R 381.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 TUBE DYSFUNCTION 02/07/2011 DENIS CASINO HOST, FORREST R 461.9 SINUSITIS ACUTE 02/07/2011 HEATHER GAN MD 381.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 TUBE DYSFUNCTION 02/07/2011 HEATHER GAN MD 461.9 SINUSITIS ACUTE 02/07/2011 DENIS CASINO HOST, FORREST R 381.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 TUBE DYSFUNCTION 02/07/2011 DENIS CASINO HOST, FORREST R 461.9 SINUSITIS ACUTE 02/07/2011 MADL CASINO HOST, SARAH BETH L 381.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 TUBE DYSFUNCTION 02/07/2011 MADL CASINO HOST, SARAH BETH L 461.9 SINUSITIS ACUTE 02/07/2011 LE DO, RODNEY K 381.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 TUBE DYSFUNCTION 02/07/2011 EL DO, RODNEY K 461.9 SINUSITIS ACUTE 02/07/2011 MADL CASINO HOST, SARAH BETH L 381.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 TUBE DYSFUNCTION 02/07/2011 MADL CASINO HOST, SARAH BETH L 461.9 SINUSITIS ACUTE 02/07/2011 EL DOADIELA K 381.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 TUBE DYSFUNCTION 02/07/2011 EL DOADIELA K 461.9 SINUSITIS ACUTE 02/07/2011 EL DO, RODNEY K 381.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 TUBE DYSFUNCTION 02/07/2011 EL DO RODNEY K 461.9 SINUSITIS ACUTE 02/07/2011 HELWIG CASINO HOST, LOYD E 381.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 TUBE DYSFUNCTION 02/07/2011 HELWIG CASINO HOST, LOYD E 461.9 SINUSITIS ACUTE 05/06/2011 EL ADIEL BERGA K 643.00 MILD HYPEREMESIS GRAVIDARUM UNSPECIFIED TO EPISODE OF CARE 05/06/2011 ADIEL EL DOA K 649.00 COMPL OF - TOBACCO USE 05/06/2011 AXEL MADERA APRN 643.00 MILD HYPEREMESIS GRAVIDARUM UNSPECIFIED TO EPISODE OF CARE 05/06/2011 AXEL MADERA APRN 649.00 COMPL OF - TOBACCO USE 05/06/2011 ADIEL EL DOA K 643.00 MILD HYPEREMESIS GRAVIDARUM UNSPECIFIED TO EPISODE OF CARE 05/06/2011 ADIEL EL DOA K 649.00 COMPL OF - TOBACCO USE 05/06/2011 643.00 MILD HYPEREMESIS GRAVIDARUM UNSPECIFIED TO EPISODE OF CARE 05/06/2011 649.00 COMPL OF - TOBACCO USE 05/06/2011 643.00 MILD HYPEREMESIS GRAVIDARUM UNSPECIFIED TO EPISODE OF CARE 05/06/2011 649.00 COMPL OF - TOBACCO USE 05/06/2011 643.00 MILD HYPEREMESIS GRAVIDARUM UNSPECIFIED TO EPISODE OF CARE 05/06/2011 649.00 COMPL OF - TOBACCO USE 05/06/2011 643.00 MILD HYPEREMESIS GRAVIDARUM UNSPECIFIED TO EPISODE OF CARE 05/06/2011 649.00 COMPL OF - TOBACCO USE 05/06/2011 643.00 MILD HYPEREMESIS GRAVIDARUM UNSPECIFIED TO EPISODE OF CARE 05/06/2011 649.00 COMPL OF - TOBACCO USE 05/06/2011 643.00 MILD HYPEREMESIS GRAVIDARUM UNSPECIFIED TO EPISODE OF CARE 05/06/2011 649.00 COMPL OF - TOBACCO USE 05/06/2011 EL DO, RODNEY K 643.00 MILD HYPEREMESIS GRAVIDARUM UNSPECIFIED TO EPISODE OF CARE 05/06/2011 EL DO, RODNEY K 649.00 COMPL OF - TOBACCO USE 05/06/2011 EL DO, RODNEY K 643.00 MILD HYPEREMESIS GRAVIDARUM UNSPECIFIED TO EPISODE OF CARE 05/06/2011 EL DO, RODNEY K 649.00 COMPL OF - TOBACCO USE 05/06/2011 JYOTSNA HOPKINSNWESTONA S 643.00 MILD HYPEREMESIS GRAVIDARUM UNSPECIFIED TO EPISODE OF CARE 05/06/2011 WESTON GOYAL APRNA S 649.00 COMPL OF - TOBACCO USE 05/06/2011 EL DO RODNEY K 643.00 MILD HYPEREMESIS GRAVIDARUM UNSPECIFIED TO EPISODE OF CARE 05/06/2011 EL DO RODNEY K 649.00 COMPL OF - TOBACCO USE 05/06/2011 ELIZABETH BARRIOS APRNINA R 643.00 MILD HYPEREMESIS GRAVIDARUM UNSPECIFIED TO EPISODE OF CARE 05/06/2011 DENIS ROBLERO, FORREST R 649.00 COMPL OF - TOBACCO USE 05/06/2011 ELIZABETH BARRIOS APRNINA R 643.00 MILD HYPEREMESIS GRAVIDARUM UNSPECIFIED TO EPISODE OF CARE 05/06/2011 DENIS ROBLERO FORREST R 649.00 COMPL OF - TOBACCO USE 05/06/2011 HEATHER GAN MD 643.00 MILD HYPEREMESIS GRAVIDARUM UNSPECIFIED TO EPISODE OF CARE 05/06/2011 HEATHER GAN MD 649.00 COMPL OF - TOBACCO USE 05/06/2011 ELIZABETH BARRIOS APRNINA R 643.00 MILD HYPEREMESIS GRAVIDARUM UNSPECIFIED TO EPISODE OF CARE 05/06/2011 ELIZABETH BARRIOS APRNINA R 649.00 COMPL OF - TOBACCO USE 05/06/2011 SARAH BETH AGUERO APRN L 643.00 MILD HYPEREMESIS GRAVIDARUM UNSPECIFIED TO EPISODE OF CARE 05/06/2011 SARAH BETH AGUERO APRN L 649.00 COMPL OF - TOBACCO USE 05/06/2011 ADIEL EL DOA K 643.00 MILD HYPEREMESIS GRAVIDARUM UNSPECIFIED TO EPISODE OF CARE 05/06/2011 RODNEY EL DO K 649.00 COMPL OF - TOBACCO USE 05/06/2011 SARAH BETH AGUERO APRN L 643.00 MILD HYPEREMESIS GRAVIDARUM UNSPECIFIED TO EPISODE OF CARE 05/06/2011 SARAH BETH AGUERO APRN L 649.00 COMPL OF - TOBACCO USE 05/06/2011 RODNEY EL DO K 643.00 MILD HYPEREMESIS GRAVIDARUM UNSPECIFIED TO EPISODE OF CARE 05/06/2011 RODNEY EL DO K 649.00 COMPL OF - TOBACCO USE 05/06/2011 RODNEY EL DO K 643.00 MILD HYPEREMESIS GRAVIDARUM UNSPECIFIED TO EPISODE OF CARE 05/06/2011 RODNEY EL DO K 649.00 COMPL OF - TOBACCO USE 05/06/2011 LOYD MELISSA APRN 643.00 MILD HYPEREMESIS GRAVIDARUM UNSPECIFIED TO EPISODE OF CARE 05/06/2011 LOYD MELISSA APRN 649.00 COMPL OF - TOBACCO USE 05/13/2011 Ot 648.93 OTH CURR COND-ANTEPARTUM 05/13/2011 Ot 789.09 ABDOMINAL PAIN, OTHER SPECIFIED SITE 07/02/2011 Ot 276.50 VOLUME DEPLETION, UNSPECIFIED 07/02/2011 Ot 787.03 VOMITING ALONE 07/02/2011 Ot 787.91 DIARRHEA 08/06/2011 Ot 648.93 OTH CURR COND-ANTEPARTUM 08/06/2011 Ot 780.2 SYNCOPE AND COLLAPSE 08/06/2011 Ot 784.0 HEADACHE 08/06/2011 Ot 847.0 SPRAIN OF NECK 08/06/2011 Ot 923.00 CONTUSION SHOULDER REG 08/06/2011 Ot E000.8 OTHER EXTERNAL CAUSE STATUS 08/06/2011 Ot E849.0 ACCIDENT IN HOME 08/06/2011 Ot E888.9 FALL NOS 09/17/2011 Ot 623.8 NONINFLAM DIS VAGINA NEC 09/17/2011 Ot 654.73 ABNORM VAGINA-ANTEPARTUM 10/07/2011 Ot 644.03 THRT AMY LABOR-ANTEPART 11/27/2011 Ot 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.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 11/27/2011 Ot 644.03 THRT AMY LABOR-ANTEPART 11/27/2011 Ot 649.33 COAGULATION DEFECTS COMP PREG/CHILDBIRTH 11/27/2011 Ot V23.42 WITH HISTORY OF ECTOPIC PREGNA 12/18/2011 Ot 289.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 12/18/2011 Ot 649.31 COAGULATION DEFECTS COMP PREG/CHILDBIRTH 12/18/2011 Ot V23.5 PREG W POOR REPRODUCT HX 12/18/2011 Ot V27.0 DELIVER- SINGLE LIVEBORN 02/02/2012 AXEL MADERA APRN 465.9 UPPER RESPIRATORY INFECTION 02/02/2012 AXEL MADREA APRN 784.0 HEADACHE 02/02/2012 AXEL MADERA APRN 786.50 CHEST PAIN 02/02/2012 EL DO RODNEY K 465.9 UPPER RESPIRATORY INFECTION 02/02/2012 EL , RODNEY K 784.0 HEADACHE 02/02/2012 EL , RODNEY K 786.50 CHEST PAIN 02/02/2012 465.9 UPPER RESPIRATORY INFECTION 02/02/2012 784.0 HEADACHE 02/02/2012 786.50 CHEST PAIN 02/02/2012 465.9 UPPER RESPIRATORY INFECTION 02/02/2012 784.0 HEADACHE 02/02/2012 786.50 CHEST PAIN 02/02/2012 465.9 UPPER RESPIRATORY INFECTION 02/02/2012 784.0 HEADACHE 02/02/2012 786.50 CHEST PAIN 02/02/2012 465.9 UPPER RESPIRATORY INFECTION 02/02/2012 784.0 HEADACHE 02/02/2012 786.50 CHEST PAIN 02/02/2012 465.9 UPPER RESPIRATORY INFECTION 02/02/2012 784.0 HEADACHE 02/02/2012 786.50 CHEST PAIN 02/02/2012 465.9 UPPER RESPIRATORY INFECTION 02/02/2012 784.0 HEADACHE 02/02/2012 786.50 CHEST PAIN 02/02/2012 EL DO, RODNEY K 465.9 UPPER RESPIRATORY INFECTION 02/02/2012 EL DO, RODNEY K 784.0 HEADACHE 02/02/2012 EL DO RODNEY K 786.50 CHEST PAIN 02/02/2012 EL DO RODNEY K 465.9 UPPER RESPIRATORY INFECTION 02/02/2012 EL DO, RODNEY K 784.0 HEADACHE 02/02/2012 EL DO RODNEY K 786.50 CHEST PAIN 02/02/2012 JYOTSNA CASINO HOST, GEO S 465.9 UPPER RESPIRATORY INFECTION 02/02/2012 JYOTSNA CASINO HOST, GEO S 784.0 HEADACHE 02/02/2012 JYOTSNA CASINO HOST, GEO S 786.50 CHEST PAIN 02/02/2012 EL DO, RODNEY K 465.9 UPPER RESPIRATORY INFECTION 02/02/2012 EL DO, RODNEY K 784.0 HEADACHE 02/02/2012 EL DO, RODNEY K 786.50 CHEST PAIN 02/02/2012 DENIS CASINO HOST, FORREST R 465.9 UPPER RESPIRATORY INFECTION 02/02/2012 DENIS CASINO HOST, FORREST R 784.0 HEADACHE 02/02/2012 DENIS CASINO HOST, FORREST R 786.50 CHEST PAIN 02/02/2012 DENIS CASINO HOST, FORREST R 465.9 UPPER RESPIRATORY INFECTION 02/02/2012 DENIS CASINO HOST, FORREST R 784.0 HEADACHE 02/02/2012 DENIS CASINO HOST, FORREST R 786.50 CHEST PAIN 02/02/2012 HEATHER GAN MD 465.9 UPPER RESPIRATORY INFECTION 02/02/2012 HEATHER GAN MD 784.0 HEADACHE 02/02/2012 HEATHER GAN MD 786.50 CHEST PAIN 02/02/2012 DENIS CASINO HOST, FORREST R 465.9 UPPER RESPIRATORY INFECTION 02/02/2012 DENIS CASINO HOST, FORREST R 784.0 HEADACHE 02/02/2012 DENIS CASINO HOST, FORREST R 786.50 CHEST PAIN 02/02/2012 CHADL CASINO HOST, SARAH BETH L 465.9 UPPER RESPIRATORY INFECTION 02/02/2012 MADL CASINO HOST, SARAH BETH L 784.0 HEADACHE 02/02/2012 MADL CASINO HOST, SARAH BETH L 786.50 CHEST PAIN 02/02/2012 EL DO, RODNEY K 465.9 UPPER RESPIRATORY INFECTION 02/02/2012 EL DO, RODNEY K 784.0 HEADACHE 02/02/2012 EL DO, RODNEY K 786.50 CHEST PAIN 02/02/2012 MADL CASINO HOST, SARAH BETH L 465.9 UPPER RESPIRATORY INFECTION 02/02/2012 MADL CASINO HOST, SARAH BETH L 784.0 HEADACHE 02/02/2012 MADL CASINO HOST, SARAH BETH L 786.50 CHEST PAIN 02/02/2012 EL DO, RODNEY K 465.9 UPPER RESPIRATORY INFECTION 02/02/2012 EL DO, RODNEY K 784.0 HEADACHE 02/02/2012 EL DO, RODNEY K 786.50 CHEST PAIN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 09/20/2013 18558 GC/CHLAM URINE (STATE) 11/28/2013 78188 TEST, URINE (IN- HOUSE) 11/28/2013 [id number] EXTRACTION OF POC, LOW CERVICAL, OPEN AP 07/08/2016 Results Test Result Range Complete blood count (CBC) with automated white blood cell (WBC) differential - 07/08/16 08:55 Blood leukocytes automated count (number/volume) 12.2 10*3/uL 4.3-11.0 Blood erythrocytes automated count (number/volume) 4.28 10*6/uL 4.35-5.85 Venous blood hemoglobin measurement (mass/volume) 13.4 g/dL 11.5-16.0 Blood hematocrit (volume fraction) 39 % 35-52 Automated erythrocyte mean corpuscular volume 91 [foz_us] 80-99 Automated erythrocyte mean corpuscular hemoglobin (mass per erythrocyte) 31 pg 25-34 Automated erythrocyte mean corpuscular hemoglobin concentration measurement ( mass/volume) 34 g/dL 32-36 Automated erythrocyte distribution width ratio 13.7 % 10.0-14.5 Automated blood platelet count (count/volume) 249 10*3/uL 130-400 Automated blood platelet mean volume measurement 11.8 [foz_us] 7.4-10.4 Automated blood neutrophils/100 leukocytes 79 % 42-75 Automated blood lymphocytes/100 leukocytes 15 % 12-44 Blood monocytes/100 leukocytes 5 % 0-12 Automated blood eosinophils/100 leukocytes 1 % 0-10 Automated blood basophils/100 leukocytes 0 % 0-10 Blood neutrophils automated count (number/volume) 9.7 10*3 1.8-7.8 Blood lymphocytes automated count (number/volume) 1.8 10*3 1.0-4.0 Blood monocytes automated count (number/volume) 0.6 10*3 0.0-1.0 Automated eosinophil count 0.1 10*3/uL 0.0-0.3 Automated blood basophil count (count/volume) 0.0 10*3/uL 0.0-0.1 Blood type T Indirect antibody screen panel - 07/08/16 08:55 ABO+Rh group ABP NRG Transfusion band number [id number] NRG Blood group antibody screen NEGATIVE NRG Complete urinalysis with reflex to culture - 07/08/16 09:50 Urine color determination YELLOW NRG Urine clarity determination CLEAR NRG Urine pH measurement by test strip 7 5-9 Specific gravity of urine by test strip 1.010 1.016- 1.022 Urine protein assay by test strip, semi-quantitative 1+ NEGATIVE Urine glucose detection by automated test strip NEGATIVE NEGATIVE Erythrocytes detection in urine sediment by light microscopy NEGATIVE NEGATIVE Urine ketones detection by automated test strip 1+ NEGATIVE Urine nitrite detection by test strip NEGATIVE NEGATIVE Urine total bilirubin detection by test strip NEGATIVE NEGATIVE Urine urobilinogen measurement by automated test strip (mass/volume) NORMAL NORMAL Urine leukocyte esterase detection by dipstick NEGATIVE NEGATIVE Automated urine sediment erythrocyte count by microscopy (number/high power field) NONE NRG Automated urine sediment leukocyte count by microscopy (number/high power field ) RARE NRG Bacteria detection in urine sediment by light microscopy FEW NRG Squamous epithelial cells detection in urine sediment by light microscopy 5-10 NRG Crystals detection in urine sediment by light microscopy NONE NRG Casts detection in urine sediment by light microscopy NONE NRG Mucus detection in urine sediment by light microscopy NEGATIVE NRG Complete urinalysis with reflex to culture NO NRG Complete blood count (CBC) with automated white blood cell (WBC) differential - 07/10/16 05:41 Blood leukocytes automated count (number/volume) 12.3 10*3/uL 4.3-11.0 Blood erythrocytes automated count (number/volume) 3.42 10*6/uL 4.35-5.85 Venous blood hemoglobin measurement (mass/volume) 10.6 g/dL 11.5-16.0 Blood hematocrit (volume fraction) 32 % 35-52 Automated erythrocyte mean corpuscular volume 94 [foz_us] 80-99 Automated erythrocyte mean corpuscular hemoglobin (mass per erythrocyte) 31 pg 25-34 Automated erythrocyte mean corpuscular hemoglobin concentration measurement ( mass/volume) 33 g/dL 32-36 Automated erythrocyte distribution width ratio 13.8 % 10.0-14.5 Automated blood platelet count (count/volume) 208 10*3/uL 130-400 Automated blood platelet mean volume measurement 11.3 [foz_us] 7.4-10.4 Automated blood neutrophils/100 leukocytes 76 % 42-75 Automated blood lymphocytes/100 leukocytes 16 % 12-44 Blood monocytes/100 leukocytes 6 % 0-12 Automated blood eosinophils/100 leukocytes 2 % 0-10 Automated blood basophils/100 leukocytes 0 % 0-10 Blood neutrophils automated count (number/volume) 9.3 10*3 1.8-7.8 Blood lymphocytes automated count (number/volume) 2.0 10*3 1.0-4.0 Blood monocytes automated count (number/volume) 0.8 10*3 0.0-1.0 Automated eosinophil count 0.2 10*3/uL 0.0-0.3 Automated blood basophil count (count/volume) 0.0 10*3/uL 0.0-0.1 REFLEX TIQ - 11/05/16 09:54 REFLEX TIQ NRG TSH - 12/08/16 14:54 TSH 1.54 mIU/L NRG TEST IN QUESTION- UNLABELED - 12/25/16 11:25 MESSAGE: NRG SPECIMEN TYPE: SST NRG NAME ON SPECIMEN: NO NAME/NO ID NRG TEST ORDERED ON REQ: NONE AFFECTED NRG COMMENT NRG CLIENT INSTRUCTIONS: NRG Comprehensive Metabolic Panel - 02/25/17 13:01 Albumin 4.2 g/dL 3.6-5.1 ALP 138 U/L 35-130 ALT 25 U/L 6-45 Anion Gap 14 6-14 AST 23 U/L 2-40 BUN 7 mg/dL 5-25 Calcium 9.9 mg/dL 8.3-10.4 Chloride 108 mmol/L 95-114 CO2 24 mEq/L 22-33 Creat 0.84 mg/dL 0.50-1.50 eGFR 80 mL/min/1.73m2 >59 Globulin 3.4 g/dL 2.3-3.5 Glucose 98 mg/dL 70-110 Osmo 291 280-295 Potassium 4.0 mmol/L 3.5-5.3 Sodium 142 mmol/L 134-148 TBil 0.2 mg/dL 0.2-1.2 TP 7.6 g/dL 6.0-8.3 MRSA Screen - 02/25/17 13:01 FINAL CULTURE RESULTS MRSA Negative Nasal Culture MEDIA PLATED Setup at 13:26 on 02/25/2017 Test-Serum - 03/04/17 07:20 Preg Test-S Negative Negative Urine Culture - 03/04/17 08:42 PRELIM CULTURE RESULTS >100,000 Gram Negative BOLIVAR / ID to Follow MEDIA PLATED Setup at 09:40 on 03/04/2017 CULTURE SOURCE cath Sensi - 03/04/17 08:42 FINAL CULTURE RESULTS Escherichia coli (Isolate 1) Ampicillin/Sulbactam >16/8 Ampicillin >16 Amoxicillin/K Clavulanate <=8/4 Ceftriaxone <=8 Ciprofloxacin <=1 Nitrofurantoin <=32 Gentamicin <=4 Levofloxacin <=2 Trimethoprim/ Sulfamethoxazole <=2/38 Tetracycline <=4 Amikacin <=16 Aztreonam <=8 Ceftazidime <=1 Ceftazidime/K Clavulanate <=0.25 Cephalothin 16 Cefotaxime <=2 Cefotaxime/K Clavulanate <=0.5 Cefoxitin <=8 Cefazolin <=8 Cefepime <=8 Cefuroxime <=4 Ertapenem <=1 Imipenem <=4 Meropenem <=4 Piperacillin/Tazobactam <=16 Piperacillin >64 Tigecycline <=2 Tobramycin <=4 Surgical Pathology - 03/04/17 08:50 Surg Path Sent to [facility] HSV 1/2 ANTIBODY IgM - 07/24/17 11:36 HSV 1 IGM SCREEN NEGATIVE NRG HSV 2 IGM SCREEN NEGATIVE NRG BNP - 07/24/17 11:36 B TYPE NATRIURETIC PEPTIDE (BNP) 11 pg/mL <100 Urinalysis - 11/03/17 12:55 Icotest N/A Negative Urine Crystals 4+ Amorphous Urine Volume Urine Volume Sufficient (10mL) Urine Yeast No Yeast present Urine-Appearance Cloudy Clear Urine-Bacteria Negative Urine-Bilirubin Negative Negative Urine-Blood Negative Negative Urine-Color Yellow Colorless-Lt. Yellow Urine-Epithelial Cells 10-20/HPF Urine-Glucose Negative Negative Urine-Ketones Negative Negative Urine-Leukocytes Negative Negative Urine-Nitrite Negative Negative Urine-Other Urine Saved if Culture Needed (48hrs from time of collection) Urine-pH 7.0 5-8.5 Urine-Protein Negative Negative Urine-RBC Negative Urine-Specific [place] 1.020 1.000-1.030 Urine-WBC Negative Urobilinogen 0.2 E.U./dL 0.2-1.0 MRSA Screen - 11/03/17 12:55 FINAL CULTURE RESULTS MRSA Negative Nasal Culture MEDIA PLATED Setup at 13:51 on 11/03/2017 Test-Serum - 11/12/17 07:56 Preg Test-S Negative Negative Encounters ACCT No. Visit Date/Time Discharge Status Pt. Type Provider Facility Loc./Unit Complaint [id number] 11/28/2013 16:19:00 11/28/2013 23:59:59 CLS Outpatient LOYD MELISSA APRN [id number] 09/20/2013 10:48:00 09/20/2013 23:59:59 CLS Outpatient SARAH BETH AGUERO APRN [id number] 09/20/2013 10:48:00 09/20/2013 23:59:59 CLS Outpatient RODNEY EL DO [id number] 09/17/2013 11:26:00 09/17/2013 23:59:59 CLS Outpatient RODNEY EL DO [id number] 09/13/2013 11:14:00 09/13/2013 23:59:59 CLS Outpatient SARAH BETH AGUERO APRN [id number] 09/13/2013 11:14:00 09/13/2013 23:59:59 CLS Outpatient RODNEY EL DO [id number] 08/10/2013 13:44:00 08/10/2013 23:59:59 CLS Outpatient FORREST BARRIOS APRN [id number] 07/20/2013 13:15:00 07/20/2013 23:59:59 CLS Outpatient HEATHER GAN MD [id number] 05/26/2013 13:05:00 05/26/2013 23:59:59 CLS Outpatient FORREST BARRIOS APRN [id number] 05/25/2013 15:32:00 05/25/2013 23:59:59 CLS Outpatient FORREST BARRIOS APRN [id number] 05/03/2013 13:44:00 05/03/2013 23:59:59 CLS Outpatient RODNEY EL DO [id number] 12/08/2012 15:34:00 12/08/2012 23:59:59 CLS Outpatient GEO GOYAL APRN [id number] 11/12/2012 13:45:00 11/12/2012 23:59:59 CLS Outpatient RODNEY EL DO [id number] 11/10/2012 15:01:00 11/10/2012 23:59:59 CLS Outpatient RODNEY EL DO [id number] 03/03/2012 16:56:00 03/03/2012 23:59:59 CLS Outpatient RODNEY EL DO [id number] 02/02/2012 15:11:00 02/02/2012 23:59:59 CLS Outpatient AXEL MADERA APRN [id number] 08/07/2011 15:30:00 08/07/2011 23:59:59 CLS Outpatient RODNEY EL DO [id number] 09/27/2012 08:29:00 Document Registration [id number] 08/11/2012 14:33:00 Document Registration [id number] 08/09/2012 14:33:00 Document Registration [id number] 08/06/2012 12:28:00 Document Registration [id number] 07/23/2012 08:55:00 Document Registration [id number] 06/16/2012 11:05:00 Document Registration [id number] 03/13/2017 12:00:00 03/13/2017 23:59:59 CLS Preadmit DEGRAFFEBRITTNEY CABRERA [facility] CARD SYNCOPE [id number] 12/12/2016 12:18:00 03/12/2017 00:01:00 DIS Outpatient BRITTNEY GHOTRA [facility] CARD SYNCOPE [id number] 01/27/2017 06:40:00 01/27/2017 23:59:59 CLS Outpatient EVIE NIELSEN MD, FACC, FACP CCDS [facility] CARD R55 SYNCOPE [id number] 01/26/2017 08:34:00 01/26/2017 23:59:59 CLS Outpatient EVIE NIELSEN MD, FACC, FACP CCDS [facility] CARD PALPITATIONS [id number] 01/20/2017 08:00:00 01/20/2017 23:59:59 CLS Preadmit EVIE NIELSEN MD, FACC, FACP CCDS [facility] CATH SYNCOPE; PALPITATION [id number] 12/12/2016 11:20:00 12/12/2016 23:59:59 CLS Outpatient GUDELIABRITTNEY GONZALEZ Enrique [facility] RAD SYNCOPE R55 [id number] 10/08/2016 12:35:00 10/08/2016 23:59:59 CLS Outpatient LESYL RODRIGUEZ [facility] RAD BANKART LESION OF RT SHOULDER [id number] 09/28/2016 17:32:00 09/28/2016 19:25:00 DIS Emergency CARL YBARRA MD [facility] ER L SIDE JAW PAIN/SWELLING [id number] 07/18/2016 09:43:00 07/18/2016 23:59:59 CLS Outpatient FRANK RODRIGUEZ DO [facility] LAB 013.5 [id number] 07/08/2016 08:05:00 07/11/2016 11:45:00 DIS Inpatient FRANK RODRIGUEZ DO [facility] LDRP INDUCTION [id number] 06/18/2016 11:20:00 06/18/2016 13:22:00 DIS Outpatient FRANK RODRIGUEZ DO [facility] WSo COMPLAINTS OF CONTRACTIONS [id number] 06/06/2015 12:59:00 06/06/2015 23:59:59 CLS Outpatient FRANK RODRIGUEZ DO [facility] RAD AMENORRHEA [id number] 09/19/2013 13:09:00 09/19/2013 15:14:00 DIS Emergency VETO RUELAS APRN [facility] ER URINATING BLOOD, ALL OVER PAIN [id number] 03/01/2013 14:46:00 03/01/2013 17:49:00 DIS Emergency VETO RUELAS APRN [facility] ER VOMITING/DIARRHEA/ WEAKNESS [id number] 02/16/2013 18:53:00 02/16/2013 20:17:00 DIS Emergency VETO RUELAS APRN [facility] ER L FINGER LAC [id number] 09/23/2012 21:30:00 09/23/2012 23:24:00 DIS Emergency MAURICIO ROCK, MARY Galvez [facility] ER MOUTH PAIN [id number] 09/10/2012 22:57:00 09/11/2012 00:11:00 DIS Emergency TAIWO ROCK, SHONDA Nikhil [facility] ER MOUTH PAIN, NO INJ [id number] 08/20/2012 09:15:00 08/20/2012 23:59:59 CLS Outpatient BRANDAN PAULA APRN [facility] RAD BACK PAIN,STONE SEARCH [id number] 01/12/2018 08:00:00 PEN Preadmit FRANK RODRIGUEZ DO [facility] MENORRHAGIA,PROLAPSE [id number] 06/06/2015 12:58:00 Document Registration [id number] 12/16/2011 07:17:00 Document Registration [id number] 11/27/2011 17:10:00 Document Registration [id number] 10/07/2011 15:40:00 Document Registration [id number] 09/17/2011 06:25:00 Document Registration [id number] 08/06/2011 21:07:00 Document Registration [id number] 07/02/2011 02:57:00 Document Registration [id number] 05/13/2011 02:11:00 Document Registration [id number] 12/09/2017 09:19:00 12/09/2017 23:59:00 DIS Outpatient CODY CADENA [id number] 11/12/2017 07:54:00 11/12/2017 12:00:00 DIS Outpatient CODY CADENA [id number] 11/11/2017 09:21:00 11/11/2017 23:59:00 DIS Outpatient FRANK RODRIGUEZ [id number] 11/03/2017 12:35:00 11/03/2017 23:59:00 DIS Outpatient CODY CADENA [id number] 10/21/2017 09:21:00 10/21/2017 23:59:00 DIS Outpatient CODY CADENA [id number] 03/04/2017 00:00:00 03/04/2017 11:22:00 DIS Outpatient Lg Kovacs [id number] 02/25/2017 12:39:00 02/25/2017 23:59:00 DIS Outpatient Lg Kovacs [id number] 03/03/2017 13:03:05 Document Registration [id number] 07/24/2017 11:40:00 07/24/2017 23:59:59 CLS Outpatient [facility]ING [facility] [id number] 07/24/2017 11:40:00 Document Registration [id number] 12/25/2016 09:20:00 Document Registration [id number] 12/08/2016 13:40:00 Document Registration [id number] 11/05/2016 09:54:00 Document Registration [id number] 11/05/2016 09:00:00 Document Registration [id number] 05/27/2017 14:39:00 Document Registration [id number] 05/29/2017 11:50:07 05/29/2017 23:59:59 CLS Outpatient Murrell, Callum [id number] 05/18/2017 16:27:25 05/18/2017 23:59:59 CLS Outpatient Murrell, Callum [id number] 04/23/2017 09:56:33 04/23/2017 23:59:59 CLS Outpatient Murrell, Callum [id number] 03/26/2017 10:39:05 03/26/2017 23:59:59 CLS Outpatient Murrell, Callum [id number] 03/13/2017 15:00:18 03/13/2017 23:59:59 CLS Outpatient Murrell, Callum [id number] 11/03/2017 12:35:00 Document Registration
[2018-01-12] MEDS ORDERED: SEVOFLURANE (ULTANE) 15 ML INHAL SOLN ONE ×10 (07:21→10:12)
[2018-01-12] MEDS: LACTATED RINGERS 1,000 ML IV PRN ×2 (07:30→10:05)
[2018-01-12] MEDS ORDERED: CATHETER FLUSH 10 ML SYR IV PRN (07:30)
--- NOTE | 2018-01-12 07:45 | Progress Note-Pre Operative ---
Pre-Operative Progress Note H&P Reviewed The H&P was reviewed, patient examined and no changes noted. Date Seen by Provider: Jan 12, 2018 Time Seen by Provider: 07:30 Date H&P Reviewed: Jan 12, 2018 Time H&P Reviewed: 07:20 Pre-Operative Diagnosis: menorrhagia, stress incontinence, incomplete genital prolapse FRANK RODRIGUEZ DO Jan 12, 2018 07:45
[2018-01-12] MEDS: BUP/EPI 0.5% 1:200,000 (SENSORCAINE) 30 ML VIAL ONE ×2 (08:17→08:21)
[2018-01-12] MEDS ORDERED: fentaNYL INJECTION 250 MCG/5 ML AMP ONE (08:21)
[2018-01-12] MEDS ORDERED: DEXAMETHASONE 10 MG/ML (DECADRON) 1 ML VIAL ONE (09:33)
[2018-01-12] MEDS ORDERED: GLYCOPYRROLATE 0.2 MG/ML (ROBINUL) 2 ML VIAL ONE (09:46)
[2018-01-12] MEDS ORDERED: NEOSTIGMINE 1 MG/ML 5 ML SYRINGE ONE (09:46)
[2018-01-12] MEDS ORDERED: KETOROLAC 30 MG/ML VIAL ONE (09:54)
[2018-01-12] MEDS ORDERED: KETOROLAC 30 MG/ML VIAL IVP PRN ×2 (10:00→10:15)
--- NOTE | 2018-01-12 10:10 | Operative Report ---
Operative Report Date of Procedure/Surgery Jan 12, 2018 Surgeon (s) FRANK RODRIGUEZ DO Director Summer Sessions (s): Piper Bliss, RESEARCH ATTORNEY; Don Osullivan, MS III Post-Operative Diagnosis menorrhagia, ovarian cyst, stress incontinence\ incomplete prolapse Procedure Performed RaTH, right ovarian cystectomy Solyx pubovaginal sling Description of Procedure Anesthesia Type: General Estimated blood loss (mL): minimal Specimen(s) collected/removed uterus right ovarian cyst Description of the Procedure After informed consent was obtained, patient was taken into the operating room where general anesthetic was found to be adequate. She was prepped and draped in the usual sterile fashion in the dorsal lithotomy position. A Kiser catheter was placed. A speculum was placed in the vagina. The cervix was visualized and was prolapsed to the introitus. The anterior lip was grasped with a sharp toothed tenaculum. The uterus was sounded and depth was approximately 10 centimeters. I placed the Charmaine device. And then set the Charmaine to 8 cm and a 3.5 cm collar was advanced over the cervix. I inserted the Charmaine without difficulty, inflating the balloon and securing it around the fornix of the cervix. The collar was then secured with sutures at 12 o'clock. Attention was then turned to the patient's abdomen. A supraumbilical incision was made about 10 mm. A Veress needle was inserted and I had difficulty confirming intraabdominal placement, but was eventually able to confirm with a drop in pressure and the saline drop test. I then insufflated the abdomen to a maximum of 15 mmHg with warmed CO2 gas. I then placed an 8 mm trocar and then the Da Ollie camera and intraperitoneal placement was confirmed. I then determined the procedure could be continued robotically. The first robotic port was placed about 15 cm lateral to the right and left of the umbilical placement and slightly inferior. These are both 8 mm trocars. These were placed under direct visualization of the laparoscope. 0.25% Marcaine was injected prior to placement of all trocars. When all placements were confirmed, the patient was placed in steep Trendelenburg allowing adequate visualization and the robot was brought in for docking. The docking was accomplished without difficulty. A survey of the pelvis confirmed the above mentioned findings. At this point, a salpingectomy was performed bilaterally. I grasped either tube and then excised the mesosalpinx with the monopolar maryana. There was good hemostasis. Now, I was able to visualize the round ligaments bilaterally and grasped them and cauterized with bipolar cautery and then cut with my maryana. I then moved my dissection to the posterior leaves of the broad ligament. I dissected the posterior leaves of the broad ligament off the uterine arteries skeletonizing them bilaterally. I then took a second clamp with the bipolar cautery and with the maryana, transected the vessels away from the lateral aspect to the cervical stroma. I dissected the anterior peritoneum off the lower uterine segment. I continually pushed the bladder back and I took excessively great care and I was eventually able to dissect the vesicouterine peritoneum off the lower uterine segment. I now excised the cyst from the right ovary. There was good hemostasis. I then dissected in a V fashion towards the midline between the uterosacral ligaments. This allowed me to skeletonize the uterine vessels bilaterally. The balloon on the CHARMAINE was insufflated. This allowed me to see the CHARMAINE circumferentially. I then performed a colpotomy anteriorly and then amputate with cervix away from the vaginal fornix. I then continued the colpotomy circumferentially. Once this was performed, the drug safety assistant removed the uterus through the vagina. The right ovarian cyst was removed as well. A sponge was left in the vagina to maintain pneumoperitoneum. I then began closure of the vaginal cuff. I closed the apices of the vaginal cuff with 2-0 Vicryl V lock sutures with a colposuspension through the uterosacral ligaments. This suspended the apices of the vaginal cuff. I extended this to the midline from both sides and overlapped the V lock sutures in the midline. Excellent closure is noted and hemostasis is achieved. The pelvis was irrigated. All the needles were removed from the patient's abdomen. Patient was now repositioned for the vaginal portion of the procedure. There was minimal cystocele after the hysterectomy. The anterior vaginal epithelium was injected with dilute vasopressin. A 1 cm incision was made in the suburethral space with a scalpel about 1.5 cm from the urethral meatus. I dissected bilaterally to the obturator membranes and then inserted the Solyx bilaterally and then tightened under the midurethra. I did a cystoscopy which was negative. There was bilateral urethral efflux of urine. I then kept 300 ml in the bladder and did a Cred. There was minimal leakage. The sling laid gently under the urethra and was not too tight. There was no intravesicular pathology. The incision was closed with 4-0 Monocryl in a running fashion. Kiser was reinserted. Patient was awakened and taken to the recovery room in stable condition. Following the case, instrument counts were correct. The patient was repositioned in the supine position and awakened from general anesthesia without difficulty. She was taken to recovery in stable condition. She will be observed on women's services. Findings of the Procedure 2+ uterine descensus, > 50 degree rotation of urethra right ovarian cyst (4-5 cm) boggy enlarged uterus. Allergies and Home Medications Allergies Coded Allergies: ondansetron (Unverified Allergy, Intermediate, 09/19/13) morphine (Unverified Allergy, Mild, 03/11/09) sumatriptan (Unverified Allergy, Mild, 03/11/09) Sulfa (Sulfonamide Antibiotics) (Verified Allergy, Unknown, Throat swelling, Hives, 06/18/16) latex (Unverified Allergy, Unknown, 09/19/13) meperidine (Verified Allergy, Unknown, Itching (PT HAS RECEIVED FENTANYL W /O ISSUE), 07/08/16) Home Medications Albuterol Sulfate 1 Puff Puff, 2 PUFF IH Q4H PRN for SHORTNESS OF BREATH, ( Reported) 1 PUFF = 90 MCG Aspirin 325 Mg Tablet, 325 MG PO DAILY Prescribed by: FRANK RODRIGUEZ on 01/27/18 0901 Biotin 10,000 Mcg Capsule, 10,000 MCG PO DAILY, (Reported) Calcium Carb/D3/Magnesium/Zinc 1 Each Tablet, 1 EACH PO DAILY, (Reported) Cetirizine HCl 10 Mg Capsule, 10 MG PO DAILY, (Reported) Cholecalciferol (Vitamin D3) 5,000 Unit Capsule, 5,000 UNIT PO DAILY, (Reported) Chromium/Herbal Complex No.238 1 Each Tablet, 1 EACH PO DAILY, (Reported) Cranberry Fruit 500 Mg Tab.chew, 500 MG PO BID, (Reported) Docusate Sodium 100 Mg Capsule, 100 MG PO BID PRN for CONSTIPATION-1ST LINE Prescribed by: FRANK RODRIGUEZ on 01/13/18 0909 Hydrocodone Bit/Acetaminophen 1 Ea Tablet, 1-2 EA PO Q6H PRN for PAIN-MODERATE TO SEVERE Prescribed by: FRANK RODRIGUEZ on 01/13/18 0909 Lamotrigine 200 Mg Tab, 200 MG PO DAILY, (Reported) Lurasidone HCl 60 Mg Tablet, 60 MG PO DAILY, (Reported) Metformin HCl 500 Mg Tablet, 500 MG PO BID, (Reported) Nortriptyline HCl 10 Mg Capsule, 30 MG PO HS, (Reported) Pantoprazole Sodium 40 Mg Tablet.dr, 40 MG PO DAILY, (Reported) Potassium Gluconate 99 Mg Tablet, 99 MG PO DAILY, (Reported) Pregabalin 100 Mg Capsule, 100 MG PO BID, (Reported) Pregabalin 75 Mg Capsule, 75 MG PO BID, (Reported) Patient Home Medication List Home Medication List Reviewed: Yes FRANK RODRIGUEZ DO Jan 12, 2018 10:10
[2018-01-12] MEDS ORDERED: ONDANSETRON 4 MG/2 ML (SDV) Z0FRAN IV PRN (10:15)
[2018-01-12] MEDS ORDERED: ANTACID SUSP 30 ML UDC (MYLANTA) PO PRN (10:15)
[2018-01-12] MEDS ORDERED: fentaNYL INJECTION 100 MCG/2 ML AMP IVP PRN (10:15)
[2018-01-12] MEDS ORDERED: ONDANSETRON 4 MG/2 ML (SDV) Z0FRAN IVP PRN (10:15)
[2018-01-12] MEDS ORDERED: fentaNYL INJECTION 100 MCG/2 ML AMP IVP ONE (10:15)
[2018-01-12] MEDS ORDERED: SIMETHICONE 80 MG (MYLICON) CHEW PO PRN (10:15)
[2018-01-12] MEDS ORDERED: HYDROmorphone 2 MG/ML VIAL (DILAUDID) IV ONE (10:15)
[2018-01-12] MEDS ORDERED: PATIENT MAY USE OWN MED,SINGLE MED PO SCH (10:30)
[2018-01-12 11:30] VITALS: BP 133/75
[2018-01-12] MEDS: HYDROcodone/APAP 7.5 MG/325 MG (LORTAB, LORCET PLUS) TABLET PO PRN ×3 (12:23→23:42)
[2018-01-12 13:00] VITALS: BP 123/57
[2018-01-12] MEDS: RT-ALBUTEROL SULF 2.5 MG/3 ML PRE-MIX VIAL INH SCH ×2 (15:58→20:52)
[2018-01-12] MEDS: KETOROLAC 30 MG/ML VIAL IV PRN ×2 (16:29→21:44)
[2018-01-12 16:30] VITALS: BP 133/76
[2018-01-12] MEDS: metFORMIN 500 MG (GLUCOPHAGE) TAB PO SCH (17:39)
[2018-01-12] MEDS: LACTATED RINGERS 1,000 ML IV SCH (17:40)
[2018-01-12] MEDS: PREGABALIN 75 MG (LYRICA) CAP PO SCH (20:54)
[2018-01-12] MEDS: PREGABALIN 100 MG (LYRICA) CAPSULE PO SCH (20:54)
[2018-01-12 20:55] VITALS: BP 122/60
[2018-01-12] MEDS: DOCUSATE SODIUM 100 MG (COLACE) CAP PO PRN (20:55)
[2018-01-12] MEDS ORDERED: NORTRIPTYLINE 10 MG (PAMELOR) CAP PO SCH (21:00)
[2018-01-12] MEDS ORDERED: risperiDONE 1 MG (RisperDAL) TAB PO ONE (21:45)
[2018-01-12] MEDS ORDERED: risperiDONE 2 MG (RisperDAL) TAB ONE (22:22)
[2018-01-12 23:42] VITALS: BP 120/61
[2018-01-13] MEDS: LACTATED RINGERS 1,000 ML IV SCH ×2 (01:24→01:28)
[2018-01-13] MEDS ORDERED: IBUPROFEN 600 MG (MOTRIN) TAB PO PRN (02:45)
[2018-01-13] MEDS: RT-ALBUTEROL SULF 2.5 MG/3 ML PRE-MIX VIAL INH SCH ×2 (03:20→08:54)
[2018-01-13 04:13] VITALS: BP 97/55
[2018-01-13] MEDS: KETOROLAC 30 MG/ML VIAL IV PRN (04:13)
[2018-01-13] MEDS: metFORMIN 500 MG (GLUCOPHAGE) TAB PO SCH (06:21)
[2018-01-13] MEDS: HYDROcodone/APAP 7.5 MG/325 MG (LORTAB, LORCET PLUS) TABLET PO PRN (06:26)
[2018-01-13] MEDS ORDERED: PANTOPRAZOLE 40 MG (PROTONIX) TAB PO SCH (07:00)
[2018-01-13] MEDS ORDERED: FLU QUADRIvalent (5+ YOA) 2018-2019 (AFLURIA) 0.5 ML IM ONE (07:30)
[2018-01-13] MEDS ORDERED: RIVAROXABAN 2.5 MG TABLET (XARELTO) PO SCH (09:00)
[2018-01-13] MEDS ORDERED: DOCU100C37 PO (09:09)
[2018-01-13] MEDS ORDERED: IBUP-844 PO (09:09)
[2018-01-13] MEDS ORDERED: HYDR-34 PO (09:09)
[2018-01-13 10:00] VITALS: BP 132/81
[2018-01-13] MEDS: DOCUSATE SODIUM 100 MG (COLACE) CAP PO PRN (10:08)
[2018-01-13] MEDS: PREGABALIN 75 MG (LYRICA) CAP PO SCH (10:09)
[2018-01-13] MEDS: PREGABALIN 100 MG (LYRICA) CAPSULE PO SCH (10:09)
[2018-01-13] MEDS ORDERED: PHEN-640 PO (10:13)
--- NOTE | 2018-01-13 10:16 | Anesthesia-General Post-Op ---
General Patient Condition Mental Status/LOC: Same as Preop Cardiovascular: Satisfactory Nausea/Vomiting: Absent Respiratory: Satisfactory Pain: Controlled Complications: Absent Post Op Complications Complications None Follow Up Care/Instructions Patient Instructions None needed. Anesthesia/Patient Condition Patient Condition Patient is doing well, no complaints, stable vital signs, no apparent adverse anesthesia problems. No complications reported per nursing. YEISON CIFUENTES CRNA Jan 13, 2018 10:16
--- NOTE | 2018-01-13 10:16 | Discharge Inst-Women's Service ---
Discharge Inst-Women's Serv Depart Medication/Instructions New, Converted or Re-Newed RX: RX on Chart Final Diagnosis menorrhagia anticoagulated stress incontinence Right ovarian cyst Procedure - Solyx sling RaTH, right ovarian cystectom Consults/Follow Up Additional Follow Up: Yes (1 week with Piper Bliss/ 10-12 weeks with Ruthy/Jayson) Activity Activity: Activity as Tolerated Driving Instructions: No Driving for 1 Week NO SMOKING: NO SMOKING Nothing Inside Vagina: No Douching, No [place], No Tampons Diet Discharge Diet: No Restrictions Symptoms to Report to : Swelling Increased, Bleeding Excessive, Pain Increased, Fever Over 101 Degrees F, Vaginal Bleeding Increase, Cramps in Feet or Legs, Vaginal Discharge Foul For Any Problems or Questions: Contact Your Physician Skin/Wound Care Infection Signs and Symptoms: Increased Redness, Foul Odor of Wound, Increased Drainage, Skin Itchy or Has a Rash, Increased Swelling, Temperature Above 101 F Operative Area Clean and Dry: You May Remove Bandage (3 days) Stitches/[place]/Dermabond: Dermabond Bathing Instructions: FRANK Adames DO Jan 13, 2018 10:16
== END 2018-01-13 13:18 | disposition home or self-care (01) ==
LOC: SDC 06:00 → WS 11:10 → SDC 01-13 13:18
PROVIDERS: ATTEND Obstetrics & Gynecology
DX: N81.2 Incomplete uterovaginal prolapse (principal); N92.0 Excessive and frequent menstruation with regular cycle; N39.3 Stress incontinence (female) (male); R00.2 Palpitations; I69.398 Other sequelae of cerebral infarction; K21.9 Gastro-esophageal reflux disease without esophagitis; K44.9 Diaphragmatic hernia without obstruction or gangrene; G56.93 Unspecified mononeuropathy of bilateral upper limbs; D68.59 Other primary thrombophilia; E28.2 Polycystic ovarian syndrome; Z79.84 Long term (current) use of oral hypoglycemic drugs; Z79.899 Other long term (current) drug therapy; Z86.718 Personal history of other venous thrombosis and embolism
CPT/HCPCS: 84703; 88305; 88307; 94640; 94664; 94760

== ENCOUNTER 2018-01-26 19:44 | Observation (INO) | payer MEDICAID ==
[~2018-01-26] VITALS: Ht 157.5 cm; Wt 91.2 kg
[~2018-01-26 19:44] MED LIST changes: +DOCU100C37 PO; +HYDR-34 PO; +IBUP-844 PO; +PHEN-640 PO
[2018-01-26 19:57] LABS: BASOPHILS # (AUTO) 0.1 10^3/uL (0.0-0.1); BASOPHILS % (AUTO) 1 % (0-10); EOSINOPHILS # (AUTO) 0.7 10^3/uL (0.0-0.3); EOSINOPHILS % (AUTO) 6 % (0-10); HEMATOCRIT 32 % (35-52); HEMOGLOBIN 10.9 G/DL (11.5-16.0); LYMPHOCYTES # (AUTO) 3.2 X 10^3 (1.0-4.0); LYMPHOCYTES % (AUTO) 26 % (12-44); MEAN CORPUSCULAR HEMOGLOBIN 29 PG (25-34); MEAN CORPUSCULAR HGB CONC 34 G/DL (32-36); MEAN CORPUSCULAR VOLUME 86 FL (80-99); MEAN PLATELET VOLUME 10.5 FL (7.4-10.4); MONOCYTES # (AUTO) 0.6 X 10^3 (0.0-1.0); MONOCYTES % (AUTO) 5 % (0-12); NEUTROPHILS # (AUTO) 7.7 X 10^3 (1.8-7.8); NEUTROPHILS % (AUTO) 63 % (42-75); PLATELET COUNT 304 10^3/uL (130-400); RED BLOOD COUNT 3.74 10^6/uL (4.35-5.85); RED CELL DISTRIBUTION WIDTH 15.4 % (10.0-14.5); WHITE BLOOD COUNT 12.2 10^3/uL (4.3-11.0)
[2018-01-26 20:11] LABS: INR 1.3 (0.8-1.4); PROTHROMBIN TIME PATIENT 16.2 SEC (12.2-14.7)
[2018-01-26 20:17] LABS: ALANINE AMINOTRANSFERASE 17 U/L (0-55); ALBUMIN 3.8 GM/DL (3.2-4.5); ALKALINE PHOSPHATASE 104 U/L (40-136); BILIRUBIN,TOTAL 0.2 MG/DL (0.1-1.0); BUN/CREATININE RATIO 6; CALCIUM 8.6 MG/DL (8.5-10.1); CARBON DIOXIDE 22 MMOL/L (21-32); CHLORIDE 107 MMOL/L (98-107); CREATININE SERUM 0.82 MG/DL (0.60-1.30); GFR ESTIMATED > 60; GLUCOSE 79 MG/DL (70-105); SODIUM 140 MMOL/L (135-145); TOTAL PROTEIN 6.6 GM/DL (6.4-8.2)
--- NOTE | 2018-01-26 20:28 | ED GU-Female ---
General Chief Complaint: -Female Stated Complaint: EXESSIVE BLEEDING,HYSTERECTOMY Nursing Triage Note: Pt arrived via EMS as a transfer from [facility]. Pt reports having a hysterectomy on January 12. Pt reports using restroom today and noticed blood when wiping. Pt reports then passing a clot and "blood then began gushing." Pt reports soaking through a pad every 30 minutes, and passing large clots. Pt c/o back, hip and abdominal pain. Nursing Sepsis Screen: No Definite Risk Source: patient, EMS, old records, other ([facility]) History of Present Illness Date Seen by Provider: Jan 26, 2018 Time Seen by Provider: 19:43 Initial Comments PT ARRIVES VIA EMS FROM [facility] ER, AND DR. RODRIGUEZ CALLED PRIOR TO PT'S ARRIVAL PT HAD HYST ON 01/12/[address] 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 XARELTO WAS HELD FOR SURGERY AND RECENTLY RESTARTED. DR RODRIGUEZ WAS CONTACTED BY [facility], AND WAS ADVISED TO SEND PT HERE TO ER AND SHE WILL SEE PT IN ER [facility] PACKED VAGINA PRIOR TO TRANSFER. PATIENT SERVICE COORDINATOR: DR. RODRIGUEZ Allergies and Home Medications Allergies Coded Allergies: ondansetron (Unverified Allergy, Intermediate, 09/19/13) morphine (Unverified Allergy, Mild, 03/11/09) sumatriptan (Unverified Allergy, Mild, 03/11/09) Sulfa (Sulfonamide Antibiotics) (Verified Allergy, Unknown, Throat swelling, Hives, 06/18/16) latex (Unverified Allergy, Unknown, 09/19/13) meperidine (Verified Allergy, Unknown, Itching (PT HAS RECEIVED FENTANYL W /O ISSUE), 07/08/16) Home Medications Albuterol Sulfate 1 Puff Puff, 2 PUFF IH Q4H PRN for SHORTNESS OF BREATH, ( Reported) 1 PUFF = 90 MCG Biotin 10,000 Mcg Capsule, 10,000 MCG PO DAILY, (Reported) Calcium Carb/D3/Magnesium/Zinc 1 Each Tablet, 1 EACH PO DAILY, (Reported) Cetirizine HCl 10 Mg Capsule, 10 MG PO DAILY, (Reported) Cholecalciferol (Vitamin D3) 5,000 Unit Capsule, 5,000 UNIT PO DAILY, (Reported) Chromium/Herbal Complex No.238 1 Each Tablet, 1 EACH PO DAILY, (Reported) Cranberry Fruit 500 Mg Tab.chew, 500 MG PO BID, (Reported) Docusate Sodium 100 Mg Capsule, 100 MG PO BID PRN for CONSTIPATION-1ST LINE Prescribed by: FRANK RODRIGUEZ on 01/13/18 09 Hydrocodone Bit/Acetaminophen 1 Ea Tablet, 1-2 EA PO Q6H PRN for PAIN-MODERATE TO SEVERE Prescribed by: FRANK RODRIGUEZ on 01/13/18908 Ibuprofen 600 Mg Tablet, 600 MG PO Q6H PRN for PAIN-MILD Prescribed by: FRANK RODRIGUEZ on 01/13/18 09 Lamotrigine 200 Mg Tab, 200 MG PO DAILY, (Reported) Lurasidone HCl 60 Mg Tablet, 60 MG PO DAILY, (Reported) Metformin HCl 500 Mg Tablet, 500 MG PO BID, (Reported) Nortriptyline HCl 10 Mg Capsule, 30 MG PO HS, (Reported) Pantoprazole Sodium 40 Mg Tablet.dr, 40 MG PO DAILY, (Reported) Phenazopyridine HCl 200 Mg Tablet, 1 TAB PO TID Prescribed by: FRANK RODRIGUEZ on 01/13/18 1013 Potassium Gluconate 99 Mg Tablet, 99 MG PO DAILY, (Reported) Pregabalin 100 Mg Capsule, 100 MG PO BID, (Reported) Pregabalin 75 Mg Capsule, 75 MG PO BID, (Reported) Rivaroxaban 2.5 Mg Tablet, 2.5 MG PO DAILY, (Reported) Patient Home Medication List Home Medication List Reviewed: Yes Review of Systems Review of Systems Constitutional: no symptoms reported Gastrointestinal: see HPI Genitourinary: see HPI Musculoskeletal: see HPI Skin: no symptoms reported Psychiatric/Neurological: No Symptoms Reported Hematologic/Lymphatic: See HPI Past Dktqmbf-Iotlov-Fekjrs Hx Patient Social History Alcohol Use: Occasionally Uses Recreational Drug Use: Yes (THC) Drug of Choice: THC Smoking Status: Current Everyday Smoker (1 PPD) Type Used: Cigarettes 2nd Hand Smoke Exposure: Yes Recent Foreign Travel: No Contact w/Someone Who Travel: No Recent Infectious Disease Expo: No Recent Hopitalizations: No Physical Abuse: No Sexual Abuse: No Immunizations Up To Date Tetanus Booster (TDap): Less than 5yrs Seasonal Allergies Seasonal Allergies: Yes Past Medical History Surgeries: Yes (r rotator cuff, r carpal tunnel, BILAT KNEE SCOPES X 3 TOTAL. 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 ) Arthritis, Fibromyalgia, Chronic Back Pain Endocrine: Yes (OBESITY) Loss of Vision: Bilateral Hearing Impairment: Denies Cancer: No Psychosocial: Yes Anxiety, PTSD, Bipolar, Depression Integumentary: No Blood Disorders: Yes (protein C deficiency, BLOOD CLOT CAUSED MISCARRIAGE) Adverse Reaction/Blood Tranf: No Family Medical History Alcoholism 19 MOTHER Diabetes mellitus 19 MOTHER MATERNAL GRANDFATHER FH: heart disease MATERNAL GRANDMOTHER MATERNAL GRANDFATHER FH: hyperlipidemia 19 MOTHER FH: mental illness 19 MOTHER MATERNAL GRANDMOTHER MATERNAL GRANDFATHER FH: migraine headache 19 MOTHER MATERNAL GRANDMOTHER FH: ovarian cancer 19 MOTHER MATERNAL GRANDMOTHER FH: pancreatic cancer MATERNAL GRANDFATHER FH: stroke MATERNAL GRANDMOTHER MATERNAL GRANDFATHER FH: uterine cancer MATERNAL GRANDMOTHER Hypertension MATERNAL GRANDMOTHER MATERNAL GRANDFATHER No Pertinent Family Hx Physical Exam Vital Signs Vital Signs - First Documented 01/26/18 19:44 Temp 97.3 Pulse 87 Resp 15 B/P (MAP) 147/70 (95) Pulse Ox 100 O2 Delivery Room Air Capillary Refill : Less Than 3 Seconds Height, Weight, BMI Height: 5'2.00" Weight: 201lbs. 8.0oz. 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, no motor/sensory deficits, alert, normal mood/affect, oriented x 3 Skin: warm/dry, pallor Progress/Results/Core Measures Suspected Sepsis Recent Fever Within 48 Hours: No Infection Criteria Present: None New/Unexplained Altered Menta: No Sepsis Screen: No Definite Risk SIRS Temperature:97.3 Pulse: 87 Respiratory Rate: 15 Laboratory Tests 01/26/18 19:49: White Blood Count 12.2H Blood Pressure 147 /70 Mean: 95 Laboratory Tests 01/26/18 19:49: Creatinine 0.82, INR Comment 1.3, Platelet Count 304, Total Bilirubin 0.2 Results/Orders Lab Results Laboratory Tests Test 01/26/18 19:49 Range/Units White Blood Count 12.2 H 4.3-11.0 10^3/uL Red Blood Count 3.74 L 4.35-5.85 10^6/uL Hemoglobin 10.9 L 11.5-16.0 G/DL Hematocrit 32 L 35-52 % Mean Corpuscular Volume 86 80-99 FL Mean Corpuscular Hemoglobin 29 25-34 PG Mean Corpuscular Hemoglobin Concent 34 32-36 G/DL Red Cell Distribution Width 15.4 H 10.0-14.5 % Platelet Count 304 130-400 10^3/uL Mean Platelet Volume 10.5 H 7.4-10.4 FL Neutrophils (%) (Auto) 63 42-75 % Lymphocytes (%) (Auto) 26 12-44 % Monocytes (%) (Auto) 5 0-12 % Eosinophils (%) (Auto) 6 0-10 % Basophils (%) (Auto) 1 0-10 % Neutrophils # (Auto) 7.7 1.8-7.8 X 10^3 Lymphocytes # (Auto) 3.2 1.0-4.0 X 10^3 Monocytes # (Auto) 0.6 0.0-1.0 X 10^3 Eosinophils # (Auto) 0.7 H 0.0-0.3 10^3/uL Basophils # (Auto) 0.1 0.0-0.1 10^3/uL Prothrombin Time 16.2 H 12.2-14.7 SEC INR Comment 1.3 0.8-1.4 Activated Partial Thromboplast Time 33 24-35 SEC Sodium Level 140 135-145 MMOL/L Potassium Level 4.0 3.6-5.0 MMOL/L Chloride Level 107 98-107 MMOL/L Carbon Dioxide Level 22 21-32 MMOL/L Anion Gap 11 5-14 MMOL/L Blood Urea Nitrogen 5 L 7-18 MG/DL Creatinine 0.82 0.60-1.30 MG/DL Estimat Glomerular Filtration Rate > 60 BUN/Creatinine Ratio 6 Glucose Level 79 70-105 MG/DL Calcium Level 8.6 8.5-10.1 MG/DL Corrected Calcium 8.8 8.5-10.1 MG/DL Total Bilirubin 0.2 0.1-1.0 MG/DL Aspartate Amino Transf (AST/SGOT) 15 5-34 U/L Alanine Aminotransferase (ALT/SGPT) 17 0-55 U/L Alkaline Phosphatase 104 40-136 U/L Total Protein 6.6 6.4-8.2 GM/DL Albumin 3.8 3.2-4.5 GM/DL My Orders Orders - JOSSELIN ROLLINS DO Saline Lock/Iv-Start (01/26/18 19:49) Monitor-Rhythm Ecg Trace Only (01/26/18 19:49) Cbc With Automated Diff (01/26/18 19:49) Comprehensive Metabolic Panel (01/26/18 19:49) Protime With Inr (01/26/18 19:49) Partial Thromboplastin Time (01/26/18 19:49) Type And Screen (01/26/18 19:49) Saline Lock/Iv-Start (01/26/18 19:49) Vital Signs/I&O 01/26/18 01/26/18 19:44 20:44 Temp 97.3 97.3 Pulse 87 74 Resp 15 20 B/P (MAP) 147/70 (95) 127/74 (91) Pulse Ox 100 99 O2 Delivery Room Air Room Air Capillary Refill : Less Than 3 Seconds Blood Pressure Mean: 95 Progress Note : Progress Note NO BLEEDING DURING ER STAY Diagnostic Imaging Comments CT PELVIS--NORMAL POST OP CHANGES, WITH NO EVIDENCE OF HEMATOMA OR FREE FLUID-- PER DR. GONZALEZ VIA PHONE AT 2044 Reviewed: Reviewed by Me Departure Communication (Admissions) 1948--CALLED DR. RODRIGUEZ AND INFORMED HER PT WAS HERE 1958--DR. RODRIGUEZ HERE, CARE TURNED OVER TO HER 2045--SPOKE WITH DR. RODRIGUEZ AND ADVISED OF CT RESULTS Impression Primary Impression: POST-HYSTERECTOMY VAGINAL HEMORRHAGE Additional Impression: Acute blood loss anemia Disposition: ADMITTED INPATIENT Condition: Stable Admissions Decision to Admit Reason: Admit from ER (General) Decision to Admit/Date: Jan 26, 2018 Time/Decision to Admit Time: 20:15 Departure-Patient Inst. Referrals: NO,LOCAL PHYSICIAN (PCP/Family) Primary Care Physician JOSSELIN ROLLINS DO Jan 26, 2018 20:28
[2018-01-26] MEDS ORDERED: APAP 325 MG/10.15 ML LIQ (TYLENOL) UDC PO PRN (20:30)
--- NOTE | 2018-01-26 20:47 | Diagnostic Imaging Report ---
PROCEDURE: CT pelvis without contrast. TECHNIQUE: Multiple contiguous axial images were obtained through the pelvis without the use of intravenous contrast. Sagittal and coronal reformations were performed. INDICATION: Vaginal bleeding. TECHNIQUE: Contiguous axial sections were taken through the pelvis. Neither oral or intravenous contrast were administered. Sagittal and coronal reconstructed images were also performed. FINDINGS: By history, the patient has undergone a hysterectomy approximately 2 weeks ago. On this study, the uterus is not visualized. There are rounded soft tissue densities on each side of the pelvis. The soft tissue density on the left measures 2.4 x 2.5 CM while the soft tissue density on the right is estimated to 2.4 x 2.4 cm. These may represent the ovaries. Correlation with the patient's surgical history would be recommended. There is no pelvic mass or free fluid collection to suggest an acute abnormality. There is no sign of a hematoma either. The urinary bladder is grossly unremarkable. The appendix was not well-visualized but there are no indirect signs of acute appendicitis. The bone windows show no evidence for a fracture or for a destructive lesion and appears similar to the prior CT abdomen/pelvis exam of 08/20/2012. IMPRESSION: 1. There are postsurgical changes consistent with a recent hysterectomy. The oval soft tissue densities on each side of the pelvis may be related to the ovaries. Correlation with the patient's surgical history would be recommended. 2. There is no pelvic mass or free fluid collection to suggest an acute abnormality. These results were discussed with Dr. Chavarria in the ER. Dictated by: Dictated on workstation # [id number]
[2018-01-26 21:33] VITALS: BP 151/96
[2018-01-26] MEDS: LACTATED RINGERS 1,000 ML IV SCH (21:33)
[2018-01-26] MEDS: ACETAMINOPHEN 500 MG TAB (TYLENOL) PO SCH (21:33)
[2018-01-26] MEDS ORDERED: NORTRIPTYLINE 10 MG (PAMELOR) CAP PO ONE (21:51)
[2018-01-26] MEDS ORDERED: PREGABALIN 75 MG (LYRICA) CAP ONE (21:57)
[2018-01-26] MEDS ORDERED: PREGABALIN 100 MG (LYRICA) CAPSULE ONE (21:57)
[2018-01-26] MEDS ORDERED: PREGABALIN 25 MG (LYRICA) NON-STOCK STRENGTH PO SCH (22:00)
[2018-01-26] MEDS ORDERED: MIRTAZAPINE 15 MG (REMERON) TAB PO SCH (22:00)
[2018-01-27 00:15] VITALS: BP 122/68
[2018-01-27 04:20] VITALS: BP 115/84
[2018-01-27 05:28] LABS: BASOPHILS % (AUTO) 1 % (0-10); EOSINOPHILS # (AUTO) 0.6 10^3/uL (0.0-0.3); EOSINOPHILS % (AUTO) 8 % (0-10); HEMATOCRIT 31 % (35-52); HEMOGLOBIN 10.3 G/DL (11.5-16.0); LYMPHOCYTES % (AUTO) 28 % (12-44); MEAN CORPUSCULAR HEMOGLOBIN 29 PG (25-34); MEAN CORPUSCULAR HGB CONC 33 G/DL (32-36); MEAN CORPUSCULAR VOLUME 89 FL (80-99); MEAN PLATELET VOLUME 10.7 FL (7.4-10.4); MONOCYTES # (AUTO) 0.4 X 10^3 (0.0-1.0); MONOCYTES % (AUTO) 5 % (0-12); NEUTROPHILS # (AUTO) 4.2 X 10^3 (1.8-7.8); NEUTROPHILS % (AUTO) 59 % (42-75); PLATELET COUNT 299 10^3/uL (130-400); RED BLOOD COUNT 3.54 10^6/uL (4.35-5.85); RED CELL DISTRIBUTION WIDTH 15.5 % (10.0-14.5); WHITE BLOOD COUNT 7.2 10^3/uL (4.3-11.0)
[2018-01-27] MEDS: LACTATED RINGERS 1,000 ML IV SCH (05:30)
[2018-01-27 05:45] LABS: ALANINE AMINOTRANSFERASE 18 U/L (0-55); ALBUMIN 3.6 GM/DL (3.2-4.5); ALKALINE PHOSPHATASE 95 U/L (40-136); BILIRUBIN,TOTAL 0.3 MG/DL (0.1-1.0); BUN/CREATININE RATIO 7; CALCIUM 8.6 MG/DL (8.5-10.1); CARBON DIOXIDE 20 MMOL/L (21-32); CHLORIDE 108 MMOL/L (98-107); CREATININE SERUM 0.73 MG/DL (0.60-1.30); GFR ESTIMATED > 60; GLUCOSE 95 MG/DL (70-105); POTASSIUM 4.1 MMOL/L (3.6-5.0); SODIUM 138 MMOL/L (135-145); TOTAL PROTEIN 6.1 GM/DL (6.4-8.2)
--- NOTE | 2018-01-27 06:40 | History & Physical-Surgical ---
HPO-Surgical History of Present Illness Chief Complaint: PAtient seen and examined at 1930 on 01/26/18 - This is a 27 years old who is 2 week s/p hysterectomy (01/12). 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 She has had successful pregnancies since with anticoagulation on Heparin for one of these (she was anticoagulated because the labs had not been confirmed). Then had another on just aspirin because she had never had DVT or PE. However, after her last in 2016, she had "micro clots" diagnosed through the [facility]. I still have not seen those labs. However, she was placed on Xarelto at that time. She then began having menorrhagia with excessive bleeding. She was not a candidate for other conservative treatment becuase it had either been tried and failed or was contraindicated with the possible history of thrombophilia. It was discussed that she was to follow up with a hematology consult once she was through the immediate post operative period. She did restart her Xarelto (she is taking 2.5 mg daily). She states that she has done well following her surgery. She was seen last week in the office by Piper Bliss APRN and had brownish discharge only. No abnormal pain, bleeding, urinary or bowel complaints She states that on 01/26/18, she was using the bathroom (voiding, no straining) and she began bleeding heaviely. She called the office because she had passed some small clots and soaked through pads, and was scheduled for Thursday but the bleeding became heavier and she was instructed to go to the ED. She went to the [facility] becuase it was closer. I received a call from the ED and The PA there stated he could not find a bleeding area but had suctioned at least 1 liter from the vagina. He transferred the patient to our ED after packing the vagina. Her hemoglobin was 13. ED note - Pt arrived via EMS as a transfer from [facility]. Pt reports having a hysterectomy on January 12. Pt reports using restroom today and noticed blood when wiping. Pt reports then passing a clot and "blood then began gushing." Pt reports soaking through a pad every 30 minutes, and passing large clots. Pt c/o back, hip and abdominal pain. Diagnosis/Surgical Indication: Post operative vaginal bleeding Procedure: Possible EUA and evacuation of vaginal cuff hematoma Weight (Pounds): 201 Weight (Ounces): 8.0 Height (Feet): 5 Height (Inches): 2.00 Allergies and Home Medications Allergies Coded Allergies: ondansetron (Unverified Allergy, Intermediate, 09/19/13) morphine (Unverified Allergy, Mild, 03/11/09) sumatriptan (Unverified Allergy, Mild, 03/11/09) Sulfa (Sulfonamide Antibiotics) (Verified Allergy, Unknown, Throat swelling, Hives, 06/18/16) latex (Unverified Allergy, Unknown, 09/19/13) meperidine (Verified Allergy, Unknown, Itching (PT HAS RECEIVED FENTANYL W /O ISSUE), 07/08/16) Home Medications Albuterol Sulfate 1 Puff Puff, 2 PUFF IH Q4H PRN for SHORTNESS OF BREATH, ( Reported) 1 PUFF = 90 MCG Biotin 10,000 Mcg Capsule, 10,000 MCG PO DAILY, (Reported) Calcium Carb/D3/Magnesium/Zinc 1 Each Tablet, 1 EACH PO DAILY, (Reported) Cetirizine HCl 10 Mg Capsule, 10 MG PO DAILY, (Reported) Cholecalciferol (Vitamin D3) 5,000 Unit Capsule, 5,000 UNIT PO DAILY, (Reported) Chromium/Herbal Complex No.238 1 Each Tablet, 1 EACH PO DAILY, (Reported) Cranberry Fruit 500 Mg Tab.chew, 500 MG PO BID, (Reported) Docusate Sodium 100 Mg Capsule, 100 MG PO BID PRN for CONSTIPATION-1ST LINE Prescribed by: FRANK RODRIGUEZ on 01/13/18908 Hydrocodone Bit/Acetaminophen 1 Ea Tablet, 1-2 EA PO Q6H PRN for PAIN-MODERATE TO SEVERE Prescribed by: FRANK RODRIGUEZ on 01/13/18908 Ibuprofen 600 Mg Tablet, 600 MG PO Q6H PRN for PAIN-MILD Prescribed by: FRANK RODRIGUEZ on 01/13/18908 Lamotrigine 200 Mg Tab, 200 MG PO DAILY, (Reported) Lurasidone HCl 60 Mg Tablet, 60 MG PO DAILY, (Reported) Metformin HCl 500 Mg Tablet, 500 MG PO BID, (Reported) Nortriptyline HCl 10 Mg Capsule, 30 MG PO HS, (Reported) Pantoprazole Sodium 40 Mg Tablet.dr, 40 MG PO DAILY, (Reported) Phenazopyridine HCl 200 Mg Tablet, 1 TAB PO TID Prescribed by: FRANK RODRIGUEZ on 01/13/18 1013 Potassium Gluconate 99 Mg Tablet, 99 MG PO DAILY, (Reported) Pregabalin 100 Mg Capsule, 100 MG PO BID, (Reported) Pregabalin 75 Mg Capsule, 75 MG PO BID, (Reported) Rivaroxaban 2.5 Mg Tablet, 2.5 MG PO DAILY, (Reported) Patient Home Medication List Home Medication List Reviewed: Yes Past Jbezkrx-Jryzen-Kjrvzy Hx Patient Social History Number of Children: 2 Number of living children: 2 Alcohol Use: Occasionally Uses Recreational Drug Use: Yes (THC) Drug of Choice: THC Smoking Status: Current Everyday Smoker (1 PPD; she reports vaping) Type Used: Cigarettes 2nd Hand Smoke Exposure: Yes Recent Foreign Travel: No Contact w/other who traveled: No Recent Hopitalizations: No Recent Infectious Disease Expo: No Immunizations Up To Date Tetanus Booster (TDap): Less than 5yrs Seasonal Allergies Seasonal Allergies: Yes Surgeries Yes (r rotator cuff, r carpal tunnel, BILAT KNEE SCOPES X 3 TOTAL. EGD X 3; LAPAROSCOPY) Adenoidectomy, Section, Gallbladder, Hysterectomy, Orthopedic, Tonsillectomy, Tubal Ligation Respiratory Yes Asthma Cardiovascular Yes (Protein C deficiency WITH HISTORY OF BLOOD CLOTS; FREQUENT SYNCOPE) Angina, Deep Vein Thrombosis (this has not been documented), High Cholesterol, Palpitations, Syncope Neurological Yes (HEAT STROKE-2008; "DAILY MIGRAINES" ; DIZZINESS) Headaches /Migraines, Seizure Disorder Reproductive System Hx Reproductive Disorders: Yes (stillbirth August 2008, PROLAPSE, MENORRHAGIA) Sexually Transmitted Disease: No HIV/AIDS: No Female Reproductive Disorders: Menstrual Problems, Ovarian Cyst, Polycystic Ovarian Dis 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 ) Arthritis, Fibromyalgia, Chronic Back Pain Endocrine History of Endocrine Disorders: Yes (OBESITY) HEENT Loss of Vision: Bilateral Hearing Impairment: Denies Cancer No Psychosocial History of Psychiatric Problem: Yes Behavioral Health Disorders: Anxiety, PTSD, Bipolar, Depression Integumentary History of Skin or Integumenta: No Blood Transfusions History of Blood Disorders: Yes (protein C deficiency, BLOOD CLOT CAUSED MISCARRIAGE) Adverse Reaction to a Blood Tr: No Family Medical History Significant Family History: No Pertinent Family Hx Family Hx: Alcoholism 19 MOTHER Diabetes mellitus 19 MOTHER MATERNAL GRANDFATHER FH: heart disease MATERNAL GRANDMOTHER MATERNAL GRANDFATHER FH: hyperlipidemia 19 MOTHER FH: mental illness 19 MOTHER MATERNAL GRANDMOTHER MATERNAL GRANDFATHER FH: migraine headache 19 MOTHER MATERNAL GRANDMOTHER FH: ovarian cancer 19 MOTHER MATERNAL GRANDMOTHER FH: pancreatic cancer MATERNAL GRANDFATHER FH: stroke MATERNAL GRANDMOTHER MATERNAL GRANDFATHER FH: uterine cancer MATERNAL GRANDMOTHER Hypertension MATERNAL GRANDMOTHER MATERNAL GRANDFATHER Exam Vital Signs Vital Signs 01/27/18 04:20 Temp 98.1 Pulse 81 Resp 18 B/P (MAP) 115/84 (94) Pulse Ox 98 O2 Delivery Room Air Capillary Refill : Less Than 3 Seconds Labs Laboratory Tests Test 01/26/18 19:49 01/27/18 05:20 Range/Units White Blood Count 12.2 H 7.2 4.3-11.0 10^3/uL Red Blood Count 3.74 L 3.54 L 4.35-5.85 10^6/uL Hemoglobin 10.9 L 10.3 L 11.5-16.0 G/DL Hematocrit 32 L 31 L 35-52 % Mean Corpuscular Volume 86 89 80-99 FL Mean Corpuscular Hemoglobin 29 29 25-34 PG Mean Corpuscular Hemoglobin Concent 34 33 32-36 G/DL Red Cell Distribution Width 15.4 H 15.5 H 10.0-14.5 % Platelet Count 304 299 130-400 10^3/uL Mean Platelet Volume 10.5 H 10.7 H 7.4-10.4 FL Neutrophils (%) (Auto) 63 59 42-75 % Lymphocytes (%) (Auto) 26 28 12-44 % Monocytes (%) (Auto) 5 5 0-12 % Eosinophils (%) (Auto) 6 8 0-10 % Basophils (%) (Auto) 1 1 0-10 % Neutrophils # (Auto) 7.7 4.2 1.8-7.8 X 10^3 Lymphocytes # (Auto) 3.2 2.0 1.0-4.0 X 10^3 Monocytes # (Auto) 0.6 0.4 0.0-1.0 X 10^3 Eosinophils # (Auto) 0.7 H 0.6 H 0.0-0.3 10^3/uL Basophils # (Auto) 0.1 0.0 0.0-0.1 10^3/uL Prothrombin Time 16.2 H 12.2-14.7 SEC INR Comment 1.3 0.8-1.4 Activated Partial Thromboplast Time 33 24-35 SEC Sodium Level 140 138 135-145 MMOL/L Potassium Level 4.0 4.1 3.6-5.0 MMOL/L Chloride Level 107 108 H 98-107 MMOL/L Carbon Dioxide Level 22 20 L 21-32 MMOL/L Anion Gap 11 10 5-14 MMOL/L Blood Urea Nitrogen 5 L 5 L 7-18 MG/DL Creatinine 0.82 0.73 0.60-1.30 MG/DL Estimat Glomerular Filtration Rate > 60 > 60 BUN/Creatinine Ratio 6 7 Glucose Level 79 95 70-105 MG/DL Calcium Level 8.6 8.6 8.5-10.1 MG/DL Corrected Calcium 8.8 8.9 8.5-10.1 MG/DL Total Bilirubin 0.2 0.3 0.1-1.0 MG/DL Aspartate Amino Transf (AST/SGOT) 15 15 5-34 U/L Alanine Aminotransferase (ALT/SGPT) 17 18 0-55 U/L Alkaline Phosphatase 104 95 40-136 U/L Total Protein 6.6 6.1 L 6.4-8.2 GM/DL Albumin 3.8 3.6 3.2-4.5 GM/DL General Appearance: Alert, Oriented X3 Respiratory: Clear to Auscultation, Normal Air Movement Cardiovascular: Regular Rate Abdominal: Other (pelvic exam was done and 4 gauze sponges were removed. It was packed tighly. There was only minimal blood on the most proximal sponge. There was no blood in the vault and no evidence of active bleeding. Cuff appeared intact. She had no pain with palpation of the cuff) Psych/Mental Status: Mental Status NL Assessment/Plan Assessment and Plan Post operative vaginal bleeding Anticoagulation due to possible history of thrombophilia (Protein C deficiency) and "microclots". Plan: CT of pelvis was done. Reportedly negative. Will observe tonight and go to OR for exam if she begins bleeding again. Will keep her NPO Admission Diagnosis Admission Status: Observation FRANK RODRIGUEZ DO Jan 27, 2018 06:39
--- NOTE | 2018-01-27 06:54 | Physician Progress Note ---
Progress Note Assessment/Plan Date Seen by Provider: Jan 27, 2018 Events since last exam Patient has been up to the bathroom. She has not had any bleeding. Hemoglobin is stable (10.9 on admission 10.3). Will continue to monitor but do not think OR visit is necessary at this time but do believe that there is a chance for bleeding again. Will consider hematology consult at this time. Vitals Last set of Vitals Signs Vital Signs Date Time Temp Pulse Resp B/P (MAP) Pulse Ox O2 Delivery O2 Flow Rate FiO2 01/27/18 04:20 98.1 81 18 115/84 (94) 98 Room Air Labs Laboratory Tests 01/26/18 19:49: White Blood Count 12.2H, Red Blood Count 3.74L, Hemoglobin 10.9L, Hematocrit 32L , Mean Corpuscular Volume 86, Mean Corpuscular Hemoglobin 29, Mean Corpuscular Hemoglobin Concent 34, Red Cell Distribution Width 15.4H, Platelet Count 304, Mean Platelet Volume 10.5H, Neutrophils (%) (Auto) 63, Lymphocytes (%) (Auto) 26 , Monocytes (%) (Auto) 5, Eosinophils (%) (Auto) 6, Basophils (%) (Auto) 1, Neutrophils # (Auto) 7.7, Lymphocytes # (Auto) 3.2, Monocytes # (Auto) 0.6, Eosinophils # (Auto) 0.7H, Basophils # (Auto) 0.1, Prothrombin Time 16.2H, INR Comment 1.3, Activated Partial Thromboplast Time 33, Sodium Level 140, Potassium Level 4.0, Chloride Level 107, Carbon Dioxide Level 22, Anion Gap 11, Blood Urea Nitrogen 5L, Creatinine 0.82, Estimat Glomerular Filtration Rate > 60 , BUN/Creatinine Ratio 6, Glucose Level 79, Calcium Level 8.6, Corrected Calcium 8.8, Total Bilirubin 0.2, Aspartate Amino Transf (AST/SGOT) 15, Alanine Aminotransferase (ALT/SGPT) 17, Alkaline Phosphatase 104, Total Protein 6.6, Albumin 3.8 01/27/18 05:20: White Blood Count 7.2, Red Blood Count 3.54L, Hemoglobin 10.3L, Hematocrit 31L, Mean Corpuscular Volume 89, Mean Corpuscular Hemoglobin 29, Mean Corpuscular Hemoglobin Concent 33, Red Cell Distribution Width 15.5H, Platelet Count 299, Mean Platelet Volume 10.7H, Neutrophils (%) (Auto) 59, Lymphocytes (%) (Auto) 28 , Monocytes (%) (Auto) 5, Eosinophils (%) (Auto) 8, Basophils (%) (Auto) 1, Neutrophils # (Auto) 4.2, Lymphocytes # (Auto) 2.0, Monocytes # (Auto) 0.4, Eosinophils # (Auto) 0.6H, Basophils # (Auto) 0.0, Sodium Level 138, Potassium Level 4.1, Chloride Level 108H, Carbon Dioxide Level 20L, Anion Gap 10, Blood Urea Nitrogen 5L, Creatinine 0.73, Estimat Glomerular Filtration Rate > 60, BUN/ Creatinine Ratio 7, Glucose Level 95, Calcium Level 8.6, Corrected Calcium 8.9, Total Bilirubin 0.3, Aspartate Amino Transf (AST/SGOT) 15, Alanine Aminotransferase (ALT/SGPT) 18, Alkaline Phosphatase 95, Total Protein 6.1L, Albumin 3.6 Clinical Quality Measures Admission Status Admission Dx Post operative vaginal bleeding Anticoagulation due to possible history of thrombophilia (Protein C deficiency) and "microclots". Plan: CT of pelvis was done. Reportedly negative. Will observe tonight and go to OR for exam if she begins bleeding again. Will keep her NPO FRANK RODRIGUEZ DO Jan 27, 2018 06:54
[2018-01-27 07:45] VITALS: BP 138/81
[2018-01-27] MEDS: ACETAMINOPHEN 500 MG TAB (TYLENOL) PO SCH (08:24)
--- OUTSIDE RECORDS SUMMARY | 2018-01-27 08:26 | XMS REPORT | Encounter Summary ---
Author Author [facility] Organization [facility] Address Unknown Phone Unavailable Care Team Providers Care Party Plan Salesperson Name Role Phone Maricarmen Camacho MD PCP Maricarmen Camacho MD 100 Reason for Visit * Reason Comments Medication Refill Encounter Details Care Team Description Date Type Department Maricarmen Camacho MD [address] [facility] [address] [place] [address] 01/20/2018 Refill [facility] Physicians - Internal Medicine [facility] Level 4B [address] [place] [address] Social History Date Tobacco Use Types Packs/Day Years Used Never Smoker Smokeless Tobacco: Never Used Alcohol Use Drinks/Week oz/Week Comments No Sex Assigned at Date Recorded Not on file Industry Job Start Date Occupation Not on file Not on file Not on file Travel End Travel History Travel Start No recent travel history available. as of this encounter Functional Status Date of Assessment Functional Status Response 11/16/2017 Does the patient have a hearing impairment: No 11/16/2017 Does the patient have a visual impairment: Yes 11/16/2017 Does the patient have impaired ambulation: No 11/16/2017 Does the patient have an activity of daily living No (ADL) impairment: 11/16/2017 Does the patient have an instrumental activity of No daily living (IADL) impairment: Date of Assessment Cognitive Status Response 11/16/2017 Does the patient have a cognitive impairment: No as of this encounter Miscellaneous Notes * Telephone Encounter - Maricarmen Camacho MD - 01/22/2018 11:31 AM BURRING WHEEL OPERATOR I approved refills of the protonix and Xarelto, but not the Lyrica and hydrocodone. I called her pharmacy and she is getting the Lyrica from Dr. Em Fonseca and the hydrocodone from Dr. Tyler. I have concerns about getting controlled substances from different physicians. * Telephone Encounter - Ashley Le LPN - 01/20/2018 2:27 PM BURRING WHEEL OPERATOR Pt called requesting refills of Lyrica 175 mg BID, Xarelto 15 mg in the AM, Protonix 40 mg daily and Hydrocodone 7.5/325 mg BID. Informed pt that hydrocodone and protonix are not on her current medication list. Pt advised that Hydrocodone may not be refilled until NOV. Verbalized understanding. These medications have not been filled by our office. Routing to Dr. Camacho for approval. Ashley Le LPN in this encounter Plan of Treatment Not on fileas of this encounter Visit Diagnoses Not on filein this encounter
--- OUTSIDE RECORDS SUMMARY | 2018-01-27 08:26 | XMS REPORT | Encounter Summary ---
Author Author [facility] Organization [facility] Address Unknown Phone Unavailable Care Team Providers Care Web Merchant Name Role Phone Maricarmen Camacho MD PCP Maricarmen Camacho MD 100 Reason for Referral * Radiology Services (Routine) Referred By Contact Referred To Contact Status Reason Specialty Diagnoses / [place] [address] [place] [address] [address] [place], [place] [facility] [facility] [address] [place] [address] Closed Radiology Diagnoses Status migrainosus P rocedures MRI HEAD WO/W CONTRAST * Radiology Services (Routine) Referred By Contact Referred To Contact Status Reason Specialty Diagnoses / Procedures Emil Collins MD [address] [facility] [address] [place] [address] [employer] [address] [place] [address] Closed Radiology Diagnoses Status migrainosus P rocedures MRI HEAD WO/W CONTRAST Reason for Visit * Radiology Services (Routine) Referred By Contact Referred To Contact Status Reason Specialty Diagnoses / Procedures Emil Collins MD [address] [facility] [address] [place] [address] [employer] [address] [place] [address] Closed Radiology Diagnoses Status migrainosus P rocedures MRI HEAD WO/W CONTRAST Encounter Details Care Team Description Date Type Department Emil Collins MD [address] [place] [address] [phone] 11/18/2017 [facility] Encounter [facility] [address] [place] [address] Social History Date Tobacco Use Types Packs/Day [...] cognitive impairment: No as of this encounter Medications at Time of Discharge Start Date End Date Medication Sig Dispensed Refills albuterol (PROAIR HFA, Inhale 2 0 VENTOLIN HFA, OR puffs by PROVENTIL HFA) 90 mouth into mcg/actuation inhaler the lungs every 6 hours as needed for Wheezing or Shortness of Breath. Shake well before use. BIOTIN PO Take 1 0 capsule by mouth daily. [id number]-[id number]-QVVL PO Take 1 0 capsule by mouth daily. cetirizine (ZYRTEC) 10 mg Take 10 mg by 0 tablet mouth every morning. cholecalciferol (VITAMIN Take 5,000 0 D-3) 1,000 units tablet Units by mouth daily. cranberry fruit extract Take 1 0 (CRANBERRY EXTRACT PO) capsule by mouth twice daily. lamoTRIgine (LAMICTAL) Take 200 mg 0 200 mg tablet by mouth at bedtime daily. lurasidone (LATUDA) 20 mg Take 60 mg by 0 tablet mouth at bedtime daily. norethindrone(+) Take 5 mg by 0 (AYGESTIN) 5 mg tab mouth daily. pregabalin (LYRICA) 100 Take 175 mg 0 mg capsule by mouth twice daily. topiramate (TOPAMAX) 200 Take 200 mg 0 mg tablet by mouth every 12 hours. vitamins, B complex tab Take 1 tablet 0 by mouth daily. vitamins, multi B, C, Zn Take 1 tablet 0 & folate (Renal) by mouth (NEPHPLEX RX) daily. 1-60-300-12.5 ob-xw-epb-mg tab 11/06/2017 12/08/2017 nortriptyline (PAMELOR) Take one 90 capsule 1 10 mg capsuleIndications: capsule by Migraine preventative mouth at bedtime daily. 01/20/2018 rivaroxaban (XARELTO) 15 Take 15 mg by 0 mg tablet mouth daily. Take with food. as of this encounter Plan of Treatment Not on fileas of this encounter Procedures Comments Procedure Name Priority Date/Time Associated Diagnosis MRV HEAD WO/W CONTRAST Routine 11/18/2017 Status migrainosus 3:24 PM CDT MRI HEAD WO/W CONTRAST Routine 11/18/2017 Status migrainosus 3:24 PM CDT in this encounter Results * MRI HEAD WO/W CONTRAST (11/18/2017 3:24 PM CDT) Impressions Performed At MR brain: [facility] [...] after the administration of MultiHance contrast. 2-D rmwk-mf-vrtieh images were obtained of the cerebral veins [...] the administration of MultiHance contrast. 2 -D bqnc-bi-jauxkg images were obtained of the cerebral veins [...] intractable migraine without mention of status migrainosus in this encounter Administered Medications Action Date Dose Rate Site Medication Order MAR Action 11/18/2017 3:30 PM CDT 10 mL gadobenate dimeglumine (MULTIHANCE) Given injection 10 mL 10 mL, Intravenous, ONCE, 1 dose, 11/18/17 at 1530, NOTE: This is a HIGH ALERT Medication., in this encounter
--- OUTSIDE RECORDS SUMMARY | 2018-01-27 08:26 | XMS REPORT | Encounter Summary ---
Author Author [facility] Organization [facility] Address Unknown Phone Unavailable Care Team Providers Care Supply Room Clerk Name Role Phone Maricarmen Camacho MD PCP Maricarmen Camacho MD 100 Encounter Details Care Team Description Date Type Department Maricarmen Camacho MD [address] [facility] [address] [place] [address] 12/02/2017 Orders Only [facility] Physicians - Internal Medicine [facility] Level 4B [address] [place] [address] Social History Date Tobacco Use [...] cognitive impairment: No as of this encounter Plan of Treatment Not on fileas of this encounter Procedures Comments Procedure Name Priority Date/Time Associated Diagnosis HM PAP SMEAR WITH HPV Routine 10/13/2017 in this encounter Results * HM PAP SMEAR WITH HPV (10/13/2017) Narrative Performed At Performing Organization Address City/State/Zipcode Phone Number IN CLINIC in this encounter Visit Diagnoses Not on filein this encounter
--- OUTSIDE RECORDS SUMMARY | 2018-01-27 08:26 | XMS REPORT | Encounter Summary ---
Author Author [facility] Organization [facility] Address Unknown Phone Unavailable Care Team Providers Care Apprentice Painter Neckties Name Role Phone Maricarmen Camacho MD PCP Maricarmen Camacho MD 100 Reason for Referral * Radiology Services (Routine) Referred By Contact Referred To Contact Status Reason Specialty Diagnoses / Procedures Efraín Smith MD [address] [place] [address] [facility] [address] [place] [id number] Authorized Radiology Diagnoses Status migrainosus P rocedures MRV HEAD WO/W CONTRAST MRV HEAD W CONTRAST * Radiology Services (Routine) Referred By Contact Referred To Contact Status Reason Specialty Diagnoses / Procedures Efraín Smith MD [address] [place] [address] [facility] [address] [place] [address] Authorized Radiology Diagnoses Status migrainosus P rocedures MRV HEAD WO/W CONTRAST MRV HEAD W CONTRAST Reason for Visit * Radiology Services (Routine) Referred By Contact Referred To Contact Status Reason Specialty Diagnoses / Procedures Efraín Smith MD [address] [place] [address] [facility] [address] [place] [address] Authorized Radiology Diagnoses Status migrainosus P rocedures MRV HEAD WO/W CONTRAST MRV HEAD W CONTRAST Encounter Details Care Team Description Date Type Department Emil Collins MD [address] [place] [address] [phone] 11/18/2017 Hospital [facility] Encounter [facility] [address] [place] [address] Social History Date Tobacco Use Types Packs/Day [...] Take 1 0 capsule by mouth daily. [id number] PO Take 1 0 capsule by mouth [...] (Renal) by mouth (NEPHPLEX RX) daily. 1-60-300-12.5 ld-ky-zva-mg tab 11/06/2017 12/08/2017 nortriptyline (PAMELOR) Take one [...] PM CDT in this encounter Results * MRV HEAD WO/W CONTRAST (11/18/2017 3:24 PM CDT) [...] after the administration of MultiHance contrast. 2-D quex-qi-ubcohw images were obtained of the cerebral veins [...] the administration of MultiHance contrast. 2 -D ormn-ck-jtasjk images were obtained of the cerebral veins [...]
--- OUTSIDE RECORDS SUMMARY | 2018-01-27 08:26 | XMS REPORT | Encounter Summary ---
Author Author [facility] Organization [facility] Address Unknown Phone Unavailable Care Team Providers Care Wire Wheeler Name Role Phone Maricarmen Camacho MD PCP Maricarmen Camacho MD 100 Reason for Visit * Reason Comments Medication Refill Encounter Details Care Team Description Date Type Department Emil Collins MD [address] [facility] [address] [place], [place] [id number] 12/08/2017 Refill [facility] Physicians-Neurology [facility] [address] [place] [address] Social History Date Tobacco Use Types Packs/Day [...]
--- OUTSIDE RECORDS SUMMARY | 2018-01-27 08:26 | XMS REPORT | Encounter Summary ---
Author Author [facility] Organization [facility] Address Unknown Phone Unavailable Care Team Providers Care Anesthetist Name Role Phone Maricarmen Camahco MD PCP Maricarmen Camacho MD 100 Reason for Referral * Radiology Services (Routine) Referred By Contact Referred To Contact Status Reason Specialty Diagnoses / Procedures Emil Collins MD [address] [place] [address] [address] [place] [address] New Request Radiology Diagnoses Status migrainosus P rocedures CTA NECK WO/W CONTRAST+POST P * Radiology Services (Routine) Referred By Contact Referred To Contact Status Reason Specialty Diagnoses / Procedures Emil Collins MD [address] [place] [address] [address] [place] [address] New Request Radiology Diagnoses Status migrainosus P rocedures CTA NECK WO/W CONTRAST+POST P * Radiology Services (Routine) Referred By Contact Referred To Contact Status Reason Specialty Diagnoses / Procedures Emil Collins MD [address] [place] [address] [address] [place] [address] [place] [address] Denied Radiology Diagnoses Status migrainosus P rocedures CTA HEAD WO/W CONTR+POST PRO CHG CT ANGIOGRAPHY NECK W/CONTRAST/NONCONT RAST * Radiology Services (Routine) Referred By Contact Referred To Contact Status Reason Specialty Diagnoses / Procedures Emil Collins MD [address] [facility] [address] [place] [address] [place] [address] Denied Radiology Diagnoses Status migrainosus P rocedures CTA HEAD WO/W CONTR+POST PRO CHG CT ANGIOGRAPHY NECK W/CONTRAST/NONCONT RAST Reason for Visit * Radiology Services (Routine) Referred By Contact Referred To Contact Status Reason Specialty Diagnoses / Procedures Emil Collins MD [address] [facility] [address] [place] [address] [place] [address] Denied Radiology Diagnoses Status migrainosus P rocedures CTA HEAD WO/W CONTR+POST PRO CHG CT ANGIOGRAPHY NECK W/CONTRAST/NONCONT RAST Encounter Details Care Team Description Date Type Department Emil Collins MD [address] [facility] [address] [place] [address] [phone] Canceled (Patient-Personal) 11/18/2017 Hospital [facility] Encounter [place] [facility] [address] [place] [address] Social History Date Tobacco Use Types Packs/Day [...] Take 1 0 capsule by mouth daily. [id number] PO Take 1 0 capsule by mouth [...] (Renal) by mouth (NEPHPLEX RX) daily. 1-60-300-12.5 cr-hq-vuy-mg tab 11/06/2017 12/08/2017 nortriptyline (PAMELOR) Take one 90 capsule 1 10 mg capsuleIndications: capsule by Migraine preventative mouth at bedtime daily. 01/20/2018 rivaroxaban (XARELTO) 15 Take 15 mg by 0 mg tablet mouth daily. Take with food. as of this encounter Plan of Treatment Order Schedule Name Priority Associated Diagnoses 1 Occurrences starting 11/18/2017 until 11/18/2017 CTA HEAD WO/W CONTR+POST PRO Routine Status migrainosus 1 Occurrences starting 11/18/2017 until 11/18/2017 CTA NECK WO/W CONTRAST+POST P Routine Status migrainosus as of this encounter Visit Diagnoses Diagnosis Status migrainosus Variants of migraine, not elsewhere classified, without mention of intractable migraine without mention of status migrainosus in this encounter
--- OUTSIDE RECORDS SUMMARY | 2018-01-27 08:26 | XMS REPORT | Clinical Summary ---
Author Author [facility] Organization [facility] Address Unknown Phone Unavailable Care Team Providers Care Transcriptionist Name Role Phone Mariacrmen Camacho MD PCP Maricarmen Camacho MD 100 Source Comments Some departments are not documenting in the electronic medical record. If you do not see the information that you expected, contact Release of Information in the Health Information Management department at [phone] for further assistance in locating additional records.[facility] Allergies Comments Active Allergy Reactions Severity Noted Date Swelling at the site of adhesive tape if left on skin too long. Adhesive Tape (Rosins) SEE COMMENTS, High 11/16/2017 BLISTERS Latex, Natural Rubber ITCHING, High 11/16/2017 BLISTERS Morphine MUSCLE PAIN Medium 10/01/2017 Sulfa (Sulfonamide HIVES Medium 10/01/2017 Antibiotics) Allergy recorded in SMS: IMITREX Sumatriptan SHORTNESS OF Medium 01/02/2005 BREATH Medications End Date Status Medication Sig Dispensed Refills Start Date Active pregabalin (LYRICA) 100 Take 175 mg 0 mg capsule by mouth twice daily. Active albuterol (PROAIR HFA, Inhale 2 0 VENTOLIN HFA, OR puffs by PROVENTIL HFA) 90 mouth into mcg/actuation inhaler the lungs every 6 hours as needed for Wheezing or Shortness of Breath. Shake well before use. Active lamoTRIgine (LAMICTAL) Take 200 mg 0 200 mg tablet by mouth at bedtime daily. Active lurasidone (LATUDA) 20 mg Take 60 mg by 0 tablet mouth at bedtime daily. Active cetirizine (ZYRTEC) 10 mg Take 10 mg by 0 tablet mouth every morning. Active vitamins, B complex tab Take 1 tablet 0 by mouth daily. Active vitamins, multi B, C, Zn Take 1 tablet 0 & folate (Renal) by mouth (NEPHPLEX RX) daily. 1-60-300-12.5 ej-ft-tqd-mg tab Active topiramate (TOPAMAX) 200 Take 200 mg 0 mg tablet by mouth every 12 hours. Active norethindrone(+) Take 5 mg by 0 (AYGESTIN) 5 mg tab mouth daily. Active BIOTIN PO Take 1 0 capsule by mouth daily. Active JHDBYBE-ILLBCSTAU-RZFD PO Take 1 0 capsule by mouth daily. Active cholecalciferol (VITAMIN Take 5,000 0 D-3) 1,000 units tablet Units by mouth daily. Active cranberry fruit extract Take 1 0 (CRANBERRY EXTRACT PO) capsule by mouth twice daily. Active nortriptyline (PAMELOR) Take three 270 capsule 3 10 mg capsuleIndications: caps @ 8 Migraine preventative bedtime Active pantoprazole DR Take one 90 tablet 1 (PROTONIX) 40 mg tablet tablet by 8 mouth daily. Active rivaroxaban (XARELTO) 15 Take one 90 tablet 1 mg tablet tablet by 8 mouth daily with breakfast. Take with food. 01/20/2018 Discontinued rivaroxaban (XARELTO) 15 Take 15 mg by 0 mg tablet mouth daily. Take with food. Active Problems Problem Noted Date Healthcare maintenance [...] medication contract multiple times Protein C deficiency 11/04/2017 Overview: -Per patient, prior blood clots [...] with neurology already scheduled. Bipolar 1 disorder 11/04/2017 Cervicalgia 10/08/2017 Last Assessment & Plan: [...] patient states she will check with her web operations manager and she has been on multiple steroids [...] and she needs to consult with her adult crossing guard first. I think she will be a good candidate for Botox injection therapy and I will refer her to for assessment. The only caution is the she is now on Xeralto. Encounters Care Team Description Date Type Specialty Maricarmen Camacho MD 01/20/2018 Refill General Internal Medicine Emil Collins MD 12/08/2017 Refill Neurology Maricarmen Camacho MD 12/02/2017 Orders Only General Internal Medicine Emil Collins MD Canceled (Patient-Personal) 11/18/2017 Hospital Radiology Encounter Emil Collins MD 11/18/2017 Hospital Radiology Encounter Emil Collins MD 11/18/2017 Hospital Radiology Encounter Efraín Smith MD Intractable migraine without status migrainosus, unspecified migraine type (Primary Dx) 11/16/2017 Infusion Infusion Jim Pineda RPH 11/10/2017 Orders Only Infusion Maricarmen Camacho MD Lay, Ryan S, MD Status migrainosus (Primary Dx); Intractable migraine with aura with status migrainosus; Cervicalgia; Syncope, unspecified syncope type 11/06/2017 Office Visit Neurology Emil Collins MD 11/06/2017 Orders Only Infusion Emil Collins MD 11/06/2017 Orders Only Infusion Maricarmen Camacho MD Syncope, unspecified syncope type (Primary Dx); Healthcare maintenance; Fibromyalgia; Protein C deficiency (HCC); Menorrhagia with regular cycle; Migraine without status migrainosus, not intractable, unspecified migraine type ; Bipolar 1 disorder (HCC) 11/04/2017 Office Visit General Internal Medicine Cora Botello DO Results (labs and xrays) 10/30/2017 Telephone Rheumatology from Last 3 Months Family History Medical History Relation Name Comments Alcohol abuse Mother Asthma Mother Diabetes Mother Relation Name Status Comments Mother Social History Date Tobacco Use Types Packs/Day Years Used Never Smoker Smokeless Tobacco: Never Used Alcohol Use Drinks/Week oz/Week Comments No Sex Assigned at Date Recorded Not on file Industry Job Start Date Occupation Not on file Not on file Not on file Travel End Travel History Travel Start No recent travel history available. Last Filed Vital Signs Time Taken Vital Sign Reading 11/16/2017 1:11 PM CDT Blood Pressure 132/88 11/16/2017 1:11 PM CDT Pulse 70 11/16/2017 1:11 PM CDT Temperature 36.5 C (97.7 F) 11/04/2017 1:18 PM CDT Respiratory Rate 17 11/16/2017 1:11 PM CDT Oxygen Saturation 100% - Inhaled Oxygen - Concentration 11/16/2017 5:25 PM CDT Weight 89.4 kg (197 lb) 11/16/2017 5:25 PM CDT Height 157.5 cm (5' 2") 11/16/2017 5:25 PM CDT Body Mass Index 36.03 Plan of Treatment Health Maintenance Due Date Last Done Comments DTAP/TDAP VACCINES (1 - 2006 Tdap) INFLUENZA VACCINE 09/16/2017 PHYSICAL (COMPREHENSIVE) 10/13/2018 10/13/2017 (Previously completed) EXAM CERVICAL CANCER SCREENING 10/13/2020 10/13/2017, 10/13/2017 (Previously completed) HIV SCREENING Addressed 02/17/2016 (Previously completed) Overridden with the intention of not completing the topic Procedures Comments Procedure Name Priority Date/Time Associated Diagnosis MRV HEAD WO/W CONTRAST Routine 11/18/2017 Status migrainosus 3:24 PM CDT MRI HEAD WO/W CONTRAST Routine 11/18/2017 Status migrainosus 3:24 PM CDT POC CREATININE, RAD 11/16/2017 2:28 PM CDT DE ECG ROUTINE ECG Routine 11/04/2017 Syncope, unspecified W/LEAST 12 LDS W/I&R syncope type from Last 3 Months Results * MRV [...] after the administration of MultiHance contrast. 2-D klse-mf-hvdzwe images were obtained of the cerebral veins [...] the administration of MultiHance contrast. 2 -D znoo-bw-xupfwi images were obtained of the cerebral veins [...] after the administration of MultiHance contrast. 2-D zdbc-hb-plhlww images were obtained of the cerebral veins [...] the administration of MultiHance contrast. 2 -D ethi-xc-uafvso images were obtained of the cerebral veins [...] RESULTS * POC CREATININE, RAD (11/16/2017 2:28 PM CDT) Creatinine, POC 0.6 0.4 - 1.00 MG/DL [facility] Performing Organization Address [facility] Phone Number [facility] [address] [place] [address] * DE ECG ROUTINE ECG W/LEAST 12 LDS W/I&R (11/04/2017) Narrative Performed At Performing Organization Address City/State/Zipcode Phone Number IN CLINIC from Last 3 Months Insurance Payer Benefit Subscriber ID Type Phone Address Plan / Group [employer] [place] [employer] xxxxxxxxxxx Medicaid STATE HE[employer] Advance Directives Patient has advance care planning documents on file. For more information, please contact: [facility] [address] [place] [address]
--- OUTSIDE RECORDS SUMMARY | 2018-01-27 08:27 | XMS REPORT | Encounter Summary ---
Author Author [facility] Organization [facility] Address Unknown Phone Unavailable Care Team Providers Care Early Childhood Aide Classroom Name Role Phone Maricarmen Camacho MD PCP Maricarmen Camacho MD 100 Reason for Visit * Reason Comments Infusion Therapy * Treatment (Routine) Referred By Contact Referred To Contact Status Reason Specialty Diagnoses / Procedures Emil Collins MD [address] [facility] [address] [place] [address] [facility] Infusion Cl [address] [place] [address] Closed Diagnoses Intractable migraine without status migrainosus, unspecified migraine type P rocedures HEADACHE Encounter Details Care Team Description Date Type Department Lay, Efraín Ramos MD [address] [place] [address] Intractable migraine without status migrainosus, unspecified migraine type (Primary Dx) 11/16/2017 Infusion Infusion Therapy Clinic - [facility] [address] [place] [address] Social History Date Tobacco Use Types Packs/Day Years Used Never Smoker Smokeless Tobacco: Never Used Alcohol Use Drinks/Week oz/Week Comments No Sex Assigned at Date Recorded Not on file Industry Job Start Date Occupation Not on file Not on file Not on file Travel End Travel History Travel Start No recent travel history available. as of this encounter Last Filed Vital Signs Time Taken Vital Sign Reading 11/16/2017 1:11 PM CDT Blood Pressure 132/88 11/16/2017 1:11 PM CDT Pulse 70 11/16/2017 1:11 PM CDT Temperature 36.5 C (97.7 F) - Respiratory Rate - 11/16/2017 1:11 PM CDT Oxygen Saturation 100% - Inhaled Oxygen - Concentration 11/16/2017 1:11 PM CDT Weight 92.1 kg (203 lb) 11/16/2017 1:11 PM CDT Height 157.5 cm (5' 2") 11/16/2017 1:11 PM CDT Body Mass Index 37.13 in this encounter Functional Status Date of Assessment [...] cognitive impairment: No as of this encounter Progress Notes * Zabrina Osuna RN - 11/16/2017 1:15 PM CDT Pt states her headache is better. Pain went from an 8 to a 10 (pain scale 1-10) . "The pressure behind my eyes is gone." in this encounter Plan of Treatment Order Schedule Name Priority Associated Diagnoses Ordered: 11/16/2017 POC CREATININE Routine Intractable migraine without status migrainosus, unspecified migraine type as of this encounter Procedures Comments Procedure Name Priority Date/Time Associated Diagnosis POC CREATININE, RAD 11/16/2017 2:28 PM CDT in this encounter Results * POC CREATININE, RAD (11/16/2017 2:28 PM CDT) Creatinine, POC 0.6 0.4 - 1.00 MG/DL [facility] Performing Organization Address City/State/Zipcode Phone Number MAIN LAB [address] [place] [address] in this encounter Visit Diagnoses Diagnosis Intractable migraine without status migrainosus, unspecified migraine type - Primary in this encounter Administered Medications Action Date Dose Rate Site Medication Order MAR Action 11/16/2017 1:48 PM CDT 25 mg diphenhydrAMINE (BENADRYL) injection 25 Given mg 25 mg, Intravenous, ONCE, 1 dose, 11/16/17 at 1400, Administer first. Administer slow IV push., 11/16/2017 2:56 PM CDT 15 mg ketorolac (TORADOL) injection 15 mg Given 15 mg, Intravenous, ONCE, 1 dose, Thu11/16/17 at 1430, Administer last. Administer IV push over 15 seconds., 11/16/2017 2:14 PM CDT 1 g 300 mL/hr magnesium sulfate 1 g/D5W 100 mL IVPB Given - New 1 g, Intravenous, 100 mL, Administer Bag over 20 Minutes, ONCE, 1 dose, Thu11/16/17 at 1400, Administer after Prochlorperazine., 11/16/2017 1:44 PM CDT 10 mg prochlorperazine (COMPAZINE) injection Given 10 mg 10 mg, Intravenous, ONCE, 1 dose, Thu11/16/17 at 1400, Administer after Diphenhydramine. Administer slow IV push. PROTECT FROM LIGHT -- May be given undiluted, or each 5mg may be diluted with 9 mL of NS to facilitate titration., 11/16/2017 1:41 PM CDT 500 mL 999 mL/hr sodium chloride 0.9 % infusion Given - New 500 mL, 500 mL, Intravenous, at 999 Bag mL/hr, BOLUS, 1 dose, Thu11/16/17 at 1330 in this encounter
--- OUTSIDE RECORDS SUMMARY | 2018-01-27 08:27 | XMS REPORT | Encounter Summary ---
Author Author [facility] Organization [facility] Address Unknown Phone Unavailable Care Team Providers Care Entry Level Account Executive Name Role Phone Maricarmen Camacho MD PCP Maricarmen Camacho MD 100 Encounter Details Care Team Description Date Type Department Jim Pineda [facility] 11/10/2017 Orders Only Infusion Therapy Clinic - [place] [address] [place] [address] Social History Date Tobacco Use Types Packs/Day Years Used Never Smoker Smokeless Tobacco: Never Used Alcohol Use Drinks/Week oz/Week Comments No Sex Assigned at Date Recorded Not on file Industry Job Start Date Occupation Not on file Not on file Not on file Travel End Travel History Travel Start No recent travel history available. as of this encounter Plan of Treatment Not on fileas of this encounter Visit Diagnoses Not on filein this encounter
--- OUTSIDE RECORDS SUMMARY | 2018-01-27 08:27 | XMS REPORT | Encounter Summary ---
Author Author [facility] Organization [facility] Address Unknown Phone Unavailable Care Team Providers Care Firefighter Type One Name Role Phone Em Fonseca DO PCP Reason for Visit * Reason Comments Establish Care Encounter Details Care Team Description Date Type Department Maricarmen Camacho MD [address] [facility] [address] [place] [address] Syncope, unspecified syncope type (Primary Dx); Healthcare maintenance; Fibromyalgia; Protein C deficiency (HCC); Menorrhagia with regular cycle; Migraine without status migrainosus, not intractable, unspecified migraine type ; Bipolar 1 disorder (HCC) 11/04/2017 Office Visit [facility] Physicians - Internal Medicine [facility] Level [address]B [address] [place] [address] Social History Date Tobacco Use [...] Vital Signs Time Taken Vital Sign Reading 11/04/2017 1:18 PM CDT Blood Pressure 135/89 11/04/2017 1:18 PM CDT Pulse 76 11/04/2017 1:18 PM CDT Temperature 36.8 C (98.2 F) 11/04/2017 1:18 PM CDT Respiratory Rate 17 - Oxygen Saturation - - Inhaled Oxygen - Concentration 11/04/2017 1:18 PM CDT Weight 89.5 kg (197 lb 6.4 oz) 11/04/2017 1:18 PM CDT Height 157.5 cm (5' 2.01") 11/04/2017 1:18 PM CDT Body Mass Index 36.1 in this encounter Patient Instructions * Patient Instructions* Maricarmen Camacho MD - 11/04/2017 1:20 PM CDT - It was nice to see you today. - Please call the clinic with any questions or concerns. My nurse is Whitney and her direct phone number is [phone]. If you need an appointment call [phone]. - SET is a secure messaging system available through our electronic medical record. If you would like to sign up, please see the information at the bottom of this sheet. Thank you. Dr. Camacho in this encounter Progress Notes * Maricarmen Camacho MD - 11/04/2017 1:20 PM CDT Subjective: History of Present Illness Tisha Forbes [...] can't take it." - was going to [facility]. They thought spells were related to [...] black out spells. Laid off. 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 FH: [...] PO Take 1 capsule by mouth daily. [id number] PO Take 1 capsule by mouth daily. [...] Comments Procedure Name Priority Date/Time Associated Diagnosis [place] ECG ROUTINE ECG Routine 11/04/2017 Syncope, unspecified W/LEAST 12 LDS W/I&R syncope type in this encounter Visit Diagnoses [...] disorder, most recent episode (or current) unspecified in this encounter
--- OUTSIDE RECORDS SUMMARY | 2018-01-27 08:27 | XMS REPORT | Encounter Summary ---
Author Author [facility] Organization [facility] Address Unknown Phone Unavailable Care Team Providers Care Cat Breeder Name Role Phone Em Fonseca DO PCP Reason for Visit * Reason Comments Results labs and xrays Encounter Details Care Team Description Date Type Department Cora Botello DO [address] [facility] [address] [place], [place] [id number] Results (labs and xrays) 10/30/2017 Telephone [facility] Physicians-Rheumatology [facility] [place], [place] [id number] Social History Date Tobacco Use Types Packs/Day Years Used Never Smoker Smokeless Tobacco: Never Used Alcohol Use Drinks/Week oz/Week Comments No Sex Assigned at Date Recorded Not on file Industry Job Start Date Occupation Not on file Not on file Not on file Travel End Travel History Travel Start No recent travel history available. as of this encounter Miscellaneous Notes * Telephone Encounter - Janeth Thibodeaux RN - 10/30/2017 8:32 AM CDT Called pt and notified her of recommendations and results below. Pt stated understanding. Pt stated that she is seeing an WRECKING SUPERVISOR for her uterine and RH negative issues. Pt stated she is needing a new PCP as she currently does not have one that she trusts. Pt inquiring what to do about her pain management. Notified pt that she could establish with a PCP here at . Pt stated understanding. Pt transferred to scheduling to make an appt and will follow up with her WRECKING SUPERVISOR for now. Pt had no further questions [...]
--- OUTSIDE RECORDS SUMMARY | 2018-01-27 08:27 | XMS REPORT | Encounter Summary ---
Author Author [facility] Organization [facility] Address Unknown Phone Unavailable Care Team Providers Care Typist Name Role Phone Em Fonseca PCP Maricarmen Camacho MD PCP Maricarmen Camacho MD 100 Reason for Referral * Radiology Services (Routine) Referred By Contact Referred To Contact Status Reason Specialty Diagnoses / Procedures Efraín Smith MD [address] [place] [address] [facility] [address] [place] [address] Authorized Radiology Diagnoses Status migrainosus P rocedures MRV HEAD WO/W CONTRAST MRV HEAD W CONTRAST * Radiology Services (Routine) Referred By Contact Referred To Contact Status Reason Specialty Diagnoses / Procedures Emil Collins MD [address] [facility] [address] [place] [address] New Request Radiology Diagnoses Status migrainosus P rocedures CTA NECK WO/W CONTRAST+POST P * Radiology Services (Routine) Referred By Contact Referred To Contact Status Reason Specialty Diagnoses / Procedures Emil Collins MD [address] [facility] [address] [place] [address] [place] [address] Denied Radiology Diagnoses Status migrainosus P rocedures CTA HEAD WO/W CONTR+POST PRO CHG CT ANGIOGRAPHY NECK W/CONTRAST/NONCONT RAST * Radiology Services (Routine) Referred By Contact Referred To Contact Status Reason Specialty Diagnoses / Procedures Emil Collins MD [address] [facility] [address] [place] [address] [facility] [address] [place] [address] Closed Radiology Diagnoses Status migrainosus P rocedures MRI HEAD WO/W CONTRAST Reason for Visit * Reason Comments New Patient Encounter Details Care Team Description Date Type Department Maricarmen Camacho MD [address] [facility] [address] [place] [address] [phone] Efraín Smith MD [address] [place] [address] Status migrainosus (Primary Dx); Intractable migraine with aura with status migrainosus; Cervicalgia; Syncope, unspecified syncope type 11/06/2017 Office Visit [facility] Physicians-Neurology [facility] [address] [place] [address] Social History Date Tobacco Use [...] Vital Signs Time Taken Vital Sign Reading 11/06/2017 8:25 AM CDT Blood Pressure 138/91 11/06/2017 8:25 AM CDT Pulse 76 - Temperature - - Respiratory Rate - - Oxygen Saturation - - Inhaled Oxygen - Concentration 11/06/2017 8:25 AM CDT Weight 90.2 kg (198 lb 12.8 oz) 11/06/2017 8:25 AM CDT Height 157.5 cm (5' 2") 11/06/2017 8:25 AM CDT Body Mass Index 36.36 in this encounter Progress Notes * Emil [...] Smith MD - 11/06/2017 9:00 AM CDT Date of Service: 11/06/2017 Subjective: Tisha Forbes is a 27 y.o. female presenting to clinic alone today for follow up regarding headaches and "black out spells." History of Present IllnessMs. Forbes reports being diagnosed with migraine headaches since she was 11 years old, first headache at age 9. Has been seeing Dr. Bansal out of [place] since 2008 for her headaches. She describes [...] report being diagnosed with "angina" by a Recovery Room Nurse in the past. She reports being told [...] PO Take 1 capsule by mouth daily. [id number] PO Take 1 capsule by mouth daily. [...] Neurology in this encounter Plan of Treatment Order Schedule Name Priority Associated Diagnoses Expected: 11/06/2017 (Approximate), Expires: 11/06/2018 CTA HEAD WO/W CONTR+POST PRO Routine Status migrainosus Expected: 11/06/2017 (Approximate), Expires: 11/06/2018 CTA NECK WO/W CONTRAST+POST P Routine Status migrainosus Ordered: 11/06/2017 INFUSION HEADACHE PROTOCOL Routine Status migrainosus as of this encounter Results * MRV [...] after the administration of MultiHance contrast. 2-D cgqw-kl-accyaw images were obtained of the cerebral veins [...] the administration of MultiHance contrast. 2 -D rpqv-cv-epeilb images were obtained of the cerebral veins [...] after the administration of MultiHance contrast. 2-D bjhl-dt-nlvzbm images were obtained of the cerebral veins [...] the administration of MultiHance contrast. 2 -D tynw-yy-jammox images were obtained of the cerebral veins [...] status migrainosus Cervicalgia Syncope, unspecified syncope type in this encounter
--- OUTSIDE RECORDS SUMMARY | 2018-01-27 08:27 | XMS REPORT | Encounter Summary ---
Author Author [facility] Organization [facility] Address Unknown Phone Unavailable Care Team Providers Care Ironing Worker Name Role Phone Em Fonseca DO PCP Encounter Details Care Team Description Date Type Department Emil Collins MD [address] [place] [address] [phone] 11/06/2017 Orders Only Infusion Therapy Clinic - [facility] [address] [place] [address] Social History Date Tobacco Use Types Packs/Day [...]
--- OUTSIDE RECORDS SUMMARY | 2018-01-27 08:27 | XMS REPORT | Encounter Summary ---
Author Author [facility] Organization [facility] Address Unknown Phone Unavailable Care Team Providers Care Branch Officer Name Role Phone Em Fonseca DO PCP Encounter Details Care Team Description Date Type Department Emil Collins MD [address] [place] [address] [phone] 11/06/2017 Orders Only Infusion Therapy Clinic - [facility] [address] [place] [address] Social History Date Tobacco Use Types Packs/Day [...]
[2018-01-27] MEDS ORDERED: PREGABALIN 100 MG (LYRICA) CAPSULE PO SCH (09:00)
[2018-01-27] MEDS ORDERED: PREGABALIN 75 MG (LYRICA) CAP PO SCH (09:00)
[2018-01-27] MEDS ORDERED: ASPI-808 PO (09:01)
--- OUTSIDE RECORDS SUMMARY | 2018-01-27 09:21 | XMS REPORT | Continuity of Care Document ---
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 OTHER SPECIFIED FACTORS, INI 01/26/2018 LESLY RODRIGUEZ [place] SURVEYOR Ot Y99.8 OTHER EXTERNAL CAUSE STATUS 01/26/2018 DEGRAFFENREID-GONZALEZ, BRITTNEY L Ot R55 SYNCOPE AND COLLAPSE 01/26/2018 [place] FACC, ALI FACP CCDS Ot R00.2 PALPITATIONS 01/26/2018 [place] FACC, ALI FACP CCDS Ot R55 SYNCOPE AND COLLAPSE 01/26/2018 [place] FACC, ALI FACP CCDS Ot R00.2 PALPITATIONS 01/26/2018 [place] FACC, ALI FACP CCDS Ot R55 SYNCOPE AND COLLAPSE 01/26/2018 DEGRAFFENREID-GONZALEZ, BRITTNEY L Ot R55 SYNCOPE AND COLLAPSE 01/26/2018 BRANDAN PAULA APRN Ot 724.5 BACKACHE NOS 01/26/2018 RODRIGUEZ DO, FRANK C Ot N91.2 AMENORRHEA, UNSPECIFIED 01/26/2018 RODRIGUEZ DO, FRANK C Ot 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 01/26/2018 LESLY RODRIGUEZ [place] SURVEYOR Ot 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 01/26/2018 LESLY RODRIGUEZ [place] SURVEYOR Ot X58.XXXA EXPOSURE TO OTHER SPECIFIED FACTORS, INI 01/26/2018 LESLY RODRIGUEZ [place] SURVEYOR Ot Y99.8 OTHER EXTERNAL CAUSE STATUS 01/26/2018 DEGRAFFENREID-GONZALEZ, BRITTNEY L Ot R55 SYNCOPE AND COLLAPSE 01/26/2018 [place] FACC, ALI FACP CCDS Ot R00.2 PALPITATIONS 01/26/2018 [place] FACC, ALI FACP CCDS Ot R55 SYNCOPE AND COLLAPSE 01/26/2018 [place] FACC, ALI FACP CCDS Ot R00.2 PALPITATIONS 01/26/2018 [place] FACC, ALI FACP CCDS Ot R55 SYNCOPE AND COLLAPSE 01/26/2018 DEGRAFFENREID-GONZALEZ, BRITTNEY L Ot R55 SYNCOPE AND COLLAPSE Procedures Code Description Performed By Performed On 73.59 MANUAL ASSIST DELIV NEC 12/16/2011 99621 INR (IN HOUSE) 01/13/2012 98266 INR (IN HOUSE) 02/02/2012 26722 ROUTINE VENIPUNCTURE 03/03/2012 94882 FACTOR 5 03/03/2012 59325 MOLECULE ISOLATE NUCLEIC 03/04/2012 62728 MOLECULAR DIAGNOSTICS 03/04/2012 02620 MOLECULAR DIAGNOSTICS 03/04/2012 66275 MOLECULE MUTATION SCAN 03/04/2012 65607 GENETIC EXAMINATION 03/04/2012 08314 TSH 03/04/2012 63665 CBC 03/04/2012 02395 PROTEIN-C FUNCTION 03/04/2012 39497 PROTEIN-S FUNCTION 03/04/2012 05359 PT/INR 03/04/2012 36901 PTT (THROMBOPLASTIN TIME, PARTIAL) 03/04/2012 84952 CBC 03/04/2012 60147 TSH 03/05/2012 67007 PROTEIN-C FUNCTION 03/09/2012 50937 PROTEIN-S FUNCTION 03/09/2012 52782 PT/INR 03/09/2012 73771 PTT (THROMBOPLASTIN TIME, PARTIAL) 03/09/2012 64377 ROUTINE VENIPUNCTURE 06/16/2012 43073 UA LONG DIP 06/16/2012 41564 A1C (IN-HOUSE) 06/16/2012 36789 CBC 06/16/2012 98864 CMP 06/16/2012 36613 MAGNESIUM 06/16/2012 8394790 GFR CALC (RESULT ONLY) 06/16/2012 99477 TSH 06/16/2012 66666 UA W/ CULTURE IF INDICATED 08/06/2012 56642 ROUTINE VENIPUNCTURE 08/09/2012 63712 XRAY ABDOMEN, 1 VIEW (KUB) 08/09/2012 16516 CREATININE 08/09/2012 42296 BUN 08/09/2012 63266 UA W/ CULTURE IF INDICATED 08/11/[address] ABDOMEN & PELVIS W/O CONTRAST 08/13/2012 92254 INR (IN HOUSE) 09/27/2012 13625 XRAY FOREARM RIGHT 2 VIEWS 12/08/2012 NEUROLOGY SCOTTY, SO 12/08/2012 J2550 PHENERGAN INJECTION UP TO 50 MG 12/11/2012 41474 XRAY SHOULDER RIGHT COMP 2 VIEWS 05/03/2013 20064 ROUTINE VENIPUNCTURE 05/26/2013 2616585 GFR CALC (RESULT ONLY) 05/26/2013 79483 CMP 05/26/2013 73751 CBC 05/26/2013 09809 ROUTINE VENIPUNCTURE 08/10/2013 64088 CBC 08/10/2013 93196 CMP 08/10/2013 2716719 GFR CALC (RESULT ONLY) 08/10/2013 ANAANA BRUNO ANALYZER (SCREEN) 08/11/2013 82821 RA FACTOR 08/11/2013 10369 MYCOPLASMA ANTIBODY 08/11/2013 68065 ROUTINE VENIPUNCTURE 09/13/2013 01257 VITAMIN D 25-HYDROXY (D2,D3 , TOTAL) 09/13/2013 99831 CPK 09/13/2013 20842 VIT B 12 09/13/2013 19428 TSH 09/13/2013 64230 H PYLORI (IN-HOUSE) 09/13/2013 27177 ROUTINE VENIPUNCTURE 09/20/2013 96653 CULTURE URINE 09/20/2013 84337 UA W/ CULTURE IF INDICATED 09/20/20130254551 GFR CALC (RESULT ONLY) 09/20/2013 66172 CMP 09/20/2013 71760 GC/CHLAM URINE (STATE) 11/28/2013 50555 TEST, URINE (IN- HOUSE) 11/28/2013 [id number] EXTRACTION OF POC, LOW CERVICAL, OPEN AP [...] ABO+Rh group ABP NRG Transfusion band number [id number] NRG Blood group antibody screen NEGATIVE NRG [...] - 03/04/17 08:50 Surg Path Sent to [facility] HSV 1/2 ANTIBODY IgM - 07/24/17 [...] 5-8.5 Urine-Protein Negative Negative Urine-RBC Negative Urine-Specific [place] 1.020 1.000-1.030 Urine-WBC Negative Urobilinogen 0.2 E.U./dL 0.2-1.0 MRSA Screen - 11/03/17 12:55 FINAL CULTURE RESULTS MRSA Negative Nasal Culture MEDIA PLATED Setup at 13:51 on 11/03/2017 Test-Serum - 11/12/17 07:56 Preg Test-S Negative Negative Complete blood count (CBC) with automated white blood cell (WBC) differential - 01/08/18 10:50 Blood leukocytes automated count (number/volume) 11.5 10*3/uL 4.3-11.0 Blood erythrocytes automated count (number/volume) 4.60 10*6/uL 4.35-5.85 Venous blood hemoglobin measurement (mass/volume) 13.3 g/dL 11.5-16.0 Blood hematocrit (volume fraction) 41 % 35-52 Automated erythrocyte mean corpuscular volume 88 [foz_us] 80-99 Automated erythrocyte mean corpuscular hemoglobin (mass per erythrocyte) 29 pg 25-34 Automated erythrocyte mean corpuscular hemoglobin concentration measurement ( mass/volume) 33 g/dL 32-36 Automated erythrocyte distribution width ratio 15.2 % 10.0-14.5 Automated blood platelet count (count/volume) 327 10*3/uL 130-400 Automated blood platelet mean volume measurement 11.2 [foz_us] 7.4-10.4 Automated blood neutrophils/100 leukocytes 72 % 42-75 Automated blood lymphocytes/100 leukocytes 19 % 12-44 Blood monocytes/100 leukocytes 8 % 0-12 Automated blood eosinophils/100 leukocytes 2 % 0-10 Automated blood basophils/100 leukocytes 0 % 0-10 Blood neutrophils automated count (number/volume) 8.2 10*3 1.8-7.8 Blood lymphocytes automated count (number/volume) 2.2 10*3 1.0-4.0 Blood monocytes automated count (number/volume) 0.9 10*3 0.0-1.0 Automated eosinophil count 0.2 10*3/uL 0.0-0.3 Automated blood basophil count (count/volume) 0.0 10*3/uL 0.0-0.1 Blood type T Indirect antibody screen panel - 01/08/18 10:50 ABO+Rh group ABP NRG Blood group antibody screen NEGATIVE NRG Complete urinalysis with reflex to culture - 01/08/18 10:55 Urine color determination GREEN NRG Urine clarity determination CLEAR NRG Urine pH measurement by test strip 7 5-9 Specific gravity of urine by test strip 1.010 1.016- 1.022 Urine protein assay by test strip, semi-quantitative NEGATIVE NEGATIVE Urine glucose detection by automated test strip NEGATIVE NEGATIVE Erythrocytes detection in urine sediment by light microscopy NEGATIVE NEGATIVE Urine ketones detection by automated test strip NEGATIVE NEGATIVE Urine nitrite detection by test strip NEGATIVE NEGATIVE Urine total bilirubin detection by test strip NEGATIVE NEGATIVE Urine urobilinogen measurement by automated test strip (mass/volume) NORMAL NORMAL Urine leukocyte esterase detection by dipstick 1+ NEGATIVE Automated urine sediment erythrocyte count by microscopy (number/high power field) NONE NRG Automated urine sediment leukocyte count by microscopy (number/high power field ) [HPF] NRG Bacteria detection in urine sediment by light microscopy NEGATIVE NRG Squamous epithelial cells detection in urine sediment by light microscopy 5-10 NRG Crystals detection in urine sediment by light microscopy NONE NRG Casts detection in urine sediment by light microscopy NONE NRG Mucus detection in urine sediment by light microscopy NEGATIVE NRG Complete urinalysis with reflex to culture NO NRG Methicillin resistant Staphylococcus aureus (MRSA) screening culture - 11:00 Methicillin resistant Staphylococcus aureus (MRSA) screening culture NEG NRG Urine beta human chorionic gonadotropin (hCG) measurement - 01/12/18 06:05 Urine beta human chorionic gonadotropin (hCG) measurement NEGATIVE NEGATIVE Comprehensive Metabolic Panel - 01/26/18 18:48 Albumin 4.8 g/dL 3.6-5.1 ALP 134 U/L 35-130 ALT 22 U/L 6-45 Anion Gap 19 6-14 AST 21 U/L 2-40 BUN 5 mg/dL 5-25 Calcium 10.1 mg/dL 8.3-10.4 Chloride 103 mmol/L 95-114 CO2 21 mEq/L 22-33 Creat 0.89 mg/dL 0.50-1.50 eGFR 75 mL/min/1.73m2 >59 Globulin 4.0 g/dL 2.3-3.5 Glucose 75 mg/dL 70-110 Osmo 283 280-295 Potassium 3.8 mmol/L 3.5-5.3 Sodium 139 mmol/L 134-148 TBil 0.2 mg/dL 0.2-1.2 TP 8.8 g/dL 6.0-8.3 Complete blood count (CBC) with automated white blood cell (WBC) differential - 01/26/18 19:49 Blood leukocytes automated count (number/volume) 12.2 10*3/uL 4.3-11.0 Blood erythrocytes automated count (number/volume) 3.74 10*6/uL 4.35-5.85 Venous blood hemoglobin measurement (mass/volume) 10.9 g/dL 11.5-16.0 Blood hematocrit (volume fraction) 32 % 35-52 Automated erythrocyte mean corpuscular volume 86 [foz_us] 80-99 Automated erythrocyte mean corpuscular hemoglobin (mass per erythrocyte) 29 pg 25-34 Automated erythrocyte mean corpuscular hemoglobin concentration measurement ( mass/volume) 34 g/dL 32-36 Automated erythrocyte distribution width ratio 15.4 % 10.0-14.5 Automated blood platelet count (count/volume) 304 10*3/uL 130-400 Automated blood platelet mean volume measurement 10.5 [foz_us] 7.4-10.4 Automated blood neutrophils/100 leukocytes 63 % 42-75 Automated blood lymphocytes/100 leukocytes 26 % 12-44 Blood monocytes/100 leukocytes 5 % 0-12 Automated blood eosinophils/100 leukocytes 6 % 0-10 Automated blood basophils/100 leukocytes 1 % 0-10 Blood neutrophils automated count (number/volume) 7.7 10*3 1.8-7.8 Blood lymphocytes automated count (number/volume) 3.2 10*3 1.0-4.0 Blood monocytes automated count (number/volume) 0.6 10*3 0.0-1.0 Automated eosinophil count 0.7 10*3/uL 0.0-0.3 Automated blood basophil count (count/volume) 0.1 10*3/uL 0.0-0.1 PT panel in platelet poor plasma by coagulation assay - 01/26/18 19:49 Prothrombin time (PT) in platelet poor plasma by coagulation assay 16.2 s 12.2-14.7 INR in platelet poor plasma or blood by coagulation assay 1.3 0.8-1.4 Activated partial thromboplastin time (aPTT) in platelet poor plasma bycoagulation assay - 01/26/18 19:49 Activated partial thromboplastin time (aPTT) in platelet poor plasma bycoagulation assay 33 s 24-35 Comprehensive metabolic panel - 01/26/18 19:49 Serum or plasma sodium measurement (moles/volume) 140 mmol/L 135-145 Serum or plasma potassium measurement (moles/volume) 4.0 mmol/L 3.6-5.0 Serum or plasma chloride measurement (moles/volume) 107 mmol/L 98-107 Carbon dioxide 22 mmol/L 21-32 Serum or plasma anion gap determination (moles/volume) 11 mmol/L 5-14 Serum or plasma urea nitrogen measurement (mass/volume) 5 mg/dL 7-18 Serum or plasma creatinine measurement (mass/volume) 0.82 mg/dL 0.60-1.30 Serum or plasma urea nitrogen/creatinine mass ratio 6 NRG Serum or plasma creatinine measurement with calculation of estimated glomerular filtration rate > NRG Serum or plasma glucose measurement (mass/volume) 79 mg/dL 70-105 Serum or plasma calcium measurement (mass/volume) 8.6 mg/dL 8.5-10.1 Serum or plasma total bilirubin measurement (mass/volume) 0.2 mg/dL 0.1-1.0 Serum or plasma alkaline phosphatase measurement (enzymatic activity/volume) 104 U/L 40-136 Serum or plasma aspartate aminotransferase measurement (enzymatic activity/ volume) 15 U/L 5-34 Serum or plasma alanine aminotransferase measurement (enzymatic activity/volume ) 17 U/L 0-55 Serum or plasma protein measurement (mass/volume) 6.6 g/dL 6.4-8.2 Serum or plasma albumin measurement (mass/volume) 3.8 g/dL 3.2-4.5 CALCIUM CORRECTED 8.8 mg/dL 8.5-10.1 Blood type T Indirect antibody screen panel - 01/26/18 19:49 ABO+Rh group ABP NRG Transfusion band number [id number] NR Blood group antibody screen NEGATIVE NRG Encounters ACCT No. Visit Date/Time Discharge Status Pt. Type Provider Facility Loc./Unit Complaint [id number] 11/28/2013 16:19:00 11/28/2013 23:59:59 CLS Outpatient LOYD MELISSA APRN [id number] 09/20/2013 10:48:00 09/20/2013 23:59:59 CLS Outpatient CHADEnrique ROBLEROKELLYSAARH BETH L [id number] 09/20/2013 10:48:00 09/20/2013 23:59:59 CLS Outpatient RODNEY EL DO [id number] 09/17/2013 11:26:00 09/17/2013 23:59:59 CLS Outpatient RODNEY EL DO [id number] 09/13/2013 11:14:00 09/13/2013 23:59:59 CLS Outpatient MORE ROBLEROURIELSARAH BETH L [id number] 09/13/2013 11:14:00 09/13/2013 23:59:59 CLS Outpatient RODNEY EL DO [id number] 08/10/2013 13:44:00 08/10/2013 23:59:59 CLS Outpatient FORREST BARRIOS APRN [id number] 07/20/2013 13:15:00 07/20/2013 23:59:59 CLS Outpatient HEATHER GAN MD [id number] 05/26/2013 13:05:00 05/26/2013 23:59:59 CLS Outpatient FORREST BARRIOS APRN [id number] 05/25/2013 15:32:00 05/25/2013 23:59:59 CLS Outpatient FORREST BARRIOS APRN [id number] 05/03/2013 13:44:00 05/03/2013 23:59:59 CLS Outpatient RODNEY EL DO [id number] 12/08/2012 15:34:00 12/08/2012 23:59:59 CLS Outpatient GEO GOYAL APRN [id number] 11/12/2012 13:45:00 11/12/2012 23:59:59 CLS Outpatient RODNEY EL DO [id number] 11/10/2012 15:01:00 11/10/2012 23:59:59 CLS Outpatient RODNEY EL DO [id number] 03/03/2012 16:56:00 03/03/2012 23:59:59 CLS Outpatient RODNEY EL DO [id number] 02/02/2012 15:11:00 02/02/2012 23:59:59 CLS Outpatient AXEL MADERA APRN [id number] 08/07/2011 15:30:00 08/07/2011 23:59:59 CLS Outpatient RODNEY EL DO [id number] 09/27/2012 08:29:00 Document Registration [id number] 08/11/2012 14:33:00 Document Registration [id number] 08/09/2012 14:33:00 Document Registration [id number] 08/06/2012 12:28:00 Document Registration [id number] 07/23/2012 08:55:00 Document Registration [id number] 06/16/2012 11:05:00 Document Registration [id number] 01/12/2018 06:00:00 01/13/2018 13:18:00 DIS Outpatient FRANK RODRIGUEZ DO [facility] MENORRHAGIA,PROLAPSE [id number] 01/08/2018 09:47:00 01/08/2018 13:00:00 DIS Outpatient FRANK RODRIGUEZ DO [facility] PREOP MENORRHAGIA,PROLAPSE [id number] 03/13/2017 12:00:00 03/13/2017 23:59:59 CLS Preadmit DEGRAFFEBRITTNEY CABRERA [facility] CARD SYNCOPE [id number] 12/12/2016 12:18:00 03/12/2017 00:01:00 DIS Outpatient BRITTNEY GHOTRA [facility] CARD SYNCOPE [id number] 01/27/2017 06:40:00 01/27/2017 23:59:59 CLS Outpatient EVIE NIELSEN MD, FACC, FACP CCDS [facility] CARD R55 SYNCOPE [id number] 01/26/2017 08:34:00 01/26/2017 23:59:59 CLS Outpatient EVIE NIELSEN MD, FACC, FACP CCDS [facility] CARD PALPITATIONS [id number] 01/20/2017 08:00:00 01/20/2017 23:59:59 CLS Preadmit EVIE NIELSEN MD, FACCP CCDS [facility] CATH SYNCOPE; PALPITATION [id number] 12/12/2016 11:20:00 12/12/2016 23:59:59 CLS Outpatient GUDELIABRITTNEY GONZALEZ Enrique [facility] RAD SYNCOPE R55 [id number] 10/08/2016 12:35:00 10/08/2016 23:59:59 CLS Outpatient LESLY RODRIGUEZ [facility] RAD BANKART LESION OF RT SHOULDER [id number] 09/28/2016 17:32:00 09/28/2016 19:25:00 DIS Emergency CARL YBARRA MD [facility] ER L SIDE JAW PAIN/SWELLING [id number] 07/18/2016 09:43:00 07/18/2016 23:59:59 CLS Outpatient FRANK RODRIGUEZ DO [facility] LAB 013.5 [id number] 07/08/2016 08:05:00 07/11/2016 11:45:00 DIS Inpatient FRANK RODRIGUEZ DO [facility] LDRP INDUCTION [id number] 06/18/2016 11:20:00 06/18/2016 13:22:00 DIS Outpatient FRANK RODRIGUEZ DO [facility] WSo COMPLAINTS OF CONTRACTIONS [id number] 06/06/2015 12:59:00 06/06/2015 23:59:59 CLS Outpatient FRANK RODRIGUEZ DO [facility] RAD AMENORRHEA [id number] 09/19/2013 13:09:00 09/19/2013 15:14:00 DIS Emergency VETO RUELAS APRN [facility] ER URINATING BLOOD, ALL OVER PAIN [id number] 03/01/2013 14:46:00 03/01/2013 17:49:00 DIS Emergency VETO RUELAS APRN [facility] ER VOMITING/DIARRHEA/ WEAKNESS [id number] 02/16/2013 18:53:00 02/16/2013 20:17:00 DIS Emergency VETO RUELAS APRN [facility] ER L FINGER LAC [id number] 09/23/2012 21:30:00 09/23/2012 23:24:00 DIS Emergency MAURICIO ROCK, MARY Galvez [facility] ER MOUTH PAIN [id number] 09/10/2012 22:57:00 09/11/2012 00:11:00 DIS Emergency TAIWO ROCK, SHONDA Nikhil [facility] ER MOUTH PAIN, NO INJ [id number] 08/20/2012 09:15:00 08/20/2012 23:59:59 CLS Outpatient BRANDAN PAULA APRN [facility] RAD BACK PAIN,STONE SEARCH [id number] 01/26/2018 20:45:00 ACT Inpatient FRANK RODRIGUEZ DO [facility] WS EXESSIVE BLEEDING,HYSTERECTOMY [id number] 06/06/2015 12:58:00 Document Registration [id number] 12/16/2011 07:17:00 Document Registration [id number] 11/27/2011 17:10:00 Document Registration [id number] 10/07/2011 15:40:00 Document Registration [id number] 09/17/2011 06:25:00 Document Registration [id number] 08/06/2011 21:07:00 Document Registration [id number] 07/02/2011 02:57:00 Document Registration [id number] 05/13/2011 02:11:00 Document Registration [id number] 12/09/2017 09:19:00 12/09/2017 23:59:00 DIS Outpatient CODY CADENA [id number] 11/12/2017 07:54:00 11/12/2017 12:00:00 DIS Outpatient CODY CADENA [id number] 11/11/2017 09:21:00 11/11/2017 23:59:00 DIS Outpatient FRANK RODRIGUEZ [id number] 11/03/2017 12:35:00 11/03/2017 23:59:00 DIS Outpatient CODY CADENA [id number] 10/21/2017 09:21:00 10/21/2017 23:59:00 DIS Outpatient CODY CADENA [id number] 03/04/2017 00:00:00 03/04/2017 11:22:00 DIS Outpatient Lg Kovacs [id number] 02/25/2017 12:39:00 02/25/2017 23:59:00 DIS Outpatient Lg Kovacs [id number] 01/26/2018 17:45:47 Document Registration [id number] 03/03/2017 13:03:05 Document Registration [id number] 07/24/2017 11:40:00 07/24/2017 23:59:59 CLS Outpatient STERLING AMBROSE [facility] [id number] 07/24/2017 11:40:00 Document Registration [id number] 12/25/2016 09:20:00 Document Registration [id number] 12/08/2016 13:40:00 Document Registration [id number] 11/05/2016 09:54:00 Document Registration [id number] 11/05/2016 09:00:00 Document Registration [id number] 05/27/2017 14:39:00 Document Registration [id number] 05/29/2017 11:50:07 05/29/2017 23:59:59 CLS Outpatient Murrell, Callum [id number] 05/18/2017 16:27:25 05/18/2017 23:59:59 CLS Outpatient Murrell, Callum [id number] 04/23/2017 09:56:33 04/23/2017 23:59:59 CLS Outpatient Murrell, Callum [id number] 03/26/2017 10:39:05 03/26/2017 23:59:59 CLS Outpatient Murrell, Callum [id number] 03/13/2017 15:00:18 03/13/2017 23:59:59 CLS Outpatient Murrell, Callum [id number] 11/03/2017 12:35:00 Document Registration
--- NOTE | 2018-01-27 09:22 | Discharge Inst-Women's Service ---
Discharge Inst-Women's Serv Depart Medication/Instructions New, Converted or Re-Newed RX: RX on Chart Final Diagnosis vaginal bleeding after hysterectomy anticoagulated on Xarelto Consults/Follow Up Additional Follow Up: Yes (as scheduled with Dr. Rodriguez on 02/03 and appt with hematology see notes on DC) Activity Activity: Activity as Tolerated (nothing in the vagina) Driving Instructions: You May Drive NO SMOKING: NO SMOKING Nothing Inside Vagina: No Douching, No [place], No Tampons Diet Discharge Diet: No Restrictions Symptoms to Report to : Bleeding Excessive, Pain Increased, Fever Over 101 Degrees F, Vaginal Bleeding Increase, Cramps in Feet or Legs, Vaginal Discharge Foul For Any Problems or Questions: Contact Your Physician FRANK RODRIGUEZ DO Jan 27, 2018 09:22
--- OUTSIDE RECORDS SUMMARY | 2018-01-27 09:22 | XMS REPORT | Clinical Summary ---
Author Author [facility] Organization [facility] Address Unknown Phone Unavailable Care Team Providers Care Title Investigator Name Role Phone Maricarmen Camacho MD PCP Maricarmen Camacho MD 100 Source Comments Some departments are not documenting in the electronic medical record. If you do not see the information that you expected, contact Release of Information in the Health Information Management department at [phone] for further assistance in locating additional records.[facility] Allergies Comments Active Allergy Reactions Severity Noted [...] (Renal) by mouth (NEPHPLEX RX) daily. 1-60-300-12.5 xm-xa-tbp-mg tab Active topiramate (TOPAMAX) 200 Take 200 mg 0 mg tablet by mouth every 12 hours. Active norethindrone(+) Take 5 mg by 0 (AYGESTIN) 5 mg tab mouth daily. Active BIOTIN PO Take 1 0 capsule by mouth daily. 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 I think she will be a [...] POC CREATININE, RAD 11/16/2017 2:28 PM CDT [place] ECG ROUTINE ECG Routine 11/04/2017 Syncope, unspecified [...] after the administration of MultiHance contrast. 2-D lshx-ge-bjccsn images were obtained of the cerebral veins [...] the administration of MultiHance contrast. 2 -D mvrf-dn-uivtpb images were obtained of the cerebral veins [...] after the administration of MultiHance contrast. 2-D rvcr-el-ueuxeh images were obtained of the cerebral veins [...] the administration of MultiHance contrast. 2 -D svwz-ct-ytdoow images were obtained of the cerebral veins [...] MG/DL [facility] Performing Organization Address [facility] [address] [place] [address] * [place] ECG ROUTINE ECG W/LEAST 12 LDS W/I&R (11/04/2017) Narrative Performed At Performing Organization Address City/State/Zipcode Phone Number IN CLINIC from Last 3 Months Insurance Payer Benefit Subscriber ID Type Phone Address Plan / Group [employer] [place] [employer] xxxxxxxxxxx Medicaid [employer] Advance Directives Patient has advance care planning documents on file. For more information, please contact: [facility] [address] [place] [address]
--- OUTSIDE RECORDS SUMMARY | 2018-01-27 09:22 | XMS REPORT | Encounter Summary ---
Author Author [facility] Organization [facility] Address Unknown Phone Unavailable Care Team Providers Care Respiratory Therapist Name Role Phone Maricarmen Camacho MD PCP Maricarmen Camacho MD 100 Reason for Visit * Reason Comments Medication Refill Encounter Details Care Team Description Date Type Department Emil Collins MD [address] [facility] [address] [place], [place] [id number] 12/08/[address] [facility] [address] [place] [address] Social History Date Tobacco Use [...]
--- OUTSIDE RECORDS SUMMARY | 2018-01-27 09:22 | XMS REPORT | Encounter Summary ---
Author Author [facility] Organization [facility] Address Unknown Phone Unavailable Care Team Providers Care Lease Analyst Name Role Phone Maricarmen Camacho MD PCP Maricarmen Camacho MD 100 Reason for Referral * Radiology Services (Routine) Referred By Contact Referred To Contact Status Reason Specialty Diagnoses / Procedures Emil Collins MD [address] [place] [address] [address] [place] [address] New Request Radiology Diagnoses Status migrainosus P rocedures CTA NECK WO/W CONTRAST+POST P * Radiology Services (Routine) Referred By Contact Referred To Contact Status Reason Specialty Diagnoses / Procedures Emil Collins MD [address] [place] [address] [address] [place] [address] New Request Radiology Diagnoses Status migrainosus P rocedures CTA NECK WO/W CONTRAST+POST P * Radiology Services (Routine) Referred By Contact Referred To Contact Status Reason Specialty Diagnoses / Procedures Emil Collins MD [address] [place] [address] [address] [place] [address] [place] [address] Denied Radiology Diagnoses Status migrainosus P rocedures CTA HEAD WO/W CONTR+POST PRO CHG CT ANGIOGRAPHY NECK W/CONTRAST/NONCONT RAST * Radiology Services (Routine) Referred By Contact Referred To Contact Status Reason Specialty Diagnoses / Procedures Emil Collins MD [address] [facility] [address] [place] [address] [place] [address] Denied Radiology Diagnoses Status migrainosus P rocedures CTA HEAD WO/W CONTR+POST PRO CHG CT ANGIOGRAPHY NECK W/CONTRAST/NONCONT RAST Reason for Visit * Radiology Services (Routine) Referred By Contact Referred To Contact Status Reason Specialty Diagnoses / Procedures Emil Collins MD [address] [facility] [address] [place] [address] [place] [address] Denied Radiology Diagnoses Status migrainosus P rocedures CTA HEAD WO/W CONTR+POST PRO CHG CT ANGIOGRAPHY NECK W/CONTRAST/NONCONT RAST Encounter Details Care Team Description Date Type Department Emil Collins MD [address] [facility] [address] [place] [address] [phone] Canceled (Patient-Personal) 11/18/[address] [facility] Encounter [place] [facility] [address] [place] [address] Social History Date Tobacco Use Types Packs/Day [...] Take 1 0 capsule by mouth daily. [id number] PO Take 1 0 capsule by mouth [...] (Renal) by mouth (NEPHPLEX RX) daily. 1-60-300-12.5 oa-hm-tme-mg tab 11/06/2017 12/08/2017 nortriptyline (PAMELOR) Take one [...]
--- OUTSIDE RECORDS SUMMARY | 2018-01-27 09:22 | XMS REPORT | Encounter Summary ---
Author Author [facility] Organization [facility] Address Unknown Phone Unavailable Care Team Providers Care Unmanned Aircraft Systems Roboticist Name Role Phone Maricarmen Camacho MD PCP Maricarmen Camacho MD 100 Encounter Details Care Team Description Date Type Department Maricarmen Camacho MD [address] [facility] [address] [place] [address] 12/02/2017 Orders Only [facility] Physicians - Internal Medicine Ortho and Medical Pavilion Level 4B [address] [place] [address] Social History Date Tobacco Use [...]
--- OUTSIDE RECORDS SUMMARY | 2018-01-27 09:22 | XMS REPORT | Encounter Summary ---
Author Author [facility] Organization [facility] Address Unknown Phone Unavailable Care Team Providers Care Special Order Jeweler Name Role Phone Maricarmen Camacho MD PCP Maricarmen Camacho MD 100 Reason for Visit * Reason Comments Medication Refill Encounter Details Care Team Description Date Type Department Maricarmen Camacho MD [address] [facility] [address] [place] [address] 01/20/2018 Refill [facility] Physicians - Internal Medicine Ortho and Medical Pavilion Level 4B [address] [place] [address] Social History Date Tobacco Use [...] Maricarmen Camacho MD - 01/22/2018 11:31 AM ROUGH PATCHER I approved refills of the protonix and Xarelto, but not the Lyrica and hydrocodone. I called her pharmacy and she is getting the Lyrica from Dr. Em Fonseca and the hydrocodone from Dr. Tyler. I have concerns about getting controlled substances from different physicians. * Telephone Encounter - Ashley Le LPN - 01/20/2018 2:27 PM ROUGH PATCHER Pt called requesting refills of Lyrica 175 [...]
--- OUTSIDE RECORDS SUMMARY | 2018-01-27 09:23 | XMS REPORT | Encounter Summary ---
Author Author [facility] Organization [facility] Address Unknown Phone Unavailable Care Team Providers Care Dx Board Operator Name Role Phone Maricarmen Camacho MD PCP Maricarmen Camacho MD 100 Reason for Visit * Reason Comments Infusion Therapy * Treatment (Routine) Referred By Contact Referred To Contact Status Reason Specialty Diagnoses / Procedures Emil Collins MD [address] [facility] [address] [place] [address] [facility] Infusion Cl [address] [place] [address] Closed Diagnoses Intractable migraine without status migrainosus, unspecified migraine type P rocedures HEADACHE Encounter Details Care Team Description Date Type Department Lay, Efraín Ramos MD [address] [place] [address] Intractable migraine without status migrainosus, unspecified migraine type (Primary Dx) 11/16/2017 Infusion Infusion Therapy Clinic - [facility] [address] [place] [address] Social History Date Tobacco Use Types Packs/Day [...] Organization Address City/State/Zipcode Phone Number MAIN LAB [address] [place] [address] in this encounter Visit Diagnoses Diagnosis Intractable [...]
--- OUTSIDE RECORDS SUMMARY | 2018-01-27 09:23 | XMS REPORT | Encounter Summary ---
Author Author [facility] Organization [facility] Address Unknown Phone Unavailable Care Team Providers Care Senior Boiler Operator Name Role Phone Maricarmen Camacho MD PCP Maricarmen Camacho MD 100 Reason for Referral * Radiology Services (Routine) Referred By Contact Referred To Contact Status Reason Specialty Diagnoses / [place] [address] [place] [address] [address] [place] [address] [place] [address] Closed Radiology Diagnoses Status migrainosus P rocedures MRI HEAD WO/W CONTRAST * Radiology Services (Routine) Referred By Contact Referred To Contact Status Reason Specialty Diagnoses / Procedures Emil Collins MD [address] [facility] [address] [place] [address] [address] [place] [address] Closed Radiology Diagnoses Status migrainosus P rocedures MRI HEAD WO/W CONTRAST Reason for Visit * Radiology Services (Routine) Referred By Contact Referred To Contact Status Reason Specialty Diagnoses / Procedures Emil Collins MD [address] [facility] MS [address] [place] [address] [address] [place] [address] Closed Radiology Diagnoses Status migrainosus P rocedures MRI HEAD WO/W CONTRAST Encounter Details Care Team Description Date Type Department Emil Collins MD [address] [place] [address] [phone] 11/18/2017 [facility] Encounter [facility] Radiology [address] [place] [address] Social History Date Tobacco Use [...] Take 1 0 capsule by mouth daily. [id number] PO Take 1 0 capsule by mouth [...] (Renal) by mouth (NEPHPLEX RX) daily. 1-60-300-12.5 di-id-qeh-mg tab 11/06/2017 12/08/2017 nortriptyline (PAMELOR) Take one [...] after the administration of MultiHance contrast. 2-D veec-js-tjhesn images were obtained of the cerebral veins [...] the administration of MultiHance contrast. 2 -D dsxn-lq-yjhwns images were obtained of the cerebral veins [...]
--- OUTSIDE RECORDS SUMMARY | 2018-01-27 09:23 | XMS REPORT | Encounter Summary ---
Author Author [facility] Organization [facility] Address Unknown Phone Unavailable Care Team Providers Care Chief Passenger Ship Steward/Stewardess Name Role Phone Em Fonseca DO PCP Encounter Details Care Team Description Date Type Department Emil Collins MD [address] [place] [address] [phone] 11/06/2017 Orders Only Infusion Therapy Clinic - [facility] [address] [place] [address] Social History Date Tobacco Use Types Packs/Day [...]
--- OUTSIDE RECORDS SUMMARY | 2018-01-27 09:23 | XMS REPORT | Encounter Summary ---
Author Author [facility] Organization [facility] Address Unknown Phone Unavailable Care Team Providers Care Wood Tank Erector Name Role Phone Em Fonseca DO PCP Reason for Visit * Reason Comments Establish Care Encounter Details Care Team Description Date Type Department Maricarmen Camacho MD [address] [facility] [address] [place] [address] Syncope, unspecified syncope type (Primary Dx); Healthcare maintenance; Fibromyalgia; Protein C deficiency (HCC); Menorrhagia with regular cycle; Migraine without status migrainosus, not intractable, unspecified migraine type ; Bipolar 1 disorder (HCC) 11/04/2017 Office Visit [facility] Physicians - Internal Medicine Ortho and Medical Pavilion Level 4B [address] [place] [address] Social History Date Tobacco Use [...] Whitney and her direct phone number is [phone]. If you need an appointment call [phone]. - [employer] is a secure messaging system available through [...] can't take it." - was going [facility]. They thought spells were related [...] black out spells. Laid off. 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 FH: [...] PO Take 1 capsule by mouth daily. [id number] PO Take 1 capsule by mouth daily. [...] Comments Procedure Name Priority Date/Time Associated Diagnosis IA ECG ROUTINE ECG Routine 11/04/2017 Syncope, unspecified [...]
--- OUTSIDE RECORDS SUMMARY | 2018-01-27 09:23 | XMS REPORT | Encounter Summary ---
Author Author [facility] Organization [facility] Address Unknown Phone Unavailable Care Team Providers Care Mapping Analyst Name Role Phone Em Fonseca DO PCP Reason for Visit * Reason Comments Results labs and xrays Encounter Details Care Team Description Date Type Department Cora Botello DO [address] [facility] [address] [place], [place] [id number] Results (labs and xrays) 10/30/2017 Telephone [facility] Physicians-Rheumatology [facility]1105 [address] [place], [place] [id number] Social History Date Tobacco Use Types Packs/Day [...] Pt stated that she is seeing an DRIVE MAN for her uterine and RH negative issues. Pt stated she is needing a new PCP as she currently does not have one that she trusts. Pt inquiring what to do about her pain management. Notified pt that she could establish with a PCP here at . Pt stated understanding. Pt transferred to scheduling to make an appt and will follow up with her DRIVE MAN for now. Pt had no further questions [...]
--- OUTSIDE RECORDS SUMMARY | 2018-01-27 09:23 | XMS REPORT | Encounter Summary ---
Author Author [facility] Organization [facility] Address Unknown Phone Unavailable Care Team Providers Care Underwriting Account Representative Name Role Phone Maricarmen Camacho MD PCP Maricarmen Camacho MD 100 Encounter Details Care Team Description Date Type Department Jim Pineda [facility] 11/10/2017 Orders Only Infusion Therapy Clinic - [place] [address] [place] [address] Social History Date Tobacco Use Types Packs/Day [...]
--- OUTSIDE RECORDS SUMMARY | 2018-01-27 09:23 | XMS REPORT | Encounter Summary ---
Author Author [facility] Organization [facility] Address Unknown Phone Unavailable Care Team Providers Care Consumer Insights Intern Name Role Phone Maricarmen Camacho MD PCP Maricarmen Camacho MD 100 Reason for Referral * Radiology Services (Routine) Referred By Contact Referred To Contact Status Reason Specialty Diagnoses / Procedures Efraín Smith MD [address] [place] [address] [address] [place] [id number] Authorized Radiology Diagnoses Status migrainosus P rocedures MRV HEAD WO/W CONTRAST MRV HEAD W CONTRAST * Radiology Services (Routine) Referred By Contact Referred To Contact Status Reason Specialty Diagnoses / Procedures Efraín Smith MD [address] [place] [address] [address] [place] [address] Authorized Radiology Diagnoses Status migrainosus P rocedures MRV HEAD WO/W CONTRAST MRV HEAD W CONTRAST Reason for Visit * Radiology Services (Routine) Referred By Contact Referred To Contact Status Reason Specialty Diagnoses / Procedures Efraín Smith MD [address] [place] [address] [address] [place] [address] Authorized Radiology Diagnoses Status migrainosus P rocedures MRV HEAD WO/W CONTRAST MRV HEAD W CONTRAST Encounter Details Care Team Description Date Type Department Emil Collins MD [address] [place] [address] [phone] 11/18/2017 Hospital [facility] Encounter [place] [facility] [address] [place] [address] Social History Date Tobacco Use Types Packs/Day [...] Take 1 0 capsule by mouth daily. [id number] PO Take 1 0 capsule by mouth [...] (Renal) by mouth (NEPHPLEX RX) daily. 1-60-300-12.5 kb-gp-zdz-mg tab 11/06/2017 12/08/2017 nortriptyline (PAMELOR) Take one [...] after the administration of MultiHance contrast. 2-D jzfa-fy-otbito images were obtained of the cerebral veins [...] the administration of MultiHance contrast. 2 -D dycq-yh-kiomrs images were obtained of the cerebral veins [...]
--- OUTSIDE RECORDS SUMMARY | 2018-01-27 09:23 | XMS REPORT | Encounter Summary ---
Author Author [facility] Organization [facility] Address Unknown Phone Unavailable Care Team Providers Care Letter Carrier Name Role Phone Em Fonseca DO PCP Encounter Details Care Team Description Date Type Department Emil Collins MD [address] [place] [address] [phone] 11/06/2017 Orders Only Infusion Therapy Clinic - [facility] [address] [place] [address] Social History Date Tobacco Use Types Packs/Day [...]
--- OUTSIDE RECORDS SUMMARY | 2018-01-27 09:23 | XMS REPORT | Encounter Summary ---
Author Author [facility] Organization [facility] Address Unknown Phone Unavailable Care Team Providers Care Band Saw Operator Cake Cutting Name Role Phone Em Fonseca PCP Maricarmen Camacho MD PCP Maricarmen Camacho MD 100 Reason for Referral * Radiology Services (Routine) Referred By Contact Referred To Contact Status Reason Specialty Diagnoses / Procedures Efraín Smith MD [address] [place] [address] [address] [place] [address] Authorized Radiology Diagnoses Status migrainosus P rocedures MRV HEAD WO/W CONTRAST MRV HEAD W CONTRAST * Radiology Services (Routine) Referred By Contact Referred To Contact Status Reason Specialty Diagnoses / Procedures Emil Collins MD [address] [facility] [address] [place] [address] New Request Radiology Diagnoses Status migrainosus P rocedures CTA NECK WO/W CONTRAST+POST P * Radiology Services (Routine) Referred By Contact Referred To Contact Status Reason Specialty Diagnoses / Procedures Emil Collins MD [address] [facility] [address] [place] [address] [place] [address] Denied Radiology Diagnoses Status migrainosus P rocedures CTA HEAD WO/W CONTR+POST PRO CHG CT ANGIOGRAPHY NECK W/CONTRAST/NONCONT RAST * Radiology Services (Routine) Referred By Contact Referred To Contact Status Reason Specialty Diagnoses / Procedures Emil Collins MD [address] [facility] [address] [place] [address] [address] [place] [address] Closed Radiology Diagnoses Status migrainosus P rocedures MRI HEAD WO/W CONTRAST Reason for Visit * Reason Comments New Patient Encounter Details Care Team Description Date Type Department Maricarmen Camacho MD [address] [facility] [address] [place] [address] [phone] Efraín Smith MD [address] [place] [address] Status migrainosus (Primary Dx); Intractable migraine with aura with status migrainosus; Cervicalgia; Syncope, unspecified syncope type 11/06/2017 Office Visit [facility] Physicians-Neurology [facility] [address] [place] [address] Social History Date Tobacco Use [...] Has been seeing Dr. Bansal out of [place] since 2008 for her headaches. She describes [...] report being diagnosed with "angina" by a Contractor Field Hauling in the past. She reports being told [...] PO Take 1 capsule by mouth daily. [id number] PO Take 1 capsule by mouth daily. [...] after the administration of MultiHance contrast. 2-D dkpb-mk-draluy images were obtained of the cerebral veins [...] the administration of MultiHance contrast. 2 -D wyky-vh-uodiad images were obtained of the cerebral veins [...] after the administration of MultiHance contrast. 2-D kxdo-up-ezuoua images were obtained of the cerebral veins [...] the administration of MultiHance contrast. 2 -D gzjz-yl-iqduyl images were obtained of the cerebral veins [...] Normal MRV of the brain. Approved by Setphanie Mcguire M.D. on 11/18/2017 4:19 PM By [...]
--- OUTSIDE RECORDS SUMMARY | 2018-01-27 10:12 | XMS REPORT | Continuity of Care Document ---
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 PYLORI (IN-HOUSE) 09/13/2013 23459 ROUTINE VENIPUNCTURE 09/20/2013 36567 CULTURE URINE 09/20/2013 57677 UA W/ CULTURE IF INDICATED 09/20/20132729047 GFR CALC (RESULT ONLY) 09/20/2013 66777 CMP 09/20/2013 46595 GC/CHLAM URINE (STATE) 11/28/2013 51947 TEST, URINE (IN- HOUSE) 11/28/2013 [id number] EXTRACTION OF POC, LOW CERVICAL, OPEN AP [...] ABO+Rh group ABP NRG Transfusion band number [id number] NRG Blood group antibody screen NEGATIVE NRG [...] - 03/04/17 08:50 Surg Path Sent to [facility] HSV 1/2 ANTIBODY IgM - 07/24/17 [...] 5-8.5 Urine-Protein Negative Negative Urine-RBC Negative Urine-Specific [place] 1.020 1.000-1.030 Urine-WBC Negative Urobilinogen 0.2 E.U./dL [...] ABO+Rh group ABP NRG Transfusion band number [id number] NR Blood group antibody screen NEGATIVE NRG Encounters ACCT No. Visit Date/Time Discharge Status Pt. Type Provider Facility Loc./Unit Complaint [id number] 11/28/2013 16:19:00 11/28/2013 23:59:59 CLS Outpatient LOYD MELISSA APRN [id number] 09/20/2013 10:48:00 09/20/2013 23:59:59 CLS Outpatient CHADEnrique ROBLEROKELLYSARAH BETH L [id number] 09/20/2013 10:48:00 09/20/2013 23:59:59 CLS Outpatient RODNEY EL DO [id number] 09/17/2013 11:26:00 09/17/2013 23:59:59 CLS Outpatient RODNEY EL DO [id number] 09/13/2013 11:14:00 09/13/2013 23:59:59 CLS Outpatient MORE ROBLEROURIELSARAH BETH L [id number] 09/13/2013 11:14:00 09/13/2013 23:59:59 CLS Outpatient RODNEY EL DO [id number] 08/10/2013 13:44:00 08/10/2013 23:59:59 CLS Outpatient FORREST BARRIOS APRN [id number] 07/20/2013 13:15:00 07/20/2013 23:59:59 CLS Outpatient HEATHER GAN MD [id number] 05/26/2013 13:05:00 05/26/2013 23:59:59 CLS Outpatient FORREST BARRIOS APRN [id number] 05/25/2013 15:32:00 05/25/2013 23:59:59 CLS Outpatient FORREST BARRIOS APRN [id number] 05/03/2013 13:44:00 05/03/2013 23:59:59 CLS Outpatient RODNEY EL DO [id number] 12/08/2012 15:34:00 12/08/2012 23:59:59 CLS Outpatient GEO GOYAL APRN [id number] 11/12/2012 13:45:00 11/12/2012 23:59:59 CLS Outpatient RODNEY EL DO [id number] 11/10/2012 15:01:00 11/10/2012 23:59:59 CLS Outpatient RODNEY EL DO [id number] 03/03/2012 16:56:00 03/03/2012 23:59:59 CLS Outpatient RODNEY EL DO [id number] 02/02/2012 15:11:00 02/02/2012 23:59:59 CLS Outpatient AXEL MADERA APRN [id number] 08/07/2011 15:30:00 08/07/2011 23:59:59 CLS Outpatient RODNEY EL DO [id number] 09/27/2012 08:29:00 Document Registration [id number] 08/11/2012 14:33:00 Document Registration [id number] 08/09/2012 14:33:00 Document Registration [id number] 08/06/2012 12:28:00 Document Registration [id number] 07/23/2012 08:55:00 Document Registration [id number] 06/16/2012 11:05:00 Document Registration [id number] 01/12/2018 06:00:00 01/13/2018 13:18:00 DIS Outpatient FRANK RODRIGUEZ DO [facility] MENORRHAGIA,PROLAPSE [id number] 01/08/2018 09:47:00 01/08/2018 13:00:00 DIS Outpatient FRANK RODRIGUEZ DO [facility] PREOP MENORRHAGIA,PROLAPSE [id number] 03/13/2017 12:00:00 03/13/2017 23:59:59 CLS Preadmit DEGRAFFEBRITTNEY CABRERA [facility] CARD SYNCOPE [id number] 12/12/2016 12:18:00 03/12/2017 00:01:00 DIS Outpatient BRITTNEY GHOTRA [facility] CARD SYNCOPE [id number] 01/27/2017 06:40:00 01/27/2017 23:59:59 CLS Outpatient EVIE NIELSEN MD, FACC, FACP CCDS [facility] CARD R55 SYNCOPE [id number] 01/26/2017 08:34:00 01/26/2017 23:59:59 CLS Outpatient EVIE NIELSEN MD, FACC, FACP CCDS [facility] CARD PALPITATIONS [id number] 01/20/2017 08:00:00 01/20/2017 23:59:59 CLS Preadmit EVIE NIELSEN MD, FACCP CCDS [facility] CATH SYNCOPE; PALPITATION [id number] 12/12/2016 11:20:00 12/12/2016 23:59:59 CLS Outpatient GUDELIABRITTNEY GONZALEZ Enrique [facility] RAD SYNCOPE R55 [id number] 10/08/2016 12:35:00 10/08/2016 23:59:59 CLS Outpatient LESLY RODRIGUEZ [facility] RAD BANKART LESION OF RT SHOULDER [id number] 09/28/2016 17:32:00 09/28/2016 19:25:00 DIS Emergency CARL YBARRA MD [facility] ER L SIDE JAW PAIN/SWELLING [id number] 07/18/2016 09:43:00 07/18/2016 23:59:59 CLS Outpatient FRANK RODRIGUEZ DO [facility] LAB 013.5 [id number] 07/08/2016 08:05:00 07/11/2016 11:45:00 DIS Inpatient FRANK RODRIGUEZ DO [facility] LDRP INDUCTION [id number] 06/18/2016 11:20:00 06/18/2016 13:22:00 DIS Outpatient FRANK RODRIGUEZ DO [facility] WSo COMPLAINTS OF CONTRACTIONS [id number] 06/06/2015 12:59:00 06/06/2015 23:59:59 CLS Outpatient FRANK RODRIGUEZ DO [facility] RAD AMENORRHEA [id number] 09/19/2013 13:09:00 09/19/2013 15:14:00 DIS Emergency VETO RUELAS APRN [facility] ER URINATING BLOOD, ALL OVER PAIN [id number] 03/01/2013 14:46:00 03/01/2013 17:49:00 DIS Emergency VETO RUELAS APRN [facility] ER VOMITING/DIARRHEA/ WEAKNESS [id number] 02/16/2013 18:53:00 02/16/2013 20:17:00 DIS Emergency VETO RUELAS APRN [facility] ER L FINGER LAC [id number] 09/23/2012 21:30:00 09/23/2012 23:24:00 DIS Emergency MAURICIO ROCK, MARY Galvez [facility] ER MOUTH PAIN [id number] 09/10/2012 22:57:00 09/11/2012 00:11:00 DIS Emergency TAIWO ROCK, SHONDA Nikhil [facility] ER MOUTH PAIN, NO INJ [id number] 08/20/2012 09:15:00 08/20/2012 23:59:59 CLS Outpatient BRANDAN PAULA APRN [facility] RAD BACK PAIN,STONE SEARCH [id number] 01/26/2018 20:45:00 ACT Inpatient FRANK RODRIGUEZ DO [facility] WS EXESSIVE BLEEDING,HYSTERECTOMY [id number] 06/06/2015 12:58:00 Document Registration [id number] 12/16/2011 07:17:00 Document Registration [id number] 11/27/2011 17:10:00 Document Registration [id number] 10/07/2011 15:40:00 Document Registration [id number] 09/17/2011 06:25:00 Document Registration [id number] 08/06/2011 21:07:00 Document Registration [id number] 07/02/2011 02:57:00 Document Registration [id number] 05/13/2011 02:11:00 Document Registration [id number] 12/09/2017 09:19:00 12/09/2017 23:59:00 DIS Outpatient CODY CADENA [id number] 11/12/2017 07:54:00 11/12/2017 12:00:00 DIS Outpatient CODY CADENA [id number] 11/11/2017 09:21:00 11/11/2017 23:59:00 DIS Outpatient FRANK RODRIGUEZ [id number] 11/03/2017 12:35:00 11/03/2017 23:59:00 DIS Outpatient CODY CADENA [id number] 10/21/2017 09:21:00 10/21/2017 23:59:00 DIS Outpatient CODY CADENA [id number] 03/04/2017 00:00:00 03/04/2017 11:22:00 DIS Outpatient Lg Kovacs [id number] 02/25/2017 12:39:00 02/25/2017 23:59:00 DIS Outpatient Lg Kovacs [id number] 01/26/2018 17:45:47 Document Registration [id number] 03/03/2017 13:03:05 Document Registration [id number] 07/24/2017 11:40:00 07/24/2017 23:59:59 [facility] [id number] 07/24/2017 11:40:00 Document Registration [id number] 12/25/2016 09:20:00 Document Registration [id number] 12/08/2016 13:40:00 Document Registration [id number] 11/05/2016 09:54:00 Document Registration [id number] 11/05/2016 09:00:00 Document Registration [id number] 05/27/2017 14:39:00 Document Registration [id number] 05/29/2017 11:50:07 05/29/2017 23:59:59 CLS Outpatient Murrell, Callum [id number] 05/18/2017 16:27:25 05/18/2017 23:59:59 CLS Outpatient Murrell, Callum [id number] 04/23/2017 09:56:33 04/23/2017 23:59:59 CLS Outpatient Murrell, Callum [id number] 03/26/2017 10:39:05 03/26/2017 23:59:59 CLS Outpatient Murrell, Callum [id number] 03/13/2017 15:00:18 03/13/2017 23:59:59 CLS Outpatient Murrell, Callum [id number] 11/03/2017 12:35:00 Document Registration
[2018-01-27] MEDS ORDERED: NORTRIPTYLINE 10 MG (PAMELOR) CAP PO SCH (21:00)
[2018-01-27] MEDS ORDERED: risperiDONE 2 MG (RisperDAL) TAB PO SCH (22:00)
== END 2018-01-27 09:38 | disposition home or self-care (01) ==
LOC: EDUNIT# 19:44 → ER 19:46 → 4TH 20:09 → ER 20:44 → WS 20:45 → UNDOADMOB 20:45 → WS 21:10 → UNDODISOB 01-27 09:45
PROVIDERS: ADMIT Obstetrics & Gynecology; ATTEND Obstetrics & Gynecology
DX: N99.820 Postprocedural hemorrhage of a genitourinary system organ or structure following a genitourinary system procedure (principal); D62 Acute posthemorrhagic anemia; D68.59 Other primary thrombophilia; J45.909 Unspecified asthma, uncomplicated; E78.00 Pure hypercholesterolemia, unspecified; G40.909 Epilepsy, unspecified, not intractable, without status epilepticus; K21.9 Gastro-esophageal reflux disease without esophagitis; F17.210 Nicotine dependence, cigarettes, uncomplicated; F43.10 Post-traumatic stress disorder, unspecified; E66.9 Obesity, unspecified; Z68.36 Body mass index [BMI] 36.0-36.9, adult; Z79.01 Long term (current) use of anticoagulants; Z90.710 Acquired absence of both cervix and uterus; Z79.84 Long term (current) use of oral hypoglycemic drugs; Z79.899 Other long term (current) drug therapy
CPT/HCPCS: 36415; 72192; 80053; 85025; 85610; 85730; 86850; 86900; 86901; 93041; 96361; G0378

== ENCOUNTER 2018-04-22 09:13 | Outpatient (RCR) | payer MEDICAID ==
[2018-01-28 09:33] LABS: BASOPHILS # (AUTO) 0.1 10^3/uL (0.0-0.1); BASOPHILS % (AUTO) 1 % (0-10); EOSINOPHILS # (AUTO) 0.5 10^3/uL (0.0-0.3); EOSINOPHILS % (AUTO) 6 % (0-10); HEMATOCRIT 35 % (35-52); HEMOGLOBIN 11.6 G/DL (11.5-16.0); LYMPHOCYTES # (AUTO) 2.1 X 10^3 (1.0-4.0); LYMPHOCYTES % (AUTO) 25 % (12-44); MEAN CORPUSCULAR HEMOGLOBIN 29 PG (25-34); MEAN CORPUSCULAR HGB CONC 33 G/DL (32-36); MEAN CORPUSCULAR VOLUME 88 FL (80-99); MEAN PLATELET VOLUME 11.1 FL (7.4-10.4); MONOCYTES # (AUTO) 0.4 X 10^3 (0.0-1.0); MONOCYTES % (AUTO) 5 % (0-12); NEUTROPHILS # (AUTO) 5.2 X 10^3 (1.8-7.8); NEUTROPHILS % (AUTO) 63 % (42-75); PLATELET COUNT 342 10^3/uL (130-400); RED CELL DISTRIBUTION WIDTH 15.5 % (10.0-14.5); WHITE BLOOD COUNT 8.3 10^3/uL (4.3-11.0)
[2018-01-28 09:52] LABS: ALANINE AMINOTRANSFERASE 28 U/L (0-55); ALBUMIN 4.4 GM/DL (3.2-4.5); ALKALINE PHOSPHATASE 123 U/L (40-136); BILIRUBIN,TOTAL 0.2 MG/DL (0.1-1.0); BUN/CREATININE RATIO 9; CALCIUM 9.7 MG/DL (8.5-10.1); CARBON DIOXIDE 21 MMOL/L (21-32); CHLORIDE 106 MMOL/L (98-107); CREATININE SERUM 0.79 MG/DL (0.60-1.30); GFR ESTIMATED > 60; GLUCOSE 96 MG/DL (70-105); POTASSIUM 4.1 MMOL/L (3.6-5.0); SODIUM 139 MMOL/L (135-145); TOTAL PROTEIN 7.7 GM/DL (6.4-8.2)
[2018-04-22 09:47] LABS: BASOPHILS % (AUTO) 1 % (0-10); EOSINOPHILS # (AUTO) 0.3 10^3/uL (0.0-0.3); EOSINOPHILS % (AUTO) 4 % (0-10); HEMATOCRIT 36 % (35-52); HEMOGLOBIN 11.8 G/DL (11.5-16.0); LYMPHOCYTES # (AUTO) 2.7 X 10^3 (1.0-4.0); LYMPHOCYTES % (AUTO) 32 % (12-44); MEAN CORPUSCULAR HEMOGLOBIN 28 PG (25-34); MEAN CORPUSCULAR HGB CONC 33 G/DL (32-36); MEAN CORPUSCULAR VOLUME 85 FL (80-99); MEAN PLATELET VOLUME 10.5 FL (7.4-10.4); MONOCYTES # (AUTO) 0.5 X 10^3 (0.0-1.0); MONOCYTES % (AUTO) 6 % (0-12); NEUTROPHILS # (AUTO) 4.8 X 10^3 (1.8-7.8); NEUTROPHILS % (AUTO) 58 % (42-75); PLATELET COUNT 339 10^3/uL (130-400); RED CELL DISTRIBUTION WIDTH 17.7 % (10.0-14.5); WHITE BLOOD COUNT 8.3 10^3/uL (4.3-11.0)
[2018-04-22 10:09] LABS: ALANINE AMINOTRANSFERASE 36 U/L (0-55); ALBUMIN 4.3 GM/DL (3.2-4.5); ALKALINE PHOSPHATASE 156 U/L (40-136); BILIRUBIN,TOTAL 0.1 MG/DL (0.1-1.0); BUN/CREATININE RATIO 11; CALCIUM 10.2 MG/DL (8.5-10.1); CARBON DIOXIDE 22 MMOL/L (21-32); CHLORIDE 111 MMOL/L (98-107); CREATININE SERUM 0.89 MG/DL (0.60-1.30); GFR ESTIMATED > 60; GLUCOSE 123 MG/DL (70-105); POTASSIUM 4.2 MMOL/L (3.6-5.0); SODIUM 143 MMOL/L (135-145); TOTAL PROTEIN 7.6 GM/DL (6.4-8.2)
== END 2018-04-28 | disposition home or self-care (01) ==
LOC: ONC 09:13
PROVIDERS: ATTEND Internal Medicine Hematology & Oncology
DX: R58 Hemorrhage, not elsewhere classified (principal); N96 Recurrent pregnancy loss; F17.210 Nicotine dependence, cigarettes, uncomplicated; I69.398 Other sequelae of cerebral infarction; Z86.2 Personal history of diseases of the blood and blood-forming organs and certain disorders involving the immune mechanism; Z90.710 Acquired absence of both cervix and uterus; Z79.84 Long term (current) use of oral hypoglycemic drugs; Z79.899 Other long term (current) drug therapy
CPT/HCPCS: 36415; 80053; 82728; 83540; 85025; 99213; 99214

== ENCOUNTER 2018-07-15 09:29 | Outpatient (RCR) | payer MEDICAID ==
[~2018-07-15 09:29] MED LIST changes: +RIVA2.5T PO; -[UNRECOGNIZED DRUG - CODE] PO
[2018-07-15 10:26] LABS: BASOPHILS % (AUTO) 0 % (0-10); EOSINOPHILS # (AUTO) 0.2 10^3/uL (0.0-0.3); EOSINOPHILS % (AUTO) 2 % (0-10); HEMATOCRIT 38 % (35-52); HEMOGLOBIN 12.5 G/DL (11.5-16.0); LYMPHOCYTES # (AUTO) 2.8 X 10^3 (1.0-4.0); LYMPHOCYTES % (AUTO) 30 % (12-44); MEAN CORPUSCULAR HEMOGLOBIN 28 PG (25-34); MEAN CORPUSCULAR HGB CONC 33 G/DL (32-36); MEAN CORPUSCULAR VOLUME 85 FL (80-99); MEAN PLATELET VOLUME 10.9 FL (7.4-10.4); MONOCYTES # (AUTO) 0.7 X 10^3 (0.0-1.0); MONOCYTES % (AUTO) 8 % (0-12); NEUTROPHILS # (AUTO) 5.6 X 10^3 (1.8-7.8); NEUTROPHILS % (AUTO) 60 % (42-75); PLATELET COUNT 312 10^3/uL (130-400); RED CELL DISTRIBUTION WIDTH 16.5 % (10.0-14.5); WHITE BLOOD COUNT 9.3 10^3/uL (4.3-11.0)
[2018-07-15 10:46] LABS: ALANINE AMINOTRANSFERASE 17 U/L (0-55); ALBUMIN 4.4 GM/DL (3.2-4.5); ALKALINE PHOSPHATASE 160 U/L (40-136); BILIRUBIN,TOTAL 0.2 MG/DL (0.1-1.0); BUN/CREATININE RATIO 11; CALCIUM 9.4 MG/DL (8.5-10.1); CARBON DIOXIDE 19 MMOL/L (21-32); CHLORIDE 107 MMOL/L (98-107); CREATININE SERUM 0.85 MG/DL (0.60-1.30); GFR ESTIMATED > 60; GLUCOSE 83 MG/DL (70-105); POTASSIUM 3.5 MMOL/L (3.6-5.0); SODIUM 140 MMOL/L (135-145); TOTAL PROTEIN 7.9 GM/DL (6.4-8.2)
== END 2018-10-13 | disposition home or self-care (01) ==
LOC: ONC 09:29
PROVIDERS: ATTEND Internal Medicine Hematology & Oncology
DX: R58 Hemorrhage, not elsewhere classified (principal); Z86.2 Personal history of diseases of the blood and blood-forming organs and certain disorders involving the immune mechanism; N96 Recurrent pregnancy loss; G43.909 Migraine, unspecified, not intractable, without status migrainosus; M79.7 Fibromyalgia; F17.210 Nicotine dependence, cigarettes, uncomplicated; I69.398 Other sequelae of cerebral infarction; Z90.710 Acquired absence of both cervix and uterus; Z79.84 Long term (current) use of oral hypoglycemic drugs; Z79.899 Other long term (current) drug therapy
CPT/HCPCS: 36415; 80053; 85025; 99213

== ENCOUNTER 2018-08-09 09:57 | Outpatient (RCR) | payer MEDICAID ==
[2018-10-25] MEDS ORDERED: MIRT15TA6 PO (09:01)
[2018-10-25] MEDS ORDERED: TOPI50TA13 PO ×2 (09:01→09:03)
[2018-10-25] MEDS ORDERED: PREG200C PO (09:01)
[2018-10-25] MEDS ORDERED: ASPI-808 PO (09:03)
== END 2018-11-07 | disposition home or self-care (01) ==
LOC: CARD 09:57
PROVIDERS: ATTEND Family Medicine
DX: R00.2 Palpitations (principal); R07.9 Chest pain, unspecified
CPT/HCPCS: 93225; 93226

== ENCOUNTER 2018-10-14 09:49 | Outpatient (RCR) | payer MEDICAID ==
[2018-10-14 11:20] LABS: BASOPHILS # (AUTO) 0.1 10^3/uL (0.0-0.1); BASOPHILS % (AUTO) 1 % (0-10); EOSINOPHILS # (AUTO) 0.3 10^3/uL (0.0-0.3); EOSINOPHILS % (AUTO) 3 % (0-10); HEMATOCRIT 42 % (35-52); HEMOGLOBIN 14.1 G/DL (11.5-16.0); LYMPHOCYTES # (AUTO) 2.8 X 10^3 (1.0-4.0); LYMPHOCYTES % (AUTO) 31 % (12-44); MEAN CORPUSCULAR HEMOGLOBIN 30 PG (25-34); MEAN CORPUSCULAR HGB CONC 33 G/DL (32-36); MEAN CORPUSCULAR VOLUME 90 FL (80-99); MEAN PLATELET VOLUME 11.9 FL (7.4-10.4); MONOCYTES # (AUTO) 0.4 X 10^3 (0.0-1.0); MONOCYTES % (AUTO) 5 % (0-12); NEUTROPHILS # (AUTO) 5.4 X 10^3 (1.8-7.8); NEUTROPHILS % (AUTO) 60 % (42-75); PLATELET COUNT 306 10^3/uL (130-400); RED CELL DISTRIBUTION WIDTH 16.6 % (10.0-14.5); WHITE BLOOD COUNT 8.9 10^3/uL (4.3-11.0)
[2018-10-14 11:38] LABS: ALANINE AMINOTRANSFERASE 21 U/L (0-55); ALBUMIN 4.6 GM/DL (3.2-4.5); ALKALINE PHOSPHATASE 139 U/L (40-136); BILIRUBIN,TOTAL 0.2 MG/DL (0.1-1.0); BUN/CREATININE RATIO 10; CALCIUM 9.4 MG/DL (8.5-10.1); CARBON DIOXIDE 18 MMOL/L (21-32); CHLORIDE 111 MMOL/L (98-107); CREATININE SERUM 0.82 MG/DL (0.60-1.30); GFR ESTIMATED > 60; GLUCOSE 69 MG/DL (70-105); POTASSIUM 4.1 MMOL/L (3.6-5.0); SODIUM 139 MMOL/L (135-145); TOTAL PROTEIN 8.1 GM/DL (6.4-8.2)
[2018-10-25] MEDS ORDERED: TOPI50TA13 PO ×2 (09:01→09:03)
[2018-10-25] MEDS ORDERED: PREG200C PO (09:01)
[2018-10-25] MEDS ORDERED: MIRT15TA6 PO (09:01)
[2018-10-25] MEDS ORDERED: ASPI-808 PO (09:03)
== END 2019-01-12 | disposition home or self-care (01) ==
LOC: ONC 09:49
PROVIDERS: ATTEND Internal Medicine Hematology & Oncology
DX: R58 Hemorrhage, not elsewhere classified (principal); Z86.2 Personal history of diseases of the blood and blood-forming organs and certain disorders involving the immune mechanism; N96 Recurrent pregnancy loss; G43.909 Migraine, unspecified, not intractable, without status migrainosus; M79.7 Fibromyalgia; F17.210 Nicotine dependence, cigarettes, uncomplicated; I69.398 Other sequelae of cerebral infarction; Z90.710 Acquired absence of both cervix and uterus; Z79.84 Long term (current) use of oral hypoglycemic drugs; Z79.899 Other long term (current) drug therapy
CPT/HCPCS: 36415; 80053; 82728; 83540; 85025; 99213

== ENCOUNTER 2018-10-25 09:00 | Outpatient (CLI) | payer MEDICAID ==
[~2018-10-25] VITALS: Ht 157.5 cm; Wt 95.7 kg
[2018-10-25] MEDS ORDERED: TOPI50TA13 PO ×2 (09:01→09:03)
[2018-10-25] MEDS ORDERED: PREG200C PO (09:01)
[2018-10-25] MEDS ORDERED: MIRT15TA6 PO (09:01)
[2018-10-25] MEDS ORDERED: ASPI-808 PO (09:03)
== END 2018-10-25 10:04 | disposition home or self-care (01) ==
LOC: PREOP 09:00
PROVIDERS: ATTEND Surgery
DX: Z01.818 Encounter for other preprocedural examination (principal)

== ENCOUNTER 2018-10-26 13:27 | Day surgery (SDC) | payer MEDICAID ==
[~2018-10-26] VITALS: Ht 157.5 cm; Wt 95.7 kg
[~2018-10-26 13:27] MED LIST changes: +LACTATED RINGERS 1,000 ML IV ONE; +MIRT15TA6 PO; +PREG200C PO; +TOPI50TA13 PO
--- NOTE | 2018-10-26 13:53 | Progress Note-Pre Operative ---
Pre-Operative Progress Note H&P Reviewed The H&P was reviewed, patient examined and no changes noted. Date Seen by Provider: Oct 26, 2018 Time Seen by Provider: 13:53 Date H&P Reviewed: Oct 26, 2018 Time H&P Reviewed: 13:53 Pre-Operative Diagnosis: epigastric abd pain, n/v BRISEYDA CARBAJAL DO Oct 26, 2018 13:53
[2018-10-26] MEDS ORDERED: LACTATED RINGERS 1,000 ML IV STA (14:04)
[2018-10-26] MEDS ORDERED: HURRICAINE EXT TUBE (BENZOCAINE) XX PRN (14:15)
[2018-10-26 14:20] VITALS: BP 133/89
[2018-10-26] MEDS ORDERED: proPOfol 200 MG/20 ML (DIPRIVAN) VIAL IV ONE (14:47)
[2018-10-26] MEDS ORDERED: MIDAZOLAM 2 MG/2 ML (VERSED) VIAL ONE (14:47)
[2018-10-26 15:15] VITALS: BP 110/58
--- NOTE | 2018-10-26 15:20 | Discharge Inst-Simple/Standard ---
Discharge Inst-Standard Patient Instructions/Follow Up Plan of Care/Instructions/FU: 2 weeks Theron Activity as Tolerated: Yes Discharge Diet: Regular Diet (gastritis diet) BRISEYDA CARBAJAL DO Oct 26, 2018 15:20
--- NOTE | 2018-10-26 15:21 | Progress Note-Post Operative ---
Post-Operative Progess Note Surgeon (s)/International Nurse (s) Surgeon BRISEYDA CARBJAAL DO International Nurse: na Pre-Operative Diagnosis epigastric abd pain, n/v Post-Operative Diagnosis gastritis/ small hiatal hernia Procedure & Operative Findings Date of Procedure 10/26/18 Procedure Performed/Findings egd c biopsies Anesthesia Type per waiter/waitress bar Estimated Blood Loss Estimated blood loss (mL): none Specimens/Packing Specimens Removed antrum, body, ge BRISEYDA CARBAJAL DO Oct 26, 2018 15:21
[2018-10-26 15:25] VITALS: BP 115/64
[2018-10-26 15:30] VITALS: BP 115/64
[2018-10-26 16:00] VITALS: BP 125/68
--- NOTE | 2018-10-27 00:02 | OPERATIVE REPORT ---
DATE OF SERVICE: 10/26/2018 PREOPERATIVE DIAGNOSES: Nausea, vomiting, epigastric abdominal pain. POSTOPERATIVE DIAGNOSES: Small hiatal hernia and some gastritis. PROCEDURE: EGD with biopsy. SURGEON: Briseyda Crump DO ANESTHESIA: Per PRACTICE LEAD. ESTIMATED BLOOD LOSS: None. COMPLICATIONS: None. INDICATIONS: The patient is a 28-year-old female with epigastric abdominal pain and nausea and vomiting. She understands risks and benefits of procedure and wished to proceed with procedure. Consent was signed in the chart. DESCRIPTION OF PROCEDURE: The patient was taken to the endoscopy suite, placed in left lateral recumbent position. Timeout was performed. Scope was inserted in mouth, down the esophagus, stomach and into the duodenum without difficulty. There were no polyps, masses or ulcerations within the duodenum. Scope was slowly retracted back into the stomach where it was further insufflated. Slight erythematous changes throughout the stomach suggestive of some slight gastritis. Biopsy of the antrum and body were obtained. Scope was retroflexed noting small hiatal hernia, no other pathology noted. Scope was returned to its normal position, slowly withdrawn to the distal esophagus where biopsy of the GE junction was obtained. Scope was then slowly retracted back until completely removed noting no other pathology. The patient tolerated procedure well without any complications. She was taken to recovery room in stable condition. RECOMMENDATIONS: The patient will follow up on biopsy results in 2 weeks. We will not make any changes currently. We will await biopsies recommendations. Job ID: [id number] DocumentID: [id number] Dictated Date: 10/26/2018 15:28:59 Inventory Planner Date: 10/27/2018 00:01:52 Dictated By: BRISEYDA CRUMP DO
== END 2018-10-26 16:15 | disposition home or self-care (01) ==
LOC: ENDO 13:27
PROVIDERS: ATTEND Surgery
DX: K29.50 Unspecified chronic gastritis without bleeding (principal); K31.89 Other diseases of stomach and duodenum; K44.9 Diaphragmatic hernia without obstruction or gangrene; K21.9 Gastro-esophageal reflux disease without esophagitis; B96.81 Helicobacter pylori [H. pylori] as the cause of diseases classified elsewhere; I20.9 Angina pectoris, unspecified; J45.909 Unspecified asthma, uncomplicated; E78.5 Hyperlipidemia, unspecified; G43.909 Migraine, unspecified, not intractable, without status migrainosus; M79.7 Fibromyalgia; F43.10 Post-traumatic stress disorder, unspecified; F32.9 Major depressive disorder, single episode, unspecified; F41.9 Anxiety disorder, unspecified; Z86.718 Personal history of other venous thrombosis and embolism; Z86.73 Personal history of transient ischemic attack (TIA), and cerebral infarction without residual deficits; Z90.49 Acquired absence of other specified parts of digestive tract; Z88.5 Allergy status to narcotic agent; Z88.2 Allergy status to sulfonamides; Z88.8 Allergy status to other drugs, medicaments and biological substances; Z88.1 Allergy status to other antibiotic agents; Z87.891 Personal history of nicotine dependence; Z91.040 Latex allergy status; Z79.84 Long term (current) use of oral hypoglycemic drugs; Z79.82 Long term (current) use of aspirin; Z79.899 Other long term (current) drug therapy
CPT/HCPCS: 88305; 88342

== ENCOUNTER → 2019-04-19 | Outpatient (CLI) | payer SELFPAY ==
[~2019-04-19] MED LIST changes: +CATHETER FLUSH 10 ML SYR IV PRN; +HOLD METFORMIN - RECEIVED CONTRAST 20 ML VIAL IV SCH; +IOHEXOL 350 MG/ML 100 ML (OMNIPAQUE 350) VIAL IV ONE; -LACTATED RINGERS 1,000 ML IV ONE; -NORT10CA PO; +NRT10C PO; +NS 100 ML (IVPB) BAG IV ONE; -TRAM50TA2 PO
--- NOTE | 2019-04-19 15:17 | Diagnostic Imaging Report ---
PROCEDURE: CT abdomen and pelvis with and without contrast. TECHNIQUE: Precontrast acquisitions were acquired through the abdomen and pelvis. Multiple contiguous axial images were obtained through the abdomen and pelvis after the administration of intravenous contrast. Auto Exposure Controls were utilized during the CT exam to meet ALARA standards for radiation dose reduction. DATE: April 19, 2019. COMPARISON: CT pelvis January 26, 2018. CT abdomen/pelvis August 20, 2012. INDICATION: 28-year-old female, abdominal pain, nausea, vomiting. FINDINGS: The visualized portions of the lung bases are clear. The heart is not enlarged. There is no identified pericardial effusion. The liver is normal in size and contour. There is no identified liver lesion. The main, right, and left portal veins are patent. The patient is status post cholecystectomy. There is no biliary ductal dilation. The main pancreatic duct is not abnormally dilated. 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 This is best illustrated on axial image 36 and adjacent sequential images. Additional pancreatic parenchymal evaluation is unremarkable. The spleen is normal in size. The adrenal glands are unremarkable. Unremarkable appearance of the renal parenchyma. The urinary collecting systems are not distended. There is no identified renal or ureteral stone. The urinary bladder is unremarkable. The intestinal tract is not distended. There is no free intraperitoneal air. There is no drainable fluid collection. There is no evidence to suggest acute appendicitis. There is a very small fat-containing umbilical hernia. There is no identified abnormally enlarged lymph node in the abdomen or pelvis which meets CT size criteria for adenopathy. There is no acute bony abnormality. IMPRESSION: 1. 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 2. No identified acute abnormality in the abdomen or pelvis. Dictated by: Dictated on workstation # [id number]
== END ==
LOC: RAD 13:45
PROVIDERS: ATTEND Surgery
DX: Q45.1 Annular pancreas (principal)
CPT/HCPCS: 74178

== ENCOUNTER → 2020-06-22 | Outpatient (CLI) | payer MEDICAID, MEDICARE ==
[~2020-06-22] MED LIST changes: -CATHETER FLUSH 10 ML SYR IV PRN; -HOLD METFORMIN - RECEIVED CONTRAST 20 ML VIAL IV SCH; -IOHEXOL 350 MG/ML 100 ML (OMNIPAQUE 350) VIAL IV ONE; -NS 100 ML (IVPB) BAG IV ONE
--- NOTE | 2020-06-22 13:47 | Diagnostic Imaging Report ---
Clinical Indications: Patient with nausea and vomiting. Comparison: CT scan of the abdomen and pelvis with and without contrast dated 04/19/2019. Procedure: Solid Gastric emptying study After oral ingestion of 1.02 millicuries of technetium 99M sulfur colloid, mixed with scrambled egg, sequential imaging of the abdomen is performed. Computer analysis is performed and gastric emptying curves are calculated. Findings: There is gastric emptying demonstrated with sequential imaging. The residual retained gastric activity: 1 hour: 34% (less than 30% equals rapid and greater than 90% equals delayed) 2 hours: 13% (greater than 60% represents abnormally delayed) 3 hours: 3% (greater than 30% represents abnormally delayed) 4 hours: 1% (greater than 10% represents abnormally delayed) Impression: Normal gastric emptying study. Dictated by: Dictated on workstation # [id number]
== END ==
LOC: CARD 09:00
PROVIDERS: ATTEND Surgery
DX: R11.2 Nausea with vomiting, unspecified (principal)
CPT/HCPCS: 78264; A9541